=== PATIENT | female | born 1955 | race Caucasian/White ===

== ENCOUNTER 2024-11-05 14:35 | Outpatient (CLI) | payer OTHER, MEDICAID, SELFPAY ==
--- NOTE | ~2024-11-05 | XR_ITS ---
XR lumbar spine 2-3V 11/05/2024 15:11 Indication: Radiculopathy Procedure: 3 views lumbar spine Comparison: No prior studies for comparison. Findings: There is levoscoliosis centered at L3. There is disc narrowing at all lumbar levels. No acute fracture, subluxation or dislocation. There is advanced multilevel facet hypertrophy with grade 1 degenerative spondylolisthesis at L4- 5. There are cholecystectomy clips. Impression: 1: Severe lumbar spondylosis with levoscoliosis. Reviewed, dictated and finalized at location A. Impression: 1: Severe lumbar spondylosis with levoscoliosis.
--- NOTE | ~2024-11-05 | XR_ITS ---
XR thoracic spine 3V 11/05/2024 15:11 Indication: Radiculopathy. Procedure: 3 views thoracic spine Comparison: No prior studies for comparison. Findings: There is moderate multilevel thoracic spondylosis. There is dextroscoliosis. There are cholecystectomy clips. There are changes in the left upper abdomen suggesting gastric bypass surgery. No acute fracture, subluxation or dislocation. No paraspinal soft tissue abnormality. Impression: 1: Moderate thoracic spondylosis with dextrocurvature of the thoracic spine. Reviewed, dictated and finalized at location A. Impression: 1: Moderate thoracic spondylosis with dextrocurvature of the thoracic spine.
--- NOTE | ~2024-11-05 | XR_ITS ---
EXAM/ PROCEDURE: [id number] - 11/05/2024 15:00 CDT HISTORY: 69 years old Female with RADICULOPATHY-CER, LUMB, THOR REGION COMPARISON: None available TECHNIQUE: Three view(s) FINDINGS/ IMPRESSION: There are no fractures or dislocations.Multilevel degenerative changes are seen. Visualized portion of lungs are clear. Intact cervical fusion hardware. Reviewed, dictated and finalized at location A.
--- OUTSIDE RECORDS SUMMARY | 2024-11-05 15:02 | XMS_ITS | Clinical Summary ---
Author Organization [facility] Address [address] [place] [address] Care Team Providers Care Swatch Paster Name Role Phone Rob Chavez MD Primary Care Provider Allergies No known active allergies Medications acetaminophen (TYLENOL) 500 mg tabletIndicati ons:Pain Take 1-2 tablets (500-1,000 mg total) by mouth every 6 (six) hours as needed for pain (1 tablet for mild to moderate pain. 2 tablets for severe pain) 30 tablet 01/18/20 22 Active losartan (COZAAR) 100 mg tablet Take 1 tablet (100 mg total) by mouth daily Active FeroSuL 325 mg (65 mg iron) tablet Take 1 tablet (325 mg total) by mouth 2 (two) times a day Active simvastatin (ZOCOR) 40 mg tablet Take 1 tablet (40 mg total) by mouth nightly Active gabapentin (NEURONTIN) 300 mg capsule Take 2 capsules (600 mg total) by mouth 3 (three) times a day Active HYDROcodone-ac etaminophen (NORCO) 10-325 mg per tablet Take 1 tablet by mouth every 4 (four) hours as needed Active mirtazapine (REMERON) 7.5 mg tablet mirtazapine 7.5 mg tablet TAKE 1 TABLET BY MOUTH EVERY DAY AT BEDTIME Active cyanocobalamin (Vitamin B-12) 1,000 mcg tablet Take 1 tablet (1,000 mcg total) by mouth 2 (two) times a day Active ergocalciferol , vitamin D2, 50 mcg (2,000 unit) tablet Take 50,000 Units by mouth once a week 09/25/19 21 Active Coreg 6.25 mg tablet Take 1 tablet (6.25 mg total) by mouth 2 (two) times a day with meals 04/03/19 25 Active rOPINIRole (REQUIP) 0.25 mg tablet TAKE 2 TABLETS PO EVERY NIGHT AT BEDTIME IF PAIN NOT CONTROLLED 60 tablet 5 10/25/19 25 Active rOPINIRole (REQUIP) 0.25 mg tablet Take one tablet one hour before bedtime for one week, then 2 tablets before bedtime if pain is not controlled. 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 Gender Identity Not on file Sexual Orientation Not on file Obstetrics History Last Filed Vital Signs Vital Sign Reading Time Taken Comments Blood Pressure 151/74 06/13/2024 10:48 AM CDT Pulse 61 06/13/2024 10:48 AM CDT Temperature 36.4 C (97.5 F) 01/17/2022 10:18 AM CDT Respiratory Rate 18 01/17/2022 10:18 AM CDT Oxygen Saturation 99% 06/13/2024 10:48 AM CDT Inhaled Oxygen Concentration - - Weight 52.6 kg (116 lb) 06/13/2024 10:48 AM CDT Height 157.5 cm (5' 2) 06/13/2024 10:48 AM CDT Body Mass Index 21.22 06/13/2024 10:48 AM CDT Plan of Treatment Health Maintenance Due Date Last Done Comments Breast Cancer Screening-Mammogram 1955 Colon Cancer Screening-Colonoscopy 1955 Depression Screening 1953 Fall Risk Assessment 1953 Hepatitis C Screening 1953 Osteoporosis Screening-Bone Density Scan 1955 Hepatitis B Screening 07/12/1971 Zoster Vaccine (1 of 2) 07/12/2003 Well Visit 65+ 2018 Covid-19 Vaccine (5 - 2023-2 5 season) 2023 11/12/2021, 03/01/2021, 06/15/2020, Additional history exists Influenza Vaccine (#1) 2024 , 02/01/2021, 02/04/2020, Additional history exists DTaP/Tdap/Td Vaccine (2 - Td or Tdap) 06/09/2031 06/08/2021 Pneumococcal vaccine 65+ Completed 022, 02/04/2020, 01/02/2015 Insurance MEDICARE [facility] MEDICARE IDPA IDPA Care Teams Swatch Paster Relationship Specialty Start Date End Date Rob Chavez MD [address] [place] [id number] PCP - General Gastroenterology 03/08/24
--- OUTSIDE RECORDS SUMMARY | 2024-11-05 15:02 | XMS_ITS | Clinical Summary ---
Author Organization [facility] Address [address] [facility] [place] [address] Care Team Providers Care Green Marketing Analyst Name Role Phone Deep Morris MD Unavailable Rob Chavez MD Primary Care Provider [phone] Med Morel MD Unavailable [phone] Source Comments [facility],non-owned Affiliates and Associated Physician Practices is amultiple site organization consisting of ambulatory clinics and hospital sitesin [place], [place], [place] and [place]. This disclosure is being madepursuant to the Care Everywhere program and may not contain all information available regarding this patient. Last updated 17.[facility] Allergies No known active allergies Medications * Be aware that medications may not be up to date on this document. Alwaysverify current medications with the patient. simvastatin (ZOCOR) 40 MG tablet Take 1 (one) tablet by mouth at bedtime Active losartan (COZAAR) 100 MG tablet Take 1 (one) tablet by mouth once daily Active linaCLOtide (Linzess) 145 MCG capsule Take 2 (two) capsules by mouth daily before breakfast Take on an empty stomach at least 30 minutes prior to first meal of the day. Active gabapentin (NEURONTIN) 600 MG tablet Take 0.5 (one-half) tablet by mouth 3 times daily Active omeprazole (PRILOSEC) 20 MG capsule Take 1 (one) capsule by mouth daily before breakfast Active metoprolol succinate XL 24hr (TOPROL XL) 25 MG tablet TK 1 T PO QD 0 01/26/20 17 Active vitamin D, ergocalciferol, (DRISDOL) 60728 UNITS capsuleIndications: Cervicalgia,Neural foraminal stenosis of cervical spine,DDD (degenerative disc disease), cervical,S/P cervical spinal fusion,Aftercare following surgery of the musculoskeletal system every 7 days ON Fridays04/28/19 18 Active ferrous sulfate 325 (65 FE) MG tablet Take 1 (one) tablet by mouth daily with breakfast Active umeclidinium-vilant leanne (Anoro Ellipta) 62.5-25 MCG/ACT inhaler INHALE 1 PUFF BY MOUTH EVERY DAY DIRECTED Active cyanocobalamin (Vitamin B-12) 1000 MCG tablet Take 1 (one) tablet by mouth 2 times daily, before breakfast and supper 01/22/20 22 Active fluticasone propionate (Flonase Allergy Relief) 50 MCG/ACT nasal spray [place] 1 spray every day by intranasal route. 09/23/19 23 Active multivitamin daily tablet Take 1 (one) tablet by mouth daily with food Active mirtazapine (Remeron) 15 MG tablet Take 1 (one) tablet by mouth at bedtime Active HYDROcodone-acetami nophen ([place]) 10-325 MG tabletIndications:S /P lumbar laminectomy Take 2 (two) tablets by mouth every 4 hours as needed 12 tablet 11/23/19 23 Active dexAMETHasone (Decadron) 1 MG tablet Take 4 (four) tablets by mouth 3 times daily for 3 days, THEN 2 (two) tablets 3 times daily for 2 days, THEN 2 (two) tablets 2 times daily for 2 days, THEN 1 (one) tablet 2 times daily for 2 days, THEN 1 (one) tablet once daily for 2 days. 62 tablet 01/25/20 23 Active tiZANidine (Zanaflex) 4 MG tablet Take 1 (one) tablet by mouth every 8 hours as needed for Muscle Spasms (right foot stiffness) 30 tablet 1 01/25/20 23 Active Additional Information Patient not taking.Reported on 04/11/2023 Active Problems Problem Noted Date Diagnosed Date Chronic bilateral low back pain with bilateral s ciatica 11/17/2022 Cervicalgia 04/28/2022 S/P cervical spinal fusion 12/08/2016 Neural foraminal stenosis of cervical spine 11/19 Foraminal stenosis of lumbar region 11/04/2011 Family History Medical History Relation Name Comments Arthritis - Osteo Brother 1 COPD - Chronic Obstructive Pulmonary Disease Brother 1 Cancer Brother 1 Diabetes - Type 1 Brother 1 High Cholesterol Brother 1 Hypertension Brother 1 Other Brother 1 Heart Failure Alzheimer's Disease Father Arthritis - Osteo Father Hypertension Father Other Father Heart Failure,H ypercholesterolemia, Stroke Arthritis - Osteo Mother CAD (Coronary Artery Disease) Mother Diabetes - Type 2 Mother Hypertension Mother Migraine Mother Other Mother Heart Failure, Hypercholesterolemia Arthritis - Rheumatoid Sister High Cholesterol Sister Hypertension Sister Migraine Sister Relation Name Status Comments Brother 1 Brother 2 Alive Brother 3 Father Mother Sister Alive Social History Tobacco Use Types Packs/Day Years Used Date Smoking Tobacco: Former Cigarettes 0.5 58.6 1 965 - 11/06/2022 Smokeless Tobacco: Never Tobacco Cessation:Ready to Q uit: Not Asked; Counseling Given: Not Answered Alcohol Use Standard Drinks/Week Comments Not Currently 0 (1 standard drink = 0.6 oz pur e alcohol) AUDIT-C Answer Date Recorded Q1: How often do you have a drink containing alcohol? Never 11/17/2022 Q2: How many drinks containi ng alcohol do you have on a typical day when you are drinking? Patient does not drink Q3: How often do you have si x or more drinks on one occasion? Never 11/17/2022 Overall Financial Resource Strain (CARDIA) Answe r Date Recorded How hard is it for you to pa y for the very basics like food, housing, medical care, and heating? Not hard at all 11/20/2022 [facility] - Occupational Stress Questionnaire Answer Date Recorded Do you feel stress - tense, restless, nervous, or anxious, or unable to sleep at night because your mind is troubled all the time - these days? Not at all 11/20/2022 Hunger Vital Sign Answer Date Recorded Within the past 12 months, y ou worried that your food would run out before you got the money to buy more. Never true 11/21/19 23 Within the past 12 months, t he food you bought just didn't last and you didn't have money to get more. Never true 11/20/2022 PRAPARE - Transportation Answer Date Re corded In the past 12 months, has l ack of transportation kept you from medical appointments or from getting medications? No 05/2022 In the past 12 months, has l ack of transportation kept you from meetings, work, or from getting things needed for daily living? No 11/20/2022 Housing Stability Vital Sign Answer Elvis e Recorded In the last 12 months, was t here a time when you were not able to pay the mortgage or rent on time? No 11/20/2022 In the last 12 months, how many places have you lived? 1 11/20/2022 In the last 12 months, was t here a time when you did not have a steady place to sleep or slept in a skilled nursing (including now)? 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 Gender Identity Not on file Sexual Orientation Not on file Occupation Industry Job Start Date Job End Date Retired Not on file Not on file Not on file Last Filed Vital Signs Vital Sign Reading Time Taken Comments Blood Pressure 130/80 02/19/2023 9:04 PM RESOURCE CONSERVATIONIST Pulse 70 02/19/2023 9:04 PM RESOURCE CONSERVATIONIST Temperature 37 C (98.6 F) 02/19/2023 9:04 PM RESOURCE CONSERVATIONIST Respiratory Rate 16 02/19/2023 9:04 PM RESOURCE CONSERVATIONIST Oxygen Saturation 99% 02/19/2023 9:04 PM RESOURCE CONSERVATIONIST Inhaled Oxygen Concentration - - Weight 59.9 kg (132 lb) 04/11/2023 12:00 PM RESOURCE CONSERVATIONIST Height 154.9 cm (5' 1) 04/11/2023 12:00 PM RESOURCE CONSERVATIONIST Body Mass Index 24.94 04/11/2023 12:00 PM RESOURCE CONSERVATIONIST Plan of Treatment Health Maintenance Due Date Last Done Comments BONE DENSITY TESTING 1955 COLOGUARD (AGES 45-75) - COLON CA SCREENING 1953 COLON MONITORING 1953 COLONOSCOPY - COLON CA SCREENING 1953 CT COLONOGRAPHY - COLON CA SCREENING 1953 Colorectal Cancer Screening 1953 FIT - COLON CA SCREENING 1953 FLEX SIG - COLON CA SCREENING 1953 MAMMOGRAM 1955 MEDICARE AWV 12 MONTHS 1953 HEPATITIS C SCREENING 07/07/1971 DTAP/TDAP/TD VACCINES (1 - Tdap) 1972 LUNG CANCER SCREENING 07/12/2003 PNEUMOCOCCAL VACCINE 50+ (1 of 1 - PCV) 07/12/2003 ZOSTER VACCINE (1 of 2) 07/12/2003 COVID-19 VACCINE (3 - season) 2023 06/15/2020, 05/16/2020 DEPRESSION SCREENING 03/20/2024 INFLUENZA VACCINE (#1) 2024 , 12/11/2018, 12/01/2016, Additional history exists Respiratory Syncytial Virus (RSV) Vaccine Pt: or over 60 yrs (1 - 1-dose 75+ series) 2028 HEPATITIS B VACCINE Aged Out No longe r eligible based on patient's age to complete this topic HIB VACCINE Aged Out No longer eligi ble based on patient's age to complete this topic HPV VACCINE Aged Out No longer eligi ble based on patient's age to complete this topic MENINGOCOCCAL (Group B) VACCINE SHARED DECISION-MAKING Aged Out No longer eligible based on patient's age to complete this topic MENINGOCOCCAL GROUPS A/C/Y/W VACCINE Aged Out No longer eligible based on patient's age to complete this topic Medical Devices Implanted Type Area Iuss Analyst Device Identifier Shelf Expiration Date Model / Serial / Lot Spcr Spnl [id number] [facility] Crv Intbdy Implanted:Qty: 1 on 12/08/2016 by Moisés Londono MD at [facility] Spine Cervical [employer] 384.308 / / Screw 3.6mm 16mm Spne Slfdrl [place] Bone Implanted:Qty: 2 on 12/08/2016 by Moisés Londono MD at [facility] Spine Cervical [employer] 184.156 / / Sub Bngf Progenix Dbm Bvn Clgn Ptty 1ml Implanted:Qty: 1 on 12/08/2016 by Moisés Londono MD at [facility] Spine Cervical Spinal [employer] [id number] / / [id number] Sub Bngf Vitoss Btcp Clgn Void Rusty Fm Pk Implanted:Qty: 1 on 04/28/2022 by Moisés Londono MD at [facility] N/A: Spine Cervical [employer] 09/15/2023 [id number] / / [id number] Description:c4-5 Spcr Spnl 16x9mm Coalition 7d Lrdtc 14mm Implanted:Qty: 1 on 04/28/2022 by Moisés Londono MD at [facility] N/A: Spine Cervical [employer] 384.309 / / Screw 3.6mm 16mm Slfdrl [place] Spne Bone Implanted:Qty: 2 on 04/28/2022 by Moisés Londono MD at [facility] N/A: Spine Cervical [employer] 184.156 / / Insurance MEDICAID - [place] MEDICARE Advance Directives * Full Code (Latest Code Status on File) Date Activated Date Inactivated Comments 11/17/2022 11:44 AM 11/22/2022 8:12 PM * Full Code Date Activated Date Inactivated Comments 04/28/2022 4:26 PM 04/30/2022 3:51 PM * Full Code Date Activated Date Inactivated Comments 12/08/2016 6:02 PM 12/09/2016 2:44 PM Care Teams Green Marketing Analyst Relationship Specialty Start Date End Date Rob Chavez MD [address] [place], [place] [id number] PCP - General Gastroenterology 03/22/22 Deep Morris MD Neurological Surgery 11/02/11 Med Morel MD [address] [place] [address] Cardiology 04/08/22
--- OUTSIDE RECORDS SUMMARY | 2024-11-05 15:02 | XMS_ITS | Encounter Summary ---
Author Organization [facility] Address [address] [place] [address] Care Team Providers Care Rock Climbing Instructor Name Role Phone Deep Morris MD Unavailable [phone] Kip Camacho Primary Care Provider + Rob Chavez MD Primary Care Provider [phone] Med Morel MD Unavailable [phone] Encounter Details Date Type Department Care Team (Late st Contact Info) Description 05/23/2017 [facility]PT Unknown, Provider Social History Tobacco Use Types Packs/Day Years Used Date Smoking Tobacco: Former Cigarettes Q uit: 04/27/2016 Smokeless Tobacco: Never Alcohol Use Standard Drinks/Week Comments No 0 (1 standard drink = 0.6 oz pur e alcohol) Comments No Sex and Gender Information Value Date Recorded Sex Assigned at Not on file 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 Gender Identity Not on file Sexual Orientation Not on file Occupation Industry Job Start Date Job End Date Retired Not on file Not on file Not on file documented as of this encounter Plan of Treatment Not on file documented as of this encounter Visit Diagnoses Not on filedocumented in this encounter Care Teams Rock Climbing Instructor Relationship Specialty Start Date End Date Kip Camacho PA [facility] [place] [address] PCP - General Physician Promotions Assistant 11/17/16 03/21/22 Rob Chavez MD [address] [place], [place] [id number] PCP - General Gastroenterology 03/22/22 Deep Morris MD Neurological Surgery 11/02/11 Med Morel MD [address] [place] [address] Cardiology 04/08/22 documented as of this encounter
--- OUTSIDE RECORDS SUMMARY | 2024-11-05 15:02 | XMS_ITS | Encounter Summary ---
Author Organization [facility] Address [address] [place] [address] Care Team Providers Care Registered Nurse Obstetrics Name Role Phone Deep Morris MD Unavailable [phone] Kip Camacho Primary Care Provider + Rob Chavez MD Primary Care Provider [phone] Med Morel MD Unavailable [phone] Encounter Details Date Type Department Care Team (Late st Contact Info) Description 06/02/2017 [facility] Unknown, Provider Social History Tobacco Use Types Packs/Day Years Used Date Smoking Tobacco: Former Cigarettes Q uit: 04/27/2016 Smokeless Tobacco: Never Alcohol Use Standard Drinks/Week Comments No 0 (1 standard drink = 0.6 oz pur e alcohol) Comments No Sex and Gender Information Value Date Recorded Sex Assigned at Not on file 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 Gender Identity Not on file Sexual Orientation Not on file Occupation Industry Job Start Date Job End Date Retired Not on file Not on file Not on file documented as of this encounter Plan of Treatment Not on file documented as of this encounter Visit Diagnoses Not on filedocumented in this encounter Care Teams Registered Nurse Obstetrics Relationship Specialty Start Date End Date Kip Camacho PA [facility] [place] [address] PCP - General Physician Personal Caregiver 11/17/16 03/21/22 Rob Chavez MD [address] [place], [place] [id number] PCP - General Gastroenterology 03/22/22 Deep Morris MD Neurological Surgery 11/02/11 Med Morel MD [address] [place] [address] Cardiology 04/08/22 documented as of this encounter
--- OUTSIDE RECORDS SUMMARY | 2024-11-05 15:02 | XMS_ITS | Clinical Summary ---
Author Organization [facility] Address [address] [address] Phone Care Team Providers Care Assistant Press Operator Name Role Phone Unavailable Primary Care Provider Unavailabl e Social History Tobacco Use Types Packs/Day Years Used Date Smoking Tobacco: Never Assessed Comments Unknown Sex and Gender Information Value Date Recorded Sex Assigned at Not on file Legal Sex Female 5:29 AM INTENSIVE CARE ANAESTHETIST Gender Identity Not on file Sexual Orientation Not on file Plan of Treatment Health Maintenance Due Date Last Done Comments DTAP/TDAP/TD VACCINES (1 - Tdap) 1972 BREAST CANCER SCREENING 1993 COLORECTAL SCREENING 1998 Colorectal Cancer Screening 1998 FIT-DNA Q 3 years 1998 FIT/FOBT Q 1 year 1998 Flex Sig/CT Colonography Q 5 years 1998 PNEUMOCOCCAL VACCINE 50+ YEARS (1 of 1 - PCV) 07/12/19 04 ZOSTER VACCINE (1 of 2) 07/12/2003 OSTEOPOROSIS SCREENING 2018 INFLUENZA VACCINE (#1) 2024 RSV VACCINE (60+ or ) (1 - 1-dose 75+ series) 2028 Insurance MEDICARE PART A [place] B [place]ID [place]
--- OUTSIDE RECORDS SUMMARY | 2024-11-05 15:02 | XMS_ITS | Encounter Summary ---
Author Organization [employer] Address [address] [place] [address] Care Team Providers Care Nuclear Operations Specialist Name Role Phone Unavailable Primary Care Provider Unavailabl e Encounter Details Date Type Department Care Team (Late st Contact Info) Description 03/05/2007 Outpatient Historical HIS INPATIENT IN BED Rosas Koo MD [address] [place] [address] Hernia Social History Tobacco Use Types Packs/Day Years Used Date Smoking Tobacco: Never Assessed Comments Unknown Sex and Gender Information Value Date Recorded Sex Assigned at Not on file Legal Sex Female 5:29 AM ENVIRONMENTAL ATTORNEY Gender Identity Not on file Sexual Orientation Not on file documented as of this encounter Plan of Treatment Not on file documented as of this encounter Procedures Procedure Name Priority Date/Time Associated Diagnosis Comments CBC WITH DIFFERENTIAL Routine 03/11/2007 5:30 AM ENVIRONMENTAL ATTORNEY CBC WITH DIFFERENTIAL Routine 03/11/2007 5:30 AM ENVIRONMENTAL ATTORNEY CBC WITH DIFFERENTIAL Routine 03/11/2007 5:30 AM ENVIRONMENTAL ATTORNEY CBC WITH DIFFERENTIAL Routine 03/10/2007 7:40 AM ENVIRONMENTAL ATTORNEY CBC WITH DIFFERENTIAL Routine 03/10/2007 7:40 AM ENVIRONMENTAL ATTORNEY CBC WITH DIFFERENTIAL Routine 03/10/2007 5:15 AM ENVIRONMENTAL ATTORNEY CBC WITH DIFFERENTIAL Routine 03/10/2007 5:15 AM ENVIRONMENTAL ATTORNEY CBC WITH DIFFERENTIAL Routine 03/09/2007 6:30 AM ENVIRONMENTAL ATTORNEY CBC WITH DIFFERENTIAL Routine 03/09/2007 6:30 AM ENVIRONMENTAL ATTORNEY BASIC METABOLIC PANEL Routine 03/09/2007 6:30 AM ENVIRONMENTAL ATTORNEY CBC WITH DIFFERENTIAL Routine 03/05/2007 12:54 PM ENVIRONMENTAL ATTORNEY CBC WITH DIFFERENTIAL Routine 03/05/2007 12:54 PM ENVIRONMENTAL ATTORNEY BASIC METABOLIC PANEL Routine 03/05/2007 12:54 PM ENVIRONMENTAL ATTORNEY documented in this encounter Results * (ABNORMAL) CBC WITH DIFFERENTIAL (03/11/2007 5:30 AM ENVIRONMENTAL ATTORNEY) Pathologist [facility] NEUTROPHIL ABSOLUTE 3.62 1.90 - 7.00 K/uL INTERFACE SYSTEM LYMPHOCYTE ABSOLUTE 1.62 0.70 - 4.50 K/uL INTERFACE SYSTEM MONOCYTE ABSOLUTE 0.05(L) 0.10 - 1.30 K/uL INTERFACE SYSTEM EOSINOPHIL ABSOLUTE 0.11 0.00 - 0.70 K/uL INTERFACE SYSTEM BASOPHILS ABSOLUTE 0.00 0.00 - 0.20 K/uL INTERFACE SYSTEM NEUTROPHILS, SEG 66 45 - 70 % INT ERFACE SYSTEM BANDS 1 0 - 5 % INTERFACE SYSTEM LYMPHOCYTES 30 16 - 45 % INTERFAC E SYSTEM MONOCYTES 1(L) 3 - 13 % INTERFACE SYSTEM EOSINOPHILS 2 0 - 7 % INTERFAC E SYSTEM BASOPHILS 0 0 - 2 % INTERFACE SYSTEM PLATELET EST. Normal Normal INTERF SAVITA SYSTEM RBC MORPHOLOGY Normal Normal INTER FACE SYSTEM 03/11/2007 5:30 AM ENVIRONMENTAL ATTORNEY Jez Caballero MD HEMATOLOGY ORDERABLES Edit ed Performing Organization Address [facility] Phone Number INTERFACE SYSTEM Refer to clinic/hospital department * CBC WITH DIFFERENTIAL (03/11/2007 5:30 AM ENVIRONMENTAL ATTORNEY) Pathologist [facility] NRBC 0 <=0 /100 WBC INTERFACE SYSTEM 03/11/2007 5:30 AM ENVIRONMENTAL ATTORNEY Jez Caballero MD HEMATOLOGY ORDERABLES Edit ed Performing Organization Address [facility] de Phone Number INTERFACE SYSTEM Refer to clinic/hospital department * (ABNORMAL) CBC WITH DIFFERENTIAL (03/11/2007 5:30 AM ENVIRONMENTAL ATTORNEY) WBC 5.4 4.0 - 9.8 K/uL INTERFACE SYSTEM RBC 3.48(L) 3.90 - 4.90 M/uL INTERFACE SYSTEM HEMOGLOBIN 10.4(L) 11.8 - 14.8 g/dL INTERFACE SYSTEM HEMATOCRIT 31.8(L) 35.5 - 44.0 % INTERFACE SYSTEM MCV 91.4 82.0 - 99.0 fL INTERFACE SYSTEM MCH 29.9 27.2 - 32.6 pg INTERFACE SYSTEM MCHC 32.7 31.5 - 35.5 % INTERFACE SYSTEM RDW 13.5 11.5 - 14.5 % INTERFACE SYSTEM RDW-STDEV 44.5 37.1 - 48.7 fL INTERFACE SYSTEM PLATELETS 172 140 - 350 K/uL INTERFACE SYSTEM MPV 11.3 9.3 - 12.4 fL INTERFACE SYSTEM 03/11/2007 5:30 AM ENVIRONMENTAL ATTORNEY Jez Caballero MD HEMATOLOGY ORDERABLES Edit ed Performing Organization Address [facility] Phone Number INTERFACE SYSTEM Refer to clinic/hospital department * (ABNORMAL) CBC WITH DIFFERENTIAL (03/10/2007 7:40 AM ENVIRONMENTAL ATTORNEY) NEUTROPHILS 73(H) 45 - 70 % INTERFAC E SYSTEM LYMPHOCYTES 19 16 - 45 % INTERFAC E SYSTEM MONOCYTES 5 3 - 13 % INTERFACE SYSTEM EOSINOPHILS 3 0 - 7 % INTERFAC E SYSTEM BASOPHILS 0 0 - 2 % INTERFACE SYSTEM NEUTROPHIL ABSOLUTE 4.30 1.90 - 7.00 K/uL INTERFACE SYSTEM LYMPHOCYTE ABSOLUTE 1.11 0.70 - 4.50 K/uL INTERFACE SYSTEM MONOCYTE ABSOLUTE 0.32 0.10 - 1.30 K/uL INTERFACE SYSTEM EOSINOPHIL ABSOLUTE 0.16 0.00 - 0.70 K/uL INTERFACE SYSTEM BASOPHILS ABSOLUTE 0.00 0.00 - 0.20 K/uL INTERFACE SYSTEM 03/10/2007 7:40 AM ENVIRONMENTAL ATTORNEY Jez Caballero MD HEMATOLOGY ORDERABLES Edit ed Performing Organization Address [facility] Phone Number INTERFACE SYSTEM Refer to clinic/hospital department * (ABNORMAL) CBC WITH DIFFERENTIAL (03/10/2007 7:40 AM ENVIRONMENTAL ATTORNEY) WBC 5.9 4.0 - 9.8 K/uL INTERFACE SYSTEM RBC 2.65(L) 3.90 - 4.90 M/uL INTERFACE SYSTEM HEMOGLOBIN 8.1(L) 11.8 - 14.8 g/dL INTERFACE SYSTEM HEMATOCRIT 24.1(L) 35.5 - 44.0 % INTERFACE SYSTEM MCV 90.9 82.0 - 99.0 fL INTERFACE SYSTEM MCH 30.6 27.2 - 32.6 pg INTERFACE SYSTEM MCHC 33.6 31.5 - 35.5 % INTERFACE SYSTEM RDW 12.8 11.5 - 14.5 % INTERFACE SYSTEM RDW-STDEV 42.3 37.1 - 48.7 fL INTERFACE SYSTEM PLATELETS 171 140 - 350 K/uL INTERFACE SYSTEM MPV 10.7 9.3 - 12.4 fL INTERFACE SYSTEM 03/10/2007 7:40 AM ENVIRONMENTAL ATTORNEY Jez Caballero MD HEMATOLOGY ORDERABLES Edit ed Performing Organization Address [facility] Phone Number INTERFACE SYSTEM Refer to clinic/hospital department * (ABNORMAL) CBC WITH DIFFERENTIAL (03/10/2007 5:15 AM ENVIRONMENTAL ATTORNEY) NEUTROPHILS 74(H) 45 - 70 % INTERFAC E SYSTEM LYMPHOCYTES 16 16 - 45 % INTERFAC E SYSTEM MONOCYTES 7 3 - 13 % INTERFACE SYSTEM EOSINOPHILS 2 0 - 7 % INTERFAC E SYSTEM BASOPHILS 0 0 - 2 % INTERFACE SYSTEM NEUTROPHIL ABSOLUTE 4.06 1.90 - 7.00 K/uL INTERFACE SYSTEM LYMPHOCYTE ABSOLUTE 0.89 0.70 - 4.50 K/uL INTERFACE SYSTEM MONOCYTE ABSOLUTE 0.37 0.10 - 1.30 K/uL INTERFACE SYSTEM EOSINOPHIL ABSOLUTE 0.13 0.00 - 0.70 K/uL INTERFACE SYSTEM BASOPHILS ABSOLUTE 0.01 0.00 - 0.20 K/uL INTERFACE SYSTEM 03/10/2007 5:15 AM ENVIRONMENTAL ATTORNEY Rosas Koo MD HEMATOLOGY ORDERABLES Ed ited Performing Organization Address [facility] Phone Number INTERFACE SYSTEM Refer to clinic/hospital department * (ABNORMAL) CBC WITH DIFFERENTIAL (03/10/2007 5:15 AM ENVIRONMENTAL ATTORNEY) WBC 5.5 4.0 - 9.8 K/uL INTERFACE SYSTEM RBC 2.72(L) 3.90 - 4.90 M/uL INTERFACE SYSTEM HEMOGLOBIN 8.3(L) 11.8 - 14.8 g/dL INTERFACE SYSTEM HEMATOCRIT 24.8(L) 35.5 - 44.0 % INTERFACE SYSTEM MCV 91.2 82.0 - 99.0 fL INTERFACE SYSTEM MCH 30.5 27.2 - 32.6 pg INTERFACE SYSTEM MCHC 33.5 31.5 - 35.5 % INTERFACE SYSTEM RDW 12.7 11.5 - 14.5 % INTERFACE SYSTEM RDW-STDEV 42.0 37.1 - 48.7 fL INTERFACE SYSTEM PLATELETS 200 140 - 350 K/uL INTERFACE SYSTEM MPV 11.4 9.3 - 12.4 fL INTERFACE SYSTEM 03/10/2007 5:15 AM ENVIRONMENTAL ATTORNEY Rosas Koo MD HEMATOLOGY ORDERABLES Ed ited Performing Organization Address [facility] Phone Number INTERFACE SYSTEM Refer to clinic/hospital department * (ABNORMAL) CBC WITH DIFFERENTIAL (03/09/2007 6:30 AM ENVIRONMENTAL ATTORNEY) [facility] NEUTROPHILS 81(H) 45 - 70 % INTERFAC E SYSTEM LYMPHOCYTES 12(L) 16 - 45 % INTERFAC E SYSTEM MONOCYTES 6 3 - 13 % INTERFACE SYSTEM EOSINOPHILS 2 0 - 7 % INTERFAC E SYSTEM BASOPHILS 0 0 - 2 % INTERFACE SYSTEM NEUTROPHIL ABSOLUTE 5.49 1.90 - 7.00 K/uL INTERFACE SYSTEM LYMPHOCYTE ABSOLUTE 0.79 0.70 - 4.50 K/uL INTERFACE SYSTEM MONOCYTE ABSOLUTE 0.37 0.10 - 1.30 K/uL INTERFACE SYSTEM EOSINOPHIL ABSOLUTE 0.11 0.00 - 0.70 K/uL INTERFACE SYSTEM BASOPHILS ABSOLUTE 0.00 0.00 - 0.20 K/uL INTERFACE SYSTEM 03/09/2007 6:30 AM ENVIRONMENTAL ATTORNEY Rosas Koo MD HEMATOLOGY ORDERABLES Ed ited Performing Organization Address [facility] Phone Number INTERFACE SYSTEM Refer to clinic/hospital department * (ABNORMAL) CBC WITH DIFFERENTIAL (03/09/2007 6:30 AM ENVIRONMENTAL ATTORNEY) WBC 6.8 4.0 - 9.8 K/uL INTERFACE SYSTEM RBC 3.28(L) 3.90 - 4.90 M/uL INTERFACE SYSTEM HEMOGLOBIN 10.1(L) 11.8 - 14.8 g/dL INTERFACE SYSTEM HEMATOCRIT 30.6(L) 35.5 - 44.0 % INTERFACE SYSTEM MCV 93.3 82.0 - 99.0 fL INTERFACE SYSTEM MCH 30.8 27.2 - 32.6 pg INTERFACE SYSTEM MCHC 33.0 31.5 - 35.5 % INTERFACE SYSTEM RDW 12.6 11.5 - 14.5 % INTERFACE SYSTEM RDW-STDEV 42.9 37.1 - 48.7 fL INTERFACE SYSTEM PLATELETS 191 140 - 350 K/uL INTERFACE SYSTEM MPV 10.9 9.3 - 12.4 fL INTERFACE SYSTEM 03/09/2007 6:30 AM ENVIRONMENTAL ATTORNEY us Rosas Koo MD HEMATOLOGY ORDERABLES Ed ited INTERFACE SYSTEM Refer to clinic/hospital department * (ABNORMAL) BASIC METABOLIC PANEL (03/09/2007 6:30 AM ENVIRONMENTAL ATTORNEY) GLUCOSE 113(H) 65 - 99 mg/dL INTERFACE SYSTEM CREATININE 0.60 0.51 - 0.95 mg/dL INTERFACE SYSTEM CALCIUM 8.3(L) 8.6 - 10.2 mg/dL INTERFACE SYSTEM BUN 10 6 - 20 mg/dL INTERFACE SYSTEM SODIUM 136 135 - 145 mmol/L INTERFACE SYSTEM POTASSIUM 4.1 3.5 - 4.9 mmol/L INTERFACE SYSTEM CHLORIDE 102 96 - 108 mmol/L INTERFACE SYSTEM CO2 27 22 - 30 mmol/L INTERFACE SYSTEM GFR, >60 >=60 mL/min/1. 7 sq meter INTERFACE SYSTEM GFR >60 >=60 mL/min/1. 7 sq meter INTERFACE SYSTEM Comment: Estimated GFR rate interpretative information for both Americans and non- Americans is available on the [facility] Intr[facility] at: [email or web address] Select: Lab Policies and Procedures Select: Reference Ranges - GFR 03/09/2007 6:30 AM ENVIRONMENTAL ATTORNEY Rosas Koo MD CHEMISTRY ORDERABLES Marlon vijay Performing Organization Address City/[facility]/ZIP Co de Phone Number INTERFACE SYSTEM Refer to clinic/hospital department * CBC WITH DIFFERENTIAL (03/05/2007 12:54 PM ENVIRONMENTAL ATTORNEY) NEUTROPHIL ABSOLUTE 4.58 1.90 - 7.00 K/uL INTERFACE SYSTEM LYMPHOCYTE ABSOLUTE 3.87 0.70 - 4.50 K/uL INTERFACE SYSTEM MONOCYTE ABSOLUTE 0.26 0.10 - 1.30 K/uL INTERFACE SYSTEM EOSINOPHIL ABSOLUTE 0.09 0.00 - 0.70 K/uL INTERFACE SYSTEM BASOPHILS ABSOLUTE 0.00 0.00 - 0.20 K/uL INTERFACE SYSTEM NEUTROPHILS, SEG 52 45 - 70 % INT ERFACE SYSTEM LYMPHOCYTES 44 16 - 45 % INTERFAC E SYSTEM MONOCYTES 3 3 - 13 % INTERFACE SYSTEM EOSINOPHILS 1 0 - 7 % INTERFAC E SYSTEM BASOPHILS 0 0 - 2 % INTERFACE SYSTEM PLATELET EST. Normal Normal INTERF SAVITA SYSTEM POIKILOCYTES Slight INTERFA CE SYSTEM COMMENT, DIFFERENTIAL INTERFACE SYSTEM Comment: Large platelets seen REVIEWED ON SMEAR Plt OK by Smear Rev. INTERFACE SYSTEM 03/05/2007 12:5 4 PM ENVIRONMENTAL ATTORNEY Rosas Koo MD HEMATOLOGY ORDERABLES Ed ited Performing Organization Address [facility] de Phone Number INTERFACE SYSTEM Refer to clinic/hospital department * CBC WITH DIFFERENTIAL (03/05/2007 12:54 PM ENVIRONMENTAL ATTORNEY) WBC 8.8 4.0 - 9.8 K/uL INTERFACE SYSTEM RBC 3.95 3.90 - 4.90 M/uL INTERFACE SYSTEM HEMOGLOBIN 12.1 11.8 - 14.8 g/dL INTERFACE SYSTEM HEMATOCRIT 35.9 35.5 - 44.0 % INTERFACE SYSTEM MCV 90.9 82.0 - 99.0 fL INTERFACE SYSTEM MCH 30.6 27.2 - 32.6 pg INTERFACE SYSTEM MCHC 33.7 31.5 - 35.5 % INTERFACE SYSTEM RDW 12.6 11.5 - 14.5 % INTERFACE SYSTEM RDW-STDEV 41.5 37.1 - 48.7 fL INTERFACE SYSTEM MPV 11.7 9.3 - 12.4 fL INTERFACE SYSTEM PLATELETS 256 140 - 350 K/uL INTERFACE SYSTEM 03/05/2007 12:5 4 PM ENVIRONMENTAL ATTORNEY Rosas Koo MD HEMATOLOGY ORDERABLES Ed ited Performing Organization Address [facility] Phone Number INTERFACE SYSTEM Refer to clinic/hospital department * (ABNORMAL) BASIC METABOLIC PANEL (03/05/2007 12:54 PM ENVIRONMENTAL ATTORNEY) GLUCOSE 97 65 - 99 mg/dL INTERFACE SYSTEM CREATININE 0.48(L) 0.51 - 0.95 mg/dL INTERFACE SYSTEM CALCIUM 8.5(L) 8.6 - 10.2 mg/dL INTERFACE SYSTEM BUN 10 6 - 20 mg/dL INTERFACE SYSTEM SODIUM 138 135 - 145 mmol/L INTERFACE SYSTEM POTASSIUM 4.6 3.5 - 4.9 mmol/L INTERFACE SYSTEM CHLORIDE 104 96 - 108 mmol/L INTERFACE SYSTEM CO2 19(L) 22 - 30 mmol/L INTERFACE SYSTEM GFR, >60 >=60 mL/min/1. 7 sq meter INTERFACE SYSTEM GFR >60 >=60 mL/min/1. 7 sq meter INTERFACE SYSTEM Comment: Estimated GFR rate interpretative information for both Americans and non- Americans is available on the [facility] at: [email or web address] Select: Lab Policies and Procedures Select: Reference Ranges - GFR 03/05/2007 12:5 4 PM ENVIRONMENTAL ATTORNEY Rosas Koo MD CHEMISTRY ORDERABLES Marlon vijay Performing Organization Address [facility] de Phone Number INTERFACE SYSTEM Refer to clinic/hospital department documented in this encounter Visit Diagnoses Diagnosis Hernia of unspecified site of abdominal cavity without mention of obstruction or gangrene documented in this encounter
== END 2024-11-05 14:36 | disposition home or self-care (01) ==
PROVIDERS: PCP Emergency Medicine; Visit Provider Pain Medicine Interventional Pain Medicine
DX: F33.1 Major depressive disorder, recurrent, moderate (principal); M16.9 Osteoarthritis of hip, unspecified; F41.1 Generalized anxiety disorder; M17.9 Osteoarthritis of knee, unspecified; G89.4 Chronic pain syndrome; M25.519 Pain in unspecified shoulder; M47.24 Other spondylosis with radiculopathy, thoracic region; M47.26 Other spondylosis with radiculopathy, lumbar region
CPT/HCPCS: 72040; 72072; 72100

== ENCOUNTER 2025-01-30 12:46 | Outpatient (CLI) | payer MEDICARE, MEDICAID, SELFPAY ==
--- NOTE | ~2025-01-30 | DEXA_ITS ---
Bone Density Report Name: RYNE HOFFMAN Age: 69 Sex: Female Ethnicity: White Date of : 1955 Indication: postmenopausal; screening for osteoporosis; parental hip fracture; height loss; prior fracture; hysterectomy; Referring Provider: BAM FALK Study: Bone densitometry was performed. Exam Date: January 30, 2025 Accession number: [id number] Bone Density: Region BMD T-score Z-score Classification AP Spine(L1-L4) 0.923 -1.1 1.1 Osteopenia Femoral Neck (Left) 0.789 -0.5 1.3 Normal Total Hip (Left) 0.731 -1.7 -0.1 Osteopenia Femoral Neck (Right) 0.619 -2.1 -0.2 Osteopenia Total Hip (Right) 0.682 -2.1 -0.5 Osteopenia Total Hip Mean 0.707 -1.9 -0.3 Osteopenia World Health Organization criteria for BMD impression classify patients as: Normal (T-score at or above -1.0), Osteopenia (T-score between -1.0 and -2.5), or Osteoporosis (T-score at or below -2.5). 10-year Fracture Risk(1): Major Osteoporotic Fracture 30% Hip Fracture 16% Reported Risk Factors: [place] (), Neck BMD=0.619, BMI=20.9, previous fracture, parental fracture, smoking (1) FRAX(R) Version 3.08. Fracture probability calculated for an untreated patient. Fracture probability may be lower if the patient has received treatment. Clinical Information Provided by Patient: Has had a low trauma fracture Parent has had a hip fracture Smokes Has used the following medications: Vitamin D Has the following medical conditions: Hysterectomy Patient maximum height was 62 No regular weight bearing exercise Drinks caffeinated beverages Onset of menses at age 10 Number of children 6 Missed period for more than 6 months in a row Impression: The patient has low bone mass, based on the Right Total Hip T-score. The patient has an estimated ten-year risk of hip fracture of 16% and an estimated ten-year risk of major fracture of 30%, based on the WHO FRAX algorithm. The patient has risk factors, including: parental hip fracture, smoking, previous fracture. Discussion: BONE DENSITY IS LOW AT ONE OR MORE SKELETAL SITES. THE PATIENT'S BMD AND CLINICAL RISK FACTORS CONTRIBUTE TO THIS PATIENT'S HIGH RISK OF FRACTURE. This patient's lowest T-score is low at one or more skeletal sites. It meets the World Health Organization's (WHO) criteria for ?low bone mass? (T-score between -1.0 and -2.5). The patient's 10-year risk of hip fracture and 10 year risk of a major osteoporotic fracture as calculated by FRAX exceeds the threshold where pharmacological therapy is recommended by the National Osteoporosis Foundation (NOF). However, all treatment decisions require clinical judgment and consideration of individual patient factors, including patient preferences, comorbidities, previous drug use, risk factors not captured in the FRAX model (e.g., frailty, falls, vitamin D deficiency, increased bone turnover, interval significant decline in bone density) and possible under or overestimation of fracture risk by FRAX. The patient should follow a healthful lifestyle (good nutrition with adequate calcium and vitamin D, and appropriate weight-bearing exercise). Follow-Up: Consider a repeat BMD and Vertebral Fracture Assessment (VFA) exam in 2 years or sooner if medically necessary, to reassess this patient's status. Reported by: EVELYN on 01/30/2025 1:35:00 PM. Reviewed, dictated and finalized at location A.
--- OUTSIDE RECORDS SUMMARY | 2025-01-30 13:19 | XMS_ITS | Encounter Summary ---
Author Organization [employer] Address [address] [place] [address] Care Team Providers Care Teacher Citizenship Name Role Phone Unavailable Primary Care Provider Unavailabl e Encounter Details Date Type Department Care Team (Late st Contact Info) Description 03/05/2007 Outpatient Historical HIS INPATIENT IN BED Rosas Koo MD [address] [place] [address] Hernia Social History Tobacco Use Types Packs/Day Years Used Date Smoking Tobacco: Never Assessed Comments Unknown Sex and Gender Information Value Date Recorded Sex Assigned at Not on file Legal Sex Female 5:29 AM URBAN REDEVELOPMENT SPECIALIST Gender Identity Not on file Sexual Orientation Not on file documented as of this encounter Plan of Treatment Not on file documented as of this encounter Procedures Procedure Name Priority Date/Time Associated Diagnosis Comments CBC WITH DIFFERENTIAL Routine 03/11/2007 5:30 AM URBAN REDEVELOPMENT SPECIALIST CBC WITH DIFFERENTIAL Routine 03/11/2007 5:30 AM URBAN REDEVELOPMENT SPECIALIST CBC WITH DIFFERENTIAL Routine 03/11/2007 5:30 AM URBAN REDEVELOPMENT SPECIALIST CBC WITH DIFFERENTIAL Routine 03/10/2007 7:40 AM URBAN REDEVELOPMENT SPECIALIST CBC WITH DIFFERENTIAL Routine 03/10/2007 7:40 AM URBAN REDEVELOPMENT SPECIALIST CBC WITH DIFFERENTIAL Routine 03/10/2007 5:15 AM URBAN REDEVELOPMENT SPECIALIST CBC WITH DIFFERENTIAL Routine 03/10/2007 5:15 AM URBAN REDEVELOPMENT SPECIALIST CBC WITH DIFFERENTIAL Routine 03/09/2007 6:30 AM URBAN REDEVELOPMENT SPECIALIST CBC WITH DIFFERENTIAL Routine 03/09/2007 6:30 AM URBAN REDEVELOPMENT SPECIALIST BASIC METABOLIC PANEL Routine 03/09/2007 6:30 AM URBAN REDEVELOPMENT SPECIALIST CBC WITH DIFFERENTIAL Routine 03/05/2007 12:54 PM URBAN REDEVELOPMENT SPECIALIST CBC WITH DIFFERENTIAL Routine 03/05/2007 12:54 PM URBAN REDEVELOPMENT SPECIALIST BASIC METABOLIC PANEL Routine 03/05/2007 12:54 PM URBAN REDEVELOPMENT SPECIALIST documented in this encounter Results * (ABNORMAL) CBC WITH DIFFERENTIAL (03/11/2007 5:30 AM URBAN REDEVELOPMENT SPECIALIST) Pathologist [facility] NEUTROPHIL ABSOLUTE 3.62 1.90 - 7.00 K/uL [...] Normal INTER FACE SYSTEM 03/11/2007 5:30 AM URBAN REDEVELOPMENT SPECIALIST Jez Caballero MD HEMATOLOGY ORDERABLES Edit ed Performing Organization Address [facility] Phone Number INTERFACE SYSTEM Refer to clinic/hospital department * CBC WITH DIFFERENTIAL (03/11/2007 5:30 AM URBAN REDEVELOPMENT SPECIALIST) Pathologist [facility] NRBC 0 <=0 /100 WBC INTERFACE SYSTEM 03/11/2007 5:30 AM URBAN REDEVELOPMENT SPECIALIST Jez Caballero MD HEMATOLOGY ORDERABLES Edit ed Performing Organization Address [facility] de Phone Number INTERFACE SYSTEM Refer to clinic/hospital department * (ABNORMAL) CBC WITH DIFFERENTIAL (03/11/2007 5:30 AM URBAN REDEVELOPMENT SPECIALIST) WBC 5.4 4.0 - 9.8 K/uL INTERFACE [...] 12.4 fL INTERFACE SYSTEM 03/11/2007 5:30 AM URBAN REDEVELOPMENT SPECIALIST Jez Caballero MD HEMATOLOGY ORDERABLES Edit ed Performing Organization Address [facility] Phone Number INTERFACE SYSTEM Refer to clinic/hospital department * (ABNORMAL) CBC WITH DIFFERENTIAL (03/10/2007 7:40 AM URBAN REDEVELOPMENT SPECIALIST) NEUTROPHILS 73(H) 45 - 70 % INTERFAC [...] 0.20 K/uL INTERFACE SYSTEM 03/10/2007 7:40 AM URBAN REDEVELOPMENT SPECIALIST Jez Caballero MD HEMATOLOGY ORDERABLES Edit ed Performing Organization Address [facility] Phone Number INTERFACE SYSTEM Refer to clinic/hospital department * (ABNORMAL) CBC WITH DIFFERENTIAL (03/10/2007 7:40 AM URBAN REDEVELOPMENT SPECIALIST) WBC 5.9 4.0 - 9.8 K/uL INTERFACE [...] 12.4 fL INTERFACE SYSTEM 03/10/2007 7:40 AM URBAN REDEVELOPMENT SPECIALIST Jez Caballero MD HEMATOLOGY ORDERABLES Edit ed Performing Organization Address [facility] Phone Number INTERFACE SYSTEM Refer to clinic/hospital department * (ABNORMAL) CBC WITH DIFFERENTIAL (03/10/2007 5:15 AM URBAN REDEVELOPMENT SPECIALIST) NEUTROPHILS 74(H) 45 - 70 % INTERFAC [...] 0.20 K/uL INTERFACE SYSTEM 03/10/2007 5:15 AM URBAN REDEVELOPMENT SPECIALIST Rosas Koo MD HEMATOLOGY ORDERABLES Ed ited Performing Organization Address [facility] Phone Number INTERFACE SYSTEM Refer to clinic/hospital department * (ABNORMAL) CBC WITH DIFFERENTIAL (03/10/2007 5:15 AM URBAN REDEVELOPMENT SPECIALIST) WBC 5.5 4.0 - 9.8 K/uL INTERFACE [...] 12.4 fL INTERFACE SYSTEM 03/10/2007 5:15 AM URBAN REDEVELOPMENT SPECIALIST Rosas Koo MD HEMATOLOGY ORDERABLES Ed ited Performing Organization Address [facility] Phone Number INTERFACE SYSTEM Refer to clinic/hospital department * (ABNORMAL) CBC WITH DIFFERENTIAL (03/09/2007 6:30 AM URBAN REDEVELOPMENT SPECIALIST) [facility] NEUTROPHILS 81(H) 45 - 70 % INTERFAC [...] 0.20 K/uL INTERFACE SYSTEM 03/09/2007 6:30 AM URBAN REDEVELOPMENT SPECIALIST Rosas Koo MD HEMATOLOGY ORDERABLES Ed ited Performing Organization Address [facility] Phone Number INTERFACE SYSTEM Refer to clinic/hospital department * (ABNORMAL) CBC WITH DIFFERENTIAL (03/09/2007 6:30 AM URBAN REDEVELOPMENT SPECIALIST) WBC 6.8 4.0 - 9.8 K/uL INTERFACE [...] 12.4 fL INTERFACE SYSTEM 03/09/2007 6:30 AM URBAN REDEVELOPMENT SPECIALIST us Rosas Koo MD HEMATOLOGY ORDERABLES Ed ited INTERFACE SYSTEM Refer to clinic/hospital department * (ABNORMAL) BASIC METABOLIC PANEL (03/09/2007 6:30 AM URBAN REDEVELOPMENT SPECIALIST) GLUCOSE 113(H) 65 - 99 mg/dL INTERFACE [...] and non- Americans is available on the [facility] Intranet at: [email or web address] Select: Lab Policies and Procedures Select: Reference Ranges - GFR 03/09/2007 6:30 AM URBAN REDEVELOPMENT SPECIALIST Rosas Koo MD CHEMISTRY ORDERABLES Marlon vijay Performing Organization Address City/[facility]/ZIP Co de Phone Number INTERFACE SYSTEM Refer to clinic/hospital department * CBC WITH DIFFERENTIAL (03/05/2007 12:54 PM URBAN REDEVELOPMENT SPECIALIST) NEUTROPHIL ABSOLUTE 4.58 1.90 - 7.00 K/uL [...] Rev. INTERFACE SYSTEM 03/05/2007 12:5 4 PM URBAN REDEVELOPMENT SPECIALIST Rosas Koo MD HEMATOLOGY ORDERABLES Ed ited Performing Organization Address [facility] de Phone Number INTERFACE SYSTEM Refer to clinic/hospital department * CBC WITH DIFFERENTIAL (03/05/2007 12:54 PM URBAN REDEVELOPMENT SPECIALIST) WBC 8.8 4.0 - 9.8 K/uL INTERFACE [...] K/uL INTERFACE SYSTEM 03/05/2007 12:5 4 PM URBAN REDEVELOPMENT SPECIALIST Rosas Koo MD HEMATOLOGY ORDERABLES Ed ited Performing Organization Address [facility] Phone Number INTERFACE SYSTEM Refer to clinic/hospital department * (ABNORMAL) BASIC METABOLIC PANEL (03/05/2007 12:54 PM URBAN REDEVELOPMENT SPECIALIST) GLUCOSE 97 65 - 99 mg/dL INTERFACE [...] and non- Americans is available on the [facility] Intranet at: [email or web address] Select: Lab Policies and Procedures Select: Reference Ranges - GFR 03/05/2007 12:5 4 PM URBAN REDEVELOPMENT SPECIALIST Rosas Koo MD CHEMISTRY ORDERABLES Marlon vijay Performing Organization Address [facility] de Phone Number INTERFACE SYSTEM Refer to clinic/hospital department documented in this encounter Visit Diagnoses Diagnosis Hernia of unspecified site of abdominal cavity without mention of obstruction or gangrene documented in this encounter
--- OUTSIDE RECORDS SUMMARY | 2025-01-30 13:19 | XMS_ITS | Clinical Summary ---
Author Organization [facility] Address [address] [place] [address] Care Team Providers Care Synthetic Plasterer Name Role Phone Deep Morris MD Unavailable Rob Chavez MD Primary Care Provider [phone] Med Morel MD Unavailable Source Comments [facility],non-owned Affiliates and Associated Physician Practices is amultiple site organization consisting of ambulatory clinics and hospital sitesin [place], [place], [place] and [place]. This disclosure is being madepursuant to the Care Everywhere program and may not contain all information available regarding this patient. Last updated 17.[facility] Allergies No known active allergies Medications * [...] 01/26/20 17 Active vitamin D, ergocalciferol, (DRISDOL) 72556 UNITS capsuleIndications: Cervicalgia,Neural foraminal stenosis of cervical [...] (Flonase Allergy Relief) 50 MCG/ACT nasal spray [place] 1 spray every day by intranasal route. 09/23/19 23 Active multivitamin daily tablet Take 1 (one) tablet by mouth daily with food Active mirtazapine (Remeron) 15 MG tablet Take 1 (one) tablet by mouth at bedtime Active HYDROcodone-acetami nophen ([place]) 10-325 MG tabletIndications:S /P lumbar laminectomy Take [...] and heating? Not hard at all 11/20/2022 [facility] [place] [facility] - Occupational Stress [...] place to sleep or slept in a residential (including now)? No 11/20/2022 Comments No Sex and Gender Information Value Date Recorded Sex Assigned at Not on file Legal Sex Female 2:09 PM INDUSTRIAL TECH INSTRUCTOR Gender Identity Not on file Sexual Orientation Not on file Occupation Industry Job Start Date Job End Date Retired Not on file Not on file Not on file Last Filed Vital Signs Vital Sign Reading Time Taken Comments Blood Pressure 130/80 02/19/2023 9:04 PM INDUSTRIAL TECH INSTRUCTOR Pulse 70 02/19/2023 9:04 PM INDUSTRIAL TECH INSTRUCTOR Temperature 37 C (98.6 F) 02/19/2023 9:04 PM INDUSTRIAL TECH INSTRUCTOR Respiratory Rate 16 02/19/2023 9:04 PM INDUSTRIAL TECH INSTRUCTOR Oxygen Saturation 99% 02/19/2023 9:04 PM INDUSTRIAL TECH INSTRUCTOR Inhaled Oxygen Concentration - - Weight 59.9 kg (132 lb) 04/11/2023 12:00 PM INDUSTRIAL TECH INSTRUCTOR Height 154.9 cm (5' 1) 04/11/2023 12:00 PM INDUSTRIAL TECH INSTRUCTOR Body Mass Index 24.94 04/11/2023 12:00 PM INDUSTRIAL TECH INSTRUCTOR Plan of Treatment Health Maintenance Due Date [...] 07/12/2003 ZOSTER VACCINE (1 of 2) 07/12/2003 DEPRESSION SCREENING 03/20/2024 COVID-19 VACCINE (3 - 2024- season) 2024 06/15/2020, 05/16/2020 INFLUENZA VACCINE (#1) 2024 , 12/11/2018, 12/01/2016, [...] this topic Medical Devices Implanted Type Area Table Worker Packager Device Identifier Shelf Expiration Date Model / Serial / Lot Spcr Spnl [id number] [facility] Crv Intbdy Implanted:Qty: 1 on 12/08/2016 by Moisés Londono MD at [facility] Spine Cervical [employer] [id number] / / Screw 3.6mm 16mm Spne Slfdrl Va Bone Implanted:Qty: 2 on 12/08/2016 by Moisés Londono MD at [facility] Spine Cervical [employer] 184.156 / / Sub Bngf Pro[employer]ix Dbm Bvn Clgn Ptty 1ml Implanted:Qty: 1 on 12/08/2016 by Moisés Londono MD at [facility] Spine Cervical Spinal [employer] [id number] / / [id number] Sub Bngf Vitoss Btcp Clgn Void Rusty Fm Pk Implanted:Qty: 1 on 04/28/2022 by Moisés Londono MD at [facility] N/A: Spine Cervical [employer] 09/15/2023 [id number] / / [id number] Description:c4-5 Spcr Spnl 16x9mm Coalition 7d Lrdtc 14mm Implanted:Qty: 1 on 04/28/2022 by Moisés Londono MD at [facility] N/A: Spine Cervical [employer] 384.309 / / Screw 3.6mm 16mm Slfdrl Va Spne Bone Implanted:Qty: 2 on 04/28/2022 by Moisés Londono MD at [facility] N/A: Spine Cervical [employer] 184.156 / / [place] [address] MEDICARE Advance Directives * Full Code (Latest Code Status on File) Date Activated Date Inactivated Comments 11/17/2022 11:44 AM 11/22/2022 8:12 PM * Full Code Date Activated Date Inactivated Comments 04/28/2022 4:26 PM 04/30/2022 3:51 PM * Full Code Date Activated Date Inactivated Comments 12/08/2016 6:02 PM 12/09/2016 2:44 PM Care Teams Synthetic Plasterer Relationship Specialty Start Date End Date Rob Chavez MD [address] [place], [place] [id number] PCP - General Gastroenterology 03/22/22 Deep Morris MD Neurological Surgery 11/02/11 Med Morel MD [address] [place] [address] Cardiology 04/08/22
--- OUTSIDE RECORDS SUMMARY | 2025-01-30 13:19 | XMS_ITS | Encounter Summary ---
Author Organization [facility] Health Address [address] [place] [address] Care Team Providers Care Assistant Professor Of Art Name Role Phone Deep Morris MD Unavailable [phone] Kip Camacho Primary Care Provider + Rob Chavez MD Primary Care Provider [phone] Med Morel MD Unavailable [phone] Encounter Details Date Type Department Care Team (Late st Contact Info) Description 05/23/2017 [facility] Unknown, Provider Social History Tobacco Use Types Packs/Day Years Used Date Smoking Tobacco: Former Cigarettes 0 Q uit: 04/27/2016 Smokeless Tobacco: Never Alcohol Use Standard Drinks/Week Comments No 0 (1 standard drink = 0.6 oz pur e alcohol) Comments No Sex and Gender Information Value Date Recorded Sex Assigned at Not on file Legal Sex Female 2:09 PM HOSE FINISHER Gender Identity Not on file Sexual Orientation Not on file Occupation Industry Job Start Date Job End Date Retired Not on file Not on file Not on file documented as of this encounter Plan of Treatment Not on file documented as of this encounter Visit Diagnoses Not on filedocumented in this encounter Care Teams Assistant Professor Of Art Relationship Specialty Start Date End Date Kip Camacho [place] [address] PCP - General Physician Pipe Chipper 11/17/16 03/21/22 Rob Chavez MD [address] [place], [place] [id number] PCP - General Gastroenterology 03/22/22 Deep Morris MD Neurological Surgery 11/02/11 Med Morel MD [address] [place] [address] Cardiology 04/08/22 documented as of this encounter
--- OUTSIDE RECORDS SUMMARY | 2025-01-30 13:19 | XMS_ITS | Clinical Summary ---
Author Organization [facility] Address [address] [address] Phone Care Team Providers Care Roller Turner Name Role Phone Unavailable Primary Care Provider Unavailabl e Social History Tobacco Use Types Packs/Day Years Used Date Smoking Tobacco: Never Assessed Comments Unknown Sex and Gender Information Value Date Recorded Sex Assigned at Not on file Legal Sex Female 5:29 AM CATERING AND EVENTS MANAGER Gender Identity Not on file Sexual Orientation [...]
--- OUTSIDE RECORDS SUMMARY | 2025-01-30 13:19 | XMS_ITS | Clinical Summary ---
Author Organization [facility] Address [address] [place] [address] Care Team Providers Care Senior Java Ui Developer Name Role Phone Jamey Flower MD Primary Care Provider [phone] Allergies No known active allergies Medications acetaminophen (TYLENOL) 500 mg tabletIndicat ions:Pain Take 1-2 tablets (500-1,000 mg total) by [...] mouth 3 (three) times a day Active HYDROcodone-a cetaminophen (NORCO) 10-325 mg per tablet Take 1 tablet by mouth every 4 (four) hours as needed Active mirtazapine (REMERON) 7.5 mg tablet mirtazapine 7.5 mg tablet TAKE 1 TABLET BY MOUTH EVERY DAY AT BEDTIME Active ergocalcifero l, vitamin D2, 50 mcg (2,000 unit) tablet Take 50,000 Units by mouth once a week 09/25/19 21 Active metoprolol XL (TOPROL-XL) 50 mg extended release tablet Take 1 tablet (50 mg total) by mouth daily 01/03/20 25 Active rOPINIRole (REQUIP) 1 mg tabletIndicat ions:Restless leg syndrome Take one tablet (1 mg) at bedtime for one week, then 2 tablets at bedtime. 60 tablet 3 01/10/20 Active cyanocobalami n (Vitamin B-12) 1,000 mcg tablet Take 1 tablet (1,000 mcg total) by mouth 2 (two) times a day Discontinued(Jelani aponte Reported) Coreg 6.25 mg tablet Take 1 tablet (6.25 mg total) by mouth 2 (two) times a day with meals 04/03/19 025 Discontinued rOPINIRole (REQUIP) 0.25 mg tablet TAKE 2 TABLETS PO EVERY NIGHT AT BEDTIME IF PAIN NOT CONTROLLED 60 tablet 5 10/25/19 025 Discontinued(Re order) Active Problems Problem Noted Date Diagnosed Date Restless leg syndrome 06/13/2024 Numbness of lower extremity 03/08/2024 Abdominal pain 10/27/2009 Resolved Problems Problem Noted Date Diagnosed Date Resolved Date Polyneuropathy 03/08/2024 06/13/2024 Encounters Date Type Department Care Team Description 01/09/2025 11:15 AM CDT Office Visit [facility] [address] [place] [id number] Frankie Carey MD Restless leg syndrome (Primary Dx); Numbness of lower extremity from Last 3 Months Social History Tobacco Use Types Packs/Day Years Used Date Smoking Tobacco: Never Smokeless Tobacco: Never Tobacco Cessation:Counseling Given: Not Answered Comments Unknown Sex and Gender Information Value Date Recorded Sex Assigned at Not on file Legal Sex Female 7:39 PM SOCIAL MEDIA MANAGER Gender Identity Not on file Sexual Orientation Not on file Last Filed Vital Signs Vital Sign Reading Time Taken Comments Blood Pressure 115/57 01/09/2025 10:36 AM CDT Pulse 64 01/09/2025 10:36 AM CDT Temperature 36.4 C (97.5 F) 01/17/2022 10:18 AM CDT Respiratory Rate 18 01/17/2022 10:18 AM CDT Oxygen Saturation 100% 01/09/2025 10:36 AM CDT Inhaled Oxygen Concentration - - Weight 47.2 kg (104 lb) 01/09/2025 10:36 AM CDT Height 157.5 cm (5' 2) 01/09/2025 10:36 AM CDT Body Mass Index 19.02 01/09/2025 10:36 AM CDT Plan of Treatment Health Maintenance Due Date Last Done Comments Breast Cancer Screening-Mammogram 1955 Colon Cancer Screening-Colonoscopy 1955 Depression Screening 1955 Fall Risk Assessment 1955 Hepatitis C Screening 1955 Osteoporosis Screening-Bone Density Scan 1955 Hepatitis B Screening 07/12/1971 Zoster Vaccine (1 of 2) 07/12/2003 Well Visit 65+ 2018 Covid-19 Vaccine (2024- 6 season) 2024 11/12/2021, 03/01/2021, 06/15/2020, Additional history exists Influenza Vaccine (#1) 2024 , 02/01/2021, 02/04/2020, Additional history exists DTaP/Tdap/Td Vaccine (2 - Td or Tdap) 06/09/2031 06/08/2021 Pneumococcal vaccine 65+ Completed 022, 02/04/2020, 01/02/2015 Insurance MEDICARE IDPA [facility] MEDICARE ADVANTAGE MEDICARE IDPA IDPA Care Teams Senior Java Ui Developer Relationship Specialty Start Date End Date Jamey Flower MD [address] [place] [address] PCP - General Family Medicine 01/09/25
--- OUTSIDE RECORDS SUMMARY | 2025-01-30 13:19 | XMS_ITS | Encounter Summary ---
Author Organization [facility] Health Address [address] [place] [address] Care Team Providers Care Neon Technician Name Role Phone Deep Morris MD Unavailable [phone] Kip Camacho Primary Care Provider + Rob Chavez MD Primary Care Provider [phone] Med Morel MD Unavailable [phone] Encounter Details Date Type Department Care [...] on file Legal Sex Female 2:09 PM CEREAL MILLER Gender Identity Not on file Sexual Orientation Not on file Occupation Industry Job Start Date Job End Date Retired Not on file Not on file Not on file documented as of this encounter Plan of Treatment Not on file documented as of this encounter Visit Diagnoses Not on filedocumented in this encounter Care Teams Neon Technician Relationship Specialty Start Date End Date Kip Camacho PA [facility] [place] [address] PCP - General Physician Animal Assisted Therapist 11/17/16 03/21/22 Rob Chavez MD [address] [place], [place] [id number] PCP - General Gastroenterology 03/22/22 Deep Morris MD Neurological Surgery 11/02/11 Med Morel MD [address] [place] [address] Cardiology 04/08/22 documented as of this encounter
== END 2025-01-30 12:47 | disposition home or self-care (01) ==
LOC: ANHFOHIMG 12:48
PROVIDERS: PCP Emergency Medicine; Visit Provider Emergency Medicine
DX: Z78.0 Asymptomatic menopausal state (principal); M85.88 Other specified disorders of bone density and structure, other site; M85.852 Other specified disorders of bone density and structure, left thigh; M85.851 Other specified disorders of bone density and structure, right thigh
CPT/HCPCS: 77080

== ENCOUNTER 2025-02-03 20:22 | Inpatient (IN) | payer MEDICARE, MEDICAID, SELFPAY ==
--- OUTSIDE RECORDS SUMMARY | 2007-09-17 10:12 | XMS_ITS | Continuity of Care Document ---
Author Organization [facility] Address [address] [place] [address] [place] [address] Phone Care Team Providers Care Wellness Manager Name Role Phone Joshua Wood Unavailable Unavailable Procedures Procedure Date Visual Field Examination-Professional Ju Visual Field Examination-Technical Eye Exam, New Patient Optic Nerve Head Eval Advance Directives Directive Yes / No Effective Date File Name No Information Encounters Encounter Description Practice Location Reason(s) For Visit Diagnoses Date Provider Providers Copied on Encounter [facility], [address] [place] [address] [address], [place], [place], [id number], tel:[phone] [facility] No Information 0200 8 Ramonishnasbull Joshua. [address] [place] [address], [facility], [place]. tel:[phone] Referring Provider: Joshua mendenhall, [address] [place] [address], [place], [place], [facility]. tel:[phone] [facility], [address] [place] [address] [address], [place], [place], [id number], tel:[phone] [facility] No Information 3200 8 Krishnasamy Joshua. [address] [place] [address], [facility], [place]. tel:[phone] Referring Provider: Joshua mendenhall, [address] [place] [address], [place], [place], [facility]. tel:[phone] [facility], [address], [place], [place], [id number], [place] tel:[phone] [facility] [place] No Information 9200 8 Nina Lewis. [address] [facility] [place] [address], [place], [address], [place]. tel:[phone] Family History Family Member Type Diagnosis Age At Onset No Information Payers Payer name Insurance type Covered green party ID Authoriza tion(s) Medicare [facility] [id number] Medicaid [facility] [id number] Social History Type Description Quantity Date Captured Comments Sex Female Smoking Status No Information Chief Complaint And Reason For Visit No Information Reason For Referral Reason For Referral No Information History Of Present Illness Encounter Date Complaint History Of Prese nt Illness No Information Functional Status Date Functional Assessmen t No Information Instructions Date Instruction Additional Infor mation No Information Assessments Type Assessment Date No Information Patient Care Teams Name Effective Dates (start - stop) Status Members No Information
[2025-01-21 09:14] VITALS: BMI 19.3
--- NOTE | 2025-01-21 09:29 | PC.NURSE ---
[facility] has started construction of its new state of the art ER which will open Spring 2026. With this, we anticipate parking may be a challenge for some our surgical patients and families. Parking spaces are limited but are available for all Surgical, obstetrics, and ER patients sharing this lot. If you arrive and find you are having a hard time finding a parking space, please note that we understand the challenges, please drive around the hospital and park near Hospital Entrance 1. When you enter this entrance, you can ask a volunteer to direct or take you back to the surgical waiting area to check in. We appreciate everyone?s understanding of these expected challenges while we build for your future. Report to the Outpatient Waiting Room, entrance under the green pavilion located off [address], at time ___06:00am____ on date __02/03/25 . Planned Procedure Time: _07:30am .? Time changes happen often and if your time is changed the preop area will call you the afternoon before. - You and your visitor will be asked to self-screen and do not enter if you have any COVID symptoms. Please call surgeon if you need to reschedule. - A mask is optional within the hospital at this time. Patients may have clear liquids (water, carbonated beverages, clear teas, apple juice) until 3 hours prior to surgery with a maximum of 20 ounces. - No food from midnight until time of surgery and no smoking, or chewing tobacco (or any form of nicotine). No chewing gum, candy or mints. (0430am) Take only the following medications with a SIP of water on the morning of surgery: Metoprolol, Gabapentin, Ellipta- Hydrocodone if needed DO NOT STOP ANY OF YOUR OTHER PRESCRIPTION MEDICATIONS PRIOR TO SURGERY EXCEPT THE FOLLOWING Hold all vitamins and supplements for 3 days per anesthesiologist. Medications to discontinue per physician NONE Date to take last dose___NONE Please no make-up, nail [place], hairspray, perfume, deodorant, or body powder the day of surgery.? No jewelry (including any body piercings) or valuables the day of surgery, leave them at home.? Please take a shower or bath the night before, or the morning of, surgery with an antibacterial soap.?G[employer]IAL/Hib[place]anse pt has has it already Wear comfortable, loose fitting clothing.? Bring overnight bag - Jewelry must be removed prior to entering the operating room.? Rings and piercings that are not removed may be cut off. - The hospital will not accept responsibility for valuables.? - Please leave all valuables, including medications, at home the day of surgery. If you are going home after surgery, a licensed milk pickup truck driver must drive you home.? - NO public transportation without another adult if you receive anesthesia. - We recommend that an adult stay with you for 24 hours following discharge. - We also recommend that you do not drive, make important decision, drink alcoholic beverages, or take any drugs that were not prescribed by your health care provider for at least 24 hours after your discharge time. For Pediatric surgeries, we recommend two adults accompany the child home. Follow any additional instructions given to you from your surgeon. Bowel PREP per Dr Flores- pt to call today to verify. Telephone instructions given to ____Patient and asked if any additional questions and then verbalized understanding. Patient advised to call surgeon office or pre surgery nurse liaison [phone] if any additional questions.
[2025-02-03] VITALS (13 sets, daily range): BP systolic 118–152; BP diastolic 63–80; PULSE 58–85; RESP 12–19; TEMP 35.8–36.8; O2SAT 96–100
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
--- OUTSIDE RECORDS SUMMARY | 2025-02-03 02:24 | XMS_ITS | Clinical Summary ---
Author Organization [facility] Address [address] [place] [address] Care Team Providers Care Press Tender Name Role Phone Deep Morris MD Unavailable [phone] Rob Chavez MD Primary Care Provider [phone] Med Morel MD Unavailable [phone] Source Comments [facility],non-owned Affiliates and Associated Physician Practices is amultiple site organization consisting of ambulatory clinics and hospital sitesin [place], [place], [place] and [place]. This disclosure is being madepursuant to the Care Everywhere program and may not contain all information available regarding this patient. Last updated 17.[facility] Allergies No known active allergies Medications [...] 01/26/20 17 Active vitamin D, ergocalciferol, (DRISDOL) 81759 UNITS capsuleIndications: Cervicalgia,Neural foraminal stenosis of cervical [...] (Flonase Allergy Relief) 50 MCG/ACT nasal spray [place] 1 spray every day by intranasal route. 09/23/19 23 Active multivitamin daily tablet Take 1 (one) tablet by mouth daily with food Active mirtazapine (Remeron) 15 MG tablet Take 1 (one) tablet by mouth at bedtime Active HYDROcodone-acetami nophen ([place]) 10-325 MG tabletIndications:S /P lumbar laminectomy Take [...] and heating? Not hard at all 11/20/2022 [facility] Occup[facility] ional Health - Occupational Stress [...] place to sleep or slept in a prison (including now)? No 11/20/2022 Comments No Sex and Gender Information Value Date Recorded Sex Assigned at Not on file Legal Sex Female 2:09 PM DRUM DRIER Gender Identity Not on file Sexual Orientation Not on file Occupation Industry Job Start Date Job End Date Retired Not on file Not on file Not on file Last Filed Vital Signs Vital Sign Reading Time Taken Comments Blood Pressure 130/80 02/19/2023 9:04 PM DRUM DRIER Pulse 70 02/19/2023 9:04 PM DRUM DRIER Temperature 37 C (98.6 F) 02/19/2023 9:04 PM DRUM DRIER Respiratory Rate 16 02/19/2023 9:04 PM DRUM DRIER Oxygen Saturation 99% 02/19/2023 9:04 PM DRUM DRIER Inhaled Oxygen Concentration - - Weight 59.9 kg (132 lb) 04/11/2023 12:00 PM DRUM DRIER Height 154.9 cm (5' 1) 04/11/2023 12:00 PM DRUM DRIER Body Mass Index 24.94 04/11/2023 12:00 PM DRUM DRIER Plan of Treatment Health Maintenance Due Date [...] this topic Medical Devices Implanted Type Area Ship'S Engineer Device Identifier Shelf Expiration Date Model / Serial / Lot Spcr Spnl [id number] [id number] Crv Intbdy Implanted:Qty: 1 on 12/08/2016 by Moisés Londono MD at [facility] Spine Cervical [employer] [id number] / / Screw 3.6mm 16mm Spne Slfdrl Va Bone Implanted:Qty: 2 on 12/08/2016 by Moisés Londono MD at [facility] Spine Cervical [employer] 184.156 / / Sub Bngf Progenix Dbm Bvn Clgn Ptty 1ml Implanted:Qty: 1 on 12/08/2016 by Moisés Londono MD at [facility] Spine Cervical Spinal [employer] [id number] / / [id number] Sub Bngf Vitoss Btcp Clgn Void Rusty Fm Pk Implanted:Qty: 1 on 04/28/2022 by Moisés Londono MD at [facility] N/A: Spine Cervical [employer] 09/15/2023 [id number] / / [id number] Description:c4-5 Spcr Spnl 16x9mm Coalition 7d Lrdtc 14mm Implanted:Qty: 1 on 04/28/2022 by Moisés Londono MD at [facility] N/A: Spine Cervical [employer] 384.309 / / Screw 3.6mm 16mm Slfdrl Va Spne Bone Implanted:Qty: 2 on 04/28/2022 by Moisés Londono MD at [facility] N/A: Spine Cervical [employer] 184.156 [...] 6:02 PM 12/09/2016 2:44 PM Care Teams Press Tender Relationship Specialty Start Date End Date Rob Chavez MD [address] [place], [place] [id number] PCP - General Gastroenterology 03/22/22 Deep Morris MD Neurological Surgery 11/02/11 Med Morel MD [address] [place] [address] Cardiology 04/08/22
--- OUTSIDE RECORDS SUMMARY | 2025-02-03 02:25 | XMS_ITS | Clinical Summary ---
Author Organization [facility] Address [address] [place] [address] Care Team Providers Care Airline Transport Pilot Name Role Phone Jamey Flower MD Primary Care Provider [phone] Allergies No known active allergies Medications acetaminophen [...] Description 01/09/2025 11:15 AM CDT Office Visit [facility] [address] [place] [phone] Frankie Carey MD Restless leg syndrome (Primary Dx); Numbness of lower extremity from Last 3 Months Social History Tobacco Use Types Packs/Day Years Used Date Smoking Tobacco: Never Smokeless Tobacco: Never Tobacco Cessation:Counseling Given: Not Answered Comments Unknown Sex and Gender Information Value Date Recorded Sex Assigned at Not on file Legal Sex Female 7:39 PM SMALL OFFSET PRINTER Gender Identity Not on file Sexual Orientation [...] Completed 022, 02/04/2020, 01/02/2015 Insurance MEDICARE IDPA [facility] MEDICARE [facility] Address: [address] [address] [place] [address] MEDICARE [facility] Address: [address] [address] [place] [address] IDPA IDPA Care Teams Airline Transport Pilot Relationship Specialty Start Date End Date Jamey Flower MD [address] [place] [address] PCP - General Family Medicine 01/09/25
--- OUTSIDE RECORDS SUMMARY | 2025-02-03 02:25 | XMS_ITS | Encounter Summary ---
Author Organization [facility] Address [address] [place] [address] Care Team Providers Care Cans Vacuum Tester Name Role Phone Unavailable Primary Care Provider Unavailabl e Encounter Details Date Type Department Care Team (Late st Contact Info) Description 03/05/2007 Outpatient Historical [facility] INPATIENT IN BED Rosas Koo MD [address] [place] [address] Hernia Social History Tobacco Use Types Packs/Day Years Used Date Smoking Tobacco: Never Assessed Comments Unknown Sex and Gender Information Value Date Recorded Sex Assigned at Not on file Legal Sex Female 5:29 AM INTERNATIONAL SALES REPRESENTATIVE Gender Identity Not on file Sexual Orientation Not on file documented as of this encounter Plan of Treatment Not on file documented as of this encounter Procedures Procedure Name Priority Date/Time Associated Diagnosis Comments CBC WITH DIFFERENTIAL Routine 03/11/2007 5:30 AM INTERNATIONAL SALES REPRESENTATIVE CBC WITH DIFFERENTIAL Routine 03/11/2007 5:30 AM INTERNATIONAL SALES REPRESENTATIVE CBC WITH DIFFERENTIAL Routine 03/11/2007 5:30 AM INTERNATIONAL SALES REPRESENTATIVE CBC WITH DIFFERENTIAL Routine 03/10/2007 7:40 AM INTERNATIONAL SALES REPRESENTATIVE CBC WITH DIFFERENTIAL Routine 03/10/2007 7:40 AM INTERNATIONAL SALES REPRESENTATIVE CBC WITH DIFFERENTIAL Routine 03/10/2007 5:15 AM INTERNATIONAL SALES REPRESENTATIVE CBC WITH DIFFERENTIAL Routine 03/10/2007 5:15 AM INTERNATIONAL SALES REPRESENTATIVE CBC WITH DIFFERENTIAL Routine 03/09/2007 6:30 AM INTERNATIONAL SALES REPRESENTATIVE CBC WITH DIFFERENTIAL Routine 03/09/2007 6:30 AM INTERNATIONAL SALES REPRESENTATIVE BASIC METABOLIC PANEL Routine 03/09/2007 6:30 AM INTERNATIONAL SALES REPRESENTATIVE CBC WITH DIFFERENTIAL Routine 03/05/2007 12:54 PM INTERNATIONAL SALES REPRESENTATIVE CBC WITH DIFFERENTIAL Routine 03/05/2007 12:54 PM INTERNATIONAL SALES REPRESENTATIVE BASIC METABOLIC PANEL Routine 03/05/2007 12:54 PM INTERNATIONAL SALES REPRESENTATIVE documented in this encounter Results * (ABNORMAL) CBC WITH DIFFERENTIAL (03/11/2007 5:30 AM INTERNATIONAL SALES REPRESENTATIVE) Pathologist [facility] NEUTROPHIL ABSOLUTE 3.62 1.90 - 7.00 K/uL [...] Normal INTER FACE SYSTEM 03/11/2007 5:30 AM INTERNATIONAL SALES REPRESENTATIVE Jez Caballero MD HEMATOLOGY ORDERABLES Edit ed Performing Organization Address [facility] Phone Number INTERFACE SYSTEM Refer to clinic/hospital department * CBC WITH DIFFERENTIAL (03/11/2007 5:30 AM INTERNATIONAL SALES REPRESENTATIVE) Pathologist [facility] NRBC 0 <=0 /100 WBC INTERFACE SYSTEM 03/11/2007 5:30 AM INTERNATIONAL SALES REPRESENTATIVE Jez Caballero MD HEMATOLOGY ORDERABLES Edit ed Performing Organization Address [facility] de Phone Number INTERFACE SYSTEM Refer to clinic/hospital department * (ABNORMAL) CBC WITH DIFFERENTIAL (03/11/2007 5:30 AM INTERNATIONAL SALES REPRESENTATIVE) WBC 5.4 4.0 - 9.8 K/uL INTERFACE [...] 12.4 fL INTERFACE SYSTEM 03/11/2007 5:30 AM INTERNATIONAL SALES REPRESENTATIVE Jez Caballero MD HEMATOLOGY ORDERABLES Edit ed Performing Organization Address [facility] Phone Number INTERFACE SYSTEM Refer to clinic/hospital department * (ABNORMAL) CBC WITH DIFFERENTIAL (03/10/2007 7:40 AM INTERNATIONAL SALES REPRESENTATIVE) NEUTROPHILS 73(H) 45 - 70 % INTERFAC [...] 0.20 K/uL INTERFACE SYSTEM 03/10/2007 7:40 AM INTERNATIONAL SALES REPRESENTATIVE Jez Caballero MD HEMATOLOGY ORDERABLES Edit ed Performing Organization Address [facility] Phone Number INTERFACE SYSTEM Refer to clinic/hospital department * (ABNORMAL) CBC WITH DIFFERENTIAL (03/10/2007 7:40 AM INTERNATIONAL SALES REPRESENTATIVE) WBC 5.9 4.0 - 9.8 K/uL INTERFACE [...] 12.4 fL INTERFACE SYSTEM 03/10/2007 7:40 AM INTERNATIONAL SALES REPRESENTATIVE Jez Caballero MD HEMATOLOGY ORDERABLES Edit ed Performing Organization Address [facility] Phone Number INTERFACE SYSTEM Refer to clinic/hospital department * (ABNORMAL) CBC WITH DIFFERENTIAL (03/10/2007 5:15 AM INTERNATIONAL SALES REPRESENTATIVE) NEUTROPHILS 74(H) 45 - 70 % INTERFAC [...] 0.20 K/uL INTERFACE SYSTEM 03/10/2007 5:15 AM INTERNATIONAL SALES REPRESENTATIVE Rosas Koo MD HEMATOLOGY ORDERABLES Ed ited Performing Organization Address [facility] Phone Number INTERFACE SYSTEM Refer to clinic/hospital department * (ABNORMAL) CBC WITH DIFFERENTIAL (03/10/2007 5:15 AM INTERNATIONAL SALES REPRESENTATIVE) WBC 5.5 4.0 - 9.8 K/uL INTERFACE [...] 12.4 fL INTERFACE SYSTEM 03/10/2007 5:15 AM INTERNATIONAL SALES REPRESENTATIVE Rosas oKo MD HEMATOLOGY ORDERABLES Ed ited Performing Organization Address [facility] Phone Number INTERFACE SYSTEM Refer to clinic/hospital department * (ABNORMAL) CBC WITH DIFFERENTIAL (03/09/2007 6:30 AM INTERNATIONAL SALES REPRESENTATIVE) [facility] NEUTROPHILS 81(H) 45 - 70 % INTERFAC [...] 0.20 K/uL INTERFACE SYSTEM 03/09/2007 6:30 AM INTERNATIONAL SALES REPRESENTATIVE Rosas Koo MD HEMATOLOGY ORDERABLES Ed ited Performing Organization Address [facility] Phone Number INTERFACE SYSTEM Refer to clinic/hospital department * (ABNORMAL) CBC WITH DIFFERENTIAL (03/09/2007 6:30 AM INTERNATIONAL SALES REPRESENTATIVE) WBC 6.8 4.0 - 9.8 K/uL INTERFACE [...] 12.4 fL INTERFACE SYSTEM 03/09/2007 6:30 AM INTERNATIONAL SALES REPRESENTATIVE us Rosas Koo MD HEMATOLOGY ORDERABLES Ed ited INTERFACE SYSTEM Refer to clinic/hospital department * (ABNORMAL) BASIC METABOLIC PANEL (03/09/2007 6:30 AM INTERNATIONAL SALES REPRESENTATIVE) GLUCOSE 113(H) 65 - 99 mg/dL INTERFACE [...] and non- Americans is available on the [facility] Intranet at: [email or web address] Select: Lab Policies and Procedures Select: Reference Ranges - GFR 03/09/2007 6:30 AM INTERNATIONAL SALES REPRESENTATIVE Rosas Koo MD CHEMISTRY ORDERABLES Marlon vijay Performing Organization Address City/[facility]/ZIP Co de Phone Number INTERFACE SYSTEM Refer to clinic/hospital department * CBC WITH DIFFERENTIAL (03/05/2007 12:54 PM INTERNATIONAL SALES REPRESENTATIVE) NEUTROPHIL ABSOLUTE 4.58 1.90 - 7.00 K/uL [...] Rev. INTERFACE SYSTEM 03/05/2007 12:5 4 PM INTERNATIONAL SALES REPRESENTATIVE Rosas Koo MD HEMATOLOGY ORDERABLES Ed ited Performing Organization Address [facility] de Phone Number INTERFACE SYSTEM Refer to clinic/hospital department * CBC WITH DIFFERENTIAL (03/05/2007 12:54 PM INTERNATIONAL SALES REPRESENTATIVE) WBC 8.8 4.0 - 9.8 K/uL INTERFACE [...] K/uL INTERFACE SYSTEM 03/05/2007 12:5 4 PM INTERNATIONAL SALES REPRESENTATIVE Rosas Koo MD HEMATOLOGY ORDERABLES Ed ited Performing Organization Address [facility] Phone Number INTERFACE SYSTEM Refer to clinic/hospital department * (ABNORMAL) BASIC METABOLIC PANEL (03/05/2007 12:54 PM INTERNATIONAL SALES REPRESENTATIVE) GLUCOSE 97 65 - 99 mg/dL INTERFACE [...] and non- Americans is available on the [facility] Intranet at: [email or web address] Select: Lab Policies and Procedures Select: Reference Ranges - GFR 03/05/2007 12:5 4 PM INTERNATIONAL SALES REPRESENTATIVE Rosas Koo MD CHEMISTRY ORDERABLES Marlon vijay Performing Organization Address [facility] de Phone Number INTERFACE SYSTEM Refer to clinic/hospital department documented in this encounter Visit Diagnoses Diagnosis Hernia of unspecified site of abdominal cavity without mention of obstruction or gangrene documented in this encounter
--- OUTSIDE RECORDS SUMMARY | 2025-02-03 02:25 | XMS_ITS | Clinical Summary ---
Author Organization [facility] Address [address] [address] Phone Care Team Providers Care Livestock Farmer Name Role Phone Unavailable Primary Care Provider Unavailabl e Social History Tobacco Use Types Packs/Day Years Used Date Smoking Tobacco: Never Assessed Comments Unknown Sex and Gender Information Value Date Recorded Sex Assigned at Not on file Legal Sex Female 5:29 AM SUBSCRIPTION CREW LEADER Gender Identity Not on file Sexual Orientation [...] MEDICARE PART [place] [address]
--- OUTSIDE RECORDS SUMMARY | 2025-02-03 02:25 | XMS_ITS | Encounter Summary ---
Author Organization [facility] Address [address] [place] [address] Care Team Providers Care Dipper Machine Operator Name Role Phone Deep oMrris MD Unavailable [phone] Kip Camacho Primary Care Provider + Rob Chavez MD Primary Care Provider [phone] Med Morel MD Unavailable [phone] Encounter Details Date Type Department Care [...] on file Legal Sex Female 2:09 PM GARNETT ROOM WORKER Gender Identity Not on file Sexual Orientation Not on file Occupation Industry Job Start Date Job End Date Retired Not on file Not on file Not on file documented as of this encounter Plan of Treatment Not on file documented as of this encounter Visit Diagnoses Not on filedocumented in this encounter Care Teams Dipper Machine Operator Relationship Specialty Start Date End Date Kip Camacho PA [facility] [place] [address] PCP - General Physician Legal Compliance Officer 11/17/16 03/21/22 Rob Chavez MD [address] [place], [place] [phone] PCP - General Gastroenterology 03/22/22 Deep Morris MD Neurological Surgery 11/02/11 Med Morel MD [address] [place] [address] Cardiology 04/08/22 documented as of this encounter
--- OUTSIDE RECORDS SUMMARY | 2025-02-03 02:26 | XMS_ITS | Encounter Summary ---
Author Organization [facility] Address [address] [place] [address] Care Team Providers Care Licensed Psychologist Director Name Role Phone Deep Morris MD Unavailable [phone] Kip Camacho Primary Care Provider + Rob Chavez MD Primary Care Provider [phone] Med Morel MD Unavailable [phone] Encounter Details Date Type Department Care [...] on file Legal Sex Female 2:09 PM FLOOR MOLDER Gender Identity Not on file Sexual Orientation Not on file Occupation Industry Job Start Date Job End Date Retired Not on file Not on file Not on file documented as of this encounter Plan of Treatment Not on file documented as of this encounter Visit Diagnoses Not on filedocumented in this encounter Care Teams Licensed Psychologist Director Relationship Specialty Start Date End Date Kip Camacho PA [facility] [place] [address] PCP - General Physician Tool And Die Manager 11/17/16 03/21/22 Rob Chavez MD [address] [place], [place] [phone] PCP - General Gastroenterology 03/22/22 Deep Morris MD Neurological Surgery 11/02/11 Med Morel MD [address] [place] [address] Cardiology 04/08/22 documented as of this encounter
[2025-02-03] MEDS: ACETAMINOPHEN 500 MG TABLET 1000 MG PO (08:12)
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
[2025-02-03] MEDS: LACTATED RINGERS 1,000 ML 30 ML IV CONT ×2 (08:40→16:43)
[2025-02-03] MEDS: KETOROLAC 15 MG/ML VIAL (*BKC) IV PUSH (08:45)
--- NOTE | 2025-02-03 09:31 | SUR.PREOP ---
Vascular access nurse, Karen Lisa RN, notified of IV not flushing after patient went to bathroom. IV removed by Karen Lisa. Access nurse in room with patient at this time.
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
--- NOTE | 2025-02-03 10:05 | WPDHPUPDATE1 ---
History and Physical Update Update Date/Time: 02/03/25 10:05 History and Physical has been reviewed, including an updated exam of the patient. There are NO changes in the patient's condition. Risks, benefits, and alternatives have been discussed and questions answered. Patient agrees to proceed with procedure.
[2025-02-03] MEDS: ceFAZolin 2 GM in SODIUM CHLORIDE 0.9% IV 50 ML 100 ML IVPB (10:15)
[2025-02-03] MEDS: LIDO 1%/EPINEPHRINE 1:100,000 50 ML VIAL (10:53)
[2025-02-03] MEDS: BUPivacaine HCL 0.5% 10 ML AMP 30 ML INFILTRATE (10:54)
[2025-02-03] MEDS: fentaNYL CITRATE INJ (*CRX) 100 MCG/2 ML VIAL 25 MCG IV PUSH ×3 (16:49→17:44)
--- NOTE | 2025-02-03 18:15 | ADMGEN ---
This patient, Jill Gongora, was admitted to -. Patient/family oriented to hospital policies and general routines including ID bracelet, bed and alarms, visiting hours, pain management, procedures, bathroom and other care routines, personal items, smoking policy, room service/diet, and visiting hours. Information on how to activate the Rapid Response Team has been discussed. Patient/Family are encouraged to report perceived risks to care and to ask questions if they do not understand what they are told or what they should do. recieved report from Yessenia PUTNAM from PACU . Patient awake but drowsy and having some difficulty answering questions.
[2025-02-03] MEDS: METOPROLOL TARTRATE INJ 5 MG/5 ML VIAL IV PUSH (19:01)
[2025-02-03] MEDS: IBUPROFEN IV 800 MG/200 ML 800 MG/200 ML BAG 400 MG IVPB (19:04)
[2025-02-03] MEDS: DEXTROSE 5%/0.9% SOD CHL 1,000 ML 100 ML IV CONT (19:04)
[2025-02-03] MEDS: IPRATROPIUM 0.5 MG/ALBUTEROL SULFATE 2.5 MG (BASE) AMPUL.NEB 3 ML INHALATION (20:00)
[2025-02-03] MEDS: ceFAZolin 1 GM in SODIUM CHLORIDE 0.9% IV 50 ML 100 ML IVPB (20:24)
[2025-02-03] MEDS: MORPHINE SULFATE (*CRX) 4 MG/ML INJ IV PUSH (20:32)
--- NOTE | 2025-02-03 23:56 | W.PM.PROC2 ---
Procedure Note - Detailed Date of Procedure 02/03/25 Pre-op Diagnosis Incisional hernia x2 Post-op Diagnosis Other (Right lower quadrant reducible recurrent incisional hernia x 1, epigastric and right upper quadrant abdominal wall incarcerated port site incisional hernias x2.) Procedure Performed Robotic assisted laparoscopic recurrent incisional hernia repair with Bard Ventralight mesh (IPOM +) Repair of small bowel jejunal iatrogenic enterotomy Extensive robotic assisted laparoscopic adhesiolysis requiring 2.5hours of operating time Robotic assisted laparoscopic incarcerated incisional port site hernia repair x 2 without mesh. Surgeon Herbert Flores MD Knit Goods Mender Anthony Stone, [place], [place] MEAD Anesthesia General Indications The patient is a 69-year-old female who presented with complaints of an enlarging recurrent bulge in the right lower quadrant of her abdomen causing her to have pain. She had a prior laparoscopic incisional hernia repair with placement of intraperitoneal mesh. She also had a prior laparoscopic cholecystectomy and gastric bypass. CT scan preoperatively showed a recurrent incisional hernia in the right lower quadrant of the abdominal wall along with old prior mesh and multiple metal tacks. Also noted was a small right upper quadrant port site incisional hernia containing incarcerated fatty tissue. Patient presents today for a robotic assisted laparoscopic recurrent incisional hernia repair with mesh in the right lower quadrant as well as repair the port site incisional hernia in the right upper quadrant. Findings As expected the patient was found to have extensive small bowel adhesions to the old prosthetic mesh in the right lower quadrant of the abdomen. This recurrent incisional hernia measured approximately 8x6cm and it appeared that a recurrent hernia developed lateral to the edge of the old mesh. In the right upper quadrant of the abdomen there was an incarcerated port site incisional hernia containing omental which was viable and reduced. The defect measured approximately 2cm in diameter. The distance between the incarcerated port site incisional hernia in the right upper quadrant and the recurrent right lower quadrant incisional hernia was approximately 11cm. Also noted was a 2nd port site incarcerated incisional hernia located in the mid epigastric region of the abdomen containing omentum as well. It was located approximately 6cm medial to the other port site incisional hernia. This 2nd port site hernia measured approximately 2cm in diameter as well. There were multiple loops of small bowel very densely adherent to the old prosthetic mesh. Over the course of 2.5hours which was almost 1/2 of the total operative time I was successful in performing adhesiolysis of the small bowel off of the mesh however 1 small-bowel iatrogenic full-thickness enterotomy was made and it was repaired without any spillage of enteric contents. The larger right lower quadrant recurrent incisional hernia was repaired with placement of a [id number] piece of Bard Ventralight ST mesh and the 2 incarcerated port site incisional hernias were repaired primarily with permanent nonabsorbable suture without the use of any mesh due to their small size. Description of Procedure After informed consent was obtained patient was brought to the operating room where she was placed supine position and general endotracheal anesthesia was administered. A Rodriguez catheter was placed to decompress the bladder and a oral gastric tube was placed decompress the stomach. A time-out was then performed correctly identifying the patient as well as procedure to be performed. She was given 2g of Ancef for perioperative IV antibiotics. I then started by entering the abdomen in the left upper quadrant utilizing a 5mm Optiview port. Once inside the abdomen insufflated to adequate pneumoperitoneum of 15mmHg of mercury. I could then perform a survey of the abdomen and immediately saw copious adhesions of multiple loops of small bowel to the old prosthetic mesh in the right lower quadrant. Also noted was the port site incisional hernia in the right upper quadrant containing omentum and then a 2nd port site incisional hernia in the mid epigastric region also containing omentum. I then proceeded to place additional 8mm robotic trocar ports along the left side of the abdomen with there were no adhesions. The left upper quadrant 5mm trocar port was then switched out to an 8mm robotic trocar port. The Endoclear Gee robot was then docked to the right side of the operative field and the robotic arms were attached the robotic ports. Robotic instruments were then advanced into the abdomen under direct visualization and then I scrubbed out the procedure sent down at the robotic console to perform the dissection. Utilizing Cadier robotic graspers and sharp energized robotic kathy I proceeded to reduce the omentum out of the 2 separate incarcerated port site incisional hernias. Once this was done I could tell the both incisional hernia defects were approximately 2cm in diameter. I then proceeded to perform the adhesiolysis of the loops of small bowel off of the mesh in the right lower quadrant. The old mesh appeared to be old nylon Proceed mesh which was secured to the undersurface of the anterior abdominal wall utilizing Pro tacks. It appeared that the recurrent incisional hernia developed lateral to the edge of the mesh. the defect in the right lower quadrant abdominal wall measured approximately 8cm in length by 6cm width. The distance between the right lower quadrant hernia defect and the right upper quadrant port site defect was approximately 11cm and the distance between the 2 port site incisional hernias was approximately 6cm. Over the next 2.5hours I proceeded to very carefully perform an extensive and tedious adhesiolysis of the small bowel off of the old proceed mesh. At 1 point there was enterotomy full-thickness made and the small bowel which was quickly repaired with a running absorbable 3-0 V lock suture in 2 layers. There was no spillage of any enteric contents. At 1 point the small bowel was essentially grown into the old mesh and rather than create another iatrogenic enterotomy I elected to cut into the mesh and leave a small portion of mesh adherent to the small bowel to release it from the anterior abdominal wall. Once I had completed the adhesiolysis of all the small bowel off of the old mesh I then proceeded to close the defects before placement of a new onlay piece of mesh. 0 nonabsorbable V lock sutures were used to plicate the old mesh which had stretched out and parachuted into the diastatic muscle in the right lower quadrant. A 2nd 0 nonabsorbable V lock suture was then used to close the defect in the mesh that resulted from cutting with the mesh in leaving it attached to the small bowel during the adhesiolysis. I then proceeded to close the new defect lateral to the edge of the old mesh with a 3rd running 0 nonabsorbable V lock suture. The intra-abdominal pressure was decreased down [id number] to accomplish closure of all these defects. I then primarily closed both of the port site incisional hernia defects with 0 nonabsorbable V lock sutures. No mesh was used to reinforce these closures as the defects were only 2cm in diameter. I then proceeded to place a piece of [employer] Ventralight ST mesh with the positioning device over the closed defects in the right lower quadrant placing mesh in the intraperitoneal position with the barrier surface of the mesh facing the intra-abdominal viscera and the prosthetic surface of the mesh in contact with the undersurface of the anterior abdominal wall. The mesh was centered on the closed repairs and then the mesh was circumferentially secured in place by placement of a running absorbable 2-0 V lock suture. The positioning device was then removed from the mesh and removed from the abdomen and all parts of it were accounted for. Lastly a 3rd absorbable 2-0 V lock suture was placed longitudinally in the central portion of mesh to further secure the mesh to the undersurface of the abdominal wall. The mesh laid out very nicely with a small amount tension to accommodate the pneumoperitoneum. I then checked the loops of small bowel which had been released from the mesh during the adhesiolysis. The repair of the small bowel enterotomy was intact without leakage of any enteric contents. The remaining loops of small bowel did not appear to have any areas of injury. The robotic instruments were then removed from the abdomen and the robot was undocked from the patient's bedside. I then scrubbed back into the procedure and with the robotic laparoscopic and standard laparoscopic graspers I proceeded to place 0 Vicryl sutures transfascially at each of the port sites to close those port site incisions. The ports were then removed from the abdomen and the pneumoperitoneum was allowed to decompress. Transfascial sutures then tied down closing off all the port site defects. Incisions were then irrigated sterile saline solution hemostasis was good. The port site incisions were then closed utilizing a running subcuticular 4-0 Monocryl suture. Incisions were then cleaned and then 1% lidocaine mixed with 0.5% Marcaine with some epinephrine was injected around the port sites for postoperative pain relief. All the port sites were then dressed and skin level with skin glue. An abdominal binder was then placed and a Rodriguez catheter was left in place postoperatively to adequately measure her urine output on the floor. The patient tolerated the procedure well no complications. All sponges, needles, and instrument counts were correct at the end procedure. EBL was _50__cc. The patient was awakened and taken to recovery in stable and satisfactory condition. Implants Bard Ventralight ST mesh [id number] right lower quadrant abdominal wall. Estimated Blood Loss 50 Drains No Packing No Pathology None sent Complications Other complications ( Iatrogenic small bowel enterotomy full-thickness to loop of jejunum which was a known risk of the procedure due to the dense adhesions of the small bowel to the mesh and the absolute need to release the mesh from the anterior abdominal wall and mesh to perform the repair.) Condition Stable Disposition PACU [facility] Billing Surgery - Charge Forward: Surgery Billing
[2025-02-04] VITALS (11 sets, daily range): BP systolic 101–113; BP diastolic 43–49; PULSE 60–94; RESP 16–18; TEMP 36.7–37.5; O2SAT 92–98; BMI 19.5
[2025-02-04] MEDS: METOPROLOL TARTRATE INJ 5 MG/5 ML VIAL IV PUSH ×2 (00:49→06:31)
[2025-02-04] MEDS: MORPHINE SULFATE (*CRX) 4 MG/ML INJ IV PUSH (00:50)
[2025-02-04] MEDS: IBUPROFEN IV 800 MG/200 ML 800 MG/200 ML BAG 400 MG IVPB ×3 (02:13→17:35)
[2025-02-04] MEDS: IPRATROPIUM 0.5 MG/ALBUTEROL SULFATE 2.5 MG (BASE) AMPUL.NEB 3 ML INHALATION ×2 (02:58→07:23)
[2025-02-04] MEDS: ceFAZolin 1 GM in SODIUM CHLORIDE 0.9% IV 50 ML 100 ML IVPB ×2 (03:12→11:12)
--- NOTE | 2025-02-04 03:14 | PCRCNOTE ---
RCS 2000 tx omitted due to patient being transitioned from surgery to the general floor
[2025-02-04 06:23] LABS: Hematocrit 32.6 % (37.0-47.0); Hemoglobin 10.3 g/dL (12.0-15.0); Immature Granulocyte Percent A 0.3 % (0-0.5); Lymphocytes Absolute Auto 1.45 K/mm3 (0.9-3.2); Mean Corpuscular HGB Conc 31.6 g/dl (32-36); Mean Corpuscular Hemoglobin 31.9 pg (26-34); Mean Corpuscular Volume 100.9 fl (80-100); Nucleated Red Blood Cells Absolute Auto 0.000 K/mm3 (0.0-0.012); Nucleated Red Blood Cells Perc 0.0 % (0.0-0.2); Platelet Count Result 167 k/mm3 (150-375); Red Blood Count 3.23 M/mm3 (4.2-5.4); White Blood Count 9.9 K/mm3 (4.5-10.0)
[2025-02-04 06:45] LABS: Alanine Aminotransferase 33 U/L (6-35); Albumin Level 3.1 g/dL (3.5-5.1); Alkaline Phosphatase 60 U/L (38-126); Anion Gap 6 mmol/L (4-12); Aspartate Amino Transferase 47 U/L (14-36); Bilirubin,Total 0.4 mg/dL (0.2-1.3); Blood Urea Nitrogen 11 mg/dL (7-17); Calcium 8.4 mg/dL (8.4-10.2); Carbon Dioxide 26 mmol/L (22-30); Chloride 107 mmol/L (98-107); Estimated CRCL calculation 45 ml/min; Estimated Glomerular Filt Rate > 60; Glucose 129 mg/dL (65-110); Potassium 4.2 mmol/L (3.4-5.0); Sodium 139 mmol/L (137-145); Total Protein 5.3 g/dL (6.3-8.2)
[2025-02-04] MEDS: DEXTROSE 5%/0.9% SOD CHL 1,000 ML 100 ML IV CONT (08:52)
[2025-02-04] MEDS: LIDOCAINE 5% PATCH 1 PATCH TRANSDERM (08:54)
[2025-02-04] MEDS: PANTOPRAZOLE SODIUM IV 40 MG VIAL IV PUSH (08:55)
[2025-02-04] MEDS: ENOXAPARIN 40 MG/0.4 ML SYRINGE SUB-Q (11:13)
[2025-02-04] MEDS: GABAPENTIN 300 MG CAPSULE 600 MG PO ×2 (12:58→17:35)
--- NOTE | 2025-02-04 14:49 | PM.PNGS ---
Progress Note: A&P Assessment and Plan (1) Recurrent ventral hernia: Code(s): K43.2 - Incisional hernia without obstruction or gangrene Status: Acute Assessment and Plan: Pod 1 status post: Robotic assisted laparoscopic recurrent incisional hernia repair with mesh Repair of small bowel jejunal iatrogenic enterotomy Extensive robotic assisted laparoscopic adhesiolysis requiring 2.5 hours of operating time Robotic assisted laparoscopic incarcerated incisional port site hernia repair x2 without mesh Patient is doing well, but complaining of abdominal pain, exacerbated by movement. Continue pain control. Tolerating clear liquid diet without nausea or vomiting. Will plan to advance diet tomorrow. Resume all home medication. PT/OT ordered. Encouraged ambulation and OOB. Continue wearing abdominal binder. Plan Discussed patient's case and plan of care with Dr. Flores. Subjective Subjective Date/Time Seen: 02/04/25 14:49 Post Op day: 1 (Robotic assisted laparoscopic recurrent incisional hernia repair with mesh, repair of small bowel jejunal iatrogenic enterotomy, extensive robotic assisted laparoscopic adhesiolysis requiring 2.5 hours of operating time, robotic assisted laparoscopic incarcerated incisional port site hernia repair x) Patient reports: no new complaints, still having pain, no flatus and no bowel movement Interval history: Patient doing well today. She does state that she has some pain at rest and excruciating pain with movement. She was able to get up to the chair with nursing staff. Rodriguez removed. Has not voided independently yet. No BM or flatus. Labs stable today. Exam Const: General: comfortable and no acute distress Neck: Neck: supple and no JVD Cardio: Rate: regular rate GI: Inspection: non-distended GI Palp: Yes Soft to palpation, Yes Tenderness to palpation present (GI) (diffuse tenderness to palpation, rosario around incisions) and Yes Guarding due to palpation present (GI) Auscultation: normal bowel sounds Other: Abdominal binder in place. Incisions are clean and dry with no signs of infection or dehiscence. Yellow chlorhexidine paint still covering entire abdomen. Skin: General skin exam: normal color and no rashes or lesions noted Psych: Mental Status: mental status grossly normal Objective Data Vital Signs Vital Signs: Vital Signs - 24 hr 02/03/25 16:33 02/03/25 16:45 02/03/25 17:00 Temperature 97.1 F L Pulse Rate 85 80 76 Respiratory Rate 13 15 12 Blood Pressure 127/74 152/80 H 133/76 Pulse Oximetry 100 100 100 Oxygen Delivery Simple Face Mask Simple Face Mask Simple Face Mask Oxygen Flow Rate 8 8 8 Fraction of Inspired Oxygen 02/03/25 17:04 02/03/25 17:20 02/03/25 17:35 Temperature Pulse Rate 81 78 77 Respiratory Rate 19 16 12 Blood Pressure 136/66 118/77 150/71 H Pulse Oximetry 100 100 100 Oxygen Delivery Room Air Room Air Room Air Oxygen Flow Rate Fraction of Inspired Oxygen 02/03/25 17:43 02/03/25 18:30 02/03/25 18:45 Temperature 98.3 F 96.5 F L 96.4 F L Pulse Rate 78 78 74 Respiratory Rate 13 18 18 Blood Pressure 135/77 141/69 H 140/68 Pulse Oximetry 99 100 100 Oxygen Delivery Room Air Oxygen Flow Rate Fraction of Inspired Oxygen 02/03/25 19:01 02/03/25 22:16 02/04/25 00:49 Temperature 97.8 F Pulse Rate 72 62 60 Respiratory Rate 18 Blood Pressure 148/64 H Pulse Oximetry 99 Oxygen Delivery Oxygen Flow Rate Fraction of Inspired Oxygen 02/04/25 02:58 02/04/25 03:10 02/04/25 03:13 Temperature Pulse Rate 62 63 Respiratory Rate 16 16 Blood Pressure Pulse Oximetry 95 Oxygen Delivery Room Air Oxygen Flow Rate Fraction of Inspired Oxygen 02/04/25 06:00 02/04/25 06:31 02/04/25 07:24 Temperature Pulse Rate 73 66 60 Respiratory Rate 18 Blood Pressure 113/49 L Pulse Oximetry 98 92 Oxygen Delivery Room Air Oxygen Flow Rate Fraction of Inspired Oxygen 02/04/25 07:24 02/04/25 07:30 02/04/25 13:47 Temperature 99.5 F Pulse Rate 60 76 73 Respiratory Rate 17 17 18 Blood Pressure 110/43 L Pulse Oximetry 97 Oxygen Delivery Oxygen Flow Rate Fraction of Inspired Oxygen Intake/Output Intake/Output: Intake & Output 02/01/25 02/02/25 02/03/25 02/04/25 23:59 23:59 23:59 23:59 Intake Total 300 3045.3 Output Total 130 3250 Balance 170 -204.7 Meds/Results Medications: Active Medications Generic Name Dose Route Start Last Admin Trade Name Freq PRN Reason Stop Dose Admin Acetaminophen 1,000 mg 02/03/25 17:46 Acetaminophen 500 Mg Tablet PO Q6H PRN Mild Pain (1-3) or Fever Hydrocodone Bitart/Acetaminophen 1 tab 02/03/25 17:46 Hydrocodone/Acetaminophen (*Crx) 5-325 Mg Tablet PO Q4H PRN Pain Rated 4-6 Cyclobenzaprine HCl 10 mg 02/04/25 10:51 Cyclobenzaprine Hcl 10 Mg Tablet PO HS PRN Muscle Spasm Enalaprilat 1.25 mg 02/03/25 17:46 Enalaprilat 1.25 Mg/Ml Vial IV PUSH Q6HR PRN Hypertension Enoxaparin Sodium 40 mg 02/04/25 10:35 02/04/25 11:13 Enoxaparin 40 Mg/0.4 Ml Syringe SUB-Q 40 mg DAILY EMRE Administration Ergocalciferol 1,250 mcg 02/07/25 09:00 Ergocalciferol (Vitamin D2) 1,250 Mcg (50,000 Units) Capsule PO WEEKLY EMRE Gabapentin 600 mg 02/04/25 13:00 02/04/25 12:58 Gabapentin 300 Mg Capsule PO 600 mg TID EMRE Administration Ibuprofen 800 mg in 200 mls @ 400 mls/hr 02/03/25 18:00 02/04/25 09:25 Caldolor 800 Mg/200 Ml IVPB Infused Q8H EMRE Infusion Dextrose/Sodium Chloride 1,000 mls @ 75 mls/hr 02/03/25 17:46 02/04/25 11:09 Dextrose 5% Sodium Chloride 0.9% IV CONT 75 mls/hr .[id number] EMRE Infusion Lidocaine 1 patch 02/04/25 09:00 02/04/25 08:54 Lidocaine 5% Patch TRANSDERM 1 patch DAILY EMRE Administration Losartan Potassium 100 mg 02/05/25 09:00 Losartan Potassium 100 Mg Tablet PO DAILY [facility] Metoprolol Succinate 25 mg 02/05/25 09:00 Metoprolol Succinate Ext Rel 25 Mg Tabcr PO DAILY [facility] Mirtazapine 15 mg 02/04/25 21:00 Mirtazapine 15 Mg Tablet PO HS EMRE Morphine Sulfate 4 mg 02/03/25 17:46 02/04/25 00:50 Morphine Sulfate (*Crx) 4 Mg/Ml Inj IV PUSH 4 mg Q3H PRN Administration Pain Rated 7-10 IF NPO Ondansetron HCl 4 mg 02/03/25 17:46 Ondansetron Inj 4 Mg/2 Ml Vial IV PUSH Q6H PRN Nausea And Vomiting Oxycodone HCl 5 mg 02/03/25 17:46 Oxycodone Hcl (*Crx) 5 Mg Tab Ir PO Q6H PRN Pain Rated 7-10 Pantoprazole Sodium 40 mg 02/05/25 09:00 Pantoprazole 40 Mg Tablet PO DAILY [facility] Simvastatin 40 mg 02/04/25 21:00 Simvastatin 20 Mg Tablet PO HS [facility] Umeclidinium/Vilanterol 1 puff 02/05/25 09:00 Umeclidinium/Vilanterol 62.5-25 Mcg Ellipta INHALATION DAILY [facility] Labs Labs: Laboratory Results - last 24 hr 02/04/25 05:18 WBC 9.9 RBC 3.23 L Hgb 10.3 L Hct 32.6 L MCV 100.9 H MCH 31.9 MCHC 31.6 L RDW 13.0 Plt Count 167 MPV 10.9 H Immature Gran % (Auto) 0.3 Neut % (Auto) 80.5 H Lymph % (Auto) 14.6 L [place] % (Auto) 4.4 Eos % (Auto) 0.0 Baso % (Auto) 0.2 Lymph # (Auto) 1.45 [place] # (Auto) 0.4 Eos # (Auto) 0.0 Baso # (Auto) 0.0 Abs Immat Gran (auto) 0.03 Absolute Neuts (auto) 8.0 H Absolute Nucleated RBC 0.000 Nucleated RBC % 0.0 Sodium 139 Potassium 4.2 Chloride 107 Carbon Dioxide 26 Anion Gap 6 BUN 11 D Creatinine 0.77 Estim Creat Clear Calc 45 Estimated GFR > 60 Glucose 129 H Calcium 8.4 Total Bilirubin 0.4 AST 47 H ALT 33 Alkaline Phosphatase 60 Total Protein 5.3 L Albumin 3.1 L
[2025-02-04] MEDS: SIMVASTATIN 20 MG TABLET 40 MG PO (20:29)
[2025-02-04] MEDS: MIRTAZAPINE 15 MG TABLET PO (20:29)
[2025-02-04] MEDS: oxyCODONE HCL (*CRX) 5 MG TAB IR PO (20:29)
[2025-02-04] MEDS: HYDROmorphone HCL INJ (*CRX) 1 MG/ML SYR IV PUSH (22:48)
[2025-02-05] MEDS: DEXTROSE 5%/0.9% SOD CHL 1,000 ML 75 ML IV CONT ×2 (01:17→20:17)
[2025-02-05] MEDS: IBUPROFEN IV 800 MG/200 ML 800 MG/200 ML BAG 200 MG IVPB ×3 (01:21→17:40)
[2025-02-05] MEDS: oxyCODONE HCL (*CRX) 5 MG TAB IR PO ×3 (03:16→16:49)
[2025-02-05 05:24] VITALS: BP 117/45; PULSE 90; RESP 18; TEMP 36.6; O2SAT 93
[2025-02-05] MEDS: UMECLIDINIUM/VILANTEROL 62.5-25 MCG ELLIPTA 1 PUFF INHALATION (07:15)
[2025-02-05 08:39] VITALS: PULSE 93
[2025-02-05] MEDS: ENOXAPARIN 40 MG/0.4 ML SYRINGE SUB-Q (08:39)
[2025-02-05] MEDS: PANTOPRAZOLE 40 MG TABLET PO (08:39)
[2025-02-05] MEDS: METOPROLOL SUCCINATE EXT REL 25 MG TABCR PO (08:39)
[2025-02-05] MEDS: LOSARTAN POTASSIUM 100 MG TABLET PO (08:39)
[2025-02-05] MEDS: GABAPENTIN 300 MG CAPSULE 600 MG PO (08:39)
[2025-02-05] MEDS: LIDOCAINE 5% PATCH 1 PATCH TRANSDERM (08:42)
--- NOTE | 2025-02-05 09:21 | P.PN_ITS ---
Progress Note: A&P Assessment and Plan (1) Recurrent ventral hernia: Code(s): K43.2 - Incisional hernia without obstruction or gangrene Status: Acute Assessment and Plan: Patient remains hemodynamically stable. She has tolerated clear liquids and had a small liquid bowel movement today. Labs are pending. Abdomen is moderately distended today which may just represent postoperative ileus given the long pro cedure and extensive adhesiolysis. However she did have an enterotomy which was closed primarily and extensive small bowel adhesiolysis off of mesh. Will need to her closely any worsening abdominal exam. For now stay with clear liquids until I have reviewed obstructive series which has been ordered for this morning. Subjective Date/time seen: 02/05/25 09:21 Interval history: Patient is still complaining of significant right lower quadrant abdominal wall pain. No nausea or vomiting. She stated she had a small liquid bowel movement today which was nonbloody. Currently not on any supplemental oxygen. O2 saturations are above 92%. No significant tachycardia or hypotension. Labs this morning are pending. Urine output has been adequate. Exam GI: Other: The abdomen is moderately distended. As expected tenderness in the right lower quadrant and right side of the abdominal wall. Some guarding is noted. No generalized peritoneal signs. Port site incisions seem to be healing well without redness or drainage. Objective Data Vital Signs Vital Signs: Vital Signs - 24 hr 02/04/25 13:47 02/04/25 20:00 02/04/25 20:18 Temperature 37.5 C 36.7 C Pulse Rate 73 80 Respiratory Rate 18 16 Blood Pressure 110/43 L 108/47 L Pulse Oximetry 97 96 Oxygen Delivery Room Air 02/04/25 23:45 02/05/25 05:24 02/05/25 08:39 Temperature 36.7 C 36.6 C Pulse Rate 94 90 93 Respiratory Rate 16 18 Blood Pressure 101/44 L 117/45 L Pulse Oximetry 96 93 Oxygen Delivery Intake/Output Intake/Output: Intake & Output 02/02/25 02/03/25 02/04/25 02/05/25 23:59 23:59 23:59 23:59 Intake Total 300 4497.0 750 Output Total 130 3250 Balance 170 1247.0 750 Meds/Results Medications: Active Medications Generic Name Dose Route Start Last Admin Trade Name Freq PRN Reason Stop Dose Admin Acetaminophen 1,000 mg 02/03/25 17:46 Acetaminophen 500 Mg Tablet PO Q6H PRN Mild Pain (1-3) or Fever Hydrocodone Bitart/Acetaminophen 1 tab 02/03/25 17:46 Hydrocodone/Acetaminophen (*Crx) 5-325 Mg Tablet PO Q4H PRN Pain Rated 4-6 Cyclobenzaprine HCl 10 mg 02/04/25 10:51 Cyclobenzaprine Hcl 10 Mg Tablet PO HS PRN Muscle Spasm Enalaprilat 1.25 mg 02/03/25 17:46 Enalaprilat 1.25 Mg/Ml Vial IV PUSH Q6HR PRN Hypertension Enoxaparin Sodium 40 mg 02/04/25 10:35 02/05/25 08:39 Enoxaparin 40 Mg/0.4 Ml Syringe SUB-Q 40 mg DAILY EMRE Administration Ergocalciferol 1,250 mcg 02/07/25 09:00 Ergocalciferol (Vitamin D2) 1,250 Mcg (50,000 Units) Capsule PO WEEKLY EMRE Gabapentin 600 mg 02/04/25 13:00 02/05/25 08:39 Gabapentin 300 Mg Capsule PO 600 mg TID EMRE Administration Hydromorphone HCl 1 mg 02/04/25 19:41 02/04/25 22:48 Hydromorphone Hcl Inj (*Crx) 1 Mg/Ml Syr IV PUSH 1 mg Q4H PRN Administration Pain Rated 7-10 IF NPO Ibuprofen 800 mg in 200 mls @ 400 mls/hr 02/03/25 18:00 02/05/25 09:00 Caldolor 800 Mg/200 Ml IVPB 200 mls/hr Q8H EMRE Administration Dextrose/Sodium Chloride 1,000 mls @ 75 mls/hr 02/03/25 17:46 02/05/25 01:17 Dextrose 5% Sodium Chloride 0.9% IV CONT 75 mls/hr .[id number] EMRE Administration Lidocaine 1 patch 02/04/25 09:00 02/05/25 08:42 Lidocaine 5% Patch TRANSDERM 1 patch DAILY EMRE Administration Losartan Potassium 100 mg 02/05/25 09:00 02/05/25 08:39 Losartan Potassium 100 Mg Tablet PO 100 mg DAILY EMRE Administration Metoprolol Succinate 25 mg 02/05/25 09:00 02/05/25 08:39 Metoprolol Succinate Ext Rel 25 Mg Tabcr PO 25 mg DAILY EMRE Administration Mirtazapine 15 mg 02/04/25 21:00 02/04/25 20:29 Mirtazapine 15 Mg Tablet PO 15 mg HS EMRE Administration Ondansetron HCl 4 mg 02/03/25 17:46 Ondansetron Inj 4 Mg/2 Ml Vial IV PUSH Q6H PRN Nausea And Vomiting Oxycodone HCl 5 mg 02/03/25 17:46 02/05/25 03:16 Oxycodone Hcl (*Crx) 5 Mg Tab Ir PO 5 mg Q6H PRN Administration Pain Rated 7-10 Pantoprazole Sodium 40 mg 02/05/25 09:00 02/05/25 08:39 Pantoprazole 40 Mg Tablet PO 40 mg DAILY EMRE Administration Simvastatin 40 mg 02/04/25 21:00 02/04/25 20:29 Simvastatin 20 Mg Tablet PO 40 mg HS EMRE Administration Umeclidinium/Vilanterol 1 puff 02/05/25 09:00 02/05/25 07:15 Umeclidinium/Vilanterol 62.5-25 Mcg Ellipta INHALATION 1 puff DAILY EMRE Administration
[2025-02-05 10:09] LABS: Hematocrit 33.2 % (37.0-47.0); Hemoglobin 10.3 g/dL (12.0-15.0); Mean Corpuscular HGB Conc 31.0 g/dl (32-36); Mean Corpuscular Hemoglobin 31.9 pg (26-34); Mean Corpuscular Volume 102.8 fl (80-100); Platelet Count Result 161 k/mm3 (150-375); Red Blood Count 3.23 M/mm3 (4.2-5.4); White Blood Count 12.0 K/mm3 (4.5-10.0)
[2025-02-05 10:36] LABS: Band Neutrophils Percent 7 % (0-6); Lymphocytes Absolute Manual 0.48 K/mm3 (1.1-4.5); Lymphocytes Percent Manual 4 % (18-44); Monocytes Absolute Manual 0.12 K/mm3 (0.1-0.90); Monocytes Percent Manual 1 % (3-9); Neutrophils Absolute Manual 11.40 K/mm3 (1.3-6.7); Neutrophils Percent Manual 88 % (46-73); Total Cells Counted 100
[2025-02-05 10:38] LABS: Alanine Aminotransferase 29 U/L (6-35); Albumin Level 3.0 g/dL (3.5-5.1); Alkaline Phosphatase 74 U/L (38-126); Anion Gap 9 mmol/L (4-12); Aspartate Amino Transferase 41 U/L (14-36); Bilirubin,Total 0.7 mg/dL (0.2-1.3); Blood Urea Nitrogen 6 mg/dL (7-17); Burr Cells 1+; Calcium 8.3 mg/dL (8.4-10.2); Carbon Dioxide 19 mmol/L (22-30); Chloride 112 mmol/L (98-107); Estimated CRCL calculation 49 ml/min; Estimated Glomerular Filt Rate > 60; Glucose 161 mg/dL (65-110); Potassium 3.0 mmol/L (3.4-5.0); Schistocytes None Seen; Sodium 140 mmol/L (137-145); Total Protein 5.4 g/dL (6.3-8.2)
[2025-02-05] MEDS: BISACODYL 10 MG SUPPOSITORY RECTAL (14:17)
[2025-02-05] MEDS: PIPERACILLIN/TAZOBACTAM SOD 3.375 GM in SODIUM CHLORIDE 0.9% IV 50 ML 100 ML IVPB ×3 (14:17→20:30)
[2025-02-05 14:18] VITALS: BP 118/55; PULSE 84; RESP 17; TEMP 36.9; O2SAT 100
[2025-02-05] MEDS: HYDROcodone/acetaminophen (*CRX) 5-325 MG TABLET 1 TAB PO (20:17)
[2025-02-05] MEDS: MIRTAZAPINE 15 MG TABLET PO (20:19)
[2025-02-05] MEDS: SIMVASTATIN 20 MG TABLET 40 MG PO (20:19)
[2025-02-05 21:54] VITALS: BP 110/43; PULSE 80; RESP 16; TEMP 36.3; O2SAT 98
[2025-02-06] MEDS: PIPERACILLIN/TAZOBACTAM SOD 3.375 GM in SODIUM CHLORIDE 0.9% IV 50 ML 100 ML IVPB ×2 (01:12→08:10)
[2025-02-06] MEDS: IBUPROFEN IV 800 MG/200 ML 800 MG/200 ML BAG 200 MG IVPB ×2 (01:12→10:22)
[2025-02-06 05:54] LABS: Hematocrit 30.4 % (37.0-47.0); Hemoglobin 9.5 g/dL (12.0-15.0); Immature Granulocyte Percent A 0.6 % (0-0.5); Lymphocytes Absolute Auto 0.98 K/mm3 (0.9-3.2); Mean Corpuscular HGB Conc 31.3 g/dl (32-36); Mean Corpuscular Hemoglobin 32.0 pg (26-34); Mean Corpuscular Volume 102.4 fl (80-100); Nucleated Red Blood Cells Absolute Auto 0.000 K/mm3 (0.0-0.012); Nucleated Red Blood Cells Perc 0.0 % (0.0-0.2); Platelet Count Result 140 k/mm3 (150-375); Red Blood Count 2.97 M/mm3 (4.2-5.4); White Blood Count 8.1 K/mm3 (4.5-10.0)
[2025-02-06 06:04] LABS: Alanine Aminotransferase 26 U/L (6-35); Albumin Level 2.9 g/dL (3.5-5.1); Alkaline Phosphatase 77 U/L (38-126); Anion Gap 4 mmol/L (4-12); Aspartate Amino Transferase 36 U/L (14-36); Bilirubin,Total 0.8 mg/dL (0.2-1.3); Blood Urea Nitrogen 7 mg/dL (7-17); Calcium 8.4 mg/dL (8.4-10.2); Carbon Dioxide 24 mmol/L (22-30); Chloride 112 mmol/L (98-107); Estimated CRCL calculation 53 ml/min; Estimated Glomerular Filt Rate > 60; Glucose 94 mg/dL (65-110); Potassium 3.8 mmol/L (3.4-5.0); Sodium 140 mmol/L (137-145); Total Protein 5.2 g/dL (6.3-8.2)
[2025-02-06 06:09] VITALS: BP 128/50; PULSE 67; RESP 16; TEMP 36.4; O2SAT 100
[2025-02-06 07:45] VITALS: PULSE 69; RESP 17
[2025-02-06] MEDS: UMECLIDINIUM/VILANTEROL 62.5-25 MCG ELLIPTA 1 PUFF INHALATION (07:49)
[2025-02-06 08:02] VITALS: PULSE 69; O2SAT 91
[2025-02-06 08:11] VITALS: PULSE 73
[2025-02-06] MEDS: ENOXAPARIN 40 MG/0.4 ML SYRINGE SUB-Q (08:11)
[2025-02-06] MEDS: METOPROLOL SUCCINATE EXT REL 25 MG TABCR PO (08:11)
[2025-02-06] MEDS: PANTOPRAZOLE 40 MG TABLET PO (08:11)
[2025-02-06] MEDS: LOSARTAN POTASSIUM 100 MG TABLET PO (08:11)
[2025-02-06] MEDS: SACCHAROMYCES BOULARDII 250 MG CAPSULE PO ×2 (10:21→17:18)
--- NOTE | 2025-02-06 10:48 | P.PNGS_ITS ---
Progress Note: A&P Assessment and Plan (1) Recurrent ventral hernia: Code(s): K43.2 - Incisional hernia without obstruction or gangrene Status: Acute Assessment and Plan: * Patient continues to improve clinically. Tolerating full liquids without any nausea or vomiting. Ambulating around room without assistance. Labs stable. * Advanced diet to soft, low fiber. Added probiotic. * WBC normalized to 8.1. Will discontinue Zosyn. Plan Discussed patient's case and plan of care with Dr. Flores. Subjective Subjective Date/Time Seen: 02/06/25 10:48 Patient reports: no new complaints, feels better, tolerating liquids well (full liquids), bowel movement and afebrile Interval history: Patient doing well today. Sitting up in chair, but having some back pain so moved back to bed. Tolerating full liquid diet. Having BMs. Exam Const: General: comfortable and no acute distress GI: Inspection: non-distended GI Palp: Yes Soft to palpation Auscultation: normal bowel sounds Other: Patient has some tenderness to RLQ. Feels like there is some mild swelling to the area. No guarding or rigid abdomen. Incisions are clean and dry with no signs of infection or dehiscence. Psych: Mental Status: mental status grossly normal Objective Data Vital Signs Vital Signs: Vital Signs - 24 hr 02/05/25 13:41 02/05/25 14:18 02/05/25 14:55 Temperature 98.4 F Pulse Rate 84 Respiratory Rate 17 Blood Pressure 118/55 L Pulse Oximetry 100 Oxygen Delivery Room Air Room Air 02/05/25 21:54 02/06/25 06:09 02/06/25 07:45 Temperature 97.4 F L 97.5 F L Pulse Rate 80 67 69 Respiratory Rate 16 16 17 Blood Pressure 110/43 L 128/50 L Pulse Oximetry 98 100 Oxygen Delivery 02/06/25 08:00 02/06/25 08:02 02/06/25 08:11 Temperature Pulse Rate 69 73 Respiratory Rate Blood Pressure Pulse Oximetry 91 Oxygen Delivery Room Air Room Air Intake/Output Intake/Output: Intake & Output 02/03/25 02/04/25 02/05/25 02/06/25 23:59 23:59 23:59 23:59 Intake Total 300 4497.0 3807 690 Output Total 130 3250 Balance 170 1247.0 3807 690 Meds/Results Medications: Active Medications Generic Name Dose Route Start Last Admin Trade Name Freq PRN Reason Stop Dose Admin Acetaminophen 1,000 mg 02/03/25 17:46 Acetaminophen 500 Mg Tablet PO Q6H PRN Mild Pain (1-3) or Fever Hydrocodone Bitart/Acetaminophen 1 tab 02/03/25 17:46 02/05/25 20:17 Hydrocodone/Acetaminophen (*Crx) 5-325 Mg Tablet PO 1 tab Q4H PRN Administration Pain Rated 4-6 Cyclobenzaprine HCl 10 mg 02/04/25 10:51 Cyclobenzaprine Hcl 10 Mg Tablet PO HS PRN Muscle Spasm Enalaprilat 1.25 mg 02/03/25 17:46 Enalaprilat 1.25 Mg/Ml Vial IV PUSH Q6HR PRN Hypertension Enoxaparin Sodium 40 mg 02/04/25 10:35 02/06/25 08:11 Enoxaparin 40 Mg/0.4 Ml Syringe SUB-Q 40 mg DAILY EMRE Administration Ergocalciferol 1,250 mcg 02/07/25 09:00 Ergocalciferol (Vitamin D2) 1,250 Mcg (50,000 Units) Capsule PO WEEKLY EMRE Gabapentin 300 mg 02/06/25 21:00 Gabapentin 300 Mg Capsule PO QHS EMRE Hydromorphone HCl 1 mg 02/04/25 19:41 02/04/25 22:48 Hydromorphone Hcl Inj (*Crx) 1 Mg/Ml Syr IV PUSH 1 mg Q4H PRN Administration Pain Rated 7-10 IF NPO Ibuprofen 800 mg in 200 mls @ 400 mls/hr 02/03/25 18:00 02/06/25 10:22 Caldolor 800 Mg/200 Ml IVPB 200 mls/hr Q8H EMRE Administration Dextrose/Sodium Chloride 1,000 mls @ 75 mls/hr 02/03/25 17:46 02/05/25 20:17 Dextrose 5% Sodium Chloride 0.9% IV CONT 75 mls/hr .[id number] EMRE Administration Piperacillin Sod/Tazobactam 50 mls @ 100 mls/hr 02/05/25 20:00 02/06/25 08:40 Sod 3.375 gm/ Sodium Chloride IVPB Infused Q6H EMRE Infusion Lidocaine 1 patch 02/04/25 09:00 02/06/25 08:12 Lidocaine 5% Patch TRANSDERM Not Given DAILY EMRE Losartan Potassium 100 mg 02/05/25 09:00 02/06/25 08:11 Losartan Potassium 100 Mg Tablet PO 100 mg DAILY EMRE Administration Metoprolol Succinate 25 mg 02/05/25 09:00 02/06/25 08:11 Metoprolol Succinate Ext Rel 25 Mg Tabcr PO 25 mg DAILY EMRE Administration Mirtazapine 15 mg 02/04/25 21:00 02/05/25 20:19 Mirtazapine 15 Mg Tablet PO 15 mg HS EMRE Administration Ondansetron HCl 4 mg 02/03/25 17:46 Ondansetron Inj 4 Mg/2 Ml Vial IV PUSH Q6H PRN Nausea And Vomiting Oxycodone HCl 5 mg 02/03/25 17:46 02/05/25 16:49 Oxycodone Hcl (*Crx) 5 Mg Tab Ir PO 5 mg Q6H PRN Administration Pain Rated 7-10 Pantoprazole Sodium 40 mg 02/05/25 09:00 02/06/25 08:11 Pantoprazole 40 Mg Tablet PO 40 mg DAILY EMRE Administration Saccharomyces Boulardii 250 mg 02/06/25 09:55 02/06/25 10:21 Saccharomyces Boulardii 250 Mg Capsule PO 250 mg BID EMRE Administration Simvastatin 40 mg 02/04/25 21:00 02/05/25 20:19 Simvastatin 20 Mg Tablet PO 40 mg HS EMRE Administration Umeclidinium/Vilanterol 1 puff 02/05/25 09:00 02/06/25 07:49 Umeclidinium/Vilanterol 62.5-25 Mcg Ellipta INHALATION 1 puff DAILY EMRE Administration Radiology Results: ITS Impressions Abdomen X-Ray 02/05/25 12:27 IMPRESSION: 1. Small amount of free intraperitoneal gas as well as abdominal and chest wall gas likely related to recent surgery. 2. Large amount of gas scattered throughout the colon most likely related to post operative ileus with no dilated gas-filled loops of small bowel to suggest obstruction. Labs Labs: Laboratory Results - last 24 hr 02/06/25 05:08 WBC 8.1 RBC 2.97 L Hgb 9.5 L Hct 30.4 L MCV 102.4 H MCH 32.0 MCHC 31.3 L RDW 13.4 Plt Count 140 L MPV 11.3 H Immature Gran % (Auto) 0.6 H Neut % (Auto) 79.8 H Lymph % (Auto) 12.1 L [place] % (Auto) 5.0 Eos % (Auto) 2.4 Baso % (Auto) 0.1 L Lymph # (Auto) 0.98 [place] # (Auto) 0.4 Eos # (Auto) 0.2 Baso # (Auto) 0.0 Abs Immat Gran (auto) 0.05 H Absolute Neuts (auto) 6.4 Absolute Nucleated RBC 0.000 Nucleated RBC % 0.0 Sodium 140 Potassium 3.8 Chloride 112 H Carbon Dioxide 24 Anion Gap 4 BUN 7 Creatinine 0.64 L Estim Creat Clear Calc 53 Estimated GFR > 60 Glucose 94 Calcium 8.4 Total Bilirubin 0.8 AST 36 ALT 26 Alkaline Phosphatase 77 Total Protein 5.2 L Albumin 2.9 L
[2025-02-06] MEDS: oxyCODONE HCL (*CRX) 5 MG TAB IR PO ×2 (13:37→20:09)
[2025-02-06 16:00] VITALS: BP 117/53; PULSE 72; RESP 17; TEMP 36.8; O2SAT 100
[2025-02-06] MEDS: IBUPROFEN IV 800 MG/200 ML 800 MG/200 ML BAG 400 MG IVPB (17:18)
[2025-02-06] MEDS: SIMVASTATIN 20 MG TABLET 40 MG PO (20:09)
[2025-02-06] MEDS: GABAPENTIN 300 MG CAPSULE PO (20:09)
[2025-02-06] MEDS: MIRTAZAPINE 15 MG TABLET PO (20:09)
[2025-02-06 20:31] VITALS: BP 126/48; PULSE 71; RESP 18; TEMP 35.9; O2SAT 96
[2025-02-07] MEDS: HYDROcodone/acetaminophen (*CRX) 5-325 MG TABLET 1 TAB PO ×3 (01:01→13:39)
[2025-02-07] MEDS: IBUPROFEN IV 800 MG/200 ML 800 MG/200 ML BAG 400 MG IVPB (01:23)
[2025-02-07 03:22] VITALS: BP 116/49; PULSE 84; RESP 18; TEMP 36.1; O2SAT 100
[2025-02-07 06:43] LABS: Hematocrit 28.3 % (37.0-47.0); Hemoglobin 8.7 g/dL (12.0-15.0); Mean Corpuscular HGB Conc 30.7 g/dl (32-36); Mean Corpuscular Hemoglobin 31.1 pg (26-34); Mean Corpuscular Volume 101.1 fl (80-100); Platelet Count Result 153 k/mm3 (150-375); Red Blood Count 2.80 M/mm3 (4.2-5.4); White Blood Count 6.2 K/mm3 (4.5-10.0)
[2025-02-07 07:12] LABS: Anion Gap 6 mmol/L (4-12); Blood Urea Nitrogen 13 mg/dL (7-17); Calcium 8.3 mg/dL (8.4-10.2); Carbon Dioxide 24 mmol/L (22-30); Chloride 111 mmol/L (98-107); Estimated CRCL calculation 46 ml/min; Estimated Glomerular Filt Rate > 60; Glucose 62 mg/dL (65-110); Potassium 3.4 mmol/L (3.4-5.0); Sodium 141 mmol/L (137-145)
[2025-02-07 08:00] VITALS: BP 134/64; PULSE 65; RESP 18; TEMP 36.5; O2SAT 100
[2025-02-07] MEDS: UMECLIDINIUM/VILANTEROL 62.5-25 MCG ELLIPTA 1 PUFF INHALATION (09:26)
[2025-02-07] MEDS: ENOXAPARIN 40 MG/0.4 ML SYRINGE SUB-Q (09:32)
[2025-02-07] MEDS: ERGOCALCIFEROL (VITAMIN D2) 1,250 MCG (50,000 UNITS) CAPSULE 1250 MCG PO (09:32)
[2025-02-07] MEDS: PANTOPRAZOLE 40 MG TABLET PO (09:32)
[2025-02-07] MEDS: LIDOCAINE 5% PATCH 1 PATCH TRANSDERM (09:32)
[2025-02-07 09:33] VITALS: PULSE 79
[2025-02-07] MEDS: SACCHAROMYCES BOULARDII 250 MG CAPSULE PO (09:33)
[2025-02-07] MEDS: LOSARTAN POTASSIUM 100 MG TABLET PO (09:33)
[2025-02-07] MEDS: METOPROLOL SUCCINATE EXT REL 25 MG TABCR PO (09:33)
--- NOTE | 2025-02-07 12:16 | PCNFU ---
Nutrition Follow-Up Complete: Unintentional weight loss related to reduced appetite and intake as evidenced by pt report and noted weight loss in EMR Goal:diet order PO intake greater than 50% Pt meeting goal. Pt current nutrition is Low fiber. Nutrition recommendation: continue with current plan of care Last recorded weight is 48.6 kg. Bowel Motility: +BM 02/06 Labs Reviewed: Hgb:8.7, HCT:28.3 Meds Noted: lovenox, protonix Skin: WNL Additional Notes: Pt diet advanced to low fiber, tolerating well, intake 75-100% of meals. Pt to discharge today possibly Monitor for diet order, intake, wt, labs. Follow up in 7 days.
--- NOTE | 2025-02-07 14:53 | PM.DS ---
DS: Admitting Diagnosis Discharge Date 02/07/25 Admitting Diagnosis Incisional hernia DS: Discharge Diagnosis Discharge Diagnosis (1) Recurrent ventral hernia: Code(s): K43.2 - Incisional hernia without obstruction or gangrene Status: Acute DS: Summary Hospital Course Reason for hospitalization: Patient was seen in general surgery office for recheck of her recurrent ventral incisional hernia. She had a CT done which showed right-sided ventral hernia containing fat. Noted some tenderness, but hernia with still reducible. Patient has history of multiple hernia repairs with complications in 2002, gastric bypass and Plastic surgery in 2005 a bowel obstruction in 2012. Patient is followed by a analyst market intelligence with [facility] every 6 months and is to be seen again in February. She is seen at the hospital on 02/03/2025 for a planned robotic assisted laparoscopic recurrent incisional hernia repair with mesh. Hospital Course: Patient underwent robotic assisted laparoscopic recurrent incisional hernia repair with mesh on 02/03/2025. The patient was found have extensive small bowel adhesions to the old prosthetic mesh in the right lower quadrant of the abdomen. Also noted were 2 port site incisional hernias that were repaired without mesh. There were multiple loops of small bowel very densely adherent to the old prosthetic mesh over the course of 2-1/2 hours, adhesiolysis of the small bowel off of the mesh was performed. However once small-bowel iatrogenic full-thickness enterotomy was made and it was repaired without any spillage of enteric contents. The patient tolerated the procedure well with no complications. She was awakened and taken to recovery in stable and satisfactory condition. Patient remains stable overnight. The following morning she continued to do well, but complained of some abdominal pain that was exacerbated by movement. This was managed with IV and oral narcotics. She was tolerating a clear liquid diet without nausea or vomiting. PT/OT was ordered as patient is encouraged to ambulate and get out of bed. Continue abdominal binder. On 02/05, patient had a small liquid bowel movement, but was moderately distended in her abdomen. WBC 12.0. She was given Zosyn. An abdominal x-ray demonstrated a large amount of gas scattered throughout the colon most likely related to postoperative ileus. Patient given Dulcolax suppository. Continued to have bowel movements. The following day, patient's white blood cell count had normalized to 8.1. Zosyn was discontinued. Her diet was advanced. Abdomen less distended. Ambulating in the hallways with assistance. 02/07 patient feeling well. Labs stable. Tolerating diet and ambulating well. Pain manageable with oral medications. Surgically stable for discharge. Status at Discharge Functional status at discharge: independent ambulation Overall status at discharge: patient is back to baseline Time Spent with Patient Time attestation: Total time spent providing and/or coordinating discharge services: Exam Const: General: comfortable and no acute distress Eyes: General: appearance normal, both eyes and all related structures Neck: Neck: supple Resp: Effort & Inspection: normal respiratory effort Cardio: Rate: regular rate GI: Inspection: non-distended GI Palp: Yes Soft to palpation, Yes Tenderness to palpation present (GI) (Right lower quadrant) and No Guarding due to palpation present (GI) Auscultation: normal bowel sounds Other: Incisions are clean and dry with glue intact. Skin: General skin exam: normal color and no rashes or lesions noted Extrem: General: normal to inspection Psych: Mental Status: mental status grossly normal DS: Data Data Completed and Pending Labs on day of discharge: Labs from last 24 hours 02/07/25 05:22 WBC 6.2 RBC 2.80 L Hgb 8.7 L Hct 28.3 L MCV 101.1 H MCH 31.1 MCHC 30.7 L RDW 13.1 Plt Count 153 MPV 11.5 H Sodium 141 Potassium 3.4 Chloride 111 H Carbon Dioxide 24 Anion Gap 6 BUN 13 D Creatinine 0.75 Estim Creat Clear Calc 46 Estimated GFR > 60 Glucose 62 L Calcium 8.3 L Procedures/Treatments: Procedures Operation Date: 02/03/25 10:00 Actual Procedure Side Surgeon p Robotic Assisted Laparoscopic Incisional Hernia Repair with Mesh times one, Robotic Assisted Laparoscopic Incisional Hernia repair without mesh times two, extensive adhesiolysis, small bowel enterotomy Not Applicable Herbert Flores MD Imaging Radiologist's impression: ITS Impressions Abdomen X-Ray 02/05/25 12:27 IMPRESSION: 1. Small amount of free intraperitoneal gas as well as abdominal and chest wall gas likely related to recent surgery. 2. Large amount of gas scattered throughout the colon most likely related to post operative ileus with no dilated gas-filled loops of small bowel to suggest obstruction. Discharge Plan Discharge Attending physician on discharge: Herbert Flores Discharging Clinician: Maryjo Castaneda Discharge Date/Time: 02/07/25 13:16 Patient Disposition: Home Activity: may shower Diet: regular Wound Care Instructions: follow printed instructions Discharge Instructions: No soaking in a bath, pool, chery, or any other body of water for the next two weeks. Ok to shower. No lifting more than 15-20 pounds until otherwise instructed by your surgeon. Up and walking 10-30 minutes 3 times a day. Resume previous home medications. Take Tylenol 500mg every 6 hours as needed. You may apply ice to the surgical site as needed (30 min on, 30 min off). No driving for 3 days after surgery or while taking narcotic pain medication. Continue to wear abdominal binder throughout the day and while sleeping. You may resume your regular diet. If you experience nausea, try dry toast, crackers, and 7-UP.? If nausea or vomiting persists, contact your surgeon?s office. Call the office at to schedule a follow up appointment in 10-14 days for wound check. Call the office or go to the Emergency Department for: -Bleeding or increased drainage from wounds -Severe pain -Vomiting -Fever greater than 101 degrees Patient Instructions: Antibiotic Form Patient Language: Slovenian Stand Alone Forms: General Discharge Information Follow-up/Referrals: Herbert Flores MD [Physician, General Surgery] - Call for Appointment Referral Note: 2 weeks Discharge Medications: Continued pantoprazole [Protonix] 40 mg tablet,delayed release (DR/EC) 40 mg PO DAILY 30 Days Qty: 30 0RF ergocalciferol (vitamin D2) 1,250 mcg (50,000 unit) capsule 1,250 mcg PO WEEKLY Rx Instructions: weekly on Monday losartan 100 mg tablet 100 mg PO DAILY metoprolol succinate 25 mg tablet extended release 24 hr 25 mg PO DAILY simvastatin 40 mg tablet 40 mg PO DAILY mirtazapine 15 mg tablet 15 mg PO HS umeclidinium-vilanterol [Anoro Ellipta] 62.5-25 mcg/actuation blister with device 1 inh INHALATION DAILY gabapentin [Neurontin] 300 mg capsule 600 mg PO TID hydrocodone-acetaminophen 10-325 mg Tablet 1 tablet PO Q6H PRN (Reason: Pain) cyclobenzaprine 10 mg tablet 10 mg PO HS PRN (Reason: muscle spasm) Linzess 290 mcg capsule 290 mcg PO DAILY PRN (Reason: bowel ) Date of admission: 02/03/25 20:22 Primary Care Provider: Jamey Flower Admitting Provider: Herbert Flores Attending physician on admission: Herbert Flores Condition: Improved
== END 2025-02-07 14:08 | disposition home or self-care (01) | DRG 330 ==
LOC: ANHSURGERY 02-04 06:36 → ANH3MEDSUR 02-04 06:36
PROVIDERS: Admitting Provider Surgery; PCP Emergency Medicine
PROC: 0WUF4JZ Supplement Abdominal Wall with Synthetic Substitute, Percutaneous Endoscopic Approach (ICD-10-PCS; principal; 2025-02-03 10:00)
DX: K43.2 Incisional hernia without obstruction or gangrene (principal); K43.0 Incisional hernia with obstruction, without gangrene; K91.71 Accidental puncture and laceration of a digestive system organ or structure during a digestive system procedure; K66.0 Peritoneal adhesions (postprocedural) (postinfection); I10 Essential (primary) hypertension; J44.9 Chronic obstructive pulmonary disease, unspecified; D50.9 Iron deficiency anemia, unspecified; E78.5 Hyperlipidemia, unspecified; K57.30 Diverticulosis of large intestine without perforation or abscess without bleeding; K58.9 Irritable bowel syndrome, unspecified; K27.7 Chronic peptic ulcer, site unspecified, without hemorrhage or perforation; K21.9 Gastro-esophageal reflux disease without esophagitis; M81.0 Age-related osteoporosis without current pathological fracture; M19.90 Unspecified osteoarthritis, unspecified site; M48.061 Spinal stenosis, lumbar region without neurogenic claudication; G62.9 Polyneuropathy, unspecified; F17.210 Nicotine dependence, cigarettes, uncomplicated; Z98.84 Bariatric surgery status
CPT/HCPCS: 36415; 74019; 80048; 80053; 85025; 85027; 94640; 97161; 97166; 97530; 97535; J0690; A9270; C1781; J0616; J1100; J1171; J1596; J1650; J1741; J1885; J2003; J2004; J2250; J2270; J2405; J2470; J2543; J2704; J3010; J7042; J7120

== ENCOUNTER 2025-02-18 11:30 | Inpatient (IN) | payer MEDICARE, MEDICAID, SELFPAY ==
--- NOTE | ~2025-02-18 | CT_ITS ---
EXAMINATION: CT abdomen pelvis w con DATE: 02/26/2025 09:07 INDICATION: Follow-up anterior pelvic wall abscess TECHNIQUE: Computed tomography (CT) of the abdomen and pelvis was performed with 100 mL Omnipaque-350 intravenous contrast. Automated exposure control and iterative reconstruction technique were employed. The dose-length product was 172.98 mGy-cm. COMPARISON: CT dated 02/21/2025 FINDINGS: Lung bases are clear. Heart size is normal. There is suggestion of a 2-lead central venous catheter in the right atrium. No pericardial or pleural effusion. Postoperative change of prior gastric bypass procedure with jejunojejunal anastomosis in the left abdomen and cholecystectomy with surgical clips in the gallbladder fossa. Liver, pancreas, spleen, right kidney and bilateral adrenal glands are normal. Unchanged small to moderate left renal atrophy. There is fluid throughout the colon consistent with nonspecific diarrhea. No bowel obstruction. Normal short appendix. Bladder is normal. The uterus is not identified and has likely been surgically resected. Again seen are postoperative change of a recently revised hernia repair on the right lower quadrant and right pelvic anterior abdominal wall. Interval decrease in size of a likely rim- enhancing gas and fluid collection along the deep margin of the ventral hernia repair. See measuring 10.9 x 8.2 x 2.3 cm and currently measuring 9.6 x 7.9 x 2.0 cm. No change in position of the more superficial pigtail drainage catheter within a collapsed abscess cavity along the anterior margin of the mesh. There appears be an indication between the deeper and more superficial abscess cavities inferior to the level of the pigtail drain. No other abscesses or free intraperitoneal gas or fluid. No pathologically enlarged abdominal or pelvic lymphadenopathy. Lumbar levoscoliosis with severe spondylosis. Severe left and moderate right hip osteoarthritis. IMPRESSION: 1. Slight decrease in size of a now 9.6 x 7.9 x 2.0 cm abscess along the deep margin of a revised ventral hernia mesh repair on the right lower quadrant and pelvic anterior abdominal wall. Unchanged pigtail drainage catheter within a likely communicating and now collapsed abscess cavity along the superficial margin of the mesh repair. Reviewed, dictated and finalized at location A. CRITIC IMPRESSION: 1. Slight decrease in size of a now 9.6 x 7.9 x 2.0 cm abscess along the deep m argin of a revised ventral hernia mesh repair on the right lower quadrant and p elvic anterior abdominal wall. Unchanged pigtail drainage catheter within a lik mayte communicating and now collapsed abscess cavity along the superficial margin of the mesh repair.
--- NOTE | ~2025-02-18 | CT_ITS ---
CT abdomen pelvis w con Clinical History: postoperative infection . Comparison: CT abdomen and pelvis 12/17/2024 6 Technique: Axial images lung bases to symphysis pubis IV contrast information not listed in PACS Coronal, sagittal reformats CT images acquired with automatic exposure control for dose reduction DLP: 171 mGy-cm Findings: Lung bases: Clear. Visualized heart and pericardium: Unremarkable. Liver: Steatosis. Intrahepatic biliary ductal dilatation after cholecystectomy. Gallbladder: Removed. Spleen: Unremarkable. Pancreas: Unremarkable. Adrenal glands: Unremarkable. Kidneys: Right kidney- No hydronephrosis. No renal stones. Compensatory hypertrophy. Left kidney- No hydronephrosis. No renal stones. Atrophic. Distal esophagus/stomach: Gastric bypass. Small bowel loops: Normal caliber and wall thickness. Colon: Normal caliber and wall thickness. Normal RLQ appendix. Nodes: No enlarged nodes. Peritoneum: No ascites. No free air. Large ill-defined collection of gas and fluid along right anterior peritoneum extending into hernia. Urinary bladder: Unremarkable. Uterus: Unremarkable. Adnexa: No masses. Bones: No acute bony abnormality. Soft tissues: Unremarkable. Aorta: No aneurysm or dissection. Atherosclerotic disease. IVC: Unremarkable. Main portal vein/SMV/splenic vein: Patent. IMPRESSION: 1. Large abscess right abdominal wall extending into peritoneum. Roughly 10 cm transverse by 10 cm craniocaudad by 5 cm AP diameter. Reviewed, dictated and finalized at location R. ICATION LEAD
--- NOTE | ~2025-02-18 | CT_ITS ---
EXAMINATION: CT guide absc cath placement DATE: 02/19/2025 10:42 INDICATION: Peritoneal and abdominal wall abscess post revision of a ventral hernia mesh repair. TECHNIQUE: The procedure including the risks and benefits was discussed with the patient. Risks discussed included bleeding and infection. The patient understood the risks and benefits and agreed to proceed. The patient was confirmed to be receiving appropriate antibiotic coverage. The skin overlying the abdomen was prepped and draped in usual sterile fashion. Anesthetic was administered with 1% lidocaine subcutaneously. Utilizing CT guidance an 8.5 Fr pigtail catheter was then placed utilizing trocar technique with position confirmed by CT. The pigtail loop was formed and locked with position confirmed by CT. Gas and purulent appearing fluid was aspirated with the fluid sent to the lab for Gram stain and cultures. The catheter was stitched to the skin with suture. Antibiotic ointment and a sterile dressing were applied. An additional adhesive fixation device was applied. Catheter was then attached to suction drainage and was draining additional small amount of gas and purulent appearing fluid at the conclusion of the procedure. The dose-length product was 112.51 mGy-cm. FINDINGS: CT images demonstrate the catheter within the gas-filled subcutaneous abscess cavity. 30 mL of opaque [id number] fluid was sent to the lab for Gram stain and cultures. Both the subcutaneous gas collection as well as the intraperitoneal gas and fluid collection deep to the mesh used in size on the final imaging consistent with communication between the 2. IMPRESSION: 1. Successful CT-guided abscess drainage with placement of a percutaneous abscess drain in the more superficial subcutaneous component of the collection which appears to communicate with the collection deep to the ventral hernia mesh repair. 2. 30 mL fluid was sent for aerobic and anaerobic cultures. 3. The catheter will be managed by Dr. Flores. Reviewed, dictated and finalized at location A. ARCHITECT IMPRESSION: 1. Successful CT-guided abscess drainage with placement of a percutaneous absce ss drain in the more superficial subcutaneous component of the collection which appears to communicate with the collection deep to the ventral hernia mesh rep air. 2. 30 mL fluid was sent for aerobic and anaerobic cultures. 3. The catheter will be managed by Dr. Flores.
--- NOTE | ~2025-02-18 | CT_ITS ---
EXAMINATION: CT abdomen pelvis w con DATE: 02/21/2025 10:41 INDICATION: Peritoneal abscess TECHNIQUE: Computed tomography (CT) of the abdomen and pelvis was performed with 100 mL Omnipaque-350 intravenous contrast and with water-soluble oral contrast. Automated exposure control and iterative reconstruction technique were employed. The dose-length product was 173.13 mGy-cm. COMPARISON: CT dated 02/18/2025 FINDINGS: Lung bases are clear. Heart size is normal. No pericardial or pleural effusion. Postoperative change of prior gastric bypass procedure. Unchanged mild intra and extrahepatic biliary ductal dilation likely related to prior cholecystectomy with surgical clips the gallbladder fossa. Spleen, pancreas, bilateral adrenal glands and right kidney are normal. Unchanged mild to moderate left renal atrophy. No abnormal bowel wall thickening or obstruction. There is also contrast material extending through the small bowel and colon to the level of the rectum. Again seen are changes of recent revision of a ventral hernia mesh repair. 8.4 x 10.5 x 2.6 cm loculated peripherally enhancing abscess located deep to the mesh which has increased in size since the CT imaging obtained immediately following placement of an abscess drainage catheter within a more superficial communicating abscess cavity which measures approximately 4.6 x 3.1 x 1.3 cm. There is an complex fluid within a deeper abscess cavity along which includes a localized region of fluid with increased attenuation of 115 HU which suggests extravasation of oral contrast material from adjacent contrast filled bowel. Bladder is normal. The uterus is not identified and has likely been surgically resected. No free intraperitoneal gas or fluid. No pathologically enlarged abdominal or pelvic lymphadenopathy. 20 degrees lumbar levoscoliosis with moderate spondylosis. Severe left and moderate right hip osteoarthritis. IMPRESSION: 1. Increase in size of an intraperitoneal abscess along the right lower quadrant anterior abdominal wall deep to a revised ventral hernia mesh repair. Complex and in places high attenuation fluid within the abscess cavity consistent with persistent communication to the small bowel with extravasation of oral contrast material. There is communication of this abscess cavity through 4 along side the mesh to a smaller more superficial abscess cavity with pin which is the recently placed abscess drainage catheter. Reviewed, dictated and finalized at location A. MATOR BINDING IMPRESSION: 1. Increase in size of an intraperitoneal abscess along the right lower quadran t anterior abdominal wall deep to a revised ventral hernia mesh repair. Complex and in places high attenuation fluid within the abscess cavity consistent with persistent communication to the small bowel with extravasation of oral contras t material. There is communication of this abscess cavity through 4 along side the mesh to a smaller more superficial abscess cavity with pin which is the rec ently placed abscess drainage catheter.
--- NOTE | 2025-02-18 11:36 | ADMGEN ---
This patient, Jill Gongora, was admitted to [facility] Surg Room 307-01. Patient/family oriented to hospital policies and general routines including ID bracelet, bed and alarms, visiting hours, pain management, procedures, bathroom and other care routines, personal items, smoking policy, room service/diet, and visiting hours. Information on how to activate the Rapid Response Team has been discussed. Patient/Family are encouraged to report perceived risks to care and to ask questions if they do not understand what they are told or what they should do.
[2025-02-18 11:49] VITALS: BMI 19.7
[2025-02-18 12:00] VITALS: BP 115/3; PULSE 73; RESP 18; TEMP 36.6; O2SAT 100
--- OUTSIDE RECORDS SUMMARY | 2025-02-18 12:35 | XMS_ITS | Encounter Summary ---
Author Organization [facility] Health Address [address] [place] [address] Care Team Providers Care Swimming Pool Maintenance Name Role Phone Deep Morris MD Unavailable [phone] Kip Camacho Primary Care Provider + Rob Chavez MD Primary Care Provider [phone] Med Morel MD Unavailable [phone] Encounter Details Date Type Department Care [...] on file Legal Sex Female 2:09 PM CLIENT SERVICES ADMINISTRATOR Gender Identity Not on file Sexual Orientation Not on file Occupation Industry Job Start Date Job End Date Retired Not on file Not on file Not on file documented as of this encounter Plan of Treatment Not on file documented as of this encounter Visit Diagnoses Not on filedocumented in this encounter Care Teams Swimming Pool Maintenance Relationship Specialty Start Date End Date Kip Camacho PA [facility] [place] [address] PCP - General Physician Exhaust And Muffler Fitter 11/17/16 03/21/22 Rob Chavez MD [address] [place], [place] [id number] PCP - General Gastroenterology 03/22/22 Deep Morris MD Neurological Surgery 11/02/11 Med Morel MD [address] [place] [address] Cardiology 04/08/22 documented as of this encounter
--- OUTSIDE RECORDS SUMMARY | 2025-02-18 12:35 | XMS_ITS | Encounter Summary ---
Author Organization [employer] Address [address] [place] [address] Care Team Providers Care Vegetable Trimmer Name Role Phone Unavailable Primary Care Provider Unavailabl e Encounter Details Date Type Department Care Team (Late st Contact Info) Description 03/05/2007 Outpatient Historical HIS INPATIENT IN BED Rosas Koo MD [address] [place] [address] Hernia Social History Tobacco Use Types Packs/Day Years Used Date Smoking Tobacco: Never Assessed Comments Unknown Sex and Gender Information Value Date Recorded Sex Assigned at Not on file Legal Sex Female 5:29 AM MAGNETIC RESONANCE IMAGING COORDINATOR Gender Identity Not on file Sexual Orientation Not on file documented as of this encounter Plan of Treatment Not on file documented as of this encounter Procedures Procedure Name Priority Date/Time Associated Diagnosis Comments CBC WITH DIFFERENTIAL Routine 03/11/2007 5:30 AM MAGNETIC RESONANCE IMAGING COORDINATOR CBC WITH DIFFERENTIAL Routine 03/11/2007 5:30 AM MAGNETIC RESONANCE IMAGING COORDINATOR CBC WITH DIFFERENTIAL Routine 03/11/2007 5:30 AM MAGNETIC RESONANCE IMAGING COORDINATOR CBC WITH DIFFERENTIAL Routine 03/10/2007 7:40 AM MAGNETIC RESONANCE IMAGING COORDINATOR CBC WITH DIFFERENTIAL Routine 03/10/2007 7:40 AM MAGNETIC RESONANCE IMAGING COORDINATOR CBC WITH DIFFERENTIAL Routine 03/10/2007 5:15 AM MAGNETIC RESONANCE IMAGING COORDINATOR CBC WITH DIFFERENTIAL Routine 03/10/2007 5:15 AM MAGNETIC RESONANCE IMAGING COORDINATOR CBC WITH DIFFERENTIAL Routine 03/09/2007 6:30 AM MAGNETIC RESONANCE IMAGING COORDINATOR CBC WITH DIFFERENTIAL Routine 03/09/2007 6:30 AM MAGNETIC RESONANCE IMAGING COORDINATOR BASIC METABOLIC PANEL Routine 03/09/2007 6:30 AM MAGNETIC RESONANCE IMAGING COORDINATOR CBC WITH DIFFERENTIAL Routine 03/05/2007 12:54 PM MAGNETIC RESONANCE IMAGING COORDINATOR CBC WITH DIFFERENTIAL Routine 03/05/2007 12:54 PM MAGNETIC RESONANCE IMAGING COORDINATOR BASIC METABOLIC PANEL Routine 03/05/2007 12:54 PM MAGNETIC RESONANCE IMAGING COORDINATOR documented in this encounter Results * (ABNORMAL) CBC WITH DIFFERENTIAL (03/11/2007 5:30 AM MAGNETIC RESONANCE IMAGING COORDINATOR) Pathologist [facility] NEUTROPHIL ABSOLUTE 3.62 1.90 - 7.00 K/uL [...] Normal INTER FACE SYSTEM 03/11/2007 5:30 AM MAGNETIC RESONANCE IMAGING COORDINATOR Jez Caballero MD HEMATOLOGY ORDERABLES Edit ed Performing Organization Address [facility] Phone Number INTERFACE SYSTEM Refer to clinic/hospital department * CBC WITH DIFFERENTIAL (03/11/2007 5:30 AM MAGNETIC RESONANCE IMAGING COORDINATOR) Pathologist [facility] NRBC 0 <=0 /100 WBC INTERFACE SYSTEM 03/11/2007 5:30 AM MAGNETIC RESONANCE IMAGING COORDINATOR Jez Caballero MD HEMATOLOGY ORDERABLES Edit ed Performing Organization Address [facility] de Phone Number INTERFACE SYSTEM Refer to clinic/hospital department * (ABNORMAL) CBC WITH DIFFERENTIAL (03/11/2007 5:30 AM MAGNETIC RESONANCE IMAGING COORDINATOR) WBC 5.4 4.0 - 9.8 K/uL INTERFACE [...] 12.4 fL INTERFACE SYSTEM 03/11/2007 5:30 AM MAGNETIC RESONANCE IMAGING COORDINATOR Jez Caballero MD HEMATOLOGY ORDERABLES Edit ed Performing Organization Address [facility] Phone Number INTERFACE SYSTEM Refer to clinic/hospital department * (ABNORMAL) CBC WITH DIFFERENTIAL (03/10/2007 7:40 AM MAGNETIC RESONANCE IMAGING COORDINATOR) NEUTROPHILS 73(H) 45 - 70 % INTERFAC [...] 0.20 K/uL INTERFACE SYSTEM 03/10/2007 7:40 AM MAGNETIC RESONANCE IMAGING COORDINATOR Jez Caballero MD HEMATOLOGY ORDERABLES Edit ed Performing Organization Address [facility] Phone Number INTERFACE SYSTEM Refer to clinic/hospital department * (ABNORMAL) CBC WITH DIFFERENTIAL (03/10/2007 7:40 AM MAGNETIC RESONANCE IMAGING COORDINATOR) WBC 5.9 4.0 - 9.8 K/uL INTERFACE [...] 12.4 fL INTERFACE SYSTEM 03/10/2007 7:40 AM MAGNETIC RESONANCE IMAGING COORDINATOR Jez Caballero MD HEMATOLOGY ORDERABLES Edit ed Performing Organization Address [facility] Phone Number INTERFACE SYSTEM Refer to clinic/hospital department * (ABNORMAL) CBC WITH DIFFERENTIAL (03/10/2007 5:15 AM MAGNETIC RESONANCE IMAGING COORDINATOR) NEUTROPHILS 74(H) 45 - 70 % INTERFAC [...] 0.20 K/uL INTERFACE SYSTEM 03/10/2007 5:15 AM MAGNETIC RESONANCE IMAGING COORDINATOR Rosas Koo MD HEMATOLOGY ORDERABLES Ed ited Performing Organization Address [facility] Phone Number INTERFACE SYSTEM Refer to clinic/hospital department * (ABNORMAL) CBC WITH DIFFERENTIAL (03/10/2007 5:15 AM MAGNETIC RESONANCE IMAGING COORDINATOR) WBC 5.5 4.0 - 9.8 K/uL INTERFACE [...] 12.4 fL INTERFACE SYSTEM 03/10/2007 5:15 AM MAGNETIC RESONANCE IMAGING COORDINATOR Rosas Koo MD HEMATOLOGY ORDERABLES Ed ited Performing Organization Address [facility] Phone Number INTERFACE SYSTEM Refer to clinic/hospital department * (ABNORMAL) CBC WITH DIFFERENTIAL (03/09/2007 6:30 AM MAGNETIC RESONANCE IMAGING COORDINATOR) [facility] NEUTROPHILS 81(H) 45 - 70 % [...] 0.20 K/uL INTERFACE SYSTEM 03/09/2007 6:30 AM MAGNETIC RESONANCE IMAGING COORDINATOR Rosas Koo MD HEMATOLOGY ORDERABLES Ed ited Performing Organization Address [facility] Phone Number INTERFACE SYSTEM Refer to clinic/hospital department * (ABNORMAL) CBC WITH DIFFERENTIAL (03/09/2007 6:30 AM MAGNETIC RESONANCE IMAGING COORDINATOR) WBC 6.8 4.0 - 9.8 K/uL INTERFACE [...] 12.4 fL INTERFACE SYSTEM 03/09/2007 6:30 AM MAGNETIC RESONANCE IMAGING COORDINATOR us Rosas Koo MD HEMATOLOGY ORDERABLES Ed ited INTERFACE SYSTEM Refer to clinic/hospital department * (ABNORMAL) BASIC METABOLIC PANEL (03/09/2007 6:30 AM MAGNETIC RESONANCE IMAGING COORDINATOR) GLUCOSE 113(H) 65 - 99 mg/dL INTERFACE [...] and non- Americans is available on the [facility] Intranet at: [email or web address] Select: Lab Policies and Procedures Select: Reference Ranges - GFR 03/09/2007 6:30 AM MAGNETIC RESONANCE IMAGING COORDINATOR Rosas Koo MD CHEMISTRY ORDERABLES Marlon vijay Performing Organization Address City/[facility]/ZIP Co de Phone Number INTERFACE SYSTEM Refer to clinic/hospital department * CBC WITH DIFFERENTIAL (03/05/2007 12:54 PM MAGNETIC RESONANCE IMAGING COORDINATOR) NEUTROPHIL ABSOLUTE 4.58 1.90 - 7.00 K/uL [...] Rev. INTERFACE SYSTEM 03/05/2007 12:5 4 PM MAGNETIC RESONANCE IMAGING COORDINATOR Rosas Koo MD HEMATOLOGY ORDERABLES Ed ited Performing Organization Address [facility] de Phone Number INTERFACE SYSTEM Refer to clinic/hospital department * CBC WITH DIFFERENTIAL (03/05/2007 12:54 PM MAGNETIC RESONANCE IMAGING COORDINATOR) WBC 8.8 4.0 - 9.8 K/uL INTERFACE [...] K/uL INTERFACE SYSTEM 03/05/2007 12:5 4 PM MAGNETIC RESONANCE IMAGING COORDINATOR Rosas Koo MD HEMATOLOGY ORDERABLES Ed ited Performing Organization Address [facility] Phone Number INTERFACE SYSTEM Refer to clinic/hospital department * (ABNORMAL) BASIC METABOLIC PANEL (03/05/2007 12:54 PM MAGNETIC RESONANCE IMAGING COORDINATOR) GLUCOSE 97 65 - 99 mg/dL INTERFACE [...] and non- Americans is available on the [facility] Intranet at: [email or web address] Select: Lab Policies and Procedures Select: Reference Ranges - GFR 03/05/2007 12:5 4 PM MAGNETIC RESONANCE IMAGING COORDINATOR Rosas Koo MD CHEMISTRY ORDERABLES Marlon vijay Performing Organization Address [facility] de Phone Number INTERFACE SYSTEM Refer to clinic/hospital department documented in this encounter Visit Diagnoses Diagnosis Hernia of unspecified site of abdominal cavity without mention of obstruction or gangrene documented in this encounter
--- OUTSIDE RECORDS SUMMARY | 2025-02-18 12:35 | XMS_ITS | Encounter Summary ---
Author Organization [facility] Health Address [address] [place] [address] Care Team Providers Care Greeting Card Maker Name Role Phone Deep Morris MD Unavailable [phone] Kip Camacho Primary Care Provider + Rob Chavez MD Primary Care Provider [phone] Med Morel MD Unavailable [phone] Encounter Details Date Type Department Care [...] on file Legal Sex Female 2:09 PM REFINISH TECHNICIAN Gender Identity Not on file Sexual Orientation Not on file Occupation Industry Job Start Date Job End Date Retired Not on file Not on file Not on file documented as of this encounter Plan of Treatment Not on file documented as of this encounter Visit Diagnoses Not on filedocumented in this encounter Care Teams Greeting Card Maker Relationship Specialty Start Date End Date Kip Camacho PA [facility] [place] [address] PCP - General Physician Motion Designer 11/17/16 03/21/22 Rob Chavez MD [address] [place], [place] [id number] PCP - General Gastroenterology 03/22/22 Deep Morris MD Neurological Surgery 11/02/11 Med Morel MD [address] [place] [address] Cardiology 04/08/22 documented as of this encounter
--- OUTSIDE RECORDS SUMMARY | 2025-02-18 12:35 | XMS_ITS | Clinical Summary ---
Author Organization [facility] Address [address] [place] [address] Care Team Providers Care Hopper Filler Name Role Phone Deep Morris MD Unavailable Rob Chavez MD Primary Care Provider [phone] Med Morel MD Unavailable [phone] Source Comments [facility],non-owned Affiliates and Associated Physician Practices is amultiple site organization consisting of ambulatory clinics and hospital sitesin [place], [place], [place] and [place]. This disclosure is being madepursuant to the Care Everywhere program and may not contain all information available regarding this patient. Last updated 17.[facility] Allergies No known active allergies Medications * [...] 01/26/20 17 Active vitamin D, ergocalciferol, (DRISDOL) 01320 UNITS capsuleIndications: Cervicalgia,Neural foraminal stenosis of cervical [...] (Flonase Allergy Relief) 50 MCG/ACT nasal spray [place] 1 spray every day by intranasal route. 09/23/19 23 Active multivitamin daily tablet Take 1 (one) tablet by mouth daily with food Active mirtazapine (Remeron) 15 MG tablet Take 1 (one) tablet by mouth at bedtime Active HYDROcodone-acetami nophen ([place]) 10-325 MG tabletIndications:S /P lumbar laminectomy Take [...] and heating? Not hard at all 11/20/2022 [facility] of Occupat ional Health - Occupational Stress [...] place to sleep or slept in a [place] health care facility (including now)? No 11/20/2022 Comments No Sex and Gender Information Value Date Recorded Sex Assigned at Not on file Legal Sex Female 2:09 PM SKETCH LINER Gender Identity Not on file Sexual Orientation Not on file Occupation Industry Job Start Date Job End Date Retired Not on file Not on file Not on file Last Filed Vital Signs Vital Sign Reading Time Taken Comments Blood Pressure 130/80 02/19/2023 9:04 PM SKETCH LINER Pulse 70 02/19/2023 9:04 PM SKETCH LINER Temperature 37 C (98.6 F) 02/19/2023 9:04 PM SKETCH LINER Respiratory Rate 16 02/19/2023 9:04 PM SKETCH LINER Oxygen Saturation 99% 02/19/2023 9:04 PM SKETCH LINER Inhaled Oxygen Concentration - - Weight 59.9 kg (132 lb) 04/11/2023 12:00 PM SKETCH LINER Height 154.9 cm (5' 1) 04/11/2023 12:00 PM SKETCH LINER Body Mass Index 24.94 04/11/2023 12:00 PM SKETCH LINER Plan of Treatment Health Maintenance Due Date [...] this topic Medical Devices Implanted Type Area Medical Writer Device Identifier Shelf Expiration Date Model / Serial / Lot Spcr Spnl [id number] [facility] Crv Intbdy Implanted:Qty: 1 on 12/08/2016 by oMisés Londono MD at [facility] Spine Cervical [employer] 384.308 / / Screw 3.6mm 16mm Spne Slfdrl Va Bone Implanted:Qty: 2 on 12/08/2016 by Moisés Londono MD at [facility] Spine Cervical [employer] 184.156 / / Sub Bngf Pro[employer]ix Dbm Bvn Clgn Ptty 1ml Implanted:Qty: 1 on 12/08/2016 by Moisés Londono MD at [facility] Spine Cervical Spinal [employer] [id number] / / [id number] Sub Bngf [employer]oss Btcp Clgn Void Rusty Fm Pk Implanted:Qty: 1 on 04/28/2022 by Moisés Londono MD at [facility] N/A: Spine Cervical [employer] 09/15/2023 [id number] / / [id number] Description:c4-5 Spcr Spnl 16x9mm [employer] 7d Lrdtc 14mm Implanted:Qty: 1 on 04/28/2022 by Moisés Londono MD at [facility] N/A: Spine Cervical [employer] 384.309 / / Screw 3.6mm 16mm Slfdrl Va Spne Bone Implanted:Qty: 2 on 04/28/2022 by Moisés Londono MD at [facility] N/A: Spine Cervical [employer] 184.156 [...] 6:02 PM 12/09/2016 2:44 PM Care Teams Hopper Filler Relationship Specialty Start Date End Date Rob Chavez MD [address] [place], [place] [id number] PCP - General Gastroenterology 03/22/22 Deep Morris MD Neurological Surgery 11/02/11 Med Morel MD [address] [place] [address] Cardiology 04/08/22
--- OUTSIDE RECORDS SUMMARY | 2025-02-18 12:35 | XMS_ITS | Clinical Summary ---
Author Organization [facility] Address [address] [place] [address] Care Team Providers Care Biscuit Packer Name Role Phone Jamey Flower MD Primary Care Provider [phone] Allergies No known active allergies Medications acetaminophen (TYLENOL) 500 mg tabletIndicatio ns:Pain Take 1-2 tablets (500-1,000 mg total) by mouth every 6 (six) hours as needed for pain (1 tablet for mild to moderate pain. 2 tablets for severe pain) 30 tablet 2 Active losartan (COZAAR) 100 mg tablet Take [...] mouth 3 (three) times a day Active HYDROcodone-winston taminophen (NORCO) 10-325 mg per tablet Take 1 tablet by mouth every 4 (four) hours as needed Active mirtazapine (REMERON) 7.5 mg tablet mirtazapine 7.5 mg tablet TAKE 1 TABLET BY MOUTH EVERY DAY AT BEDTIME Active ergocalciferol, vitamin D2, 50 mcg (2,000 unit) tablet Take 50,000 Units by mouth once a week 1 Active metoprolol XL (TOPROL-XL) 50 mg extended release tablet Take 1 tablet (50 mg total) by mouth daily 5 Active rOPINIRole (REQUIP) 1 mg tabletIndicatio ns:Restless leg syndrome Take one tablet (1 mg) at bedtime for one week, then 2 tablets at bedtime. 60 tablet 3 Active Active Problems Problem Noted Date Diagnosed Date Restless leg syndrome 06/13/2024 Numbness of lower extremity 03/08/2024 Abdominal pain 10/27/2009 Resolved Problems Problem Noted Date Diagnosed Date Resolved Date Polyneuropathy 03/08/2024 06/13/2024 Encounters Date Type Department Care Team Description 01/09/2025 11:15 AM CDT Office Visit 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 Gender Identity Not on file Sexual Orientation [...] 07/12/2003 Well Visit 65+ 2018 Covid-19 Vaccine (2024-2 6 season) 2024 11/12/2021, 03/01/2021, 06/15/2020, Additional history exists Influenza Vaccine (#1) 2024 , 02/01/2021, 02/04/2020, Additional history exists DTaP/Tdap/Td Vaccine (2 - Td or Tdap) 06/09/2031 06/08/2021 Pneumococcal vaccine 65+ Completed 022, 02/04/2020, 01/02/2015 Insurance MEDICARE [facility] UHC MEDICARE ADVANTAGE MEDICARE IDPA IDPA Care Teams Biscuit Packer Relationship Specialty Start Date End Date Jamey Flower MD [address] [place] [address] PCP - General Family Medicine 01/09/25
--- OUTSIDE RECORDS SUMMARY | 2025-02-18 12:35 | XMS_ITS | Clinical Summary ---
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
[2025-02-18 12:37] LABS: Hematocrit 30.1 % (37.0-47.0); Hemoglobin 9.4 g/dL (12.0-15.0); Mean Corpuscular HGB Conc 31.2 g/dl (32-36); Mean Corpuscular Hemoglobin 31.2 pg (26-34); Mean Corpuscular Volume 100.0 fl (80-100); Platelet Count Result 481 k/mm3 (150-375); Red Blood Count 3.01 M/mm3 (4.2-5.4); White Blood Count 15.5 K/mm3 (4.5-10.0)
[2025-02-18 12:50] LABS: Alanine Aminotransferase 38 U/L (6-35); Albumin Level 3.5 g/dL (3.5-5.1); Alkaline Phosphatase 84 U/L (38-126); Anion Gap 10 mmol/L (4-12); Aspartate Amino Transferase 44 U/L (14-36); Bilirubin,Total 0.9 mg/dL (0.2-1.3); Blood Urea Nitrogen 19 mg/dL (7-17); Calcium 9.1 mg/dL (8.4-10.2); Carbon Dioxide 18 mmol/L (22-30); Chloride 105 mmol/L (98-107); Estimated CRCL calculation 43 ml/min; Estimated Glomerular Filt Rate > 60; Glucose 97 mg/dL (65-110); Potassium 3.6 mmol/L (3.4-5.0); Sodium 133 mmol/L (137-145); Total Protein 6.3 g/dL (6.3-8.2)
[2025-02-18 12:56] LABS: INR 1.2; Prothrombin Time 15.0 Seconds (11.1-14.7)
[2025-02-18 12:57] LABS: Partial Thromboplastin Time 31.2 Seconds (22.3-36.8)
[2025-02-18 13:28] VITALS: BMI 19.7
[2025-02-18] MEDS: metroNIDAZOLE 500 MG/ISO 100ML 500 MG/100 ML BAG 100 MG IVPB ×2 (13:53→20:48)
[2025-02-18 13:55] VITALS: BP 125/74; PULSE 98; RESP 18; TEMP 36.4; O2SAT 97
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
[2025-02-18] MEDS: GABAPENTIN 300 MG CAPSULE PO ×2 (14:37→18:26)
[2025-02-18] MEDS: CEFEPIME 2 GM in SODIUM CHLORIDE 0.9% IV 50 ML 100 ML IVPB (14:38)
[2025-02-18] MEDS: VANCOMYCIN 1,250 MG/NS 250 ML 1,250 MG/250 ML BAG 166.67 MG IVPB (15:20)
[2025-02-18] MEDS: SODIUM CHLORIDE 0.9% IV 1,000 ML 100 ML IV CONT (15:25)
[2025-02-18] MEDS: HYDROcodone/acetaminophen (*CRX) 5-325 MG TABLET 1 TAB PO ×2 (17:21→21:09)
[2025-02-18 20:16] VITALS: BP 105/51; PULSE 77; RESP 18; TEMP 37.7; O2SAT 98
[2025-02-18] MEDS: MIRTAZAPINE 15 MG TABLET PO (20:48)
[2025-02-19] MEDS: SODIUM CHLORIDE 0.9% IV 1,000 ML 100 ML IV CONT ×3 (03:16→20:18)
[2025-02-19] MEDS: HYDROcodone/acetaminophen (*CRX) 5-325 MG TABLET 1 TAB PO (03:16)
[2025-02-19] MEDS: CEFEPIME 2 GM in SODIUM CHLORIDE 0.9% IV 50 ML 100 ML IVPB ×3 (03:17→23:57)
[2025-02-19] MEDS: metroNIDAZOLE 500 MG/ISO 100ML 500 MG/100 ML BAG 100 MG IVPB ×3 (05:21→22:01)
[2025-02-19 05:26] VITALS: BP 107/46; PULSE 74; RESP 16; TEMP 37; O2SAT 96
[2025-02-19 06:20] LABS: Hematocrit 25.6 % (37.0-47.0); Hemoglobin 8.1 g/dL (12.0-15.0); Immature Granulocyte Percent A 0.7 % (0-0.5); Lymphocytes Absolute Auto 0.83 K/mm3 (0.9-3.2); Mean Corpuscular HGB Conc 31.6 g/dl (32-36); Mean Corpuscular Hemoglobin 30.6 pg (26-34); Mean Corpuscular Volume 96.6 fl (80-100); Nucleated Red Blood Cells Absolute Auto 0.000 K/mm3 (0.0-0.012); Nucleated Red Blood Cells Perc 0.0 % (0.0-0.2); Platelet Count Result 425 k/mm3 (150-375); Red Blood Count 2.65 M/mm3 (4.2-5.4); White Blood Count 8.4 K/mm3 (4.5-10.0)
[2025-02-19 06:54] LABS: Anion Gap 3 mmol/L (4-12); Blood Urea Nitrogen 12 mg/dL (7-17); Calcium 8.3 mg/dL (8.4-10.2); Carbon Dioxide 22 mmol/L (22-30); Chloride 108 mmol/L (98-107); Estimated CRCL calculation 46 ml/min; Estimated Glomerular Filt Rate > 60; Glucose 99 mg/dL (65-110); Potassium 2.9 mmol/L (3.4-5.0); Sodium 133 mmol/L (137-145)
[2025-02-19] MEDS: GABAPENTIN 300 MG CAPSULE PO ×3 (08:10→16:48)
[2025-02-19] MEDS: POTASSIUM CHLORIDE 20 MEQ ER TABLET 40 MEQ PO ×2 (08:10→16:48)
[2025-02-19] MEDS: PANTOPRAZOLE 40 MG TABLET PO (08:10)
--- NOTE | 2025-02-19 11:32 | P.PNGS_ITS ---
Progress Note: A&P Assessment and Plan (1) Hx of ventral hernia repair: Code(s): Z98.890 - Other specified postprocedural states; Z87.19 - Personal history of other diseases of the digestive system Status: Acute Assessment and Plan: * Patient is still having lower abdominal pain. No nausea, vomiting, or other symptoms at this time. WBC normalized. * CT guided abscess drainage today. * Abscess cultures to be sent. Infectious disease consulted. Appreciate their recommendations. Continue current IV antibiotic regimen for the time being. Plan Discussed patient's case and plan of care with Dr. Flores. Subjective Subjective Date/Time Seen: 02/19/25 11:32 Patient reports: no new complaints, still having pain and afebrile Interval history: Patient is still experiencing lower abdominal pain. Awaiting CT guided abscess drainage. Exam Const: General: comfortable GI: Inspection: non-distended Other: RLQ tenderness. Firm area inferior and to the right of the umbilicus with erythema and warmth, but this seems better than yesterday. Objective Data Vital Signs Vital Signs: Vital Signs - 24 hr 02/18/25 12:00 02/18/25 12:03 02/18/25 13:55 Temperature 97.9 F 97.6 F Pulse Rate 73 98 Respiratory Rate 18 18 Blood Pressure 115/3 L 125/74 Pulse Oximetry 100 97 Oxygen Delivery Room Air 02/18/25 20:00 02/18/25 20:16 02/19/25 05:26 Temperature 99.9 F H 98.6 F Pulse Rate 77 74 Respiratory Rate 18 16 Blood Pressure 105/51 L 107/46 L Pulse Oximetry 98 96 Oxygen Delivery Room Air Intake/Output Intake/Output: Intake & Output 02/16/25 02/17/25 02/18/25 02/19/25 23:59 23:59 23:59 23:59 Intake Total 440 1000 Balance 440 1000 Meds/Results Medications: Active Medications Generic Name Dose Route Start Last Admin Trade Name Freq PRN Reason Stop Dose Admin Acetaminophen 650 mg 02/18/25 13:04 Acetaminophen 325 Mg Tablet PO Q4H PRN Mild Pain (1-3) or Fever Hydrocodone Bitart/Acetaminophen 1 tab 02/18/25 13:04 02/19/25 03:16 Hydrocodone/Acetaminophen (*Crx) 5-325 Mg Tablet PO 1 tab Q4H PRN Administration Moderate Pain 4-10 Cyclobenzaprine HCl 10 mg 02/18/25 12:06 Cyclobenzaprine Hcl 10 Mg Tablet PO HS PRN Muscle Spasm Enoxaparin Sodium 40 mg 02/19/25 09:00 Enoxaparin 40 Mg/0.4 Ml Syringe SUB-Q DAILY EMRE Ergocalciferol 1,250 mcg 02/21/25 09:00 Ergocalciferol (Vitamin D2) 1,250 Mcg (50,000 Units) Capsule PO Fr@0900 EMRE Gabapentin 300 mg 02/18/25 13:00 02/19/25 08:10 Gabapentin 300 Mg Capsule PO 300 mg TID EMRE Administration Hydralazine HCl 10 mg 02/18/25 14:42 Hydralazine Hcl 20 Mg/Ml Vial IV PUSH Q8H PRN Blood Pressure - High Metronidazole 500 mg in 100 mls @ 100 mls/hr 02/18/25 12:15 02/19/25 05:21 Flagyl 500 Mg/Iso Soln 100 Ml IVPB 100 mls/hr Q8HR EMRE Administration Sodium Chloride 1,000 mls @ 100 mls/hr 02/18/25 13:05 02/19/25 03:16 Normal Saline Iv IV CONT 100 mls/hr .Q10H EMRE Administration Cefepime HCl 2 gm/ Sodium 50 mls @ 100 mls/hr 02/19/25 00:00 02/19/25 03:17 Chloride IVPB 100 mls/hr Q12H EMRE Administration Vancomycin HCl 750 mg in 250 mls @ 250 mls/hr 02/19/25 15:00 Vancomycin 750 Mg/Ns 250 Ml IVPB Q24H [facility] Linaclotide 290 mcg 02/19/25 06:30 02/19/25 05:22 Linaclotide 145 Mcg Capsule PO Not Given DAILY@0630 [facility] Metoprolol Succinate 25 mg 02/19/25 09:00 Metoprolol Succinate Ext Rel 25 Mg Tabcr PO DAILY [facility] Mirtazapine 15 mg 02/18/25 21:00 02/18/25 20:48 Mirtazapine 15 Mg Tablet PO 15 mg HS EMRE Administration Pantoprazole Sodium 40 mg 02/19/25 09:00 02/19/25 08:10 Pantoprazole 40 Mg Tablet PO 40 mg DAILY EMRE Administration Potassium Chloride 40 meq 02/19/25 09:00 02/19/25 08:10 Potassium Chloride 20 Meq Er Tablet PO 40 meq BID EMRE Administration Simvastatin 40 mg 02/19/25 09:00 Simvastatin 20 Mg Tablet PO DAILY [facility] Umeclidinium/Vilanterol 1 puff 02/18/25 12:20 02/19/25 03:06 Umeclidinium/Vilanterol 62.5-25 Mcg Ellipta INHALATION Not Given DAILYRT [facility] Radiology Results: ITS Impressions Abdomen/Pelvis CT 02/18/25 13:53 IMPRESSION: 1. Large abscess right abdominal wall extending into peritoneum. Roughly 10 cm transverse by 10 cm craniocaudad by 5 cm AP diameter. Labs Labs: Laboratory Results - last 24 hr 02/18/25 02/19/25 12:28 05:34 WBC 15.5 H 8.4 RBC 3.01 L 2.65 L Hgb 9.4 L 8.1 L Hct 30.1 L 25.6 L MCV 100.0 96.6 MCH 31.2 30.6 MCHC 31.2 L 31.6 L RDW 12.9 12.8 Plt Count 481 H D 425 H MPV 9.7 10.0 Immature Gran % (Auto) 0.7 H Neut % (Auto) 79.0 H Lymph % (Auto) 9.9 L Luce % (Auto) 8.0 Eos % (Auto) 1.6 Baso % (Auto) 0.8 Lymph # (Auto) 0.83 L Luce # (Auto) 0.7 H Eos # (Auto) 0.1 Baso # (Auto) 0.1 Abs Immat Gran (auto) 0.06 H Absolute Neuts (auto) 6.6 Absolute Nucleated RBC 0.000 Nucleated RBC % 0.0 PT 15.0 H INR 1.2 APTT 31.2 Sodium 133 L 133 L Potassium 3.6 2.9 L Chloride 105 108 H Carbon Dioxide 18 L 22 Anion Gap 10 3 L BUN 19 H 12 D Creatinine 0.78 0.72 Estim Creat Clear Calc 43 46 Estimated GFR > 60 > 60 Glucose 97 99 Lactic Acid 1.9 Calcium 9.1 8.3 L Total Bilirubin 0.9 AST 44 H ALT 38 H Alkaline Phosphatase 84 Total Protein 6.3 Albumin 3.5
[2025-02-19] MEDS: HYDROcodone/acetaminophen (*CRX) 10-325 MG TABLET 1 TAB PO ×3 (11:54→23:55)
[2025-02-19 11:59] VITALS: PULSE 74
[2025-02-19] MEDS: SIMVASTATIN 20 MG TABLET 40 MG PO (11:59)
[2025-02-19] MEDS: METOPROLOL SUCCINATE EXT REL 25 MG TABCR PO (11:59)
[2025-02-19 14:00] VITALS: BP 106/69; PULSE 77; RESP 19; TEMP 36.1; O2SAT 98
[2025-02-19] MEDS: UMECLIDINIUM/VILANTEROL 62.5-25 MCG ELLIPTA 1 PUFF INHALATION (14:06)
[2025-02-19 14:07] VITALS: PULSE 105; RESP 14
[2025-02-19] MEDS: VANCOMYCIN 750 MG/NS 250 ML 750 MG/250 ML BAG 250 MG IVPB (14:37)
--- NOTE | 2025-02-19 14:56 | P.PNIM_ITS ---
Assessment and Plan Assessment and Plan (1) Cellulitis of abdominal wall: Code(s): L03.311 - Cellulitis of abdominal wall Status: Acute Assessment and Plan: Recent hernia repair on 02-03-25 by surgery IV cefepime, Flagyl, vancomycin IR drain placement today completed (2) Hypertension: Code(s): I10 - Essential (primary) hypertension Status: Acute (3) Hyperlipidemia: Code(s): E78.5 - Hyperlipidemia, unspecified Status: Acute Assessment and Plan: Continue Zocor (4) COPD (chronic obstructive pulmonary disease): Code(s): J44.9 - Chronic obstructive pulmonary disease, unspecified Status: Acute Assessment and Plan: Continue inhaler (5) Hypokalemia: Code(s): E87.6 - Hypokalemia Status: Acute Assessment and Plan: Severe hypokalaemia order potassium supplements watch bmp encourage diet Subjective Date/time seen: 02/19/25 14:56 Interval history: 69 year old female who recently underwent a robotic recurrent incisional hernia repair, repair of small bowel jejunal iatrogenic enterotomy, extensive adhesiolysis of 2.5 hours, incarcerated incisional port site hernia repair x2 on 02/03/25 fausto Flores. She was seen in the office today for 2 week follow-up and was noted to have right lower quadrant tenderness with overlying redness and warmth. Pt returned from CT guided drain placement continue iv Abx ID tele conferencing Review of Systems Review of Systems: Pt feels better Exam Narrative: General: well appearing, appears stated age. HEENT: normocephalic, atraumatic. Mucous membranes moist. EOMI, PERRLA, bilateral sclera anicteric, no conjunctival injection. Neck supple without JVD, lymphadenopathy, or bruit. Respiratory: clear bilaterally. No rales/rhonic/wheezes. Cardiovascular: Regular rate and rhythm, normal S1-S2. No murmurs, rubs, or clicks. PMI is nondisplaced, capillary refill less than 3 second. Abdomen: Surgical site incision well healed, erythema of hernia, tenderness to palpation, pt with a drain Extremities: No cyanosis, clubbing, or edema present. Pulses are palpable 2/2. Active ROM to all four extremities. Neuro: Alert and orientated x 4. PERRLA. Cranial nerves 2-12 intact without focal deficit. Skin: Warm, dry, and intact, without rash, erythema, or lesion. Psych: pleasant, cooperative, normal speech, normal affect, no hallucinations, no dysarthia Objective Data Vital Signs Vital Signs: Vital Signs - 24 hr 02/18/25 20:00 02/18/25 20:16 02/19/25 05:26 Temperature 37.7 C H 37.0 C Pulse Rate 77 74 Respiratory Rate 18 16 Blood Pressure 105/51 L 107/46 L Pulse Oximetry 98 96 Oxygen Delivery Room Air 02/19/25 11:59 02/19/25 14:00 02/19/25 14:07 Temperature 36.1 C L Pulse Rate 74 77 105 H Respiratory Rate 19 14 Blood Pressure 106/69 Pulse Oximetry 98 Oxygen Delivery Intake/Output Intake/Output: Intake & Output 02/16/25 02/17/25 02/18/25 02/19/25 23:59 23:59 23:59 23:59 Intake Total 440 1295 Output Total 300 Balance 440 995 Meds/Results Medications: Active Medications Generic Name Dose Route Start Last Admin Trade Name Freq PRN Reason Stop Dose Admin Acetaminophen 650 mg 02/18/25 13:04 Acetaminophen 325 Mg Tablet PO Q4H PRN Mild Pain (1-3) or Fever Hydrocodone Bitart/Acetaminophen 1 tab 02/18/25 13:04 02/19/25 03:16 Hydrocodone/Acetaminophen (*Crx) 5-325 Mg Tablet PO 1 tab Q4H PRN Administration Moderate Pain 4-6 Hydrocodone Bitart/Acetaminophen 1 tab 02/19/25 11:33 02/19/25 11:54 Hydrocodone/Acetaminophen (*Crx) 10-325 Mg Tablet PO 1 tab Q6H PRN Administration Pain Rated 7-10 Cyclobenzaprine HCl 10 mg 02/18/25 12:06 Cyclobenzaprine Hcl 10 Mg Tablet PO HS PRN Muscle Spasm Enoxaparin Sodium 40 mg 02/19/25 09:00 02/19/25 09:00 Enoxaparin 40 Mg/0.4 Ml Syringe SUB-Q Not Given DAILY EMRE Ergocalciferol 1,250 mcg 02/21/25 09:00 Ergocalciferol (Vitamin D2) 1,250 Mcg (50,000 Units) Capsule PO Fr@0900 EMRE Gabapentin 300 mg 02/18/25 13:00 02/19/25 12:59 Gabapentin 300 Mg Capsule PO 300 mg TID EMRE Administration Hydralazine HCl 10 mg 02/18/25 14:42 Hydralazine Hcl 20 Mg/Ml Vial IV PUSH Q8H PRN Blood Pressure - High Metronidazole 500 mg in 100 mls @ 100 mls/hr 02/18/25 12:15 02/19/25 12:59 Flagyl 500 Mg/Iso Soln 100 Ml IVPB 100 mls/hr Q8HR EMRE Administration Sodium Chloride 1,000 mls @ 100 mls/hr 02/18/25 13:05 02/19/25 03:16 Normal Saline Iv IV CONT 100 mls/hr .Q10H EMRE Administration Cefepime HCl 2 gm/ Sodium 50 mls @ 100 mls/hr 02/19/25 00:00 02/19/25 11:55 Chloride IVPB 100 mls/hr Q12H EMRE Administration Vancomycin HCl 750 mg in 250 mls @ 250 mls/hr 02/19/25 15:00 02/19/25 14:37 Vancomycin 750 Mg/Ns 250 Ml IVPB 250 mls/hr Q24H EMRE Administration Linaclotide 290 mcg 02/19/25 06:30 02/19/25 05:22 Linaclotide 145 Mcg Capsule PO Not Given DAILY@0630 [facility] Metoprolol Succinate 25 mg 02/19/25 09:00 02/19/25 11:59 Metoprolol Succinate Ext Rel 25 Mg Tabcr PO 25 mg DAILY EMRE Administration Mirtazapine 15 mg 02/18/25 21:00 02/18/25 20:48 Mirtazapine 15 Mg Tablet PO 15 mg HS EMRE Administration Pantoprazole Sodium 40 mg 02/19/25 09:00 02/19/25 08:10 Pantoprazole 40 Mg Tablet PO 40 mg DAILY EMRE Administration Potassium Chloride 40 meq 02/19/25 09:00 02/19/25 08:10 Potassium Chloride 20 Meq Er Tablet PO 40 meq BID EMRE Administration Simvastatin 40 mg 02/19/25 09:00 02/19/25 11:59 Simvastatin 20 Mg Tablet PO 40 mg DAILY EMRE Administration Umeclidinium/Vilanterol 1 puff 02/18/25 12:20 02/19/25 14:06 Umeclidinium/Vilanterol 62.5-25 Mcg Ellipta INHALATION 1 puff DAILYRT EMRE Administration Radiology Results: ITS Impressions Abdomen/Pelvis CT 02/18/25 13:53 IMPRESSION: 1. Large abscess right abdominal wall extending into peritoneum. Roughly 10 cm transverse by 10 cm craniocaudad by 5 cm AP diameter. Catheter Placement CT 02/19/25 11:16 IMPRESSION: 1. Successful CT-guided abscess drainage with placement of a percutaneous abscess drain in the more superficial subcutaneous component of the collection which appears to communicate with the collection deep to the ventral hernia mesh repair. 2. 30 mL fluid was sent for aerobic and anaerobic cultures. 3. The catheter will be managed by Dr. Flores. Labs Labs: Laboratory Results - last 24 hr 02/19/25 05:34 WBC 8.4 RBC 2.65 L Hgb 8.1 L Hct 25.6 L MCV 96.6 MCH 30.6 MCHC 31.6 L RDW 12.8 Plt Count 425 H MPV 10.0 Immature Gran % (Auto) 0.7 H Neut % (Auto) 79.0 H Lymph % (Auto) 9.9 L Dawson % (Auto) 8.0 Eos % (Auto) 1.6 Baso % (Auto) 0.8 Lymph # (Auto) 0.83 L Dawson # (Auto) 0.7 H Eos # (Auto) 0.1 Baso # (Auto) 0.1 Abs Immat Gran (auto) 0.06 H Absolute Neuts (auto) 6.6 Absolute Nucleated RBC 0.000 Nucleated RBC % 0.0 Sodium 133 L Potassium 2.9 L Chloride 108 H Carbon Dioxide 22 Anion Gap 3 L BUN 12 D Creatinine 0.72 Estim Creat Clear Calc 46 Estimated GFR > 60 Glucose 99 Calcium 8.3 L
[2025-02-19 15:31] LABS: Potassium 3.6 mmol/L (3.4-5.0)
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
[2025-02-19] MEDS: MAGNESIUM OXIDE 200 MG TABLET PO (20:17)
[2025-02-19] MEDS: MIRTAZAPINE 15 MG TABLET PO (20:17)
[2025-02-19 20:52] LABS: Anion Gap 7 mmol/L (4-12); Blood Urea Nitrogen 12 mg/dL (7-17); Calcium 8.2 mg/dL (8.4-10.2); Carbon Dioxide 15 mmol/L (22-30); Chloride 112 mmol/L (98-107); Estimated CRCL calculation 50 ml/min; Estimated Glomerular Filt Rate > 60; Glucose 83 mg/dL (65-110); Magnesium 1.9 mg/dL (1.6-2.3); Sodium 134 mmol/L (137-145)
[2025-02-19 21:57] VITALS: BP 105/53; PULSE 69; RESP 18; TEMP 36.6; O2SAT 100
[2025-02-20] MEDS: HYDROcodone/acetaminophen (*CRX) 10-325 MG TABLET 1 TAB PO ×4 (05:39→23:32)
[2025-02-20] MEDS: LINACLOTIDE 145 MCG CAPSULE 290 MCG PO (05:39)
[2025-02-20] MEDS: metroNIDAZOLE 500 MG/ISO 100ML 500 MG/100 ML BAG 100 MG IVPB ×3 (05:40→21:58)
[2025-02-20 05:55] VITALS: BP 125/52; PULSE 68; RESP 16; TEMP 36.8; O2SAT 100
[2025-02-20 07:10] LABS: Hematocrit 25.7 % (37.0-47.0); Hemoglobin 8.0 g/dL (12.0-15.0); Mean Corpuscular HGB Conc 31.1 g/dl (32-36); Mean Corpuscular Hemoglobin 30.4 pg (26-34); Mean Corpuscular Volume 97.7 fl (80-100); Platelet Count Result 385 k/mm3 (150-375); Red Blood Count 2.63 M/mm3 (4.2-5.4); White Blood Count 7.9 K/mm3 (4.5-10.0)
[2025-02-20] MEDS: UMECLIDINIUM/VILANTEROL 62.5-25 MCG ELLIPTA 1 PUFF INHALATION (07:15)
[2025-02-20 07:16] VITALS: PULSE 83; RESP 16
[2025-02-20 07:30] LABS: Anion Gap 3 mmol/L (4-12); Blood Urea Nitrogen 8 mg/dL (7-17); Calcium 8.5 mg/dL (8.4-10.2); Carbon Dioxide 18 mmol/L (22-30); Chloride 113 mmol/L (98-107); Estimated CRCL calculation 52 ml/min; Estimated Glomerular Filt Rate > 60; Glucose 84 mg/dL (65-110); Magnesium 1.7 mg/dL (1.6-2.3); Potassium 4.1 mmol/L (3.4-5.0); Sodium 134 mmol/L (137-145)
--- NOTE | 2025-02-20 07:33 | P.PNIM_ITS ---
Assessment and Plan Assessment and Plan (1) Cellulitis of abdominal wall: Code(s): L03.311 - Cellulitis of abdominal wall Status: Acute Assessment and Plan: Recent hernia repair on 02-03-25 by surgery - ID consulted - currently on IV cefepime, Flagyl, vancomycin IR drain placement 02/19/25 completed - trend labs - pending cultures - monitor drain- currently draining thin gutierres colored fluid (2) Hypertension: Code(s): I10 - Essential (primary) hypertension Status: Acute Assessment and Plan: continue home medications. -losartan, metoprolol, (3) Hyperlipidemia: Code(s): E78.5 - Hyperlipidemia, unspecified Status: Acute Assessment and Plan: Continue Zocor (4) COPD (chronic obstructive pulmonary disease): Code(s): J44.9 - Chronic obstructive pulmonary disease, unspecified Status: Acute Assessment and Plan: Continue inhaler Anoro-Ellipta (5) Hypokalemia: Code(s): E87.6 - Hypokalemia Status: Acute Assessment and Plan: Severe hypokalemia - improved. order potassium supplements watch bmp encourage diet Medical Record Review I have reviewed the following patient records and this information was taken into consideration when formulating the assessment and plan.: previous labs Consultations Consultations: I have discussed the care of this pt with the consulting prov sera. Time Spent With Patient Time with patient: 25 - 35 minutes Subjective Date/time seen: 02/20/25 07:33 Interval history: 69 year old female who recently underwent a robotic recurrent incisional hernia repair, repair of small bowel jejunal iatrogenic enterotomy, extensive adhesiolysis of 2.5 hours, incarcerated incisional port site hernia repair x2 on 02/03/[address] Flores. She was seen in the office today for 2 week follow-up and was noted to have right lower quadrant tenderness with overlying redness and warmth. 02/19/25 - CT guided drain placement, abscess culture obtained, continue iv Abx ID MD tele conferencing 02/20 - today patient reports she still has pain in her right lower abdomen, she states it is sharp at times, but a dull ache now. redness has improved. Drain is noting thin gutierres colored drainage. patient denies fever, chills, N/V/D. her Bowels moved this am. Review of Systems Review of Systems: Pt feels better Exam Narrative: General: well appearing, appears stated age. HEENT: normocephalic, atraumatic. Mucous membranes moist. EOMI, PERRLA, bilateral sclera anicteric, no conjunctival injection. Neck supple without JVD, lymphadenopathy, or bruit. Respiratory: clear bilaterally. No rales/rhonic/wheezes. Cardiovascular: Regular rate and rhythm, normal S1-S2. No murmurs, rubs, or clicks. PMI is nondisplaced, capillary refill less than 3 second. Abdomen: Surgical site incision well healed, erythema of hernia, tenderness to palpation, lower abdominal drain-dressing c/d/i Extremities: No cyanosis, clubbing, or edema present. Pulses are palpable 2/2. Active ROM to all four extremities. Neuro: Alert and orientated x 4. PERRLA. Cranial nerves 2-12 intact without focal deficit. Skin: Warm, dry, and intact, without rash, erythema, or lesion. Psych: pleasant, cooperative, normal speech, normal affect, no hallucinations, no dysarthia Objective Data Vital Signs Vital Signs: Vital Signs - 24 hr 02/19/25 11:59 02/19/25 14:00 02/19/25 14:07 Temperature 96.9 F L Pulse Rate 74 77 105 H Respiratory Rate 19 14 Blood Pressure 106/69 Pulse Oximetry 98 02/19/25 21:57 02/20/25 05:55 02/20/25 07:16 Temperature 97.9 F 98.3 F Pulse Rate 69 68 83 Respiratory Rate 18 16 16 Blood Pressure 105/53 L 125/52 L Pulse Oximetry 100 100 Intake/Output Intake/Output: Intake & Output 02/17/25 02/18/25 02/19/25 02/20/25 23:59 23:59 23:59 23:59 Intake Total 440 2680 50 Output Total 550 50 Balance 440 2130 0 Meds/Results Medications: Active Medications Generic Name Dose Route Start Last Admin Trade Name Freq PRN Reason Stop Dose Admin Acetaminophen 650 mg 02/18/25 13:04 Acetaminophen 325 Mg Tablet PO Q4H PRN Mild Pain (1-3) or Fever Hydrocodone Bitart/Acetaminophen 1 tab 02/18/25 13:04 02/19/25 03:16 Hydrocodone/Acetaminophen (*Crx) 5-325 Mg Tablet PO 1 tab Q4H PRN Administration Moderate Pain 4-6 Hydrocodone Bitart/Acetaminophen 1 tab 02/19/25 11:33 02/20/25 05:39 Hydrocodone/Acetaminophen (*Crx) 10-325 Mg Tablet PO 1 tab Q6H PRN Administration Pain Rated 7-10 Cyclobenzaprine HCl 10 mg 02/18/25 12:06 Cyclobenzaprine Hcl 10 Mg Tablet PO HS PRN Muscle Spasm Enoxaparin Sodium 40 mg 02/19/25 09:00 02/19/25 09:00 Enoxaparin 40 Mg/0.4 Ml Syringe SUB-Q Not Given DAILY EMRE Ergocalciferol 1,250 mcg 02/21/25 09:00 Ergocalciferol (Vitamin D2) 1,250 Mcg (50,000 Units) Capsule PO Fr@0900 EMRE Gabapentin 300 mg 02/18/25 13:00 02/19/25 16:48 Gabapentin 300 Mg Capsule PO 300 mg TID EMRE Administration Hydralazine HCl 10 mg 02/18/25 14:42 Hydralazine Hcl 20 Mg/Ml Vial IV PUSH Q8H PRN Blood Pressure - High Metronidazole 500 mg in 100 mls @ 100 mls/hr 02/18/25 12:15 02/20/25 05:40 Flagyl 500 Mg/Iso Soln 100 Ml IVPB 100 mls/hr Q8HR EMRE Administration Sodium Chloride 1,000 mls @ 100 mls/hr 02/18/25 13:05 02/19/25 20:18 Normal Saline Iv IV CONT 100 mls/hr .Q10H EMRE Administration Cefepime HCl 2 gm/ Sodium 50 mls @ 100 mls/hr 02/19/25 00:00 02/20/25 00:27 Chloride IVPB Infused Q12H EMRE Infusion Vancomycin HCl 750 mg in 250 mls @ 250 mls/hr 02/19/25 15:00 02/19/25 14:37 Vancomycin 750 Mg/Ns 250 Ml IVPB 250 mls/hr Q24H EMRE Administration Linaclotide 290 mcg 02/19/25 06:30 02/20/25 05:39 Linaclotide 145 Mcg Capsule PO 290 mcg DAILY@0630 EMRE Administration Magnesium Oxide 200 mg 02/19/25 21:00 02/19/25 20:17 Magnesium Oxide 200 Mg Tablet PO 200 mg Q12HR EMRE Administration Metoprolol Succinate 25 mg 02/19/25 09:00 02/19/25 11:59 Metoprolol Succinate Ext Rel 25 Mg Tabcr PO 25 mg DAILY EMRE Administration Mirtazapine 15 mg 02/18/25 21:00 02/19/25 20:17 Mirtazapine 15 Mg Tablet PO 15 mg HS EMRE Administration Pantoprazole Sodium 40 mg 02/19/25 09:00 02/19/25 08:10 Pantoprazole 40 Mg Tablet PO 40 mg DAILY EMRE Administration Potassium Chloride 40 meq 02/19/25 09:00 02/19/25 16:48 Potassium Chloride 20 Meq Er Tablet PO 40 meq BID EMRE Administration Simvastatin 40 mg 02/19/25 09:00 02/19/25 11:59 Simvastatin 20 Mg Tablet PO 40 mg DAILY EMRE Administration Umeclidinium/Vilanterol 1 puff 02/18/25 12:20 02/20/25 07:15 Umeclidinium/Vilanterol 62.5-25 Mcg Ellipta INHALATION 1 puff DAILYRT EMRE Administration Radiology Results: ITS Impressions Abdomen/Pelvis CT 02/18/25 13:53 IMPRESSION: 1. Large abscess right abdominal wall extending into peritoneum. Roughly 10 cm transverse by 10 cm craniocaudad by 5 cm AP diameter. Catheter Placement CT 02/19/25 11:16 IMPRESSION: 1. Successful CT-guided abscess drainage with placement of a percutaneous abscess drain in the more superficial subcutaneous component of the collection which appears to communicate with the collection deep to the ventral hernia mesh repair. 2. 30 mL fluid was sent for aerobic and anaerobic cultures. 3. The catheter will be managed by Dr. Flores. Labs Labs: Laboratory Results - last 24 hr 02/19/25 02/20/25 15:14 06:47 WBC 7.9 RBC 2.63 L Hgb 8.0 L Hct 25.7 L MCV 97.7 MCH 30.4 MCHC 31.1 L RDW 13.0 Plt Count 385 H MPV 9.8 Sodium 134 L 134 L Potassium 3.6 4.1 Chloride 112 H 113 H Carbon Dioxide 15 L 18 L Anion Gap 7 3 L BUN 12 8 Creatinine 0.66 L 0.63 L Estim Creat Clear Calc 50 52 Estimated GFR > 60 > 60 Glucose 83 84 Calcium 8.2 L 8.5 Magnesium 1.9 1.7 Quality VTE Prophylaxis VTE prophylaxis: mechanical ordered Hospitalist [facility] Advance Care Plan I have confirmed that the patient's Advanced Care Plan is present, code status is documented, or surrogate decision maker is listed in patient medical record.: Yes Medication Reconciliation I have utilized all available resources to obtain, update and review the patients current medications (includes all prescriptions, OTC, herbals, cannabis, and nutritional supplements).: Yes
[2025-02-20] MEDS: SODIUM CHLORIDE 0.9% IV 1,000 ML 100 ML IV CONT (07:59)
[2025-02-20 08:02] VITALS: PULSE 76
[2025-02-20] MEDS: SIMVASTATIN 20 MG TABLET 40 MG PO (08:02)
[2025-02-20] MEDS: POTASSIUM CHLORIDE 20 MEQ ER TABLET 40 MEQ PO (08:02)
[2025-02-20] MEDS: METOPROLOL SUCCINATE EXT REL 25 MG TABCR PO (08:02)
[2025-02-20] MEDS: MAGNESIUM OXIDE 200 MG TABLET PO ×2 (08:02→21:57)
[2025-02-20] MEDS: PANTOPRAZOLE 40 MG TABLET PO (08:02)
[2025-02-20] MEDS: GABAPENTIN 300 MG CAPSULE PO ×2 (08:02→21:57)
[2025-02-20] MEDS: ENOXAPARIN 40 MG/0.4 ML SYRINGE SUB-Q (09:00)
--- NOTE | 2025-02-20 10:51 | ECG_ITS ---
Test Date: 2025-02-20 11:03:12 Measurements Intervals [place] Rate: 66 P: 41 [place]: 138 QRS: 52 QRSD: 82 T: 53 QT: 384 QTc: 402 Interpretive Statements SINUS RHYTHM BASELINE ARTIFACT- I, II, AVR, AVL, V1 NORMAL ECG No previous ECG available for comparison Electronically Signed On 02-20-2025 11:52:37 [employer] by Vikas Saucedo D.O.
--- NOTE | 2025-02-20 12:04 | P.PNGS_ITS ---
Progress Note: A&P Assessment and Plan (1) Hx of ventral hernia repair: Code(s): Z98.890 - Other specified postprocedural states; Z87.19 - Personal history of other diseases of the digestive system Status: Acute Assessment and Plan: * CT guided abscess drainage yesterday. Fluid in bag appears brownish yellow today. She did have a normal bowel movement this morning. WBC normal. ID consulted and recommending continuing vanco/cefepime/flagyl for the time being. They state that the best solution is removal of all mesh as it is likely seeded and will not be cured with abx alone. Another possibility is indefinite suppression with PO antibiotics. * Patient is still having lower abdominal pain today. States that it woke her up around midnight at felt very sharp. [place] nauseous and believed it to be due to the potassium she has been getting. Will discontinue this as her potassium has been within normal limits. WBC remains normal. Continue regular diet and add dietary supplements. * Will obtain repeat CT tomorrow to assess for any fistulization. Plan Discussed patient's case and plan of care with Dr. Flores. Subjective Subjective Date/Time Seen: 02/20/25 12:04 Patient reports: no new complaints, still having pain, bowel movement (this morning) and afebrile Interval history: Patient doing well. She does state that she woke up around midnight with sharp lower abdominal pain. Did not eat much of her breakfast. She feels the potassium makes her nauseous. Patient mentions that she felt like her heart skipped a beat since she has been getting 25 mg of metoprolol and she usually takes 50 at home. Exam Const: General: comfortable and no acute distress Neck: Neck: supple Resp: Effort & Inspection: normal respiratory effort Auscultation: clear to auscultation bilaterally Cardio: Rate: regular rate Rhythm: regular rhythm GI: Inspection: non-distended Auscultation: normal bowel sounds Other: percutaneous drain with roughly 30 mL of brownish yellow fluid in bag Skin: General skin exam: normal color and no rashes or lesions noted Psych: Mental Status: mental status grossly normal Objective Data Vital Signs Vital Signs: Vital Signs - 24 hr 02/19/25 14:00 02/19/25 14:07 02/19/25 21:57 Temperature 96.9 F L 97.9 F Pulse Rate 77 105 H 69 Respiratory Rate 19 14 18 Blood Pressure 106/69 105/53 L Pulse Oximetry 98 100 02/20/25 05:55 02/20/25 07:16 02/20/25 08:02 Temperature 98.3 F Pulse Rate 68 83 76 Respiratory Rate 16 16 Blood Pressure 125/52 L Pulse Oximetry 100 Intake/Output Intake/Output: Intake & Output 02/17/25 02/18/25 02/19/25 02/20/25 23:59 23:59 23:59 23:59 Intake Total 440 2680 1290 Output Total 475 50 Balance 440 2205 1240 Meds/Results Medications: Active Medications Generic Name Dose Route Start Last Admin Trade Name Freq PRN Reason Stop Dose Admin Acetaminophen 650 mg 02/18/25 13:04 Acetaminophen 325 Mg Tablet PO Q4H PRN Mild Pain (1-3) or Fever Hydrocodone Bitart/Acetaminophen 1 tab 02/18/25 13:04 02/19/25 03:16 Hydrocodone/Acetaminophen (*Crx) 5-325 Mg Tablet PO 1 tab Q4H PRN Administration Moderate Pain 4-6 Hydrocodone Bitart/Acetaminophen 1 tab 02/19/25 11:33 02/20/25 11:12 Hydrocodone/Acetaminophen (*Crx) 10-325 Mg Tablet PO 1 tab Q6H PRN Administration Pain Rated 7-10 Cyclobenzaprine HCl 10 mg 02/18/25 12:06 Cyclobenzaprine Hcl 10 Mg Tablet PO HS PRN Muscle Spasm Enoxaparin Sodium 40 mg 02/19/25 09:00 02/20/25 09:00 Enoxaparin 40 Mg/0.4 Ml Syringe SUB-Q 40 mg DAILY EMRE Administration Ergocalciferol 1,250 mcg 02/21/25 09:00 Ergocalciferol (Vitamin D2) 1,250 Mcg (50,000 Units) Capsule PO Fr@0900 EMRE Gabapentin 300 mg 02/18/25 13:00 02/20/25 08:02 Gabapentin 300 Mg Capsule PO 300 mg TID EMRE Administration Hydralazine HCl 10 mg 02/18/25 14:42 Hydralazine Hcl 20 Mg/Ml Vial IV PUSH Q8H PRN Blood Pressure - High Metronidazole 500 mg in 100 mls @ 100 mls/hr 02/18/25 12:15 02/20/25 05:40 Flagyl 500 Mg/Iso Soln 100 Ml IVPB 100 mls/hr Q8HR EMRE Administration Sodium Chloride 1,000 mls @ 100 mls/hr 02/18/25 13:05 02/20/25 07:59 Normal Saline Iv IV CONT 100 mls/hr .Q10H EMRE Administration Cefepime HCl 2 gm/ Sodium 50 mls @ 100 mls/hr 02/19/25 00:00 02/20/25 00:27 Chloride IVPB Infused Q12H EMRE Infusion Vancomycin HCl 750 mg in 250 mls @ 250 mls/hr 02/19/25 15:00 02/19/25 14:37 Vancomycin 750 Mg/Ns 250 Ml IVPB 250 mls/hr Q24H EMRE Administration Linaclotide 290 mcg 02/19/25 06:30 02/20/25 05:39 Linaclotide 145 Mcg Capsule PO 290 mcg DAILY@0630 EMRE Administration Magnesium Oxide 200 mg 02/19/25 21:00 02/20/25 08:02 Magnesium Oxide 200 Mg Tablet PO 200 mg Q12HR EMRE Administration Metoprolol Succinate 25 mg 02/19/25 09:00 02/20/25 08:02 Metoprolol Succinate Ext Rel 25 Mg Tabcr PO 25 mg DAILY EMRE Administration Mirtazapine 15 mg 02/18/25 21:00 02/19/25 20:17 Mirtazapine 15 Mg Tablet PO 15 mg HS EMRE Administration Pantoprazole Sodium 40 mg 02/19/25 09:00 02/20/25 08:02 Pantoprazole 40 Mg Tablet PO 40 mg DAILY EMRE Administration Potassium Chloride 40 meq 02/19/25 09:00 02/20/25 08:02 Potassium Chloride 20 Meq Er Tablet PO 40 meq BID EMRE Administration Simvastatin 40 mg 02/19/25 09:00 02/20/25 08:02 Simvastatin 20 Mg Tablet PO 40 mg DAILY EMRE Administration Umeclidinium/Vilanterol 1 puff 02/18/25 12:20 02/20/25 07:15 Umeclidinium/Vilanterol 62.5-25 Mcg Ellipta INHALATION 1 puff DAILYRT EMRE Administration Radiology Results: ITS Impressions Abdomen/Pelvis CT 02/18/25 13:53 IMPRESSION: 1. Large abscess right abdominal wall extending into peritoneum. Roughly 10 cm transverse by 10 cm craniocaudad by 5 cm AP diameter. Catheter Placement CT 02/19/25 11:16 IMPRESSION: 1. Successful CT-guided abscess drainage with placement of a percutaneous abscess drain in the more superficial subcutaneous component of the collection which appears to communicate with the collection deep to the ventral hernia mesh repair. 2. 30 mL fluid was sent for aerobic and anaerobic cultures. 3. The catheter will be managed by Dr. Flores. Labs Labs: Laboratory Results - last 24 hr 02/19/25 02/20/25 15:14 06:47 WBC 7.9 RBC 2.63 L Hgb 8.0 L Hct 25.7 L MCV 97.7 MCH 30.4 MCHC 31.1 L RDW 13.0 Plt Count 385 H MPV 9.8 Sodium 134 L 134 L Potassium 3.6 4.1 Chloride 112 H 113 H Carbon Dioxide 15 L 18 L Anion Gap 7 3 L BUN 12 8 Creatinine 0.66 L 0.63 L Estim Creat Clear Calc 50 52 Estimated GFR > 60 > 60 Glucose 83 84 Calcium 8.2 L 8.5 Magnesium 1.9 1.7
[2025-02-20] MEDS: CEFEPIME 2 GM in SODIUM CHLORIDE 0.9% IV 50 ML 100 ML IVPB ×2 (12:13→23:35)
[2025-02-20 14:00] VITALS: BP 122/50; PULSE 68; RESP 18; TEMP 36.6; O2SAT 100
[2025-02-20] MEDS: VANCOMYCIN 750 MG/NS 250 ML 750 MG/250 ML BAG 250 MG IVPB (16:20)
[2025-02-20 21:41] VITALS: BP 106/61; PULSE 69; RESP 18; TEMP 36.3; O2SAT 98
[2025-02-20] MEDS: MIRTAZAPINE 15 MG TABLET PO (21:57)
[2025-02-21] MEDS: SODIUM CHLORIDE 0.9% IV 1,000 ML 60 ML IV CONT ×2 (02:40→16:09)
[2025-02-21] MEDS: VANCOMYCIN 750 MG/NS 250 ML 750 MG/250 ML BAG 250 MG IVPB ×2 (04:43→16:15)
[2025-02-21] MEDS: LINACLOTIDE 145 MCG CAPSULE 290 MCG PO (05:53)
[2025-02-21] MEDS: metroNIDAZOLE 500 MG/ISO 100ML 500 MG/100 ML BAG 100 MG IVPB ×2 (05:54→13:10)
[2025-02-21 05:56] VITALS: BP 128/55; PULSE 71; RESP 18; TEMP 36.2; O2SAT 100
[2025-02-21] MEDS: HYDROcodone/acetaminophen (*CRX) 10-325 MG TABLET 1 TAB PO ×4 (05:59→23:33)
[2025-02-21 06:35] LABS: Hematocrit 27.1 % (37.0-47.0); Hemoglobin 8.6 g/dL (12.0-15.0); Mean Corpuscular HGB Conc 31.7 g/dl (32-36); Mean Corpuscular Hemoglobin 30.8 pg (26-34); Mean Corpuscular Volume 97.1 fl (80-100); Platelet Count Result 396 k/mm3 (150-375); Red Blood Count 2.79 M/mm3 (4.2-5.4); White Blood Count 8.0 K/mm3 (4.5-10.0)
[2025-02-21 07:00] LABS: Anion Gap 3 mmol/L (4-12); Blood Urea Nitrogen 6 mg/dL (7-17); Calcium 8.7 mg/dL (8.4-10.2); Carbon Dioxide 21 mmol/L (22-30); Chloride 111 mmol/L (98-107); Estimated CRCL calculation 52 ml/min; Estimated Glomerular Filt Rate > 60; Glucose 81 mg/dL (65-110); Potassium 4.2 mmol/L (3.4-5.0); Sodium 135 mmol/L (137-145)
[2025-02-21] MEDS: UMECLIDINIUM/VILANTEROL 62.5-25 MCG ELLIPTA 1 PUFF INHALATION (07:57)
--- NOTE | 2025-02-21 08:41 | P.PNIM_ITS ---
Assessment and Plan Assessment and Plan (1) Cellulitis of abdominal wall: Code(s): L03.311 - Cellulitis of abdominal wall Status: Acute Assessment and Plan: Recent hernia repair on 02-03-25 by surgery - ID consulted - currently on IV cefepime, Flagyl, vancomycin IR drain placement 02/19/25 completed - trend labs - pending cultures - monitor drain- currently draining thin gutierres colored fluid -AM labs (2) Hypertension: Code(s): I10 - Essential (primary) hypertension Status: Acute Assessment and Plan: continue home medications. -losartan, metoprolol, (3) Hyperlipidemia: Code(s): E78.5 - Hyperlipidemia, unspecified Status: Acute Assessment and Plan: Continue Zocor (4) COPD (chronic obstructive pulmonary disease): Code(s): J44.9 - Chronic obstructive pulmonary disease, unspecified Status: Acute Assessment and Plan: Continue inhaler Anoro-Ellipta (5) Hypokalemia: Code(s): E87.6 - Hypokalemia Status: Acute Assessment and Plan: Severe hypokalemia - improved. order potassium supplements watch bmp encourage diet AM labs Medical Record Review I have reviewed the following patient records and this information was taken into consideration when formulating the assessment and plan.: previous labs Consultations Consultations: I have discussed the care of this pt with the consulting providers. Subjective Date/time seen: 02/21/25 08:41 Interval history: 69 year old female who recently underwent a robotic recurrent incisional hernia repair, repair of small bowel jejunal iatrogenic enterotomy, extensive adhesiolysis of 2.5 hours, incarcerated incisional port site hernia repair x2 on 02/03/[address] Flores. She was seen in the office today for 2 week follow-up and was noted to have right lower quadrant tenderness with overlying redness and warmth. 02/19/25 - CT guided drain placement, abscess culture obtained, continue iv Abx ID tele conferencing 02/20 - today patient reports she still has pain in her right lower abdomen, she states it is sharp at times, but a dull ache now. redness has improved. Drain is noting thin gutierres colored drainage. patient denies fever, chills, N/V/D. her Bowels moved this am. 02/21 - Patient without acute complaints. CT abdomen and pelvis done, awaiting results. Patient continues on IV antibiotics. Cultures from drain pending. Review of Systems Review of Systems: All systems reviewed & are unremarkable except as noted in HPI and below Exam Narrative: General: well appearing, appears stated age. HEENT: normocephalic, atraumatic. Mucous membranes moist. EOMI, PERRLA, bilateral sclera anicteric, no conjunctival injection. Neck supple Respiratory: clear bilaterally. No rales/rhonic/wheezes. Cardiovascular: Regular rate and rhythm, normal S1-S2. No murmurs, rubs, or clicks. Abdomen: Surgical site incision well healed, erythema of hernia, tenderness to palpation, lower abdominal drain-dressing c/d/i Extremities: No cyanosis, clubbing, or edema present. Pulses are palpable 2/2. Active ROM to all four extremities. Neuro: Alert and orientated x 4. PERRLA. Cranial nerves 2-12 intact without focal deficit. Skin: Warm, dry, and intact, without rash, erythema, or lesion. Psych: pleasant, cooperative, normal speech, normal affect, no hallucinations, no dysarthia Objective Data Vital Signs Vital Signs: Vital Signs - 24 hr 02/20/25 14:00 02/20/25 21:41 02/21/25 05:56 Temperature 97.9 F 97.4 F L 97.1 F L Pulse Rate 68 69 71 Respiratory Rate 18 18 18 Blood Pressure 122/50 L 106/61 128/55 L Pulse Oximetry 100 98 100 Intake/Output Intake/Output: Intake & Output 02/18/25 02/19/25 02/20/25 02/21/25 23:59 23:59 23:59 23:59 Intake Total 440 2930 2120 1400 Output Total 475 200 50 Balance 440 2455 1920 1350 Meds/Results Medications: Active Medications Generic Name Dose Route Start Last Admin Trade Name Freq PRN Reason Stop Dose Admin Acetaminophen 650 mg 02/18/25 13:04 Acetaminophen 325 Mg Tablet PO Q4H PRN Mild Pain (1-3) or Fever Hydrocodone Bitart/Acetaminophen 1 tab 02/18/25 13:04 02/19/25 03:16 Hydrocodone/Acetaminophen (*Crx) 5-325 Mg Tablet PO 1 tab Q4H PRN Administration Moderate Pain 4-6 Hydrocodone Bitart/Acetaminophen 1 tab 02/19/25 11:33 02/21/25 05:59 Hydrocodone/Acetaminophen (*Crx) 10-325 Mg Tablet PO 1 tab Q6H PRN Administration Pain Rated 7-10 Cyclobenzaprine HCl 10 mg 02/18/25 12:06 Cyclobenzaprine Hcl 10 Mg Tablet PO HS PRN Muscle Spasm Enoxaparin Sodium 40 mg 02/19/25 09:00 02/20/25 09:00 Enoxaparin 40 Mg/0.4 Ml Syringe SUB-Q 40 mg DAILY EMRE Administration Ergocalciferol 1,250 mcg 02/21/25 09:00 Ergocalciferol (Vitamin D2) 1,250 Mcg (50,000 Units) Capsule PO Fr@0900 EMRE Gabapentin 300 mg 02/20/25 21:00 02/20/25 21:57 Gabapentin 300 Mg Capsule PO 300 mg QHS EMRE Administration Hydralazine HCl 10 mg 02/18/25 14:42 Hydralazine Hcl 20 Mg/Ml Vial IV PUSH Q8H PRN Blood Pressure - High Metronidazole 500 mg in 100 mls @ 100 mls/hr 02/18/25 12:15 02/21/25 05:54 Flagyl 500 Mg/Iso Soln 100 Ml IVPB 100 mls/hr Q8HR EMRE Administration Sodium Chloride 1,000 mls @ 60 mls/hr 02/18/25 13:05 02/21/25 02:40 Normal Saline Iv IV CONT 60 mls/hr .[id number] EMRE Administration Cefepime HCl 2 gm/ Sodium 50 mls @ 100 mls/hr 02/19/25 00:00 02/20/25 23:35 Chloride IVPB 100 mls/hr Q12H EMRE Administration Vancomycin HCl 750 mg in 250 mls @ 250 mls/hr 02/21/25 04:00 02/21/25 04:43 Vancomycin 750 Mg/Ns 250 Ml IVPB 250 mls/hr Q12H EMRE Administration Linaclotide 290 mcg 02/19/25 06:30 02/21/25 05:53 Linaclotide 145 Mcg Capsule PO 290 mcg DAILY@0630 EMRE Administration Magnesium Oxide 200 mg 02/19/25 21:00 02/20/25 21:57 Magnesium Oxide 200 Mg Tablet PO 200 mg Q12HR EMRE Administration Metoprolol Succinate 25 mg 02/19/25 09:00 02/20/25 08:02 Metoprolol Succinate Ext Rel 25 Mg Tabcr PO 25 mg DAILY EMRE Administration Mirtazapine 15 mg 02/18/25 21:00 02/20/25 21:57 Mirtazapine 15 Mg Tablet PO 15 mg HS EMRE Administration Pantoprazole Sodium 40 mg 02/19/25 09:00 02/20/25 08:02 Pantoprazole 40 Mg Tablet PO 40 mg DAILY EMRE Administration Simvastatin 40 mg 02/19/25 09:00 02/20/25 08:02 Simvastatin 20 Mg Tablet PO 40 mg DAILY EMRE Administration Umeclidinium/Vilanterol 1 puff 02/18/25 12:20 02/21/25 07:57 Umeclidinium/Vilanterol 62.5-25 Mcg Ellipta INHALATION 1 puff DAILYRT EMRE Administration Radiology Results: ITS Impressions Abdomen/Pelvis CT 02/18/25 13:53 IMPRESSION: 1. Large abscess right abdominal wall extending into peritoneum. Roughly 10 cm transverse by 10 cm craniocaudad by 5 cm AP diameter. Catheter Placement CT 02/19/25 11:16 IMPRESSION: 1. Successful CT-guided abscess drainage with placement of a percutaneous abscess drain in the more superficial subcutaneous component of the collection which appears to communicate with the collection deep to the ventral hernia mesh repair. 2. 30 mL fluid was sent for aerobic and anaerobic cultures. 3. The catheter will be managed by Dr. Flores. Labs Labs: Laboratory Results - last 24 hr 02/20/25 02/21/25 14:29 06:16 WBC 8.0 RBC 2.79 L Hgb 8.6 L Hct 27.1 L MCV 97.1 MCH 30.8 MCHC 31.7 L RDW 12.9 Plt Count 396 H MPV 9.8 Sodium 135 L Potassium 4.2 Chloride 111 H Carbon Dioxide 21 L Anion Gap 3 L BUN 6 L Creatinine 0.63 L Estim Creat Clear Calc 52 Estimated GFR > 60 Glucose 81 Calcium 8.7 Vancomycin Trough < 5.0 L Quality VTE Prophylaxis VTE prophylaxis: mechanical ordered
--- NOTE | 2025-02-21 09:58 | WPDINFPN2 ---
Progress Note: A&P Assessment and Plan (1) Abdominal wall abscess: Code(s): L02.211 - Cutaneous abscess of abdominal wall Status: Acute Plan ASSESSMENT 1. abdominal wall abscess iso ventral hernia repair with mesh on 02/03/25--also old mesh in place from prior abdominal hernia repair; s/p drain placement--infected mesh; risk of ECF 2. HTN, HL, COPD RECOMMENDATIONS: -for removal of mesh and likely bowel resection next week -change abx to vanco and zosyn -plan is for NPO/TPN/bowel rest -abscess cx in process d/w pharmacy staff Pt was seen via video telehealth consultation with the assistance of staff. Chart, data and patient info reviewed. Patient was located at [facility] while I was in my [place] office. Pt gave consent. Subjective Date/time seen: 02/21/25 09:58 Interval history: no fever no leukocytosis Exam Narrative: NAD, non-toxic abd soft tender, drain with purulence RUE PICC Objective Data Vital Signs Vital Signs: Vital Signs - 24 hr 02/20/25 14:00 02/20/25 21:41 02/21/25 05:56 Temperature 97.9 F 97.4 F L 97.1 F L Pulse Rate 68 69 71 Respiratory Rate 18 18 18 Blood Pressure 122/50 L 106/61 128/55 L Pulse Oximetry 100 98 100 Intake/Output Intake/Output: Intake & Output 02/18/25 02/19/25 02/20/25 02/21/25 23:59 23:59 23:59 23:59 Intake Total 440 2930 2120 1400 Output Total 475 200 50 Balance 440 2455 1920 1350 Meds/Results Medications: Active Medications Generic Name Dose Route Start Last Admin Trade Name Freq PRN Reason Stop Dose Admin Acetaminophen 650 mg 02/18/25 13:04 Acetaminophen 325 Mg Tablet PO Q4H PRN Mild Pain (1-3) or Fever Hydrocodone Bitart/Acetaminophen 1 tab 02/18/25 13:04 02/19/25 03:16 Hydrocodone/Acetaminophen (*Crx) 5-325 Mg Tablet PO 1 tab Q4H PRN Administration Moderate Pain 4-6 Hydrocodone Bitart/Acetaminophen 1 tab 02/19/25 11:33 02/21/25 05:59 Hydrocodone/Acetaminophen (*Crx) 10-325 Mg Tablet PO 1 tab Q6H PRN Administration Pain Rated 7-10 Cyclobenzaprine HCl 10 mg 02/18/25 12:06 Cyclobenzaprine Hcl 10 Mg Tablet PO HS PRN Muscle Spasm Enoxaparin Sodium 40 mg 02/19/25 09:00 02/20/25 09:00 Enoxaparin 40 Mg/0.4 Ml Syringe SUB-Q 40 mg DAILY EMRE Administration Ergocalciferol 1,250 mcg 02/21/25 09:00 Ergocalciferol (Vitamin D2) 1,250 Mcg (50,000 Units) Capsule PO Fr@0900 EMRE Gabapentin 300 mg 02/20/25 21:00 02/20/25 21:57 Gabapentin 300 Mg Capsule PO 300 mg QHS EMRE Administration Hydralazine HCl 10 mg 02/18/25 14:42 Hydralazine Hcl 20 Mg/Ml Vial IV PUSH Q8H PRN Blood Pressure - High Metronidazole 500 mg in 100 mls @ 100 mls/hr 02/18/25 12:15 02/21/25 05:54 Flagyl 500 Mg/Iso Soln 100 Ml IVPB 100 mls/hr Q8HR EMRE Administration Sodium Chloride 1,000 mls @ 60 mls/hr 02/18/25 13:05 02/21/25 02:40 Normal Saline Iv IV CONT 60 mls/hr .[id number] EMRE Administration Cefepime HCl 2 gm/ Sodium 50 mls @ 100 mls/hr 02/19/25 00:00 02/20/25 23:35 Chloride IVPB 100 mls/hr Q12H EMRE Administration Vancomycin HCl 750 mg in 250 mls @ 250 mls/hr 02/21/25 04:00 02/21/25 04:43 Vancomycin 750 Mg/Ns 250 Ml IVPB 250 mls/hr Q12H EMRE Administration Linaclotide 290 mcg 02/19/25 06:30 02/21/25 05:53 Linaclotide 145 Mcg Capsule PO 290 mcg DAILY@0630 EMRE Administration Magnesium Oxide 200 mg 02/19/25 21:00 02/20/25 21:57 Magnesium Oxide 200 Mg Tablet PO 200 mg Q12HR EMRE Administration Metoprolol Succinate 25 mg 02/19/25 09:00 02/20/25 08:02 Metoprolol Succinate Ext Rel 25 Mg Tabcr PO 25 mg DAILY EMRE Administration Mirtazapine 15 mg 02/18/25 21:00 02/20/25 21:57 Mirtazapine 15 Mg Tablet PO 15 mg HS EMRE Administration Pantoprazole Sodium 40 mg 02/19/25 09:00 02/20/25 08:02 Pantoprazole 40 Mg Tablet PO 40 mg DAILY EMRE Administration Simvastatin 40 mg 02/19/25 09:00 02/20/25 08:02 Simvastatin 20 Mg Tablet PO 40 mg DAILY EMRE Administration Umeclidinium/Vilanterol 1 puff 02/18/25 12:20 02/21/25 07:57 Umeclidinium/Vilanterol 62.5-25 Mcg Ellipta INHALATION 1 puff DAILYRT EMRE Administration Radiology Results: ITS Impressions Abdomen/Pelvis CT 02/18/25 13:53 IMPRESSION: 1. Large abscess right abdominal wall extending into peritoneum. Roughly 10 cm transverse by 10 cm craniocaudad by 5 cm AP diameter. Catheter Placement CT 02/19/25 11:16 IMPRESSION: 1. Successful CT-guided abscess drainage with placement of a percutaneous abscess drain in the more superficial subcutaneous component of the collection which appears to communicate with the collection deep to the ventral hernia mesh repair. 2. 30 mL fluid was sent for aerobic and anaerobic cultures. 3. The catheter will be managed by Dr. Flores. Labs Labs: Laboratory Results - last 24 hr 02/20/25 02/21/25 14:29 06:16 WBC 8.0 RBC 2.79 L Hgb 8.6 L Hct 27.1 L MCV 97.1 MCH 30.8 MCHC 31.7 L RDW 12.9 Plt Count 396 H MPV 9.8 Sodium 135 L Potassium 4.2 Chloride 111 H Carbon Dioxide 21 L Anion Gap 3 L BUN 6 L Creatinine 0.63 L Estim Creat Clear Calc 52 Estimated GFR > 60 Glucose 81 Calcium 8.7 Vancomycin Trough < 5.0 L
--- NOTE | 2025-02-21 10:34 | PCNFU ---
Nutrition Follow-Up Complete: Inadequate energy intake related to NPO status as evidenced by current diet order Unintentional weight loss related to reduced appetite and intake as evidenced by noted weight loss, pt report. Goal:Diet order PO intake adequate Pt meeting goals, new goal for continued good intake Pt current nutrition is Regular, Ensure BID. Nutrition recommendation: continue with current plan of care Last recorded weight is 47.3 kg. Bowel Motility:+BM 02/19 Labs Reviewed: Hgb:8.6, HCT:27.1, Na:135, BUN:6, Cr:0.6 Meds Noted: remeron, lovenox Skin: WNL Additional Notes: Pt on a regular diet, intake 50-75% most meals, Ensure BID in place. Agree with orders. Continue with current plan of care Monitor for diet order, intake, wt, labs. follow up in 7 days.
[2025-02-21] MEDS: ERGOCALCIFEROL (VITAMIN D2) 1,250 MCG (50,000 UNITS) CAPSULE 1250 MCG PO (13:09)
[2025-02-21] MEDS: METOPROLOL SUCCINATE EXT REL 25 MG TABCR PO (13:09)
[2025-02-21] MEDS: PANTOPRAZOLE 40 MG TABLET PO (13:10)
[2025-02-21] MEDS: SIMVASTATIN 20 MG TABLET 40 MG PO (13:10)
[2025-02-21] MEDS: CEFEPIME 2 GM in SODIUM CHLORIDE 0.9% IV 50 ML 100 ML IVPB (13:10)
[2025-02-21] MEDS: MAGNESIUM OXIDE 200 MG TABLET PO ×2 (13:11→20:45)
[2025-02-21] MEDS: LIDOCAINE 1% PF INJ 5 ML VIAL INFILTRATE (13:15)
[2025-02-21] MEDS: ENOXAPARIN 40 MG/0.4 ML SYRINGE SUB-Q (13:17)
[2025-02-21 14:00] VITALS: BP 117/57; PULSE 67; RESP 18; TEMP 36.4; O2SAT 100
--- NOTE | 2025-02-21 14:03 | P.PNGS_ITS ---
Progress Note: A&P Assessment and Plan (1) Hx of ventral hernia repair: Code(s): Z98.890 - Other specified postprocedural states; Z87.19 - Personal history of other diseases of the digestive system Status: Acute Assessment and Plan: * WBC normal, but patient still complaining of abdominal pain. Continue IV antibiotcs per ID recs. * CT this morning demonstrated increase in size of an intraperitoneal abscess al suha the right lower quadrant anterior abdominal wall deep to a revised ventral hernia mesh repair. Complex and in places high attenuation fluid within the abscess cavity consistent with persistent communication to the small bowel with extravasation of oral contrast material. There is communication of this abscess cavity through 4 along side the mesh to a smaller more superficial abscess cavity with pin which is the recently placed abscess drainage catheter. * Patient will need surgical intervention to remove infected mesh. Possible bowel resection. Likely surgery next week. Keep patient NPO over the weekend. PICC line orered for parenteral nutrition and IV antibiotics. Plan Discussed patient's case and plan of care with Dr. Flores. Subjective Subjective Date/Time Seen: 02/21/25 14:03 Patient reports: still having pain, bowel movement and afebrile Interval history: Patient still complaining of abdominal pain. WBC normal. CT this morning. Exam Const: General: comfortable GI: Inspection: non-distended GI Palp: Yes Soft to palpation and Yes Tenderness to palpation present (GI) (RLQ extending to ssuprapubic region) Auscultation: normal bowel sounds Other: Drain with light brownish yellow liquid in bag Skin: General skin exam: normal color and no rashes or lesions noted Objective Data Vital Signs Vital Signs: Vital Signs - 24 hr 02/20/25 21:41 02/21/25 05:56 Temperature 97.4 F L 97.1 F L Pulse Rate 69 71 Respiratory Rate 18 18 Blood Pressure 106/61 128/55 L Pulse Oximetry 98 100 Intake/Output Intake/Output: Intake & Output 02/18/25 02/19/25 02/20/25 02/21/25 23:59 23:59 23:59 23:59 Intake Total 440 2930 2120 1550 Output Total 475 200 50 Balance 440 2455 1920 1500 Meds/Results Medications: Active Medications Generic Name Dose Route Start Last Admin Trade Name Freq PRN Reason Stop Dose Admin Acetaminophen 650 mg 02/18/25 13:04 Acetaminophen 325 Mg Tablet PO Q4H PRN Mild Pain (1-3) or Fever Hydrocodone Bitart/Acetaminophen 1 tab 02/18/25 13:04 02/19/25 03:16 Hydrocodone/Acetaminophen (*Crx) 5-325 Mg Tablet PO 1 tab Q4H PRN Administration Moderate Pain 4-6 Hydrocodone Bitart/Acetaminophen 1 tab 02/19/25 11:33 02/21/25 13:09 Hydrocodone/Acetaminophen (*Crx) 10-325 Mg Tablet PO 1 tab Q6H PRN Administration Pain Rated 7-10 Cyclobenzaprine HCl 10 mg 02/18/25 12:06 Cyclobenzaprine Hcl 10 Mg Tablet PO HS PRN Muscle Spasm Enoxaparin Sodium 40 mg 02/19/25 09:00 02/21/25 13:17 Enoxaparin 40 Mg/0.4 Ml Syringe SUB-Q 40 mg DAILY EMRE Administration Ergocalciferol 1,250 mcg 02/21/25 09:00 02/21/25 13:09 Ergocalciferol (Vitamin D2) 1,250 Mcg (50,000 Units) Capsule PO 1,250 mcg Fr@0900 EMRE Administration Gabapentin 300 mg 02/20/25 21:00 02/20/25 21:57 Gabapentin 300 Mg Capsule PO 300 mg QHS EMRE Administration Hydralazine HCl 10 mg 02/18/25 14:42 Hydralazine Hcl 20 Mg/Ml Vial IV PUSH Q8H PRN Blood Pressure - High Metronidazole 500 mg in 100 mls @ 100 mls/hr 02/18/25 12:15 02/21/25 13:10 Flagyl 500 Mg/Iso Soln 100 Ml IVPB 100 mls/hr Q8HR EMRE Administration Sodium Chloride 1,000 mls @ 60 mls/hr 02/18/25 13:05 02/21/25 02:40 Normal Saline Iv IV CONT 60 mls/hr .[id number] EMRE Administration Cefepime HCl 2 gm/ Sodium 50 mls @ 100 mls/hr 02/19/25 00:00 02/21/25 13:10 Chloride IVPB 100 mls/hr Q12H EMRE Administration Vancomycin HCl 750 mg in 250 mls @ 250 mls/hr 02/21/25 04:00 02/21/25 04:43 Vancomycin 750 Mg/Ns 250 Ml IVPB 250 mls/hr Q12H EMRE Administration Linaclotide 290 mcg 02/19/25 06:30 02/21/25 05:53 Linaclotide 145 Mcg Capsule PO 290 mcg DAILY@0630 EMRE Administration Magnesium Oxide 200 mg 02/19/25 21:00 02/21/25 13:11 Magnesium Oxide 200 Mg Tablet PO 200 mg Q12HR EMRE Administration Metoprolol Succinate 25 mg 02/19/25 09:00 02/21/25 13:09 Metoprolol Succinate Ext Rel 25 Mg Tabcr PO 25 mg DAILY EMRE Administration Mirtazapine 15 mg 02/18/25 21:00 02/20/25 21:57 Mirtazapine 15 Mg Tablet PO 15 mg HS EMRE Administration Pantoprazole Sodium 40 mg 02/19/25 09:00 02/21/25 13:10 Pantoprazole 40 Mg Tablet PO 40 mg DAILY EMRE Administration Simvastatin 40 mg 02/19/25 09:00 02/21/25 13:10 Simvastatin 20 Mg Tablet PO 40 mg DAILY EMRE Administration Sodium Chloride 10 ml 02/21/25 14:00 Central Line Flush IV PUSH Q8HR EMRE Sodium Chloride 10 ml 02/21/25 13:49 Central Line Flush IV PUSH PRN PRN with TPN bag changes Sodium Chloride 20 ml 02/21/25 13:49 Central Line Flush IV PUSH PRN PRN after blood draws Umeclidinium/Vilanterol 1 puff 02/18/25 12:20 02/21/25 07:57 Umeclidinium/Vilanterol 62.5-25 Mcg Ellipta INHALATION 1 puff DAILYRT EMRE Administration Radiology Results: ITS Impressions Catheter Placement CT 02/19/25 11:16 IMPRESSION: 1. Successful CT-guided abscess drainage with placement of a percutaneous abscess drain in the more superficial subcutaneous component of the collection which appears to communicate with the collection deep to the ventral hernia mesh repair. 2. 30 mL fluid was sent for aerobic and anaerobic cultures. 3. The catheter will be managed by Dr. Flores. Abdomen/Pelvis CT 02/21/25 11:02 IMPRESSION: 1. Increase in size of an intraperitoneal abscess along the right lower quadrant anterior abdominal wall deep to a revised ventral hernia mesh repair. Complex a nd in places high attenuation fluid within the abscess cavity consistent with persistent communication to the small bowel with extravasation of oral contrast material. There is communication of this abscess cavity through 4 along side the mesh to a smaller more superficial abscess cavity with pin which is the recently placed abscess drainage catheter. Labs Labs: Laboratory Results - last 24 hr 02/20/25 02/21/25 14:29 06:16 WBC 8.0 RBC 2.79 L Hgb 8.6 L Hct 27.1 L MCV 97.1 MCH 30.8 MCHC 31.7 L RDW 12.9 Plt Count 396 H MPV 9.8 Sodium 135 L Potassium 4.2 Chloride 111 H Carbon Dioxide 21 L Anion Gap 3 L BUN 6 L Creatinine 0.63 L Estim Creat Clear Calc 52 Estimated GFR > 60 Glucose 81 Calcium 8.7 Vancomycin Trough < 5.0 L
--- NOTE | 2025-02-21 14:43 | PCDIET ---
Nutrition note: Consult for TPN monitoring. Per surgery, pr is to be NPO/ TPN until surgery completed to remove infected mesh. PICC line is ordered. TPN is Clinmix E 08/01 with lipids @ 40 ml/h to provide 1182 kcal, 48 g protein, 1210 ml total volume. Following every Monday/Monday.
[2025-02-21 15:47] LABS: Hematocrit 26.8 % (37.0-47.0); Hemoglobin 8.7 g/dL (12.0-15.0); Immature Granulocyte Percent A 0.8 % (0-0.5); Lymphocytes Absolute Auto 1.19 K/mm3 (0.9-3.2); Mean Corpuscular HGB Conc 32.5 g/dl (32-36); Mean Corpuscular Hemoglobin 30.9 pg (26-34); Mean Corpuscular Volume 95.0 fl (80-100); Nucleated Red Blood Cells Absolute Auto 0.000 K/mm3 (0.0-0.012); Nucleated Red Blood Cells Perc 0.0 % (0.0-0.2); Platelet Count Result 418 k/mm3 (150-375); Red Blood Count 2.82 M/mm3 (4.2-5.4); White Blood Count 8.0 K/mm3 (4.5-10.0)
[2025-02-21 15:59] LABS: Partial Thromboplastin Time 44.9 Seconds (22.3-36.8)
[2025-02-21 16:01] LABS: Hemoglobin A1C 4.6 % (<5.7)
[2025-02-21] MEDS: FAT EMULSIONS IV 20% 250 ML 20.83 ML IVPB (16:10)
[2025-02-21] MEDS: CENTRAL LINE FLUSH 10 ML IV PUSH ×2 (16:10→22:25)
[2025-02-21 16:15] LABS: Alanine Aminotransferase 34 U/L (6-35); Albumin Level 2.8 g/dL (3.5-5.1); Alkaline Phosphatase 73 U/L (38-126); Anion Gap 6 mmol/L (4-12); Aspartate Amino Transferase 58 U/L (14-36); Bilirubin,Total 0.5 mg/dL (0.2-1.3); Blood Urea Nitrogen 5 mg/dL (7-17); Calcium 8.5 mg/dL (8.4-10.2); Carbon Dioxide 19 mmol/L (22-30); Chloride 108 mmol/L (98-107); Estimated CRCL calculation 60 ml/min; Estimated Glomerular Filt Rate > 60; Glucose 80 mg/dL (65-110); Magnesium 1.6 mg/dL (1.6-2.3); Potassium 3.5 mmol/L (3.4-5.0); Sodium 133 mmol/L (137-145); Total Protein 5.4 g/dL (6.3-8.2)
[2025-02-21] MEDS: AMINO ACIDS 5%/D15W/E-LYTES/CA 1,000 ML with MULTIVITAMINS-12 INJ VIAL 1 1.25 ML, MULTI... 40 ML IV CONT (16:15)
[2025-02-21 16:37] LABS: Transferrin 106 mg/dL (206-381)
[2025-02-21] MEDS: PIPERACILLIN/TAZOBACTAM SOD 3.375 GM in SODIUM CHLORIDE 0.9% IV 50 ML 100 ML IVPB (18:23)
[2025-02-21] MEDS: GABAPENTIN 300 MG CAPSULE PO (20:45)
[2025-02-21] MEDS: MIRTAZAPINE 15 MG TABLET PO (20:45)
[2025-02-21] MEDS: INSULIN GLARGINE (*BKC) 100 UNITS/ML 7 UNITS SUB-Q (21:03)
[2025-02-21 22:00] VITALS: BP 126/47; PULSE 66; RESP 16; TEMP 37.1; O2SAT 98
[2025-02-22] VITALS (8 sets, daily range): BP systolic 117–129; BP diastolic 49–62; PULSE 57–76; RESP 16–17; TEMP 36.2–37; O2SAT 98–100
[2025-02-22] MEDS: PIPERACILLIN/TAZOBACTAM SOD 3.375 GM in SODIUM CHLORIDE 0.9% IV 50 ML 100 ML IVPB ×3 (01:35→17:36)
[2025-02-22 03:27] LABS: Anion Gap 4 mmol/L (4-12); Blood Urea Nitrogen 7 mg/dL (7-17); Calcium 8.4 mg/dL (8.4-10.2); Carbon Dioxide 21 mmol/L (22-30); Chloride 110 mmol/L (98-107); Estimated CRCL calculation 55 ml/min; Estimated Glomerular Filt Rate > 60; Glucose 100 mg/dL (65-110); Potassium 3.3 mmol/L (3.4-5.0); Sodium 135 mmol/L (137-145); Triglycerides 168 mg/dL (<150)
[2025-02-22] MEDS: VANCOMYCIN HCL 1,000 MG in SODIUM CHLORIDE 0.9% IV 250 ML 250 MG IVPB ×2 (04:06→15:28)
[2025-02-22] MEDS: HYDROcodone/acetaminophen (*CRX) 5-325 MG TABLET 1 TAB PO (04:11)
[2025-02-22] MEDS: CENTRAL LINE FLUSH 10 ML IV PUSH ×3 (06:25→21:26)
--- NOTE | 2025-02-22 07:56 | P.PNIM_ITS ---
Assessment and Plan Assessment and Plan (1) Cellulitis of abdominal wall: Code(s): L03.311 - Cellulitis of abdominal wall Status: Acute Assessment and Plan: Recent hernia repair on 02-03-25 by surgery - ID consulted - currently on IV cefepime, Flagyl, vancomycin IR drain placement 02/19/25 completed - trend labs - pending cultures - monitor drain- currently draining thin gutierres colored fluid - patient s/p CT abdomen and pelvis 02/21 which showed Increase in size of an intraperitoneal abscess along the right lower quadrant anterior abdominal wall deep to a revised ventral hernia mesh repair. Complex and in places high attenuation fluid within the abscess cavity consistent with persistent communication to the small bowel with extravasation of oral contrast material. There is communication of this abscess cavity through 4 along side the mesh to a smaller more superficial abscess cavity with pin which is the recently placed abscess drainage catheter - Patient will need surgical intervention for infected mesh and possible small bowel resection sometime next week - NPO and on TPN - AM labs (2) Hypertension: Code(s): I10 - Essential (primary) hypertension Status: Acute Assessment and Plan: continue home medications. -losartan, metoprolol, (3) Hyperlipidemia: Code(s): E78.5 - Hyperlipidemia, unspecified Status: Acute Assessment and Plan: Continue Zocor (4) COPD (chronic obstructive pulmonary disease): Code(s): J44.9 - Chronic obstructive pulmonary disease, unspecified Status: Acute Assessment and Plan: Continue inhaler Anoro-Ellipta (5) Hypokalemia: Code(s): E87.6 - Hypokalemia Status: Acute Assessment and Plan: Severe hypokalemia - improved. order potassium supplements watch bmp encourage diet AM labs Medical Record Review I have reviewed the following patient records and this information was taken into consideration when formulating the assessment and plan.: previous labs Consultations Consultations: I have discussed the care of this pt with the consulting providers. Subjective Date/time seen: 02/22/25 07:56 Interval history: Patient seen for a follow up visit. Patient sitting on side of bed, in no acute distress. Patient reports pain that starts in the abdomen and radiates to her back. Patient is being followed closely by general surgery. Continue pain control. Patient is now NPO and on TPN. Patient will need surgical intervention to remove infected mesh and possible bowel resection, likely surgery next week. Patient with complaints of painful urination and foul smelling urine. We will check a UA with reflex to culture. Patient continues on IV vancomycin and IV zosyn. Patient's wound cultures with gram negative bacilli isolated. Review of Systems Review of Systems: All systems reviewed & are unremarkable except as noted in HPI and below Exam Narrative: General: well appearing, appears stated age. HEENT: normocephalic, atraumatic. Mucous membranes moist. EOMI, PERRLA, bilateral sclera anicteric, no conjunctival injection. Neck supple Respiratory: clear bilaterally. No rales/rhonic/wheezes. Cardiovascular: Regular rate and rhythm, normal S1-S2. No murmurs, rubs, or clicks. Abdomen: Surgical site incision well healed, erythema of hernia, tenderness to palpation, lower abdominal drain-dressing c/d/i Extremities: No cyanosis, clubbing, or edema present. Pulses are palpable 2/2. Active ROM to all four extremities. Neuro: Alert and orientated x 4. PERRLA. Cranial nerves 2-12 intact without focal deficit. Skin: Warm, dry, and intact, without rash, erythema, or lesion. Psych: pleasant, cooperative, normal speech, normal affect, no hallucinations, no dysarthia Objective Data Vital Signs Vital Signs: Vital Signs - 24 hr 02/21/25 14:00 02/21/25 20:00 02/21/25 22:00 Temperature 97.6 F 98.7 F Pulse Rate 67 66 Respiratory Rate 18 16 Blood Pressure 117/57 L 126/47 L Pulse Oximetry 100 98 Oxygen Delivery Room Air 02/22/25 06:00 Temperature 98.6 F Pulse Rate 57 L Respiratory Rate 16 Blood Pressure 122/52 L Pulse Oximetry 98 Oxygen Delivery Intake/Output Intake/Output: Intake & Output 02/19/25 02/20/25 02/21/25 02/22/25 23:59 23:59 23:59 23:59 Intake Total 2930 2120 2659 550 Output Total 475 200 100 Balance 2455 1920 2559 550 Meds/Results Medications: Active Medications Generic Name Dose Route Start Last Admin Trade Name Freq PRN Reason Stop Dose Admin Acetaminophen 650 mg 02/18/25 13:04 Acetaminophen 325 Mg Tablet PO Q4H PRN Mild Pain (1-3) or Fever Hydrocodone Bitart/Acetaminophen 1 tab 02/18/25 13:04 02/22/25 04:11 Hydrocodone/Acetaminophen (*Crx) 5-325 Mg Tablet PO 1 tab Q4H PRN Administration Moderate Pain 4-6 Hydrocodone Bitart/Acetaminophen 1 tab 02/19/25 11:33 02/21/25 23:33 Hydrocodone/Acetaminophen (*Crx) 10-325 Mg Tablet PO 1 tab Q6H PRN Administration Pain Rated 7-10 Cyclobenzaprine HCl 10 mg 02/18/25 12:06 Cyclobenzaprine Hcl 10 Mg Tablet PO HS PRN Muscle Spasm Dextrose 12.5 gm 02/21/25 14:10 Dextrose 50% 25 Gm/50 Ml Syringe IV PUSH PRN PRN Hypoglycemia Protocol Enoxaparin Sodium 40 mg 02/19/25 09:00 02/21/25 13:17 Enoxaparin 40 Mg/0.4 Ml Syringe SUB-Q 40 mg DAILY EMRE Administration Ergocalciferol 1,250 mcg 02/21/25 09:00 02/21/25 13:09 Ergocalciferol (Vitamin D2) 1,250 Mcg (50,000 Units) Capsule PO 1,250 mcg Fr@0900 EMRE Administration Gabapentin 300 mg 02/20/25 21:00 02/21/25 20:45 Gabapentin 300 Mg Capsule PO 300 mg QHS EMRE Administration Glucagon 1 mg 02/21/25 14:10 Glucagon For Inj 1 Mg Vial IM PRN PRN Hypoglycemia Protocol Glucose 15 gm 02/21/25 14:10 Glucose Oral Gel 15 Gm Of Glucse In 37.5 Gm Tube PO PRN PRN Hypoglycemia Protocol Hydralazine HCl 10 mg 02/18/25 14:42 Hydralazine Hcl 20 Mg/Ml Vial IV PUSH Q8H PRN Blood Pressure - High Sodium Chloride 1,000 mls @ 60 mls/hr 02/18/25 13:05 02/21/25 16:09 Normal Saline Iv IV CONT 60 mls/hr .[id number] EMRE Administration Dextrose 1,000 mls @ 50 mls/hr 02/21/25 14:10 Dextrose 10% IV CONT .Q20H PRN if PN is interrupted Multivitamins 1.25 ml/ 1,002.5 mls @ 40 mls/hr 02/21/25 15:00 02/21/25 16:15 Multivitamins 1.25 ml/ Amino IV CONT 40 mls/hr Acids/Electrolytes/Dextrose .Q24H EMRE Administration Protocol Fat Emulsion Intravenous 250 mls @ 20.833 mls/hr 02/21/25 15:00 02/22/25 04:11 Lipids 20% IVPB Infused Q24H EMRE Infusion Dextrose 1,000 mls @ 100 mls/hr 02/21/25 14:10 Dextrose 5% 1,000 Ml IVPB PRN PRN Hypoglycemia Protocol Piperacillin Sod/Tazobactam 50 mls @ 100 mls/hr 02/21/25 17:00 02/22/25 02:05 Sod 3.375 gm/ Sodium Chloride IVPB Infused Q8H EMRE Infusion Vancomycin HCl 1,000 mg/ 250 mls @ 250 mls/hr 02/22/25 04:00 02/22/25 05:06 Sodium Chloride IVPB Infused Q12H EMRE Infusion Insulin Aspart 2 - 5 units 02/21/25 17:00 02/21/25 17:34 Insulin Aspart (*Bkc) 100 Units/Ml SUB-Q Not Given TIDWM [facility] Protocol Insulin Glargine 7 units 02/21/25 21:00 02/21/25 21:03 Insulin Glargine (*Bkc) 100 Units/Ml 0.15 units/kg (7 units) 7 units SUB-Q Administration HS EMRE Linaclotide 290 mcg 02/19/25 06:30 02/22/25 06:25 Linaclotide 145 Mcg Capsule PO Not Given DAILY@0630 EMRE Magnesium Oxide 200 mg 02/19/25 21:00 02/21/25 20:45 Magnesium Oxide 200 Mg Tablet PO 200 mg Q12HR EMRE Administration Metoprolol Succinate 25 mg 02/19/25 09:00 02/21/25 13:09 Metoprolol Succinate Ext Rel 25 Mg Tabcr PO 25 mg DAILY EMRE Administration Mirtazapine 15 mg 02/18/25 21:00 02/21/25 20:45 Mirtazapine 15 Mg Tablet PO 15 mg HS EMRE Administration Morphine Sulfate 2 mg 02/21/25 14:04 Morphine Sulfate (*Crx) 4 Mg/Ml Inj IV PUSH Q4H PRN Pain Rated 4-6 Morphine Sulfate 4 mg 02/21/25 14:04 Morphine Sulfate (*Crx) 4 Mg/Ml Inj IV PUSH Q4H PRN Pain Rated 7-10 Pantoprazole Sodium 40 mg 02/19/25 09:00 02/21/25 13:10 Pantoprazole 40 Mg Tablet PO 40 mg DAILY EMRE Administration Simvastatin 40 mg 02/19/25 09:00 02/21/25 13:10 Simvastatin 20 Mg Tablet PO 40 mg DAILY EMRE Administration Sodium Chloride 10 ml 02/21/25 14:00 02/22/25 06:25 Central Line Flush IV PUSH 10 ml Q8HR EMRE Administration Sodium Chloride 10 ml 02/21/25 13:49 Central Line Flush IV PUSH PRN PRN with TPN bag changes Sodium Chloride 20 ml 02/21/25 13:49 Central Line Flush IV PUSH PRN PRN after blood draws Umeclidinium/Vilanterol 1 puff 02/18/25 12:20 02/21/25 07:57 Umeclidinium/Vilanterol 62.5-25 Mcg Ellipta INHALATION 1 puff DAILYRT EMRE Administration Radiology Results: ITS Impressions Catheter Placement CT 02/19/25 11:16 IMPRESSION: 1[address] CT-guided abscess drainage with placement of a percutaneous abscess drain in the more superficial subcutaneous component of the collection which appears to communicate with the collection deep to the ventral hernia mesh repair. 2. 30 mL fluid was sent for aerobic and anaerobic cultures. 3. The catheter will be managed by Dr. Flores. Abdomen/Pelvis CT 02/21/25 11:02 IMPRESSION: 1. Increase in size of an intraperitoneal abscess along the right lower quadrant anterior abdominal wall deep to a revised ventral hernia mesh repair. Complex and in places high attenuation fluid within the abscess cavity consistent with persistent communication to the small bowel with extravasation of oral contrast material. There is communication of this abscess cavity through 4 along side the mesh to a smaller more superficial abscess cavity with pin which is the recently placed abscess drainage catheter. Labs Labs: Laboratory Results - last 24 hr 02/21/25 02/21/25 02/21/25 15:40 15:41 16:55 WBC 8.0 RBC 2.82 L Hgb 8.7 L Hct 26.8 L MCV 95.0 MCH 30.9 MCHC 32.5 RDW 12.9 Plt Count 418 H MPV 9.6 Immature Gran % (Auto) 0.8 H Neut % (Auto) 70.8 Lymph % (Auto) 14.9 L Porter % (Auto) 10.7 H Eos % (Auto) 2.0 Baso % (Auto) 0.8 Lymph # (Auto) 1.19 Porter # (Auto) 0.9 H Eos # (Auto) 0.2 Baso # (Auto) 0.1 Abs Immat Gran (auto) 0.06 H Absolute Neuts (auto) 5.7 Absolute Nucleated RBC 0.000 Nucleated RBC % 0.0 APTT 44.9 H Sodium 133 L Potassium 3.5 Chloride 108 H Carbon Dioxide 19 L Anion Gap 6 BUN 5 L Creatinine 0.54 L Estim Creat Clear Calc 60 Estimated GFR > 60 Glucose 80 POC Capillary Glucose 93 Hemoglobin A1c 4.6 Calcium 8.5 Phosphorus Magnesium 1.6 Transferrin 106 L Total Bilirubin 0.5 AST 58 H ALT 34 Alkaline Phosphatase 73 Total Protein 5.4 L Albumin 2.8 L Triglycerides Vancomycin Trough 02/21/25 02/22/25 02/22/25 20:54 00:47 02:42 WBC RBC Hgb Hct MCV MCH MCHC RDW Plt Count MPV Immature Gran % (Auto) Neut % (Auto) Lymph % (Auto) [place] % (Auto) Eos % (Auto) Baso % (Auto) Lymph # (Auto) Porter # (Auto) Eos # (Auto) Baso # (Auto) Abs Immat Gran (auto) Absolute Neuts (auto) Absolute Nucleated RBC Nucleated RBC % APTT Sodium 135 L Potassium 3.3 L Chloride 110 H Carbon Dioxide 21 L Anion Gap 4 BUN 7 Creatinine 0.60 L Estim Creat Clear Calc 55 Estimated GFR > 60 Glucose 100 POC Capillary Glucose 113 H 111 H Hemoglobin A1c Calcium 8.4 Phosphorus 3.9 Magnesium Transferrin Total Bilirubin AST ALT Alkaline Phosphatase Total Protein Albumin Triglycerides 168 H Vancomycin Trough 10.7 02/22/25 04:45 WBC RBC Hgb Hct MCV MCH MCHC RDW Plt Count MPV Immature Gran % (Auto) Neut % (Auto) Lymph % (Auto) Porter % (Auto) Eos % (Auto) Baso % (Auto) Lymph # (Auto) Porter # (Auto) Eos # (Auto) Baso # (Auto) Abs Immat Gran (auto) Absolute Neuts (auto) Absolute Nucleated RBC Nucleated RBC % APTT Sodium Potassium Chloride Carbon Dioxide Anion Gap BUN Creatinine Estim Creat Clear Calc Estimated GFR Glucose POC Capillary Glucose 117 H Hemoglobin A1c Calcium Phosphorus Magnesium Transferrin Total Bilirubin AST ALT Alkaline Phosphatase Total Protein Albumin Triglycerides Vancomycin Trough Quality VTE Prophylaxis VTE prophylaxis: mechanical ordered
[2025-02-22] MEDS: UMECLIDINIUM/VILANTEROL 62.5-25 MCG ELLIPTA 1 PUFF INHALATION (08:14)
[2025-02-22] MEDS: KCL 40 MEQ/WATER 100 ML 100 ML 25 ML IVPB (09:18)
[2025-02-22] MEDS: ENOXAPARIN 40 MG/0.4 ML SYRINGE SUB-Q (09:18)
[2025-02-22] MEDS: METOPROLOL SUCCINATE EXT REL 25 MG TABCR PO (09:19)
[2025-02-22] MEDS: PANTOPRAZOLE 40 MG TABLET PO (09:19)
[2025-02-22] MEDS: MAGNESIUM OXIDE 200 MG TABLET PO ×2 (09:19→21:26)
[2025-02-22] MEDS: SIMVASTATIN 20 MG TABLET 40 MG PO (09:19)
[2025-02-22] MEDS: HYDROcodone/acetaminophen (*CRX) 10-325 MG TABLET 1 TAB PO ×2 (12:23→18:45)
[2025-02-22 14:59] LABS: Add Urine Microscopic? YES; Appearance Urine Cloudy (Clear); Glucose Urine UA Negative (Negative); Leukocyte Esterase Ur Negative LEU/UL (Negative); Nitrate Urine Negative (Negative); Non Pathogenic Casts 0-2; Specific Grav Ur 1.011 (1.001-1.035)
[2025-02-22] MEDS: AMINO ACIDS 5%/D15W/E-LYTES/CA 1,000 ML with MULTIVITAMINS-12 INJ VIAL 1 1.25 ML, MULTI... 40 ML IV CONT (15:10)
[2025-02-22] MEDS: FAT EMULSIONS IV 20% 250 ML 20.83 ML IVPB (15:10)
[2025-02-22] MEDS: SODIUM CHLORIDE 0.9% IV 1,000 ML 60 ML IV CONT (17:12)
[2025-02-22 18:24] LABS: Triglycerides 1122 mg/dL (<150)
--- NOTE | 2025-02-22 20:29 | PM.PNGS ---
Progress Note: A&P Assessment and Plan (1) Abdominal wall abscess: Code(s): L02.211 - Cutaneous abscess of abdominal wall Status: Acute Assessment and Plan: Patient doing better after percutaneous drainage. White blood cell count is normal. Drainage tubing was twisted but has been position so the twist is gone. There is still some deformity so will need to watch how much comes out of the drain and probably some CT scans. Continue IV antibiotics. Cultures show multi drug-resistant E coli sensitive to Zosyn. (2) Protein-calorie malnutrition, severe: Code(s): E43 - Unspecified severe protein-calorie malnutrition Status: Acute Assessment and Plan: Continue TPN. Will increase rate of TPN tomorrow. (3) History of gastric bypass: Code(s): Z98.84 - Bariatric surgery status Status: Chronic Subjective Subjective Date/Time Seen: 02/22/25 20:29 Patient reports: no new complaints, still having pain (Right lateral abdomen and drain exit site mostly), voiding w/o difficulty and afebrile Exam Const: General: comfortable and no acute distress Nutritional Appearance: thin and underweight Orientation/consciousness: patient oriented x3 GI: Inspection: non-distended, scaphoid and other (Pigtail catheter tubing just beyond connector twisted 360?) GI Palp: Yes Soft to palpation, Yes Tenderness to palpation present (GI) (Left mid abdomen mostly), No Guarding due to palpation present (GI) and No Rebound tenderness present Auscultation: normal bowel sounds Other: I untwisted the tubing to the pigtail catheter and moved it from the patient's right side to the left side were at naturally is and to exit. There still is some deformity but it seems to be draining. I talked to the patient's nurse about this and she will watch the drain tubing more closely, possibly secure it so that no further twisting occurs. Neuro: General: patient oriented x3 and no focal motor deficits Extrem: General: no calf tenderness and no edema Psych: Affect: normal affect Insight: Good insight present (Psych) Judgement: Good judgement present (Psych) Objective Data Vital Signs Vital Signs: Vital Signs - 24 hr 02/21/25 22:00 02/22/25 06:00 02/22/25 08:17 Temperature 37.1 C 37.0 C Pulse Rate 66 57 L Respiratory Rate 16 16 Blood Pressure 126/47 L 122/52 L Pulse Oximetry 98 98 99 Oxygen Delivery Room Air 02/22/25 09:00 02/22/25 09:19 02/22/25 09:30 Temperature Pulse Rate 76 76 Respiratory Rate Blood Pressure 129/62 Pulse Oximetry 100 Oxygen Delivery Room Air 02/22/25 12:20 02/22/25 14:00 02/22/25 18:42 Temperature 36.4 C Pulse Rate 71 70 64 Respiratory Rate 17 Blood Pressure 121/62 117/49 L 125/53 L Pulse Oximetry 100 100 Oxygen Delivery Intake/Output Intake/Output: Intake & Output 02/19/25 02/20/25 02/21/25 02/22/25 23:59 23:59 23:59 23:59 Intake Total 2930 2120 2659 2516.7 Output Total 475 200 100 50 Balance 2455 1920 2559 2466.7 Meds/Results Medications: Active Medications Generic Name Dose Route Start Last Admin Trade Name Freq PRN Reason Stop Dose Admin Acetaminophen 650 mg 02/18/25 13:04 Acetaminophen 325 Mg Tablet PO Q4H PRN Mild Pain (1-3) or Fever Hydrocodone Bitart/Acetaminophen 1 tab 02/18/25 13:04 02/22/25 04:11 Hydrocodone/Acetaminophen (*Crx) 5-325 Mg Tablet PO 1 tab Q4H PRN Administration Moderate Pain 4-6 Hydrocodone Bitart/Acetaminophen 1 tab 02/19/25 11:33 02/22/25 18:45 Hydrocodone/Acetaminophen (*Crx) 10-325 Mg Tablet PO 1 tab Q6H PRN Administration Pain Rated 7-10 Cyclobenzaprine HCl 10 mg 02/18/25 12:06 Cyclobenzaprine Hcl 10 Mg Tablet PO HS PRN Muscle Spasm Dextrose 12.5 gm 02/21/25 14:10 Dextrose 50% 25 Gm/50 Ml Syringe IV PUSH PRN PRN Hypoglycemia Protocol Enoxaparin Sodium 40 mg 02/19/25 09:00 02/22/25 09:18 Enoxaparin 40 Mg/0.4 Ml Syringe SUB-Q 40 mg DAILY EMRE Administration Ergocalciferol 1,250 mcg 02/21/25 09:00 02/21/25 13:09 Ergocalciferol (Vitamin D2) 1,250 Mcg (50,000 Units) Capsule PO 1,250 mcg Fr@0900 EMRE Administration Gabapentin 300 mg 02/20/25 21:00 02/21/25 20:45 Gabapentin 300 Mg Capsule PO 300 mg QHS EMRE Administration Glucagon 1 mg 02/21/25 14:10 Glucagon For Inj 1 Mg Vial IM PRN PRN Hypoglycemia Protocol Glucose 15 gm 02/21/25 14:10 Glucose Oral Gel 15 Gm Of Glucse In 37.5 Gm Tube PO PRN PRN Hypoglycemia Protocol Hydralazine HCl 10 mg 02/18/25 14:42 Hydralazine Hcl 20 Mg/Ml Vial IV PUSH Q8H PRN Blood Pressure - High Sodium Chloride 1,000 mls @ 60 mls/hr 02/18/25 13:05 02/22/25 17:12 Normal Saline Iv IV CONT 60 mls/hr .[id number] EMRE Administration Dextrose 1,000 mls @ 50 mls/hr 02/21/25 14:10 Dextrose 10% IV CONT .Q20H PRN if PN is interrupted Multivitamins 1.25 ml/ 1,002.5 mls @ 40 mls/hr 02/21/25 15:00 02/22/25 15:10 Multivitamins 1.25 ml/ Amino IV CONT 40 mls/hr Acids/Electrolytes/Dextrose .Q24H EMRE Administration Protocol Fat Emulsion Intravenous 250 mls @ 20.833 mls/hr 02/21/25 15:00 02/22/25 15:10 Lipids 20% IVPB 20.83 mls/hr Q24H EMRE Administration Dextrose 1,000 mls @ 100 mls/hr 02/21/25 14:10 Dextrose 5% 1,000 Ml IVPB PRN PRN Hypoglycemia Protocol Piperacillin Sod/Tazobactam 50 mls @ 100 mls/hr 02/21/25 17:00 02/22/25 17:36 Sod 3.375 gm/ Sodium Chloride IVPB 100 mls/hr Q8H EMRE Administration Vancomycin HCl 1,000 mg/ 250 mls @ 250 mls/hr 02/22/25 04:00 02/22/25 15:28 Sodium Chloride IVPB 250 mls/hr Q12H EMRE Administration Insulin Aspart 2 - 5 units 02/21/25 17:00 02/22/25 16:55 Insulin Aspart (*Bkc) 100 Units/Ml SUB-Q Not Given TIDWM EMRE Protocol Insulin Glargine 7 units 02/21/25 21:00 02/21/25 21:03 Insulin Glargine (*Bkc) 100 Units/Ml 0.15 units/kg (7 units) 7 units SUB-Q Administration HS EMRE Linaclotide 290 mcg 02/19/25 06:30 02/22/25 06:25 Linaclotide 145 Mcg Capsule PO Not Given DAILY@0630 EMRE Magnesium Oxide 200 mg 02/19/25 21:00 02/22/25 09:19 Magnesium Oxide 200 Mg Tablet PO 200 mg Q12HR EMRE Administration Metoprolol Succinate 25 mg 02/19/25 09:00 02/22/25 09:19 Metoprolol Succinate Ext Rel 25 Mg Tabcr PO 25 mg DAILY EMRE Administration Mirtazapine 15 mg 02/18/25 21:00 02/21/25 20:45 Mirtazapine 15 Mg Tablet PO 15 mg HS EMRE Administration Miscellaneous Information 1 each 02/23/25 00:01 Tpn Needs To Be Renewed Or It Will Automatically Discontinue. XX 03/25/25 00:00 CLARIFY EMRE Morphine Sulfate 2 mg 02/21/25 14:04 Morphine Sulfate (*Crx) 4 Mg/Ml Inj IV PUSH Q4H PRN Pain Rated 4-6 Morphine Sulfate 4 mg 02/21/25 14:04 Morphine Sulfate (*Crx) 4 Mg/Ml Inj IV PUSH Q4H PRN Pain Rated 7-10 Pantoprazole Sodium 40 mg 02/19/25 09:00 02/22/25 09:19 Pantoprazole 40 Mg Tablet PO 40 mg DAILY EMRE Administration Simvastatin 40 mg 02/19/25 09:00 02/22/25 09:19 Simvastatin 20 Mg Tablet PO 40 mg DAILY EMRE Administration Sodium Chloride 10 ml 02/21/25 14:00 02/22/25 14:10 Central Line Flush IV PUSH 10 ml Q8HR EMRE Administration Sodium Chloride 10 ml 02/21/25 13:49 Central Line Flush IV PUSH PRN PRN with TPN bag changes Sodium Chloride 20 ml 02/21/25 13:49 Central Line Flush IV PUSH PRN PRN after blood draws Umeclidinium/Vilanterol 1 puff 02/18/25 12:20 02/22/25 08:14 Umeclidinium/Vilanterol 62.5-25 Mcg Ellipta INHALATION 1 puff DAILYRT EMRE Administration Radiology Results: ITS Impressions Catheter Placement CT 02/19/25 11:16 IMPRESSION: 1. Successful CT-guided abscess drainage with placement of a percutaneous abscess drain in the more superficial subcutaneous component of the collection which appears to communicate with the collection deep to the ventral hernia mesh repair. 2. 30 mL fluid was sent for aerobic and anaerobic cultures. 3. The catheter will be managed by Dr. Flores. Abdomen/Pelvis CT 02/21/25 11:02 IMPRESSION: 1. Increase in size of an intraperitoneal abscess along the right lower quadrant anterior abdominal wall deep to a revised ventral hernia mesh repair. Complex and in places high attenuation fluid within the abscess cavity consistent with persistent communication to the small bowel with extravasation of oral contrast material. There is communication of this abscess cavity through 4 along side the mesh to a smaller more superficial abscess cavity with pin which is the recently placed abscess drainage catheter. Labs Labs: Laboratory Results - last 24 hr 02/21/25 02/22/25 02/22/25 20:54 00:47 02:42 Sodium 135 L Potassium 3.3 L Chloride 110 H Carbon Dioxide 21 L Anion Gap 4 BUN 7 Creatinine 0.60 L Estim Creat Clear Calc 55 Estimated GFR > 60 Glucose 100 POC Capillary Glucose 113 H 111 H Calcium 8.4 Phosphorus 3.9 Triglycerides 168 H Urine Color Urine Appearance Urine pH Ur Specific [place] Urine Protein Urine Glucose (UA) Urine Ketones Ur Blood (Man) Urine Nitrate Urine Bilirubin Urine Urobilinogen Leukocyte Esterase Rfl Urine RBC Urine WBC Ur Squamous Epith Cells Urine Bacteria Urine Casts Vancomycin Trough 10.7 02/22/25 02/22/25 02/22/25 04:45 07:40 11:18 Sodium Potassium Chloride Carbon Dioxide Anion Gap BUN Creatinine Estim Creat Clear Calc Estimated GFR Glucose POC Capillary Glucose 117 H 121 H 102 Calcium Phosphorus Triglycerides Urine Color Urine Appearance Urine pH Ur Specific [place] Urine Protein Urine Glucose (UA) Urine Ketones Ur Blood (Man) Urine Nitrate Urine Bilirubin Urine Urobilinogen Leukocyte Esterase Rfl Urine RBC Urine WBC Ur Squamous Epith Cells Urine Bacteria Urine Casts Vancomycin Trough 02/22/25 02/22/25 02/22/25 14:48 16:11 17:10 Sodium Potassium Chloride Carbon Dioxide Anion Gap BUN Creatinine Estim Creat Clear Calc Estimated GFR Glucose POC Capillary Glucose 132 H Calcium Phosphorus Triglycerides 1122 H Urine Color Yellow Urine Appearance Cloudy H Urine pH 6.5 Ur Specific [place] 1.011 Urine Protein Negative Urine Glucose (UA) Negative Urine Ketones Negative Ur Blood (Man) Negative Urine Nitrate Negative Urine Bilirubin Negative Urine Urobilinogen 0.2 Leukocyte Esterase Rfl Negative Urine RBC 0-2 Urine WBC 0-5 Ur Squamous Epith Cells None seen Urine Bacteria None seen Urine Casts 0-2 Vancomycin Trough
[2025-02-22] MEDS: MIRTAZAPINE 15 MG TABLET PO (21:25)
[2025-02-22] MEDS: GABAPENTIN 300 MG CAPSULE PO (21:26)
[2025-02-22] MEDS: INSULIN GLARGINE (*BKC) 100 UNITS/ML 7 UNITS SUB-Q (21:27)
[2025-02-23] VITALS (7 sets, daily range): BP systolic 97–128; BP diastolic 43–71; PULSE 58–74; RESP 16–18; TEMP 36.1–36.3; O2SAT 99–100
[2025-02-23] MEDS: HYDROcodone/acetaminophen (*CRX) 10-325 MG TABLET 1 TAB PO ×3 (00:20→18:11)
[2025-02-23] MEDS: PIPERACILLIN/TAZOBACTAM SOD 3.375 GM in SODIUM CHLORIDE 0.9% IV 50 ML 100 ML IVPB ×3 (00:21→16:22)
[2025-02-23] MEDS: VANCOMYCIN HCL 1,000 MG in SODIUM CHLORIDE 0.9% IV 250 ML 250 MG IVPB (04:31)
[2025-02-23] MEDS: CENTRAL LINE FLUSH 10 ML IV PUSH ×3 (06:05→21:40)
[2025-02-23 06:12] LABS: Hematocrit 26.4 % (37.0-47.0); Hemoglobin 8.5 g/dL (12.0-15.0); Mean Corpuscular HGB Conc 32.2 g/dl (32-36); Mean Corpuscular Hemoglobin 31.3 pg (26-34); Mean Corpuscular Volume 97.1 fl (80-100); Platelet Count Result 373 k/mm3 (150-375); Red Blood Count 2.72 M/mm3 (4.2-5.4); White Blood Count 7.6 K/mm3 (4.5-10.0)
[2025-02-23 06:35] LABS: Anion Gap 2 mmol/L (4-12); Blood Urea Nitrogen 7 mg/dL (7-17); CRP 3.5 mg/dL (<1.0); Calcium 8.5 mg/dL (8.4-10.2); Carbon Dioxide 23 mmol/L (22-30); Chloride 112 mmol/L (98-107); Estimated CRCL calculation 62 ml/min; Estimated Glomerular Filt Rate > 60; Glucose 90 mg/dL (65-110); Potassium 3.8 mmol/L (3.4-5.0); Sodium 137 mmol/L (137-145)
[2025-02-23] MEDS: UMECLIDINIUM/VILANTEROL 62.5-25 MCG ELLIPTA 1 PUFF INHALATION (08:22)
[2025-02-23] MEDS: SIMVASTATIN 20 MG TABLET 40 MG PO (08:26)
[2025-02-23] MEDS: PANTOPRAZOLE 40 MG TABLET PO (08:26)
[2025-02-23] MEDS: MAGNESIUM OXIDE 200 MG TABLET PO ×2 (08:26→21:40)
[2025-02-23] MEDS: METOPROLOL SUCCINATE EXT REL 25 MG TABCR PO (08:26)
[2025-02-23] MEDS: HYDROcodone/acetaminophen (*CRX) 5-325 MG TABLET 1 TAB PO (11:31)
[2025-02-23] MEDS: ENOXAPARIN 40 MG/0.4 ML SYRINGE SUB-Q (11:32)
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
--- NOTE | 2025-02-23 11:51 | P.PN_ITS ---
Progress Note: A&P Assessment and Plan (1) Cellulitis of abdominal wall: Code(s): L03.311 - Cellulitis of abdominal wall Status: Acute Assessment and Plan: Found to have increasing size intraperitoneal abscess along the right lower quadrant * s/p percutaneous abscess drainage by IR on 02/19/2025 * Being managed by General surgery * Currently on micafungin and Zosyn * Remains NPO with TPN (2) Hypertension: Code(s): I10 - Essential (primary) hypertension Status: Acute Assessment and Plan: Blood pressures are stable * Continue home antihypertensives * Monitor BP trend (3) Hyperlipidemia: Code(s): E78.5 - Hyperlipidemia, unspecified Status: Acute Assessment and Plan: Continue home simvastatin (4) COPD (chronic obstructive pulmonary disease): Code(s): J44.9 - Chronic obstructive pulmonary disease, unspecified Status: Acute Assessment and Plan: Chronic and stable, not in acute exacerbation * Continue home Anoro Ellipta * Albuterol inhaler p.r.n. during admission (5) Hypokalemia: Code(s): E87.6 - Hypokalemia Status: Acute Assessment and Plan: Potassium 3.8 today * Monitor daily BMP and supplement potassium as needed Subjective Date/time seen: 02/23/25 11:51 Interval history: Gris is feeling well today. She endorses mild abdominal pain. Denies nausea, vomiting, fever, or chills. States that she had 2 soft bowel movements yesterday. No BMs today. She is urinating without difficulty. Denies shortness of breath, cough, chest pain. Denies dizziness, lightheadedness, weakness. States she is ambulating without difficulty. Review of Systems Review of Systems: All systems reviewed & are unremarkable except as noted in HPI and below Exam Narrative: General: well nourished, well developed, no acute distress Neuro: awake, alert and oriented x4 HEENT: normocephalic, atraumatic CV: regular rate, rhythm Respiratory: lungs clear to auscultation, normal respiratory effort Abd: Drain in place with output of serous fluid Extremities: no erythema or swelling Psych: appropriate mood and affect Objective Data Vital Signs Vital Signs: Vital Signs - 24 hr 02/22/25 12:20 02/22/25 14:00 02/22/25 18:42 Temperature 97.6 F Pulse Rate 71 70 64 Respiratory Rate 17 Blood Pressure 121/62 117/49 L 125/53 L Pulse Oximetry 100 100 Oxygen Delivery 02/22/25 21:28 02/22/25 22:00 02/23/25 06:00 Temperature 97.2 F L 97.2 F L Pulse Rate 63 58 L Respiratory Rate 16 16 Blood Pressure 117/54 L 117/57 L Pulse Oximetry 99 100 Oxygen Delivery Room Air 02/23/25 08:20 02/23/25 08:26 02/23/25 08:45 Temperature Pulse Rate 68 68 Respiratory Rate Blood Pressure 117/54 L Pulse Oximetry 99 Oxygen Delivery Room Air Intake/Output Intake/Output: Intake & Output 02/20/25 02/21/25 02/22/25 02/23/25 23:59 23:59 23:59 23:59 Intake Total 2120 2659 2816.7 550 Output Total 200 100 50 50 Balance 1920 2559 2766.7 500 Meds/Results Medications: Active Medications Generic Name Dose Route Start Last Admin Trade Name Freq PRN Reason Stop Dose Admin Acetaminophen 650 mg 02/18/25 13:04 Acetaminophen 325 Mg Tablet PO Q4H PRN Mild Pain (1-3) or Fever Hydrocodone Bitart/Acetaminophen 1 tab 02/18/25 13:04 02/23/25 11:31 Hydrocodone/Acetaminophen (*Crx) 5-325 Mg Tablet PO 1 tab Q4H PRN Administration Moderate Pain 4-6 Hydrocodone Bitart/Acetaminophen 1 tab 02/19/25 11:33 02/23/25 06:12 Hydrocodone/Acetaminophen (*Crx) 10-325 Mg Tablet PO 1 tab Q6H PRN Administration Pain Rated 7-10 Cyclobenzaprine HCl 10 mg 02/18/25 12:06 Cyclobenzaprine Hcl 10 Mg Tablet PO HS PRN Muscle Spasm Dextrose 12.5 gm 02/21/25 14:10 Dextrose 50% 25 Gm/50 Ml Syringe IV PUSH PRN PRN Hypoglycemia Protocol Enoxaparin Sodium 40 mg 02/19/25 09:00 02/23/25 11:32 Enoxaparin 40 Mg/0.4 Ml Syringe SUB-Q 40 mg DAILY EMRE Administration Ergocalciferol 1,250 mcg 02/21/25 09:00 02/21/25 13:09 Ergocalciferol (Vitamin D2) 1,250 Mcg (50,000 Units) Capsule PO 1,250 mcg Fr@0900 EMRE Administration Gabapentin 300 mg 02/20/25 21:00 02/22/25 21:26 Gabapentin 300 Mg Capsule PO 300 mg QHS EMRE Administration Glucagon 1 mg 02/21/25 14:10 Glucagon For Inj 1 Mg Vial IM PRN PRN Hypoglycemia Protocol Glucose 15 gm 02/21/25 14:10 Glucose Oral Gel 15 Gm Of Glucse In 37.5 Gm Tube PO PRN PRN Hypoglycemia Protocol Hydralazine HCl 10 mg 02/18/25 14:42 Hydralazine Hcl 20 Mg/Ml Vial IV PUSH Q8H PRN Blood Pressure - High Sodium Chloride 1,000 mls @ 60 mls/hr 02/18/25 13:05 02/22/25 17:12 Normal Saline Iv IV CONT 60 mls/hr .[id number] EMRE Administration Dextrose 1,000 mls @ 50 mls/hr 02/21/25 14:10 Dextrose 10% IV CONT .Q20H PRN if PN is interrupted Multivitamins 1.25 ml/ 1,002.5 mls @ 60 mls/hr 02/21/25 15:00 02/22/25 15:10 Multivitamins 1.25 ml/ Amino IV CONT 40 mls/hr Acids/Electrolytes/Dextrose .[id number] EMRE Administration Protocol Fat Emulsion Intravenous 250 mls @ 20.833 mls/hr 02/21/25 15:00 02/23/25 03:11 Lipids 20% IVPB Infused Q24H EMRE Infusion Dextrose 1,000 mls @ 100 mls/hr 02/21/25 14:10 Dextrose 5% 1,000 Ml IVPB PRN PRN Hypoglycemia Protocol Piperacillin Sod/Tazobactam 50 mls @ 100 mls/hr 02/21/25 17:00 02/23/25 08:26 Sod 3.375 gm/ Sodium Chloride IVPB 100 mls/hr Q8H EMRE Administration Micafungin Sodium 100 mg/ 100 mls @ 100 mls/hr 02/24/25 09:00 Sodium Chloride IVPB DAILY EMRE Micafungin Sodium 100 mg/ 100 mls @ 100 mls/hr 02/23/25 11:10 Sodium Chloride IVPB 02/23/25 12:09 ONCE ONE Insulin Aspart 2 - 5 units 02/21/25 17:00 02/23/25 08:17 Insulin Aspart (*Bkc) 100 Units/Ml SUB-Q Not Given TIDWM [facility] Protocol Insulin Glargine 7 units 02/21/25 21:00 02/22/25 21:27 Insulin Glargine (*Bkc) 100 Units/Ml 0.15 units/kg (7 units) 7 units SUB-Q Administration HS [facility] Linaclotide 290 mcg 02/19/25 06:30 02/23/25 06:05 Linaclotide 145 Mcg Capsule PO Not Given DAILY@0630 [facility] Magnesium Oxide 200 mg 02/19/25 21:00 02/23/25 08:26 Magnesium Oxide 200 Mg Tablet PO 200 mg Q12HR EMRE Administration Metoprolol Succinate 25 mg 02/19/25 09:00 02/23/25 08:26 Metoprolol Succinate Ext Rel 25 Mg Tabcr PO 25 mg DAILY EMRE Administration Mirtazapine 15 mg 02/18/25 21:00 02/22/25 21:25 Mirtazapine 15 Mg Tablet PO 15 mg HS [facility] Administration Morphine Sulfate 2 mg 02/21/25 14:04 Morphine Sulfate (*Crx) 4 Mg/Ml Inj IV PUSH Q4H PRN Pain Rated 4-6 Morphine Sulfate 4 mg 02/21/25 14:04 Morphine Sulfate (*Crx) 4 Mg/Ml Inj IV PUSH Q4H PRN Pain Rated 7-10 Pantoprazole Sodium 40 mg 02/19/25 09:00 02/23/25 08:26 Pantoprazole 40 Mg Tablet PO 40 mg DAILY EMRE Administration Simvastatin 40 mg 02/19/25 09:00 02/23/25 08:26 Simvastatin 20 Mg Tablet PO 40 mg DAILY [facility] Administration Sodium Chloride 10 ml 02/21/25 14:00 02/23/25 06:05 Central Line Flush IV PUSH 10 ml Q8HR EMRE Administration Sodium Chloride 10 ml 02/21/25 13:49 Central Line Flush IV PUSH PRN PRN with TPN bag changes Sodium Chloride 20 ml 02/21/25 13:49 Central Line Flush IV PUSH PRN PRN after blood draws Umeclidinium/Vilanterol 1 puff 02/18/25 12:20 02/23/25 08:22 Umeclidinium/Vilanterol 62.5-25 Mcg Ellipta INHALATION 1 puff DAILYRT EMRE Administration Radiology Results: ITS Impressions Catheter Placement CT 02/19/25 11:16 IMPRESSION: 1[address] Successful CT-guided abscess drainage with placement of a percutaneous abscess drain in the more superficial subcutaneous component of the collection which appears to communicate with the collection deep to the ventral hernia mesh repair. 2. 30 mL fluid was sent for aerobic and anaerobic cultures. 3. The catheter will be managed by Dr. Flores. Abdomen/Pelvis CT 02/21/25 11:02 IMPRESSION: 1. Increase in size of an intraperitoneal abscess along the right lower quadrant anterior abdominal wall deep to a revised ventral hernia mesh repair. Complex and in places high attenuation fluid within the abscess cavity consistent with persistent communication to the small bowel with extravasation of oral contrast material. There is communication of this abscess cavity through 4 along side the mesh to a smaller more superficial abscess cavity with pin which is the recently placed abscess drainage catheter. Labs Labs: Laboratory Results - last 24 hr 02/22/25 02/22/25 02/22/25 14:48 16:11 17:10 WBC RBC Hgb Hct MCV MCH MCHC RDW Plt Count MPV Sodium Potassium Chloride Carbon Dioxide Anion Gap BUN Creatinine Estim Creat Clear Calc Estimated GFR Glucose POC Capillary Glucose 132 H Calcium Phosphorus C-Reactive Protein Triglycerides 1122 H Urine Color Yellow Urine Appearance Cloudy H Urine pH 6.5 Ur Specific [place] 1.011 Urine Protein Negative Urine Glucose (UA) Negative Urine Ketones Negative Ur Blood (Man) Negative Urine Nitrate Negative Urine Bilirubin Negative Urine Urobilinogen 0.2 Leukocyte Esterase Rfl Negative Urine RBC 0-2 Urine WBC 0-5 Ur Squamous Epith Cells None seen Urine Bacteria None seen Urine Casts 0-2 02/22/25 02/23/25 02/23/25 21:26 00:07 04:29 WBC RBC Hgb Hct MCV MCH MCHC RDW Plt Count MPV Sodium Potassium Chloride Carbon Dioxide Anion Gap BUN Creatinine Estim Creat Clear Calc Estimated GFR Glucose POC Capillary Glucose 115 H 107 H 86 Calcium Phosphorus C-Reactive Protein Triglycerides Urine Color Urine Appearance Urine pH Ur Specific [place] Urine Protein Urine Glucose (UA) Urine Ketones Ur Blood (Man) Urine Nitrate Urine Bilirubin Urine Urobilinogen Leukocyte Esterase Rfl Urine RBC Urine WBC Ur Squamous Epith Cells Urine Bacteria Urine Casts 02/23/25 02/23/25 02/23/25 06:01 08:19 11:27 WBC 7.6 RBC 2.72 L Hgb 8.5 L Hct 26.4 L MCV 97.1 MCH 31.3 MCHC 32.2 RDW 13.1 Plt Count 373 MPV 9.7 Sodium 137 Potassium 3.8 Chloride 112 H Carbon Dioxide 23 Anion Gap 2 L BUN 7 Creatinine 0.52 L Estim Creat Clear Calc 62 Estimated GFR > 60 Glucose 90 POC Capillary Glucose 112 H 99 Calcium 8.5 Phosphorus 4.0 C-Reactive Protein 3.5 H Triglycerides Urine Color Urine Appearance Urine pH Ur Specific [place] Urine Protein Urine Glucose (UA) Urine Ketones Ur Blood (Man) Urine Nitrate Urine Bilirubin Urine Urobilinogen Leukocyte Esterase Rfl Urine RBC Urine WBC Ur Squamous Epith Cells Urine Bacteria Urine Casts Quality VTE Prophylaxis VTE prophylaxis: pharmacologic ordered
[2025-02-23] MEDS: MICAFUNGIN SODIUM 100 MG in SODIUM CHLORIDE 0.9% IV 100 ML IVPB (12:08)
[2025-02-23] MEDS: SODIUM CHLORIDE 0.9% IV 1,000 ML 60 ML IV CONT (12:08)
--- NOTE | 2025-02-23 14:42 | PM.PNGS ---
Progress Note: A&P Assessment and Plan (1) Abdominal wall abscess: Code(s): L02.211 - Cutaneous abscess of abdominal wall Status: Acute Assessment and Plan: Growing multiple drug-resistant E coli and also Michelle albicans. I added Micafungin IV antibiotics for the yeast. The E coli is sensitive to Zosyn. I will discontinue the vancomycin. Patient more comfortable today than yesterday. Pigtail catheter tubing no longer twisted and appears to be draining well. (2) Protein-calorie malnutrition, severe: Code(s): E43 - Unspecified severe protein-calorie malnutrition Status: Acute Assessment and Plan: Increased rate of TPN to 60 an hour. (3) History of gastric bypass: Code(s): Z98.84 - Bariatric surgery status Status: Chronic Subjective Subjective Date/Time Seen: 02/23/25 14:42 Patient reports: no new complaints, pain is less, voiding w/o difficulty, bowel movement ( Two bowel movements yesterday) and afebrile Review of Systems Review of Systems: All systems reviewed & are unremarkable except as noted in HPI and below ( HPI) Exam Const: General: healthy appearing, comfortable, alert and awake GI: Inspection: non-distended, incision ( clean and dry), scaphoid and other ( greenish fluid in pigtail catheter, tubing not kinked) GI Palp: Yes Soft to palpation and Yes Tenderness to palpation present (GI) Auscultation: normal bowel sounds Other: Pigtail catheter drained 50 cc yesterday and 50 cc since midnight so far today. Objective Data Vital Signs Vital Signs: Vital Signs - 24 hr 02/22/25 18:42 02/22/25 21:28 02/22/25 22:00 Temperature 36.2 C L Pulse Rate 64 63 Respiratory Rate 16 Blood Pressure 125/53 L 117/54 L Pulse Oximetry 100 99 Oxygen Delivery Room Air 02/23/25 06:00 02/23/25 08:20 02/23/25 08:26 Temperature 36.2 C L Pulse Rate 58 L 68 68 Respiratory Rate 16 Blood Pressure 117/57 L 117/54 L Pulse Oximetry 100 99 Oxygen Delivery 02/23/25 08:45 02/23/25 13:54 Temperature 36.3 C L Pulse Rate 61 Respiratory Rate 18 Blood Pressure 117/43 L Pulse Oximetry 100 Oxygen Delivery Room Air Intake/Output Intake/Output: Intake & Output 12/04/25 12/05/25 12/06/25 12/07/25 23:59 23:59 23:59 23:59 Intake Total 2120 2659 2816.7 1550 Output Total 200 100 50 50 Balance 1920 2559 2766.7 1500 Meds/Results Medications: Active Medications Generic Name Dose Route Start Last Admin Trade Name Freq PRN Reason Stop Dose Admin Acetaminophen 650 mg 02/18/25 13:04 Acetaminophen 325 Mg Tablet PO Q4H PRN Mild Pain (1-3) or Fever Hydrocodone Bitart/Acetaminophen 1 tab 02/18/25 13:04 02/23/25 11:31 Hydrocodone/Acetaminophen (*Crx) 5-325 Mg Tablet PO 1 tab Q4H PRN Administration Moderate Pain 4-6 Hydrocodone Bitart/Acetaminophen 1 tab 02/19/25 11:33 02/23/25 06:12 Hydrocodone/Acetaminophen (*Crx) 10-325 Mg Tablet PO 1 tab Q6H PRN Administration Pain Rated 7-10 Albuterol 2 puff 02/23/25 11:58 Albuterol Sulfate (*Sp) Aerosol 1 Puff INHALATION Q6HRT PRN Shortness Of Breath Cyclobenzaprine HCl 10 mg 02/18/25 12:06 Cyclobenzaprine Hcl 10 Mg Tablet PO HS PRN Muscle Spasm Dextrose 12.5 gm 02/21/25 14:10 Dextrose 50% 25 Gm/50 Ml Syringe IV PUSH PRN PRN Hypoglycemia Protocol Enoxaparin Sodium 40 mg 02/19/25 09:00 02/23/25 11:32 Enoxaparin 40 Mg/0.4 Ml Syringe SUB-Q 40 mg DAILY EMRE Administration Ergocalciferol 1,250 mcg 02/21/25 09:00 02/21/25 13:09 Ergocalciferol (Vitamin D2) 1,250 Mcg (50,000 Units) Capsule PO 1,250 mcg Fr@0900 EMRE Administration Gabapentin 300 mg 02/20/25 21:00 02/22/25 21:26 Gabapentin 300 Mg Capsule PO 300 mg QHS EMRE Administration Glucagon 1 mg 02/21/25 14:10 Glucagon For Inj 1 Mg Vial IM PRN PRN Hypoglycemia Protocol Glucose 15 gm 02/21/25 14:10 Glucose Oral Gel 15 Gm Of Glucse In 37.5 Gm Tube PO PRN PRN Hypoglycemia Protocol Hydralazine HCl 10 mg 02/18/25 14:42 Hydralazine Hcl 20 Mg/Ml Vial IV PUSH Q8H PRN Blood Pressure - High Sodium Chloride 1,000 mls @ 60 mls/hr 02/18/25 13:05 02/23/25 12:08 Normal Saline Iv IV CONT 60 mls/hr .[id number] EMRE Administration Dextrose 1,000 mls @ 50 mls/hr 02/21/25 14:10 Dextrose 10% IV CONT .Q20H PRN if PN is interrupted Multivitamins 1.25 ml/ 1,002.5 mls @ 60 mls/hr 02/21/25 15:00 02/22/25 15:10 Multivitamins 1.25 ml/ Amino IV CONT 40 mls/hr Acids/Electrolytes/Dextrose .[id number] EMRE Administration Protocol Fat Emulsion Intravenous 250 mls @ 20.833 mls/hr 02/21/25 15:00 02/23/25 03:11 Lipids 20% IVPB Infused Q24H EMRE Infusion Dextrose 1,000 mls @ 100 mls/hr 02/21/25 14:10 Dextrose 5% 1,000 Ml IVPB PRN PRN Hypoglycemia Protocol Piperacillin Sod/Tazobactam 50 mls @ 100 mls/hr 02/21/25 17:00 02/23/25 08:26 Sod 3.375 gm/ Sodium Chloride IVPB 100 mls/hr Q8H EMRE Administration Micafungin Sodium 100 mg/ 100 mls @ 100 mls/hr 02/24/25 09:00 Sodium Chloride IVPB DAILY [facility] Insulin Aspart 2 - 5 units 02/21/25 17:00 02/23/25 11:55 Insulin Aspart (*Bkc) 100 Units/Ml SUB-Q Not Given TIDWM [facility] Protocol Insulin Glargine 7 units 02/21/25 21:00 02/22/25 21:27 Insulin Glargine (*Bkc) 100 Units/Ml 0.15 units/kg (7 units) 7 units SUB-Q Administration [facility] Linaclotide 290 mcg 02/19/25 06:30 02/23/25 06:05 Linaclotide 145 Mcg Capsule PO Not Given DAILY@0630 [facility] Magnesium Oxide 200 mg 02/19/25 21:00 02/23/25 08:26 Magnesium Oxide 200 Mg Tablet PO 200 mg Q12HR EMRE Administration Metoprolol Succinate 25 mg 02/19/25 09:00 02/23/25 08:26 Metoprolol Succinate Ext Rel 25 Mg Tabcr PO 25 mg DAILY EMRE Administration Mirtazapine 15 mg 02/18/25 21:00 02/22/25 21:25 Mirtazapine 15 Mg Tablet PO 15 mg HS EMRE Administration Morphine Sulfate 2 mg 02/21/25 14:04 Morphine Sulfate (*Crx) 4 Mg/Ml Inj IV PUSH Q4H PRN Pain Rated 4-6 Morphine Sulfate 4 mg 02/21/25 14:04 Morphine Sulfate (*Crx) 4 Mg/Ml Inj IV PUSH Q4H PRN Pain Rated 7-10 Pantoprazole Sodium 40 mg 02/19/25 09:00 02/23/25 08:26 Pantoprazole 40 Mg Tablet PO 40 mg DAILY EMRE Administration Simvastatin 40 mg 02/19/25 09:00 02/23/25 08:26 Simvastatin 20 Mg Tablet PO 40 mg DAILY EMRE Administration Sodium Chloride 10 ml 02/21/25 14:00 02/23/25 06:05 Central Line Flush IV PUSH 10 ml Q8HR EMRE Administration Sodium Chloride 10 ml 02/21/25 13:49 Central Line Flush IV PUSH PRN PRN with TPN bag changes Sodium Chloride 20 ml 02/21/25 13:49 Central Line Flush IV PUSH PRN PRN after blood draws Umeclidinium/Vilanterol 1 puff 02/18/25 12:20 02/23/25 08:22 Umeclidinium/Vilanterol 62.5-25 Mcg Ellipta INHALATION 1 puff DAILYRT EMRE Administration Radiology Results: ITS Impressions Catheter Placement CT 02/19/25 11:16 IMPRESSION: 1[address] Successful CT-guided abscess drainage with placement of a percutaneous abscess drain in the more superficial subcutaneous component of the collection which appears to communicate with the collection deep to the ventral hernia mesh repair. 2. 30 mL fluid was sent for aerobic and anaerobic cultures. 3. The catheter will be managed by Dr. Flores. Abdomen/Pelvis CT 02/21/25 11:02 IMPRESSION: 1. Increase in size of an intraperitoneal abscess along the right lower quadrant anterior abdominal wall deep to a revised ventral hernia mesh repair. Complex and in places high attenuation fluid within the abscess cavity consistent with persistent communication to the small bowel with extravasation of oral contrast material. There is communication of this abscess cavity through 4 along side the mesh to a smaller more superficial abscess cavity with pin which is the recently placed abscess drainage catheter. Labs Labs: Laboratory Results - last 24 hr 02/22/25 02/22/25 02/22/25 14:48 16:11 17:10 WBC RBC Hgb Hct MCV MCH MCHC RDW Plt Count MPV Sodium Potassium Chloride Carbon Dioxide Anion Gap BUN Creatinine Estim Creat Clear Calc Estimated GFR Glucose POC Capillary Glucose 132 H Calcium Phosphorus C-Reactive Protein Triglycerides 1122 H Urine Color Yellow Urine Appearance Cloudy H Urine pH 6.5 Ur Specific [place] 1.011 Urine Protein Negative Urine Glucose (UA) Negative Urine Ketones Negative Ur Blood (Man) Negative Urine Nitrate Negative Urine Bilirubin Negative Urine Urobilinogen 0.2 Leukocyte Esterase Rfl Negative Urine RBC 0-2 Urine WBC 0-5 Ur Squamous Epith Cells None seen Urine Bacteria None seen Urine Casts 0-2 02/22/25 02/23/25 02/23/25 21:26 00:07 04:29 WBC RBC Hgb Hct MCV MCH MCHC RDW Plt Count MPV Sodium Potassium Chloride Carbon Dioxide Anion Gap BUN Creatinine Estim Creat Clear Calc Estimated GFR Glucose POC Capillary Glucose 115 H 107 H 86 Calcium Phosphorus C-Reactive Protein Triglycerides Urine Color Urine Appearance Urine pH Ur Specific [place] Urine Protein Urine Glucose (UA) Urine Ketones Ur Blood (Man) Urine Nitrate Urine Bilirubin Urine Urobilinogen Leukocyte Esterase Rfl Urine RBC Urine WBC Ur Squamous Epith Cells Urine Bacteria Urine Casts 02/23/25 02/23/25 02/23/25 06:01 08:19 11:27 WBC 7.6 RBC 2.72 L Hgb 8.5 L Hct 26.4 L MCV 97.1 MCH 31.3 MCHC 32.2 RDW 13.1 Plt Count 373 MPV 9.7 Sodium 137 Potassium 3.8 Chloride 112 H Carbon Dioxide 23 Anion Gap 2 L BUN 7 Creatinine 0.52 L Estim Creat Clear Calc 62 Estimated GFR > 60 Glucose 90 POC Capillary Glucose 112 H 99 Calcium 8.5 Phosphorus 4.0 C-Reactive Protein 3.5 H Triglycerides Urine Color Urine Appearance Urine pH Ur Specific [place] Urine Protein Urine Glucose (UA) Urine Ketones Ur Blood (Man) Urine Nitrate Urine Bilirubin Urine Urobilinogen Leukocyte Esterase Rfl Urine RBC Urine WBC Ur Squamous Epith Cells Urine Bacteria Urine Casts Micro Update- cultures now showing growth of Michelle albicans.
[2025-02-23] MEDS: FAT EMULSIONS IV 20% 250 ML 20.83 ML IVPB (15:02)
[2025-02-23] MEDS: AMINO ACIDS 5%/D15W/E-LYTES/CA 1,000 ML with MULTIVITAMINS-12 INJ VIAL 1 1.25 ML, MULTI... 40 ML IV CONT (15:02)
[2025-02-23] MEDS: MIRTAZAPINE 15 MG TABLET PO (21:40)
[2025-02-23] MEDS: GABAPENTIN 300 MG CAPSULE PO (21:40)
[2025-02-23] MEDS: INSULIN GLARGINE (*BKC) 100 UNITS/ML 7 UNITS SUB-Q (21:43)
[2025-02-23] MEDS: MORPHINE SULFATE (*CRX) 4 MG/ML INJ IV PUSH (22:16)
[2025-02-24] MEDS: PIPERACILLIN/TAZOBACTAM SOD 3.375 GM in SODIUM CHLORIDE 0.9% IV 50 ML 100 ML IVPB ×3 (00:08→18:18)
[2025-02-24] MEDS: HYDROcodone/acetaminophen (*CRX) 10-325 MG TABLET 1 TAB PO ×3 (04:43→19:44)
[2025-02-24 05:03] LABS: Hematocrit 28.3 % (37.0-47.0); Hemoglobin 8.8 g/dL (12.0-15.0); Immature Granulocyte Percent A 1.4 % (0-0.5); Lymphocytes Absolute Auto 1.91 K/mm3 (0.9-3.2); Mean Corpuscular HGB Conc 31.1 g/dl (32-36); Mean Corpuscular Hemoglobin 30.4 pg (26-34); Mean Corpuscular Volume 97.9 fl (80-100); Nucleated Red Blood Cells Absolute Auto 0.000 K/mm3 (0.0-0.012); Nucleated Red Blood Cells Perc 0.0 % (0.0-0.2); Platelet Count Result 403 k/mm3 (150-375); Red Blood Count 2.89 M/mm3 (4.2-5.4); White Blood Count 8.4 K/mm3 (4.5-10.0)
[2025-02-24 05:19] LABS: INR 1.1; Partial Thromboplastin Time 33.6 Seconds (22.3-36.8); Prothrombin Time 14.0 Seconds (11.1-14.7)
[2025-02-24 05:38] VITALS: BP 118/54; PULSE 64; RESP 16; TEMP 36.3; O2SAT 100
[2025-02-24] MEDS: LINACLOTIDE 145 MCG CAPSULE 290 MCG PO (05:43)
[2025-02-24] MEDS: SODIUM CHLORIDE 0.9% IV 1,000 ML 60 ML IV CONT (06:11)
[2025-02-24 06:13] LABS: Alanine Aminotransferase 35 U/L (6-35); Albumin Level 3.1 g/dL (3.5-5.1); Alkaline Phosphatase 69 U/L (38-126); Anion Gap 2 mmol/L (4-12); Aspartate Amino Transferase 56 U/L (14-36); Bilirubin,Total 0.3 mg/dL (0.2-1.3); Blood Urea Nitrogen 10 mg/dL (7-17); Calcium 8.9 mg/dL (8.4-10.2); Carbon Dioxide 27 mmol/L (22-30); Chloride 108 mmol/L (98-107); Estimated CRCL calculation 60 ml/min; Estimated Glomerular Filt Rate > 60; Glucose 88 mg/dL (65-110); Magnesium 2.0 mg/dL (1.6-2.3); Potassium 4.0 mmol/L (3.4-5.0); Sodium 137 mmol/L (137-145); Total Protein 5.8 g/dL (6.3-8.2)
[2025-02-24] MEDS: CENTRAL LINE FLUSH 10 ML IV PUSH ×3 (06:13→22:00)
[2025-02-24] MEDS: MORPHINE SULFATE (*CRX) 4 MG/ML INJ IV PUSH ×3 (06:33→23:56)
[2025-02-24] MEDS: UMECLIDINIUM/VILANTEROL 62.5-25 MCG ELLIPTA 1 PUFF INHALATION (07:12)
[2025-02-24] MEDS: AMINO ACIDS 5%/D15W/E-LYTES/CA 1,000 ML with MULTIVITAMINS-12 INJ VIAL 1 1.25 ML, MULTI... 60 ML IV CONT (07:40)
[2025-02-24 08:00] VITALS: O2SAT 100
[2025-02-24] MEDS: ENOXAPARIN 40 MG/0.4 ML SYRINGE SUB-Q (08:14)
[2025-02-24] MEDS: MAGNESIUM OXIDE 200 MG TABLET PO ×2 (08:14→20:38)
[2025-02-24 08:15] VITALS: PULSE 70
[2025-02-24] MEDS: METOPROLOL SUCCINATE EXT REL 25 MG TABCR PO (08:15)
[2025-02-24] MEDS: PANTOPRAZOLE 40 MG TABLET PO (08:15)
[2025-02-24] MEDS: SIMVASTATIN 20 MG TABLET 40 MG PO (08:15)
[2025-02-24 08:32] LABS: Transferrin 125 mg/dL (206-381)
[2025-02-24] MEDS: MICAFUNGIN SODIUM 100 MG in SODIUM CHLORIDE 0.9% IV 100 ML IVPB (09:35)
--- NOTE | 2025-02-24 12:11 | P.PNIM_ITS ---
Assessment and Plan Assessment and Plan (1) Cellulitis of abdominal wall: Code(s): L03.311 - Cellulitis of abdominal wall Status: Acute Assessment and Plan: Found to have increasing size intraperitoneal abscess along the right lower quadrant * s/p percutaneous abscess drainage by IR on 02/19/2025 * Being managed by General surgery * Currently on micafungin and Zosyn * Remains NPO with TPN * Plan for surgery later this week. (2) Hypertension: Code(s): I10 - Essential (primary) hypertension Status: Acute Assessment and Plan: Blood pressures are stable * Continue home antihypertensives * Monitor BP trend (3) Hyperlipidemia: Code(s): E78.5 - Hyperlipidemia, unspecified Status: Acute Assessment and Plan: Continue home simvastatin (4) COPD (chronic obstructive pulmonary disease): Code(s): J44.9 - Chronic obstructive pulmonary disease, unspecified Status: Acute Assessment and Plan: Chronic and stable, not in acute exacerbation * Continue home Anoro Ellipta * Albuterol inhaler p.r.n. during admission (5) Hypokalemia: Code(s): E87.6 - Hypokalemia Status: Acute Assessment and Plan: Potassium 3.8 today * Monitor daily BMP and supplement potassium as needed Subjective Date/time seen: 02/24/25 12:11 Interval history: Patient doing well today with no new complaints. She denies nausea, vomiting, diarrhea, chest pain, shortness a breath. She has had some abdominal pain. She has been draining yellow purulent drainage from a perc drain. Plans for surgery later this week. Exam Narrative: GENERAL: Comfortable, no acute distress HENMT: moist mucous membranes EYES: EOM intact b/l NECK: no lymphadenopathy RESPIRATORY: clear to auscultation, no increased respiratory effort CARDIO: Regular rate and rhythm GI: bowel sounds present, Perc drain in place draining purulent fluid. SKIN/EXTREMITIES: no rashes, no edema, no redness or tenderness Objective Data Vital Signs Vital Signs: Vital Signs - 24 hr 02/23/25 13:54 02/23/25 18:09 02/23/25 21:39 Temperature 97.4 F L 97.0 F L Pulse Rate 61 61 59 L Respiratory Rate 18 16 Blood Pressure 117/43 L 111/61 97/71 L Pulse Oximetry 100 100 99 Oxygen Delivery 02/23/25 21:58 02/24/25 05:38 02/24/25 08:00 Temperature 97.4 F L Pulse Rate 64 Respiratory Rate 16 Blood Pressure 118/54 L Pulse Oximetry 100 100 Oxygen Delivery Room Air Room Air 02/24/25 08:15 Temperature Pulse Rate 70 Respiratory Rate Blood Pressure Pulse Oximetry Oxygen Delivery Intake/Output Intake/Output: Intake & Output 02/21/25 02/22/25 02/23/25 02/24/25 23:59 23:59 23:59 23:59 Intake Total 2659 2816.7 2604.7 1965.3 Output Total 100 50 50 70 Balance 2559 2766.7 2554.7 1895.3 Meds/Results Medications: Active Medications Generic Name Dose Route Start Last Admin Trade Name Freq PRN Reason Stop Dose Admin Acetaminophen 650 mg 02/18/25 13:04 Acetaminophen 325 Mg Tablet PO Q4H PRN Mild Pain (1-3) or Fever Hydrocodone Bitart/Acetaminophen 1 tab 02/18/25 13:04 02/23/25 11:31 Hydrocodone/Acetaminophen (*Crx) 5-325 Mg Tablet PO 1 tab Q4H PRN Administration Moderate Pain 4-6 Hydrocodone Bitart/Acetaminophen 1 tab 02/19/25 11:33 02/24/25 11:54 Hydrocodone/Acetaminophen (*Crx) 10-325 Mg Tablet PO 1 tab Q6H PRN Administration Pain Rated 7-10 Albuterol 2 puff 02/23/25 11:58 Albuterol Sulfate (*Sp) Aerosol 1 Puff INHALATION Q6HRT PRN Shortness Of Breath Cyclobenzaprine HCl 10 mg 02/18/25 12:06 Cyclobenzaprine Hcl 10 Mg Tablet PO HS PRN Muscle Spasm Dextrose 12.5 gm 02/24/25 08:33 Dextrose 50% 25 Gm/50 Ml Syringe IV PUSH PRN PRN Hypoglycemia Protocol Enoxaparin Sodium 40 mg 02/19/25 09:00 02/24/25 08:14 Enoxaparin 40 Mg/0.4 Ml Syringe SUB-Q 40 mg DAILY EMRE Administration Ergocalciferol 1,250 mcg 02/21/25 09:00 02/21/25 13:09 Ergocalciferol (Vitamin D2) 1,250 Mcg (50,000 Units) Capsule PO 1,250 mcg Fr@0900 EMRE Administration Gabapentin 300 mg 02/20/25 21:00 02/23/25 21:40 Gabapentin 300 Mg Capsule PO 300 mg QHS EMRE Administration Glucagon 1 mg 02/24/25 08:33 Glucagon For Inj 1 Mg Vial IM PRN PRN Hypoglycemia Protocol Glucose 15 gm 02/24/25 08:33 Glucose Oral Gel 15 Gm Of Glucse In 37.5 Gm Tube PO PRN PRN Hypoglycemia Protocol Hydralazine HCl 10 mg 02/18/25 14:42 Hydralazine Hcl 20 Mg/Ml Vial IV PUSH Q8H PRN Blood Pressure - High Sodium Chloride 1,000 mls @ 60 mls/hr 02/18/25 13:05 02/24/25 06:11 Normal Saline Iv IV CONT 60 mls/hr .[id number] EMRE Administration Dextrose 1,000 mls @ 50 mls/hr 02/21/25 14:10 Dextrose 10% IV CONT .Q20H PRN if PN is interrupted Multivitamins 1.25 ml/ 1,002.5 mls @ 60 mls/hr 02/21/25 15:00 02/24/25 07:40 Multivitamins 1.25 ml/ Amino IV CONT 60 mls/hr Acids/Electrolytes/Dextrose .[id number] EMRE Administration Protocol Fat Emulsion Intravenous 250 mls @ 20.833 mls/hr 02/21/25 15:00 02/24/25 03:03 Lipids 20% IVPB Infused Q24H EMRE Infusion Piperacillin Sod/Tazobactam 50 mls @ 100 mls/hr 02/21/25 17:00 02/24/25 08:15 Sod 3.375 gm/ Sodium Chloride IVPB 100 mls/hr Q8H EMRE Administration Micafungin Sodium 100 mg/ 100 mls @ 100 mls/hr 02/24/25 09:00 02/24/25 09:35 Sodium Chloride IVPB 100 mls/hr DAILY EMRE Administration Dextrose 1,000 mls @ 100 mls/hr 02/24/25 08:33 Dextrose 5% 1,000 Ml IVPB PRN PRN Hypoglycemia Protocol Insulin Aspart 2 - 5 units 02/24/25 12:00 02/24/25 11:53 Insulin Aspart (*Bkc) 100 Units/Ml SUB-Q Not Given Q6HR EMRE Protocol Insulin Glargine 7 units 02/21/25 21:00 02/23/25 21:43 Insulin Glargine (*Bkc) 100 Units/Ml 0.15 units/kg (7 units) 7 units SUB-Q Administration HS EMRE Linaclotide 290 mcg 02/19/25 06:30 02/24/25 05:43 Linaclotide 145 Mcg Capsule PO 290 mcg DAILY@0630 EMRE Administration Magnesium Oxide 200 mg 02/19/25 21:00 02/24/25 08:14 Magnesium Oxide 200 Mg Tablet PO 200 mg Q12HR EMRE Administration Metoprolol Succinate 25 mg 02/19/25 09:00 02/24/25 08:15 Metoprolol Succinate Ext Rel 25 Mg Tabcr PO 25 mg DAILY EMRE Administration Mirtazapine 15 mg 02/18/25 21:00 02/23/25 21:40 Mirtazapine 15 Mg Tablet PO 15 mg HS EMRE Administration Miscellaneous Information 1 each 02/24/25 00:01 Tpn Needs To Be Renewed Or It Will Automatically Discontinue. XX 03/26/25 00:00 CLARIFY EMRE Morphine Sulfate 2 mg 02/21/25 14:04 Morphine Sulfate (*Crx) 4 Mg/Ml Inj IV PUSH Q4H PRN Pain Rated 4-6 Morphine Sulfate 4 mg 02/21/25 14:04 02/24/25 06:33 Morphine Sulfate (*Crx) 4 Mg/Ml Inj IV PUSH 4 mg Q4H PRN Administration Pain Rated 7-10 Pantoprazole Sodium 40 mg 02/19/25 09:00 02/24/25 08:15 Pantoprazole 40 Mg Tablet PO 40 mg DAILY EMRE Administration Simvastatin 40 mg 02/19/25 09:00 02/24/25 08:15 Simvastatin 20 Mg Tablet PO 40 mg DAILY EMRE Administration Sodium Chloride 10 ml 02/21/25 14:00 02/24/25 06:13 Central Line Flush IV PUSH 10 ml Q8HR EMRE Administration Sodium Chloride 10 ml 02/21/25 13:49 Central Line Flush IV PUSH PRN PRN with TPN bag changes Sodium Chloride 20 ml 02/21/25 13:49 Central Line Flush IV PUSH PRN PRN after blood draws Umeclidinium/Vilanterol 1 puff 02/18/25 12:20 02/24/25 07:12 Umeclidinium/Vilanterol 62.5-25 Mcg Ellipta INHALATION 1 puff DAILYRT EMRE Administration Radiology Results: ITS Impressions Catheter Placement CT 02/19/25 11:16 IMPRESSION: 1. Successful CT-guided abscess drainage with placement of a percutaneous abscess drain in the more superficial subcutaneous component of the collection which appears to communicate with the collection deep to the ventral hernia mesh repair. 2. 30 mL fluid was sent for aerobic and anaerobic cultures. 3. The catheter will be managed by Dr. Flores. Abdomen/Pelvis CT 02/21/25 11:02 IMPRESSION: 1. Increase in size of an intraperitoneal abscess along the right lower quadrant anterior abdominal wall deep to a revised ventral hernia mesh repair. Complex and in places high attenuation fluid within the abscess cavity consistent with persistent communication to the small bowel with extravasation of oral contrast material. There is communication of this abscess cavity through 4 along side the mesh to a smaller more superficial abscess cavity with pin which is the recently placed abscess drainage catheter. Labs Labs: Laboratory Results - last 24 hr 02/23/25 02/23/25 02/24/25 18:07 20:54 00:09 WBC RBC Hgb Hct MCV MCH MCHC RDW Plt Count MPV Immature Gran % (Auto) Neut % (Auto) Lymph % (Auto) Levy % (Auto) Eos % (Auto) Baso % (Auto) Lymph # (Auto) Levy # (Auto) Eos # (Auto) Baso # (Auto) Abs Immat Gran (auto) Absolute Neuts (auto) Absolute Nucleated RBC Nucleated RBC % PT INR APTT Sodium Potassium Chloride Carbon Dioxide Anion Gap BUN Creatinine Estim Creat Clear Calc Estimated GFR Glucose POC Capillary Glucose 104 126 H 112 H Calcium Phosphorus Magnesium Transferrin Total Bilirubin AST ALT Alkaline Phosphatase Total Protein Albumin 02/24/25 02/24/25 02/24/25 04:54 04:55 11:39 WBC 8.4 RBC 2.89 L Hgb 8.8 L Hct 28.3 L MCV 97.9 MCH 30.4 MCHC 31.1 L RDW 13.0 Plt Count 403 H MPV 9.7 Immature Gran % (Auto) 1.4 H Neut % (Auto) 52.3 Lymph % (Auto) 22.9 Levy % (Auto) 11.0 H Eos % (Auto) 11.6 H Baso % (Auto) 0.8 Lymph # (Auto) 1.91 Levy # (Auto) 0.9 H Eos # (Auto) 1.0 H Baso # (Auto) 0.1 Abs Immat Gran (auto) 0.12 H Absolute Neuts (auto) 4.4 Absolute Nucleated RBC 0.000 Nucleated RBC % 0.0 PT 14.0 INR 1.1 APTT 33.6 Sodium 137 Potassium 4.0 Chloride 108 H Carbon Dioxide 27 Anion Gap 2 L BUN 10 Creatinine 0.54 L Estim Creat Clear Calc 60 Estimated GFR > 60 Glucose 88 POC Capillary Glucose 90 110 H Calcium 8.9 Phosphorus 4.1 Magnesium 2.0 Transferrin 125 L Total Bilirubin 0.3 AST 56 H ALT 35 Alkaline Phosphatase 69 Total Protein 5.8 L Albumin 3.1 L
[2025-02-24 13:26] LABS: Triglycerides 170 mg/dL (<150)
[2025-02-24 14:02] VITALS: BP 112/59; PULSE 60; RESP 16; TEMP 36.8; O2SAT 98
[2025-02-24] MEDS: FAT EMULSIONS IV 20% 250 ML 20.83 ML IVPB (15:10)
--- NOTE | 2025-02-24 15:17 | P.PNGS_ITS ---
Progress Note: A&P Assessment and Plan (1) Abdominal wall abscess: Code(s): L02.211 - Cutaneous abscess of abdominal wall Status: Acute Assessment and Plan: * Patient doing well today. Continues to ambulate well. NPO with TPN. Currently on Micafungin and Zosyn as abscess cultures grew E coli and Michelle. WBC remains normal. * Dr. Flores to discuss patient's treatment options with her. Patient will likely need mesh removed from her abdomen. However, being that she is only 3 weeks out form initial surgery, it would be advised to continue antibiotics for the time being and schedule interval surgery to remove mesh. (2) Protein-calorie malnutrition, severe: Code(s): E43 - Unspecified severe protein-calorie malnutrition Status: Acute Assessment and Plan: Continue TPN. (3) History of gastric bypass: Code(s): Z98.84 - Bariatric surgery status Status: Chronic Plan Discussed patient's case and plan of care with Dr. Flores. Subjective Subjective Date/Time Seen: 02/24/25 15:17 Patient reports: no new complaints and bowel movement (two days ago) Interval history: Patient had increased pain overnight requiring morphine. Denies any other symptoms. WBC remains normal. RYLIE with 50 mL daily over the weekend. Exam GI: Inspection: non-distended GI Palp: Yes Soft to palpation, Yes Tenderness to palpation present (GI) (RLQ) and No Guarding due to palpation present (GI) Auscultation: normal bowel sounds Other: Area of induration in RLQ. RYLIE drain with small amount of yellowish green output. Skin: General skin exam: normal color and no rashes or lesions noted Objective Data Vital Signs Vital Signs: Vital Signs - 24 hr 02/23/25 18:09 02/23/25 21:39 02/23/25 21:58 Temperature 97.0 F L Pulse Rate 61 59 L Respiratory Rate 16 Blood Pressure 111/61 97/71 L Pulse Oximetry 100 99 Oxygen Delivery Room Air 02/24/25 05:38 02/24/25 08:00 02/24/25 08:15 Temperature 97.4 F L Pulse Rate 64 70 Respiratory Rate 16 Blood Pressure 118/54 L Pulse Oximetry 100 100 Oxygen Delivery Room Air 02/24/25 14:02 Temperature 98.2 F Pulse Rate 60 Respiratory Rate 16 Blood Pressure 112/59 L Pulse Oximetry 98 Oxygen Delivery Intake/Output Intake/Output: Intake & Output 02/21/25 02/22/25 02/23/25 02/24/25 23:59 23:59 23:59 23:59 Intake Total 2659 2816.7 2604.7 1965.3 Output Total 100 50 50 70 Balance 2559 2766.7 2554.7 1895.3 Meds/Results Medications: Active Medications Generic Name Dose Route Start Last Admin Trade Name Freq PRN Reason Stop Dose Admin Acetaminophen 650 mg 02/18/25 13:04 Acetaminophen 325 Mg Tablet PO Q4H PRN Mild Pain (1-3) or Fever Hydrocodone Bitart/Acetaminophen 1 tab 02/18/25 13:04 02/23/25 11:31 Hydrocodone/Acetaminophen (*Crx) 5-325 Mg Tablet PO 1 tab Q4H PRN Administration Moderate Pain 4-6 Hydrocodone Bitart/Acetaminophen 1 tab 02/19/25 11:33 02/24/25 11:54 Hydrocodone/Acetaminophen (*Crx) 10-325 Mg Tablet PO 1 tab Q6H PRN Administration Pain Rated 7-10 Albuterol 2 puff 02/23/25 11:58 Albuterol Sulfate (*Sp) Aerosol 1 Puff INHALATION Q6HRT PRN Shortness Of Breath Cyclobenzaprine HCl 10 mg 02/18/25 12:06 Cyclobenzaprine Hcl 10 Mg Tablet PO HS PRN Muscle Spasm Dextrose 12.5 gm 02/24/25 08:33 Dextrose 50% 25 Gm/50 Ml Syringe IV PUSH PRN PRN Hypoglycemia Protocol Enoxaparin Sodium 40 mg 02/19/25 09:00 02/24/25 08:14 Enoxaparin 40 Mg/0.4 Ml Syringe SUB-Q 40 mg DAILY EMRE Administration Ergocalciferol 1,250 mcg 02/21/25 09:00 02/21/25 13:09 Ergocalciferol (Vitamin D2) 1,250 Mcg (50,000 Units) Capsule PO 1,250 mcg Fr@0900 EMRE Administration Gabapentin 300 mg 02/20/25 21:00 02/23/25 21:40 Gabapentin 300 Mg Capsule PO 300 mg QHS EMRE Administration Glucagon 1 mg 02/24/25 08:33 Glucagon For Inj 1 Mg Vial IM PRN PRN Hypoglycemia Protocol Glucose 15 gm 02/24/25 08:33 Glucose Oral Gel 15 Gm Of Glucse In 37.5 Gm Tube PO PRN PRN Hypoglycemia Protocol Hydralazine HCl 10 mg 02/18/25 14:42 Hydralazine Hcl 20 Mg/Ml Vial IV PUSH Q8H PRN Blood Pressure - High Sodium Chloride 1,000 mls @ 60 mls/hr 02/18/25 13:05 02/24/25 06:11 Normal Saline Iv IV CONT 60 mls/hr .[id number] EMRE Administration Dextrose 1,000 mls @ 50 mls/hr 02/21/25 14:10 Dextrose 10% IV CONT .Q20H PRN if PN is interrupted Multivitamins 1.25 ml/ 1,002.5 mls @ 60 mls/hr 02/21/25 15:00 02/24/25 07:40 Multivitamins 1.25 ml/ Amino IV CONT 60 mls/hr Acids/Electrolytes/Dextrose .[id number] EMRE Administration Protocol Fat Emulsion Intravenous 250 mls @ 20.833 mls/hr 02/21/25 15:00 02/24/25 15:10 Lipids 20% IVPB 20.83 mls/hr Q24H EMRE Administration Piperacillin Sod/Tazobactam 50 mls @ 100 mls/hr 02/21/25 17:00 02/24/25 08:15 Sod 3.375 gm/ Sodium Chloride IVPB 100 mls/hr Q8H EMRE Administration Micafungin Sodium 100 mg/ 100 mls @ 100 mls/hr 02/24/25 09:00 02/24/25 09:35 Sodium Chloride IVPB 100 mls/hr DAILY EMRE Administration Dextrose 1,000 mls @ 100 mls/hr 02/24/25 08:33 Dextrose 5% 1,000 Ml IVPB PRN PRN Hypoglycemia Protocol Insulin Aspart 2 - 5 units 02/24/25 12:00 02/24/25 11:53 Insulin Aspart (*Bkc) 100 Units/Ml SUB-Q Not Given Q6HR [facility] Protocol Insulin Glargine 7 units 02/21/25 21:00 02/23/25 21:43 Insulin Glargine (*Bkc) 100 Units/Ml 0.15 units/kg (7 units) 7 units SUB-Q Administration HS EMRE Linaclotide 290 mcg 02/19/25 06:30 02/24/25 05:43 Linaclotide 145 Mcg Capsule PO 290 mcg DAILY@0630 EMRE Administration Magnesium Oxide 200 mg 02/19/25 21:00 02/24/25 08:14 Magnesium Oxide 200 Mg Tablet PO 200 mg Q12HR EMRE Administration Metoprolol Succinate 25 mg 02/19/25 09:00 02/24/25 08:15 Metoprolol Succinate Ext Rel 25 Mg Tabcr PO 25 mg DAILY EMRE Administration Mirtazapine 15 mg 02/18/25 21:00 02/23/25 21:40 Mirtazapine 15 Mg Tablet PO 15 mg HS EMRE Administration Miscellaneous Information 1 each 02/24/25 00:01 Tpn Needs To Be Renewed Or It Will Automatically Discontinue. XX 03/26/25 00:00 CLARIFY EMRE Morphine Sulfate 2 mg 02/21/25 14:04 Morphine Sulfate (*Crx) 4 Mg/Ml Inj IV PUSH Q4H PRN Pain Rated 4-6 Morphine Sulfate 4 mg 02/21/25 14:04 02/24/25 06:33 Morphine Sulfate (*Crx) 4 Mg/Ml Inj IV PUSH 4 mg Q4H PRN Administration Pain Rated 7-10 Pantoprazole Sodium 40 mg 02/19/25 09:00 02/24/25 08:15 Pantoprazole 40 Mg Tablet PO 40 mg DAILY EMRE Administration Simvastatin 40 mg 02/19/25 09:00 02/24/25 08:15 Simvastatin 20 Mg Tablet PO 40 mg DAILY EMRE Administration Sodium Chloride 10 ml 02/21/25 14:00 02/24/25 15:10 Central Line Flush IV PUSH 10 ml Q8HR EMRE Administration Sodium Chloride 10 ml 02/21/25 13:49 Central Line Flush IV PUSH PRN PRN with TPN bag changes Sodium Chloride 20 ml 02/21/25 13:49 Central Line Flush IV PUSH PRN PRN after blood draws Umeclidinium/Vilanterol 1 puff 02/18/25 12:20 02/24/25 07:12 Umeclidinium/Vilanterol 62.5-25 Mcg Ellipta INHALATION 1 puff DAILYRT EMRE Administration Radiology Results: ITS Impressions Catheter Placement CT 02/19/25 11:16 IMPRESSION: 1[address] CT-guided abscess drainage with placement of a percutaneous abscess drain in the more superficial subcutaneous component of the collection which appears to communicate with the collection deep to the ventral hernia mesh repair. 2. 30 mL fluid was sent for aerobic and anaerobic cultures. 3. The catheter will be managed by Dr. Flores. Abdomen/Pelvis CT 02/21/25 11:02 IMPRESSION: 1. Increase in size of an intraperitoneal abscess along the right lower quadrant anterior abdominal wall deep to a revised ventral hernia mesh repair. Complex and in places high attenuation fluid within the abscess cavity consistent with persistent communication to the small bowel with extravasation of oral contrast material. There is communication of this abscess cavity through 4 along side the mesh to a smaller more superficial abscess cavity with pin which is the recently placed abscess drainage catheter. Labs Labs: Laboratory Results - last 24 hr 02/23/25 02/23/25 02/24/25 18:07 20:54 00:09 WBC RBC Hgb Hct MCV MCH MCHC RDW Plt Count MPV Immature Gran % (Auto) Neut % (Auto) Lymph % (Auto) Lassen % (Auto) Eos % (Auto) Baso % (Auto) Lymph # (Auto) Lassen # (Auto) Eos # (Auto) Baso # (Auto) Abs Immat Gran (auto) Absolute Neuts (auto) Absolute Nucleated RBC Nucleated RBC % PT INR APTT Sodium Potassium Chloride Carbon Dioxide Anion Gap BUN Creatinine Estim Creat Clear Calc Estimated GFR Glucose POC Capillary Glucose 104 126 H 112 H Calcium Phosphorus Magnesium Transferrin Total Bilirubin AST ALT Alkaline Phosphatase Total Protein Albumin Triglycerides 02/24/25 02/24/25 02/24/25 04:54 04:55 11:39 WBC 8.4 RBC 2.89 L Hgb 8.8 L Hct 28.3 L MCV 97.9 MCH 30.4 MCHC 31.1 L RDW 13.0 Plt Count 403 H MPV 9.7 Immature Gran % (Auto) 1.4 H Neut % (Auto) 52.3 Lymph % (Auto) 22.9 Lassen % (Auto) 11.0 H Eos % (Auto) 11.6 H Baso % (Auto) 0.8 Lymph # (Auto) 1.91 Lassen # (Auto) 0.9 H Eos # (Auto) 1.0 H Baso # (Auto) 0.1 Abs Immat Gran (auto) 0.12 H Absolute Neuts (auto) 4.4 Absolute Nucleated RBC 0.000 Nucleated RBC % 0.0 PT 14.0 INR 1.1 APTT 33.6 Sodium 137 Potassium 4.0 Chloride 108 H Carbon Dioxide 27 Anion Gap 2 L BUN 10 Creatinine 0.54 L Estim Creat Clear Calc 60 Estimated GFR > 60 Glucose 88 POC Capillary Glucose 90 110 H Calcium 8.9 Phosphorus 4.1 Magnesium 2.0 Transferrin 125 L Total Bilirubin 0.3 AST 56 H ALT 35 Alkaline Phosphatase 69 Total Protein 5.8 L Albumin 3.1 L Triglycerides 170 H
[2025-02-24] MEDS: INSULIN GLARGINE (*BKC) 100 UNITS/ML 7 UNITS SUB-Q (20:38)
[2025-02-24] MEDS: GABAPENTIN 300 MG CAPSULE PO (20:38)
[2025-02-24] MEDS: MIRTAZAPINE 15 MG TABLET PO (20:38)
[2025-02-24 22:00] VITALS: BP 115/54; PULSE 63; RESP 16; TEMP 37.1; O2SAT 99
[2025-02-25] MEDS: SODIUM CHLORIDE 0.9% IV 1,000 ML 60 ML IV CONT
[2025-02-25] MEDS: PIPERACILLIN/TAZOBACTAM SOD 3.375 GM in SODIUM CHLORIDE 0.9% IV 50 ML 100 ML IVPB ×2 (00:01→10:39)
[2025-02-25] MEDS: AMINO ACIDS 5%/D15W/E-LYTES/CA 1,000 ML with MULTIVITAMINS-12 INJ VIAL 1 1.25 ML, MULTI... 60 ML IV CONT ×2 (00:45→18:25)
[2025-02-25 06:00] VITALS: BP 120/49; PULSE 67; RESP 18; TEMP 36.6; O2SAT 98
[2025-02-25] MEDS: HYDROcodone/acetaminophen (*CRX) 10-325 MG TABLET 1 TAB PO ×2 (06:20→21:16)
[2025-02-25] MEDS: CENTRAL LINE FLUSH 10 ML IV PUSH ×3 (06:21→21:22)
[2025-02-25 06:54] LABS: Anion Gap 3 mmol/L (4-12); Blood Urea Nitrogen 13 mg/dL (7-17); Calcium 8.8 mg/dL (8.4-10.2); Carbon Dioxide 26 mmol/L (22-30); Chloride 107 mmol/L (98-107); Estimated CRCL calculation 57 ml/min; Estimated Glomerular Filt Rate > 60; Glucose 91 mg/dL (65-110); Potassium 4.0 mmol/L (3.4-5.0); Sodium 136 mmol/L (137-145)
[2025-02-25] MEDS: UMECLIDINIUM/VILANTEROL 62.5-25 MCG ELLIPTA 1 PUFF INHALATION (08:11)
[2025-02-25] MEDS: SIMVASTATIN 20 MG TABLET 40 MG PO (08:48)
[2025-02-25] MEDS: ENOXAPARIN 40 MG/0.4 ML SYRINGE SUB-Q (08:48)
[2025-02-25] MEDS: METOPROLOL SUCCINATE EXT REL 25 MG TABCR PO (08:48)
[2025-02-25] MEDS: PANTOPRAZOLE 40 MG TABLET PO (08:49)
[2025-02-25 08:50] VITALS: PULSE 67; RESP 18; O2SAT 98
[2025-02-25] MEDS: MAGNESIUM OXIDE 200 MG TABLET PO ×2 (09:33→21:17)
[2025-02-25] MEDS: MICAFUNGIN SODIUM 100 MG in SODIUM CHLORIDE 0.9% IV 100 ML IVPB (09:34)
--- NOTE | 2025-02-25 10:21 | WPDINFPN2 ---
Progress Note: A&P Assessment and Plan (1) Abdominal wall abscess: Code(s): L02.211 - Cutaneous abscess of abdominal wall Status: Acute Plan ASSESSMENT 1. abdominal wall abscess iso ventral hernia repair with mesh on 02/03/25--also old mesh in place from prior abdominal hernia repair; s/p drain placement--infected mesh; risk of ECF 2. HTN, HL, COPD RECOMMENDATIONS: -for removal of mesh and likely bowel resection -on TPN -abscess cx with ESBL E. coli and jung albicans -change abx to meropenem and fluconazole d/w pharmacy staff Pt was seen via video telehealth consultation with the assistance of staff. Chart, data and patient info reviewed. Patient was located at [facility] while I was in my [place] office. Pt gave consent. Subjective Date/time seen: 02/25/25 10:21 Interval history: no fever no leukocytosis +abd pain Exam Narrative: NAD, on room air, non-toxic abd tender, +drain with yellow fluid RUE PICC Objective Data Vital Signs Vital Signs: Vital Signs - 24 hr 02/24/25 14:02 02/24/25 20:51 02/24/25 22:00 Temperature 98.2 F 98.8 F Pulse Rate 60 63 Respiratory Rate 16 16 Blood Pressure 112/59 L 115/54 L Pulse Oximetry 98 99 Oxygen Delivery Room Air 02/25/25 06:00 Temperature 97.8 F Pulse Rate 67 Respiratory Rate 18 Blood Pressure 120/49 L Pulse Oximetry 98 Oxygen Delivery Intake/Output Intake/Output: Intake & Output 02/22/25 02/23/25 02/24/25 02/25/25 23:59 23:59 23:59 23:59 Intake Total 2816.7 2604.7 3715.3 1542.5 Output Total 50 50 100 30 Balance 2766.7 2554.7 3615.3 1512.5 Meds/Results Medications: Active Medications Generic Name Dose Route Start Last Admin Trade Name Freq PRN Reason Stop Dose Admin Acetaminophen 650 mg 02/18/25 13:04 Acetaminophen 325 Mg Tablet PO Q4H PRN Mild Pain (1-3) or Fever Hydrocodone Bitart/Acetaminophen 1 tab 02/18/25 13:04 02/23/25 11:31 Hydrocodone/Acetaminophen (*Crx) 5-325 Mg Tablet PO 1 tab Q4H PRN Administration Moderate Pain 4-6 Hydrocodone Bitart/Acetaminophen 1 tab 02/19/25 11:33 02/25/25 06:20 Hydrocodone/Acetaminophen (*Crx) 10-325 Mg Tablet PO 1 tab Q6H PRN Administration Pain Rated 7-10 Albuterol 2 puff 02/23/25 11:58 Albuterol Sulfate (*Sp) Aerosol 1 Puff INHALATION Q6HRT PRN Shortness Of Breath Cyclobenzaprine HCl 10 mg 02/18/25 12:06 Cyclobenzaprine Hcl 10 Mg Tablet PO HS PRN Muscle Spasm Dextrose 12.5 gm 02/24/25 08:33 Dextrose 50% 25 Gm/50 Ml Syringe IV PUSH PRN PRN Hypoglycemia Protocol Enoxaparin Sodium 40 mg 02/19/25 09:00 02/25/25 08:48 Enoxaparin 40 Mg/0.4 Ml Syringe SUB-Q 40 mg DAILY EMRE Administration Ergocalciferol 1,250 mcg 02/21/25 09:00 02/21/25 13:09 Ergocalciferol (Vitamin D2) 1,250 Mcg (50,000 Units) Capsule PO 1,250 mcg Fr@0900 EMRE Administration Gabapentin 300 mg 02/20/25 21:00 02/24/25 20:38 Gabapentin 300 Mg Capsule PO 300 mg QHS EMRE Administration Glucagon 1 mg 02/24/25 08:33 Glucagon For Inj 1 Mg Vial IM PRN PRN Hypoglycemia Protocol Glucose 15 gm 02/24/25 08:33 Glucose Oral Gel 15 Gm Of Glucse In 37.5 Gm Tube PO PRN PRN Hypoglycemia Protocol Hydralazine HCl 10 mg 02/18/25 14:42 Hydralazine Hcl 20 Mg/Ml Vial IV PUSH Q8H PRN Blood Pressure - High Sodium Chloride 1,000 mls @ 60 mls/hr 02/18/25 13:05 02/25/25 00:00 Normal Saline Iv IV CONT 60 mls/hr .[id number] EMRE Administration Dextrose 1,000 mls @ 50 mls/hr 02/21/25 14:10 Dextrose 10% IV CONT .Q20H PRN if PN is interrupted Multivitamins 1.25 ml/ 1,002.5 mls @ 60 mls/hr 02/21/25 15:00 02/25/25 00:45 Multivitamins 1.25 ml/ Amino IV CONT 60 mls/hr Acids/Electrolytes/Dextrose .[id number] EMRE Administration Protocol Fat Emulsion Intravenous 250 mls @ 20.833 mls/hr 02/21/25 15:00 02/25/25 03:11 Lipids 20% IVPB Infused Q24H EMRE Infusion Piperacillin Sod/Tazobactam 50 mls @ 100 mls/hr 02/21/25 17:00 02/25/25 00:31 Sod 3.375 gm/ Sodium Chloride IVPB Infused Q8H EMRE Infusion Micafungin Sodium 100 mg/ 100 mls @ 100 mls/hr 02/24/25 09:00 02/25/25 09:34 Sodium Chloride IVPB 100 mls/hr DAILY EMRE Administration Dextrose 1,000 mls @ 100 mls/hr 02/24/25 08:33 Dextrose 5% 1,000 Ml IVPB PRN PRN Hypoglycemia Protocol Insulin Aspart 2 - 5 units 02/24/25 12:00 02/25/25 06:22 Insulin Aspart (*Bkc) 100 Units/Ml SUB-Q Not Given Q6HR [facility] Protocol Insulin Glargine 7 units 02/21/25 21:00 02/24/25 20:38 Insulin Glargine (*Bkc) 100 Units/Ml 0.15 units/kg (7 units) 7 units SUB-Q Administration HS [facility] Linaclotide 290 mcg 02/19/25 06:30 02/25/25 06:22 Linaclotide 145 Mcg Capsule PO Not Given DAILY@0630 [facility] Magnesium Oxide 200 mg 02/19/25 21:00 02/25/25 09:33 Magnesium Oxide 200 Mg Tablet PO 200 mg Q12HR EMRE Administration Metoprolol Succinate 25 mg 02/19/25 09:00 02/25/25 08:48 Metoprolol Succinate Ext Rel 25 Mg Tabcr PO 25 mg DAILY EMRE Administration Mirtazapine 15 mg 02/18/25 21:00 02/24/25 20:38 Mirtazapine 15 Mg Tablet PO 15 mg HS EMRE Administration Morphine Sulfate 2 mg 02/21/25 14:04 Morphine Sulfate (*Crx) 4 Mg/Ml Inj IV PUSH Q4H PRN Pain Rated 4-6 Morphine Sulfate 4 mg 02/21/25 14:04 02/24/25 23:56 Morphine Sulfate (*Crx) 4 Mg/Ml Inj IV PUSH 4 mg Q4H PRN Administration Pain Rated 7-10 Pantoprazole Sodium 40 mg 02/19/25 09:00 02/25/25 08:49 Pantoprazole 40 Mg Tablet PO 40 mg DAILY EMRE Administration Simvastatin 40 mg 02/19/25 09:00 02/25/25 08:48 Simvastatin 20 Mg Tablet PO 40 mg DAILY EMRE Administration Sodium Chloride 10 ml 02/21/25 14:00 02/25/25 06:21 Central Line Flush IV PUSH 10 ml Q8HR EMRE Administration Sodium Chloride 10 ml 02/21/25 13:49 Central Line Flush IV PUSH PRN PRN with TPN bag changes Sodium Chloride 20 ml 02/21/25 13:49 Central Line Flush IV PUSH PRN PRN after blood draws Umeclidinium/Vilanterol 1 puff 02/18/25 12:20 02/25/25 08:11 Umeclidinium/Vilanterol 62.5-25 Mcg Ellipta INHALATION 1 puff DAILYRT EMRE Administration Radiology Results: ITS Impressions Catheter Placement CT 02/19/25 11:16 IMPRESSION: 1. Successful CT-guided abscess drainage with placement of a percutaneous abscess drain in the more superficial subcutaneous component of the collection which appears to communicate with the collection deep to the ventral hernia mesh repair. 2. 30 mL fluid was sent for aerobic and anaerobic cultures. 3. The catheter will be managed by Dr. Flores. Abdomen/Pelvis CT 02/21/25 11:02 IMPRESSION: 1. Increase in size of an intraperitoneal abscess along the right lower quadrant anterior abdominal wall deep to a revised ventral hernia mesh repair. Complex and in places high attenuation fluid within the abscess cavity consistent with persistent communication to the small bowel with extravasation of oral contrast material. There is communication of this abscess cavity through 4 along side the mesh to a smaller more superficial abscess cavity with pin which is the recently placed abscess drainage catheter. Labs Labs: Laboratory Results - last 24 hr 02/24/25 02/24/25 02/24/25 04:55 11:39 18:30 Sodium Potassium Chloride Carbon Dioxide Anion Gap BUN Creatinine Estim Creat Clear Calc Estimated GFR Glucose POC Capillary Glucose 110 H 101 Calcium Phosphorus Triglycerides 170 H 02/24/25 02/25/25 02/25/25 20:36 00:11 05:44 Sodium Potassium Chloride Carbon Dioxide Anion Gap BUN Creatinine Estim Creat Clear Calc Estimated GFR Glucose POC Capillary Glucose 94 105 96 Calcium Phosphorus Triglycerides 02/25/25 02/25/25 06:11 07:49 Sodium 136 L Potassium 4.0 Chloride 107 Carbon Dioxide 26 Anion Gap 3 L BUN 13 Creatinine 0.57 L Estim Creat Clear Calc 57 Estimated GFR > 60 Glucose 91 POC Capillary Glucose 110 H Calcium 8.8 Phosphorus 4.3 Triglycerides
--- NOTE | 2025-02-25 11:03 | PCNFU ---
Nutrition Follow-Up Complete: Inadequate energy intake related to NPO status as evidenced by current diet order Unintentional weight loss related to reduced appetite and intake as evidenced by noted weight loss, pt report. Goal:Diet order PO intake adequate pt slowly progressing towards goal Pt current nutrition is TPN @ 60ml/hr providing 1522kcals, 72g protein, Clear liquids. Nutrition recommendation: Reduce TPN rate as diet is advanced Last recorded weight is 47.3 kg. Bowel Motility: +BM 02/24 Labs Reviewed: NA:136, Cr:0.57, Glu:110 Meds Noted: remeron, lovenox, protonix, lantus Skin: WNL Additional Notes: Pt continues on TPN, currently ordered at 60ml/hr. Noted this is exceeding pt's estimated needs. Also started on clear liquids last night and tolerating. Recommend to reduce TPN and increase PO intake Monitor for diet order, intake, wt, labs. follow up in 3 days.
--- NOTE | 2025-02-25 12:31 | PM.IMPN2 ---
Assessment and Plan Assessment and Plan (1) Cellulitis of abdominal wall: Code(s): L03.311 - Cellulitis of abdominal wall Status: Acute Assessment and Plan: Found to have increasing size intraperitoneal abscess along the right lower quadrant s/p percutaneous abscess drainage by IR on 02/19/2025 Being managed by General surgery Currently on micafungin and Zosyn Remains NPO with TPN Plan for surgery later this week. (2) Hypertension: Code(s): I10 - Essential (primary) hypertension Status: Acute Assessment and Plan: Blood pressures are stable Continue home antihypertensives Monitor BP trend (3) Hyperlipidemia: Code(s): E78.5 - Hyperlipidemia, unspecified Status: Acute Assessment and Plan: Continue home simvastatin (4) COPD (chronic obstructive pulmonary disease): Code(s): J44.9 - Chronic obstructive pulmonary disease, unspecified Status: Acute Assessment and Plan: Chronic and stable, not in acute exacerbation Continue home Anoro Ellipta Albuterol inhaler p.r.n. during admission (5) Hypokalemia: Code(s): E87.6 - Hypokalemia Status: Acute Assessment and Plan: Potassium 3.8 today Monitor daily BMP and supplement potassium as needed Plan DVT prophylaxis on Sq lovenox Subjective Date/time seen: 02/25/25 12:31 Interval history: Comfortable at bedside Review of Systems Review of Systems: Pt feels better All systems reviewed & are unremarkable except as noted in HPI and below Exam Narrative: GENERAL: Comfortable, no acute distress HENMT: moist mucous membranes EYES: EOM intact b/l NECK: no lymphadenopathy RESPIRATORY: clear to auscultation, no increased respiratory effort CARDIO: Regular rate and rhythm GI: bowel sounds present, Perc drain in place draining purulent fluid. SKIN/EXTREMITIES: no rashes, no edema, no redness or tenderness Objective Data Vital Signs Vital Signs: Vital Signs - 24 hr 02/24/25 14:02 02/24/25 20:51 02/24/25 22:00 Temperature 98.2 F 98.8 F Pulse Rate 60 63 Respiratory Rate 16 16 Blood Pressure 112/59 L 115/54 L Pulse Oximetry 98 99 Oxygen Delivery Room Air 02/25/25 06:00 02/25/25 08:50 Temperature 97.8 F Pulse Rate 67 67 Respiratory Rate 18 18 Blood Pressure 120/49 L Pulse Oximetry 98 98 Oxygen Delivery Room Air Intake/Output Intake/Output: Intake & Output 02/22/25 02/23/25 02/24/25 02/25/25 23:59 23:59 23:59 23:59 Intake Total 2816.7 2604.7 3715.3 1542.5 Output Total 50 50 100 30 Balance 2766.7 2554.7 3615.3 1512.5 Meds/Results Medications: Active Medications Generic Name Dose Route Start Last Admin Trade Name Freq PRN Reason Stop Dose Admin Acetaminophen 650 mg 02/18/25 13:04 Acetaminophen 325 Mg Tablet PO Q4H PRN Mild Pain (1-3) or Fever Hydrocodone Bitart/Acetaminophen 1 tab 02/18/25 13:04 02/23/25 11:31 Hydrocodone/Acetaminophen (*Crx) 5-325 Mg Tablet PO 1 tab Q4H PRN Administration Moderate Pain 4-6 Hydrocodone Bitart/Acetaminophen 1 tab 02/19/25 11:33 02/25/25 06:20 Hydrocodone/Acetaminophen (*Crx) 10-325 Mg Tablet PO 1 tab Q6H PRN Administration Pain Rated 7-10 Albuterol 2 puff 02/23/25 11:58 Albuterol Sulfate (*Sp) Aerosol 1 Puff INHALATION Q6HRT PRN Shortness Of Breath Cyclobenzaprine HCl 10 mg 02/18/25 12:06 Cyclobenzaprine Hcl 10 Mg Tablet PO HS PRN Muscle Spasm Dextrose 12.5 gm 02/24/25 08:33 Dextrose 50% 25 Gm/50 Ml Syringe IV PUSH PRN PRN Hypoglycemia Protocol Enoxaparin Sodium 40 mg 02/19/25 09:00 02/25/25 08:48 Enoxaparin 40 Mg/0.4 Ml Syringe SUB-Q 40 mg DAILY EMRE Administration Ergocalciferol 1,250 mcg 02/21/25 09:00 02/21/25 13:09 Ergocalciferol (Vitamin D2) 1,250 Mcg (50,000 Units) Capsule PO 1,250 mcg Fr@0900 EMRE Administration Gabapentin 300 mg 02/20/25 21:00 02/24/25 20:38 Gabapentin 300 Mg Capsule PO 300 mg QHS EMRE Administration Glucagon 1 mg 02/24/25 08:33 Glucagon For Inj 1 Mg Vial IM PRN PRN Hypoglycemia Protocol Glucose 15 gm 02/24/25 08:33 Glucose Oral Gel 15 Gm Of Glucse In 37.5 Gm Tube PO PRN PRN Hypoglycemia Protocol Hydralazine HCl 10 mg 02/18/25 14:42 Hydralazine Hcl 20 Mg/Ml Vial IV PUSH Q8H PRN Blood Pressure - High Sodium Chloride 1,000 mls @ 60 mls/hr 02/18/25 13:05 02/25/25 00:00 Normal Saline Iv IV CONT 60 mls/hr .[id number] EMRE Administration Dextrose 1,000 mls @ 50 mls/hr 02/21/25 14:10 Dextrose 10% IV CONT .Q20H PRN if PN is interrupted Multivitamins 1.25 ml/ 1,002.5 mls @ 60 mls/hr 02/21/25 15:00 02/25/25 00:45 Multivitamins 1.25 ml/ Amino IV CONT 60 mls/hr Acids/Electrolytes/Dextrose .[id number] EMRE Administration Protocol Fat Emulsion Intravenous 250 mls @ 20.833 mls/hr 02/21/25 15:00 02/25/25 03:11 Lipids 20% IVPB Infused Q24H EMRE Infusion Piperacillin Sod/Tazobactam 50 mls @ 100 mls/hr 02/21/25 17:00 02/25/25 10:39 Sod 3.375 gm/ Sodium Chloride IVPB 100 mls/hr Q8H EMRE Administration Micafungin Sodium 100 mg/ 100 mls @ 100 mls/hr 02/24/25 09:00 02/25/25 09:34 Sodium Chloride IVPB 100 mls/hr DAILY EMRE Administration Dextrose 1,000 mls @ 100 mls/hr 02/24/25 08:33 Dextrose 5% 1,000 Ml IVPB PRN PRN Hypoglycemia Protocol Insulin Aspart 2 - 5 units 02/24/25 12:00 02/25/25 12:21 Insulin Aspart (*Bkc) 100 Units/Ml SUB-Q Not Given Q6HR [facility] Protocol Insulin Glargine 7 units 02/21/25 21:00 02/24/25 20:38 Insulin Glargine (*Bkc) 100 Units/Ml 0.15 units/kg (7 units) 7 units SUB-Q Administration HS EMRE Linaclotide 290 mcg 02/19/25 06:30 02/25/25 06:22 Linaclotide 145 Mcg Capsule PO Not Given DAILY@0630 EMRE Magnesium Oxide 200 mg 02/19/25 21:00 02/25/25 09:33 Magnesium Oxide 200 Mg Tablet PO 200 mg Q12HR EMRE Administration Metoprolol Succinate 25 mg 02/19/25 09:00 02/25/25 08:48 Metoprolol Succinate Ext Rel 25 Mg Tabcr PO 25 mg DAILY EMRE Administration Mirtazapine 15 mg 02/18/25 21:00 02/24/25 20:38 Mirtazapine 15 Mg Tablet PO 15 mg HS EMRE Administration Morphine Sulfate 2 mg 02/21/25 14:04 Morphine Sulfate (*Crx) 4 Mg/Ml Inj IV PUSH Q4H PRN Pain Rated 4-6 Morphine Sulfate 4 mg 02/21/25 14:04 02/24/25 23:56 Morphine Sulfate (*Crx) 4 Mg/Ml Inj IV PUSH 4 mg Q4H PRN Administration Pain Rated 7-10 Pantoprazole Sodium 40 mg 02/19/25 09:00 02/25/25 08:49 Pantoprazole 40 Mg Tablet PO 40 mg DAILY EMRE Administration Simvastatin 40 mg 02/19/25 09:00 02/25/25 08:48 Simvastatin 20 Mg Tablet PO 40 mg DAILY EMRE Administration Sodium Chloride 10 ml 02/21/25 14:00 02/25/25 06:21 Central Line Flush IV PUSH 10 ml Q8HR EMRE Administration Sodium Chloride 10 ml 02/21/25 13:49 Central Line Flush IV PUSH PRN PRN with TPN bag changes Sodium Chloride 20 ml 02/21/25 13:49 Central Line Flush IV PUSH PRN PRN after blood draws Umeclidinium/Vilanterol 1 puff 02/18/25 12:20 02/25/25 08:11 Umeclidinium/Vilanterol 62.5-25 Mcg Ellipta INHALATION 1 puff DAILYRT EMRE Administration Radiology Results: ITS Impressions Catheter Placement CT 02/19/25 11:16 IMPRESSION: 1[address] Successful CT-guided abscess drainage with placement of a percutaneous abscess drain in the more superficial subcutaneous component of the collection which appears to communicate with the collection deep to the ventral hernia mesh repair. 2. 30 mL fluid was sent for aerobic and anaerobic cultures. 3. The catheter will be managed by Dr. Flores. Abdomen/Pelvis CT 02/21/25 11:02 IMPRESSION: 1. Increase in size of an intraperitoneal abscess along the right lower quadrant anterior abdominal wall deep to a revised ventral hernia mesh repair. Complex and in places high attenuation fluid within the abscess cavity consistent with persistent communication to the small bowel with extravasation of oral contrast material. There is communication of this abscess cavity through 4 along side the mesh to a smaller more superficial abscess cavity with pin which is the recently placed abscess drainage catheter. Labs Labs: Laboratory Results - last 24 hr 02/24/25 02/24/25 02/24/25 04:55 18:30 20:36 Sodium Potassium Chloride Carbon Dioxide Anion Gap BUN Creatinine Estim Creat Clear Calc Estimated GFR Glucose POC Capillary Glucose 101 94 Calcium Phosphorus Triglycerides 170 H 02/25/25 02/25/25 02/25/25 00:11 05:44 06:11 Sodium 136 L Potassium 4.0 Chloride 107 Carbon Dioxide 26 Anion Gap 3 L BUN 13 Creatinine 0.57 L Estim Creat Clear Calc 57 Estimated GFR > 60 Glucose 91 POC Capillary Glucose 105 96 Calcium 8.8 Phosphorus 4.3 Triglycerides 02/25/25 02/25/25 07:49 10:57 Sodium Potassium Chloride Carbon Dioxide Anion Gap BUN Creatinine Estim Creat Clear Calc Estimated GFR Glucose POC Capillary Glucose 110 H 112 H Calcium Phosphorus Triglycerides Quality VTE Prophylaxis VTE prophylaxis: pharmacologic ordered
[2025-02-25] MEDS: HYDROcodone/acetaminophen (*CRX) 5-325 MG TABLET 1 TAB PO ×2 (13:31→18:23)
--- NOTE | 2025-02-25 13:46 | P.PNGS_ITS ---
Progress Note: A&P Assessment and Plan (1) Abdominal wall abscess: Code(s): L02.211 - Cutaneous abscess of abdominal wall Status: Acute Assessment and Plan: * Patient tolerated clear liquids without a change in her drain output. The output from the drain today looks mostly purulent. Will keep her on clear liquids with Ensure clear supplements and TPN. She remains on Micafungin and Zosyn as abscess cultures grew E coli and Michelle albicans. WBC remains normal. * Patient will eventually need another surgery to have the infected mesh removed, but being 3 weeks out from her initial surgery, she would likely have numerous adhesions and would be at a higher risk for surgical complications. Whereas, it would be more ideal to temporize her on antibiotics and try to schedule her interval surgery in the next few weeks. May consider repeating imaging to reassess the abscess in the next few days. (2) Protein-calorie malnutrition, severe: Code(s): E43 - Unspecified severe protein-calorie malnutrition Status: Acute Assessment and Plan: * Continue TPN. (3) History of gastric bypass: Code(s): Z98.84 - Bariatric surgery status Status: Chronic Plan Discussed patient's case and plan of care with Dr. Flores. Subjective Subjective Date/Time Seen: 02/25/25 13:46 Patient reports: no new complaints and afebrile Interval history: Patient seen today without any changes overnight. No new complaints. She reports feeling bloated, which started two nights ago and has not gotten worse or better. She is having diarrhea today (2 liquid BMs). No nausea or vomiting. Her drain output has been less in the past 24 hours (total of 60 cc). She is still on TPN and tolerating clear liquids well. WBC count normal. Exam Const: General: comfortable and no acute distress Orientation/consciousness: patient oriented x3 GI: Inspection: non-distended and incision (port site incisions are well healed with no erythema or drainage) GI Palp: Yes Soft to palpation, Yes Tenderness to palpation present (GI) (across her upper abdomen and RLQ), No Guarding due to palpation present (GI), No Hernia present and No Rebound tenderness present Auscultation: normal bowel sounds Objective Data Vital Signs Vital Signs: Vital Signs - 24 hr 02/24/25 14:02 02/24/25 20:51 02/24/25 22:00 Temperature 98.2 F 98.8 F Pulse Rate 60 63 Respiratory Rate 16 16 Blood Pressure 112/59 L 115/54 L Pulse Oximetry 98 99 Oxygen Delivery Room Air 02/25/25 06:00 02/25/25 08:50 Temperature 97.8 F Pulse Rate 67 67 Respiratory Rate 18 18 Blood Pressure 120/49 L Pulse Oximetry 98 98 Oxygen Delivery Room Air Intake/Output Intake/Output: Intake & Output 02/22/25 02/23/25 02/24/25 02/25/25 23:59 23:59 23:59 23:59 Intake Total 2816.7 2604.7 3715.3 1782.5 Output Total 50 50 100 30 Balance 2766.7 2554.7 3615.3 1752.5 Meds/Results Medications: Active Medications Generic Name Dose Route Start Last Admin Trade Name Freq PRN Reason Stop Dose Admin Acetaminophen 650 mg 02/18/25 13:04 Acetaminophen 325 Mg Tablet PO Q4H PRN Mild Pain (1-3) or Fever Hydrocodone Bitart/Acetaminophen 1 tab 02/18/25 13:04 02/25/25 13:31 Hydrocodone/Acetaminophen (*Crx) 5-325 Mg Tablet PO 1 tab Q4H PRN Administration Moderate Pain 4-6 Hydrocodone Bitart/Acetaminophen 1 tab 02/19/25 11:33 02/25/25 06:20 Hydrocodone/Acetaminophen (*Crx) 10-325 Mg Tablet PO 1 tab Q6H PRN Administration Pain Rated 7-10 Albuterol 2 puff 02/23/25 11:58 Albuterol Sulfate (*Sp) Aerosol 1 Puff INHALATION Q6HRT PRN Shortness Of Breath Cyclobenzaprine HCl 10 mg 02/18/25 12:06 Cyclobenzaprine Hcl 10 Mg Tablet PO HS PRN Muscle Spasm Dextrose 12.5 gm 02/24/25 08:33 Dextrose 50% 25 Gm/50 Ml Syringe IV PUSH PRN PRN Hypoglycemia Protocol Enoxaparin Sodium 40 mg 02/19/25 09:00 02/25/25 08:48 Enoxaparin 40 Mg/0.4 Ml Syringe SUB-Q 40 mg DAILY EMRE Administration Ergocalciferol 1,250 mcg 02/21/25 09:00 02/21/25 13:09 Ergocalciferol (Vitamin D2) 1,250 Mcg (50,000 Units) Capsule PO 1,250 mcg Fr@0900 EMRE Administration Fluconazole 200 mg 02/26/25 09:00 Fluconazole 100 Mg Tablet PO QAM EMRE Gabapentin 300 mg 02/20/25 21:00 02/24/25 20:38 Gabapentin 300 Mg Capsule PO 300 mg QHS EMRE Administration Glucagon 1 mg 02/24/25 08:33 Glucagon For Inj 1 Mg Vial IM PRN PRN Hypoglycemia Protocol Glucose 15 gm 02/24/25 08:33 Glucose Oral Gel 15 Gm Of Glucse In 37.5 Gm Tube PO PRN PRN Hypoglycemia Protocol Hydralazine HCl 10 mg 02/18/25 14:42 Hydralazine Hcl 20 Mg/Ml Vial IV PUSH Q8H PRN Blood Pressure - High Sodium Chloride 1,000 mls @ 60 mls/hr 02/18/25 13:05 02/25/25 00:00 Normal Saline Iv IV CONT 60 mls/hr .[id number] EMRE Administration Dextrose 1,000 mls @ 50 mls/hr 02/21/25 14:10 Dextrose 10% IV CONT .Q20H PRN if PN is interrupted Multivitamins 1.25 ml/ 1,002.5 mls @ 60 mls/hr 02/21/25 15:00 02/25/25 00:45 Multivitamins 1.25 ml/ Amino IV CONT 60 mls/hr Acids/Electrolytes/Dextrose .[id number] EMRE Administration Protocol Fat Emulsion Intravenous 250 mls @ 20.833 mls/hr 02/21/25 15:00 02/25/25 03:11 Lipids 20% IVPB Infused Q24H EMRE Infusion Dextrose 1,000 mls @ 100 mls/hr 02/24/25 08:33 Dextrose 5% 1,000 Ml IVPB PRN PRN Hypoglycemia Protocol Meropenem 1 gm/ Sodium 100 mls @ 200 mls/hr 02/25/25 14:00 Chloride IVPB Q8H EMRE Insulin Aspart 2 - 5 units 02/24/25 12:00 02/25/25 12:21 Insulin Aspart (*Bkc) 100 Units/Ml SUB-Q Not Given Q6HR [facility] Protocol Insulin Glargine 7 units 02/21/25 21:00 02/24/25 20:38 Insulin Glargine (*Bkc) 100 Units/Ml 0.15 units/kg (7 units) 7 units SUB-Q Administration HS EMRE Linaclotide 290 mcg 02/19/25 06:30 02/25/25 06:22 Linaclotide 145 Mcg Capsule PO Not Given DAILY@0630 EMRE Magnesium Oxide 200 mg 02/19/25 21:00 02/25/25 09:33 Magnesium Oxide 200 Mg Tablet PO 200 mg Q12HR EMRE Administration Metoprolol Succinate 25 mg 02/19/25 09:00 02/25/25 08:48 Metoprolol Succinate Ext Rel 25 Mg Tabcr PO 25 mg DAILY EMRE Administration Mirtazapine 15 mg 02/18/25 21:00 02/24/25 20:38 Mirtazapine 15 Mg Tablet PO 15 mg HS EMRE Administration Morphine Sulfate 2 mg 02/21/25 14:04 Morphine Sulfate (*Crx) 4 Mg/Ml Inj IV PUSH Q4H PRN Pain Rated 4-6 Morphine Sulfate 4 mg 02/21/25 14:04 02/24/25 23:56 Morphine Sulfate (*Crx) 4 Mg/Ml Inj IV PUSH 4 mg Q4H PRN Administration Pain Rated 7-10 Pantoprazole Sodium 40 mg 02/19/25 09:00 02/25/25 08:49 Pantoprazole 40 Mg Tablet PO 40 mg DAILY EMRE Administration Simvastatin 40 mg 02/19/25 09:00 02/25/25 08:48 Simvastatin 20 Mg Tablet PO 40 mg DAILY EMRE Administration Sodium Chloride 10 ml 02/21/25 14:00 02/25/25 06:21 Central Line Flush IV PUSH 10 ml Q8HR EMRE Administration Sodium Chloride 10 ml 02/21/25 13:49 Central Line Flush IV PUSH PRN PRN with TPN bag changes Sodium Chloride 20 ml 02/21/25 13:49 Central Line Flush IV PUSH PRN PRN after blood draws Umeclidinium/Vilanterol 1 puff 02/18/25 12:20 02/25/25 08:11 Umeclidinium/Vilanterol 62.5-25 Mcg Ellipta INHALATION 1 puff DAILYRT EMRE Administration Radiology Results: ITS Impressions Catheter Placement CT 02/19/25 11:16 IMPRESSION: 1. Successful CT-guided abscess drainage with placement of a percutaneous abscess drain in the more superficial subcutaneous component of the collection which appears to communicate with the collection deep to the ventral hernia mesh repair. 2. 30 mL fluid was sent for aerobic and anaerobic cultures. 3. The catheter will be managed by Dr. Flores. Abdomen/Pelvis CT 02/21/25 11:02 IMPRESSION: 1. Increase in size of an intraperitoneal abscess along the right lower quadrant anterior abdominal wall deep to a revised ventral hernia mesh repair. Complex and in places high attenuation fluid within the abscess cavity consistent with persistent communication to the small bowel with extravasation of oral contrast material. There is communication of this abscess cavity through 4 along side the mesh to a smaller more superficial abscess cavity with pin which is the recently placed abscess drainage catheter. Labs Labs: Laboratory Results - last 24 hr 02/24/25 02/24/25 02/25/25 18:30 20:36 00:11 Sodium Potassium Chloride Carbon Dioxide Anion Gap BUN Creatinine Estim Creat Clear Calc Estimated GFR Glucose POC Capillary Glucose 101 94 105 Calcium Phosphorus 02/25/25 02/25/25 02/25/25 05:44 06:11 07:49 Sodium 136 L Potassium 4.0 Chloride 107 Carbon Dioxide 26 Anion Gap 3 L BUN 13 Creatinine 0.57 L Estim Creat Clear Calc 57 Estimated GFR > 60 Glucose 91 POC Capillary Glucose 96 110 H Calcium 8.8 Phosphorus 4.3 02/25/25 10:57 Sodium Potassium Chloride Carbon Dioxide Anion Gap BUN Creatinine Estim Creat Clear Calc Estimated GFR Glucose POC Capillary Glucose 112 H Calcium Phosphorus
[2025-02-25 14:00] VITALS: BP 98/44; PULSE 77; RESP 14; TEMP 36.5; O2SAT 100
[2025-02-25] MEDS: MEROPENEM 1 GM in SODIUM CHLORIDE 0.9% IV 100 ML 200 ML IVPB ×2 (14:22→21:22)
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
[2025-02-25] MEDS: FAT EMULSIONS IV 20% 250 ML 20.8 ML IVPB (15:07)
[2025-02-25 20:19] VITALS: BP 114/57; PULSE 70; RESP 16; TEMP 36.7; O2SAT 100
[2025-02-25] MEDS: MIRTAZAPINE 15 MG TABLET PO (21:17)
[2025-02-25] MEDS: GABAPENTIN 300 MG CAPSULE PO (21:17)
[2025-02-25] MEDS: INSULIN GLARGINE (*BKC) 100 UNITS/ML 7 UNITS SUB-Q (21:17)
[2025-02-26] MEDS: HYDROcodone/acetaminophen (*CRX) 10-325 MG TABLET 1 TAB PO ×4 (03:34→23:30)
[2025-02-26 05:29] VITALS: BP 115/52; PULSE 78; RESP 18; TEMP 36.4; O2SAT 100
[2025-02-26] MEDS: LINACLOTIDE 145 MCG CAPSULE 290 MCG PO (06:05)
[2025-02-26] MEDS: MEROPENEM 1 GM in SODIUM CHLORIDE 0.9% IV 100 ML 200 ML IVPB ×2 (06:06→18:22)
[2025-02-26] MEDS: CENTRAL LINE FLUSH 10 ML IV PUSH ×3 (06:11→21:11)
[2025-02-26 08:33] VITALS: PULSE 71; RESP 20; O2SAT 100
[2025-02-26] MEDS: UMECLIDINIUM/VILANTEROL 62.5-25 MCG ELLIPTA 1 PUFF INHALATION (08:33)
[2025-02-26] MEDS: MORPHINE SULFATE (*CRX) 4 MG/ML INJ 2 MG IV PUSH (08:54)
[2025-02-26] MEDS: AMINO ACIDS 5%/D15W/E-LYTES/CA 1,000 ML with MULTIVITAMINS-12 INJ VIAL 1 1.25 ML, MULTI... 60 ML IV CONT (09:21)
[2025-02-26] MEDS: ENOXAPARIN 40 MG/0.4 ML SYRINGE SUB-Q (09:21)
--- NOTE | 2025-02-26 11:02 | P.PNIM_ITS ---
Assessment and Plan Assessment and Plan (1) Cellulitis of abdominal wall: Code(s): L03.311 - Cellulitis of abdominal wall Status: Acute Assessment and Plan: CT AP showed slight decrease in size of a now 9.6 x 7.9 x 2.0 cm * s/p percutaneous abscess drainage by IR on 02/19/2025 * Being managed by General surgery * Currently on micafungin and Zosyn * Remains NPO with TPN * Plan for surgery later this week. (2) Hypertension: Code(s): I10 - Essential (primary) hypertension Status: Acute Assessment and Plan: Blood pressures are stable * Continue home antihypertensives * Monitor BP trend (3) Hyperlipidemia: Code(s): E78.5 - Hyperlipidemia, unspecified Status: Acute Assessment and Plan: Continue home simvastatin (4) COPD (chronic obstructive pulmonary disease): Code(s): J44.9 - Chronic obstructive pulmonary disease, unspecified Status: Acute Assessment and Plan: Chronic and stable, not in acute exacerbation * Continue home Anoro Ellipta * Albuterol inhaler p.r.n. during admission (5) Hypokalemia: Code(s): E87.6 - Hypokalemia Status: Acute Assessment and Plan: Potassium 3.8 today * Monitor daily BMP and supplement potassium as needed Plan DVT prophylaxis on Sq lovenox Subjective Date/time seen: 02/26/25 11:02 Interval history: Comfortable at bedside Continue TPN Review of Systems Review of Systems: Pt feels better All systems reviewed & are unremarkable except as noted in HPI and below Exam Narrative: GENERAL: Comfortable, no acute distress HENMT: moist mucous membranes EYES: EOM intact b/l NECK: no lymphadenopathy RESPIRATORY: clear to auscultation, no increased respiratory effort CARDIO: Regular rate and rhythm GI: bowel sounds present, Perc drain in place draining purulent fluid. SKIN/EXTREMITIES: no rashes, no edema, no redness or tenderness Objective Data Vital Signs Vital Signs: Vital Signs - 24 hr 02/25/25 14:00 02/25/25 20:00 02/25/25 20:19 Temperature 97.7 F 98.0 F Pulse Rate 77 70 Respiratory Rate 14 16 Blood Pressure 98/44 L 114/57 L Pulse Oximetry 100 100 Oxygen Delivery Room Air Fraction of Inspired Oxygen 02/26/25 05:29 02/26/25 08:33 02/26/25 08:33 Temperature 97.5 F L Pulse Rate 78 71 71 Respiratory Rate 18 20 20 Blood Pressure 115/52 L Pulse Oximetry 100 100 Oxygen Delivery Room Air Fraction of Inspired Oxygen 21 Intake/Output Intake/Output: Intake & Output 02/23/25 02/24/25 02/25/25 02/26/25 23:59 23:59 23:59 23:59 Intake Total 2604.7 3715.3 3105.0 1146 Output Total 50 100 60 Balance 2554.7 3615.3 3045.0 1146 Meds/Results Medications: Active Medications Generic Name Dose Route Start Last Admin Trade Name Freq PRN Reason Stop Dose Admin Acetaminophen 650 mg 02/18/25 13:04 Acetaminophen 325 Mg Tablet PO Q4H PRN Mild Pain (1-3) or Fever Hydrocodone Bitart/Acetaminophen 1 tab 02/18/25 13:04 02/25/25 18:23 Hydrocodone/Acetaminophen (*Crx) 5-325 Mg Tablet PO 1 tab Q4H PRN Administration Moderate Pain 4-6 Hydrocodone Bitart/Acetaminophen 1 tab 02/19/25 11:33 02/26/25 03:34 Hydrocodone/Acetaminophen (*Crx) 10-325 Mg Tablet PO 1 tab Q6H PRN Administration Pain Rated 7-10 Albuterol 2 puff 02/23/25 11:58 Albuterol Sulfate (*Sp) Aerosol 1 Puff INHALATION Q6HRT PRN Shortness Of Breath Cyclobenzaprine HCl 10 mg 02/18/25 12:06 Cyclobenzaprine Hcl 10 Mg Tablet PO HS PRN Muscle Spasm Dextrose 12.5 gm 02/24/25 08:33 Dextrose 50% 25 Gm/50 Ml Syringe IV PUSH PRN PRN Hypoglycemia Protocol Enoxaparin Sodium 40 mg 02/19/25 09:00 02/26/25 09:21 Enoxaparin 40 Mg/0.4 Ml Syringe SUB-Q 40 mg DAILY EMRE Administration Ergocalciferol 1,250 mcg 02/21/25 09:00 02/21/25 13:09 Ergocalciferol (Vitamin D2) 1,250 Mcg (50,000 Units) Capsule PO 1,250 mcg Fr@0900 EMRE Administration Fluconazole 200 mg 02/26/25 09:00 Fluconazole 100 Mg Tablet PO QAM EMRE Gabapentin 300 mg 02/20/25 21:00 02/25/25 21:17 Gabapentin 300 Mg Capsule PO 300 mg QHS EMRE Administration Glucagon 1 mg 02/24/25 08:33 Glucagon For Inj 1 Mg Vial IM PRN PRN Hypoglycemia Protocol Glucose 15 gm 02/24/25 08:33 Glucose Oral Gel 15 Gm Of Glucse In 37.5 Gm Tube PO PRN PRN Hypoglycemia Protocol Hydralazine HCl 10 mg 02/18/25 14:42 Hydralazine Hcl 20 Mg/Ml Vial IV PUSH Q8H PRN Blood Pressure - High Dextrose 1,000 mls @ 50 mls/hr 02/21/25 14:10 Dextrose 10% IV CONT .Q20H PRN if PN is interrupted Multivitamins 1.25 ml/ 1,002.5 mls @ 60 mls/hr 02/21/25 15:00 02/26/25 09:21 Multivitamins 1.25 ml/ Amino IV CONT 60 mls/hr Acids/Electrolytes/Dextrose .[id number] EMRE Administration Protocol Fat Emulsion Intravenous 250 mls @ 20.833 mls/hr 02/21/25 15:00 02/26/25 03:09 Lipids 20% IVPB Infused Q24H EMRE Infusion Dextrose 1,000 mls @ 100 mls/hr 02/24/25 08:33 Dextrose 5% 1,000 Ml IVPB PRN PRN Hypoglycemia Protocol Meropenem 1 gm/ Sodium 100 mls @ 200 mls/hr 02/25/25 14:00 02/26/25 06:06 Chloride IVPB 200 mls/hr Q8H [facility] Administration Insulin Aspart 2 - 5 units 02/24/25 12:00 02/26/25 05:33 Insulin Aspart (*Bkc) 100 Units/Ml SUB-Q Not Given Q6HR [facility] Protocol Insulin Glargine 7 units 02/21/25 21:00 02/25/25 21:17 Insulin Glargine (*Bkc) 100 Units/Ml 0.15 units/kg (7 units) 7 units SUB-Q Administration HS [facility] Linaclotide 290 mcg 02/19/25 06:30 02/26/25 06:05 Linaclotide 145 Mcg Capsule PO 290 mcg DAILY@0630 [facility] Administration Magnesium Oxide 200 mg 02/19/25 21:00 02/25/25 21:17 Magnesium Oxide 200 Mg Tablet PO 200 mg Q12HR EMRE Administration Metoprolol Succinate 25 mg 02/19/25 09:00 02/25/25 08:48 Metoprolol Succinate Ext Rel 25 Mg Tabcr PO 25 mg DAILY EMRE Administration Mirtazapine 15 mg 02/18/25 21:00 02/25/25 21:17 Mirtazapine 15 Mg Tablet PO 15 mg HS EMRE Administration Morphine Sulfate 2 mg 02/21/25 14:04 02/26/25 08:54 Morphine Sulfate (*Crx) 4 Mg/Ml Inj IV PUSH 2 mg Q4H PRN Administration Pain Rated 4-6 Morphine Sulfate 4 mg 02/21/25 14:04 02/24/25 23:56 Morphine Sulfate (*Crx) 4 Mg/Ml Inj IV PUSH 4 mg Q4H PRN Administration Pain Rated 7-10 Pantoprazole Sodium 40 mg 02/19/25 09:00 02/25/25 08:49 Pantoprazole 40 Mg Tablet PO 40 mg DAILY EMRE Administration Simvastatin 40 mg 02/19/25 09:00 02/25/25 08:48 Simvastatin 20 Mg Tablet PO 40 mg DAILY EMRE Administration Sodium Chloride 10 ml 02/21/25 14:00 02/26/25 06:11 Central Line Flush IV PUSH 10 ml Q8HR EMRE Administration Sodium Chloride 10 ml 02/21/25 13:49 Central Line Flush IV PUSH PRN PRN with TPN bag changes Sodium Chloride 20 ml 02/21/25 13:49 Central Line Flush IV PUSH PRN PRN after blood draws Umeclidinium/Vilanterol 1 puff 02/18/25 12:20 02/26/25 08:33 Umeclidinium/Vilanterol 62.5-25 Mcg Ellipta INHALATION 1 puff DAILYRT EMRE Administration Radiology Results: ITS Impressions Catheter Placement CT 02/19/25 11:[address] IM[address]ION: 1[address]-guided abscess drainage with placement of a percutaneous abscess drain in the more superficial subcutaneous component of the collection which appears to communicate with the collection deep to the ventral hernia mesh repair. 2. 30 mL fluid was sent for aerobic and anaerobic cultures. 3. The catheter will be managed by Dr. Flores. Abdomen/Pelvis CT 02/26/25 09:10 IMPRESSION: 1. Slight decrease in size of a now 9.6 x 7.9 x 2.0 cm abscess along the deep margin of a revised ventral hernia mesh repair on the right lower quadrant and pelvic anterior abdominal wall. Unchanged pigtail drainage catheter within a likely communicating and now collapsed abscess cavity along the superficial margin of the mesh repair. Labs Labs: Laboratory Results - last 24 hr 02/25/25 02/25/25 02/25/25 10:57 16:00 19:52 POC Capillary Glucose 112 H 99 94 02/25/25 02/26/25 23:18 04:54 POC Capillary Glucose 112 H 116 H Quality VTE Prophylaxis VTE prophylaxis: pharmacologic ordered
[2025-02-26 11:06] LABS: Hematocrit 29.8 % (37.0-47.0); Hemoglobin 9.2 g/dL (12.0-15.0); Immature Granulocyte Percent A 1.3 % (0-0.5); Lymphocytes Absolute Auto 1.73 K/mm3 (0.9-3.2); Mean Corpuscular HGB Conc 30.9 g/dl (32-36); Mean Corpuscular Hemoglobin 31.0 pg (26-34); Mean Corpuscular Volume 100.3 fl (80-100); Nucleated Red Blood Cells Absolute Auto 0.000 K/mm3 (0.0-0.012); Nucleated Red Blood Cells Perc 0.0 % (0.0-0.2); Platelet Count Result 417 k/mm3 (150-375); Red Blood Count 2.97 M/mm3 (4.2-5.4); White Blood Count 9.5 K/mm3 (4.5-10.0)
[2025-02-26 11:21] VITALS: PULSE 71
[2025-02-26] MEDS: SIMVASTATIN 20 MG TABLET 40 MG PO (11:21)
[2025-02-26] MEDS: METOPROLOL SUCCINATE EXT REL 25 MG TABCR PO (11:21)
[2025-02-26] MEDS: FLUCONAZOLE 100 MG TABLET 200 MG PO (11:21)
[2025-02-26] MEDS: PANTOPRAZOLE 40 MG TABLET PO (11:22)
[2025-02-26] MEDS: MAGNESIUM OXIDE 200 MG TABLET PO ×2 (11:22→20:50)
--- NOTE | 2025-02-26 11:41 | P.PNGS_ITS ---
Progress Note: A&P Assessment and Plan (1) Abdominal wall abscess: Code(s): L02.211 - Cutaneous abscess of abdominal wall Status: Acute Assessment and Plan: * CT this morning demonstrated slight decrease in size of abscess along the deep margin of revised ventral hernia mesh repair, now 9.6 x 7.9 x 2.0 cm. unchanged pigtail drainage catheter within the likely communicating and collapsed abscess cavity. * Okay for patient to have diet today. Will make her NPO at midnight for incision and drainage of abdominal wall abscess with possible wound VAC placement tomorrow afternoon. * Continue TPN. * WBC normal. Continue IV antibiotics. (2) Protein-calorie malnutrition, severe: Code(s): E43 - Unspecified severe protein-calorie malnutrition Status: Acute Assessment and Plan: * Continue TPN. (3) History of gastric bypass: Code(s): Z98.84 - Bariatric surgery status Status: Chronic Plan Discussed patient's case and plan of care with Dr. Flores. Subjective Subjective Date/Time Seen: 02/26/25 11:41 Patient reports: no new complaints, still having pain and afebrile Interval history: Patient doing well. She feels very hungry and wants to know when she can eat. CT this morning. Still having abdominal pain. Exam Const: General: comfortable and no acute distress GI: Inspection: non-distended and incision (port site incisions are well healed with no erythema or drainage) Auscultation: normal bowel sounds Other: Area of induration in RLQ. RYLIE drain with small amount of yellowish green output. Objective Data Vital Signs Vital Signs: Vital Signs - 24 hr 02/25/25 14:00 02/25/25 20:00 02/25/25 20:19 Temperature 97.7 F 98.0 F Pulse Rate 77 70 Respiratory Rate 14 16 Blood Pressure 98/44 L 114/57 L Pulse Oximetry 100 100 Oxygen Delivery Room Air Fraction of Inspired Oxygen 02/26/25 05:29 02/26/25 08:33 02/26/25 08:33 Temperature 97.5 F L Pulse Rate 78 71 71 Respiratory Rate 18 20 20 Blood Pressure 115/52 L Pulse Oximetry 100 100 Oxygen Delivery Room Air Fraction of Inspired Oxygen 21 02/26/25 11:21 Temperature Pulse Rate 71 Respiratory Rate Blood Pressure Pulse Oximetry Oxygen Delivery Fraction of Inspired Oxygen Intake/Output Intake/Output: Intake & Output 02/23/25 02/24/25 02/25/25 02/26/25 23:59 23:59 23:59 23:59 Intake Total 2604.7 3715.3 3105.0 1146 Output Total 50 100 60 Balance 2554.7 3615.3 3045.0 1146 Meds/Results Medications: Active Medications Generic Name Dose Route Start Last Admin Trade Name Freq PRN Reason Stop Dose Admin Acetaminophen 650 mg 02/18/25 13:04 Acetaminophen 325 Mg Tablet PO Q4H PRN Mild Pain (1-3) or Fever Hydrocodone Bitart/Acetaminophen 1 tab 02/18/25 13:04 02/25/25 18:23 Hydrocodone/Acetaminophen (*Crx) 5-325 Mg Tablet PO 1 tab Q4H PRN Administration Moderate Pain 4-6 Hydrocodone Bitart/Acetaminophen 1 tab 02/19/25 11:33 02/26/25 11:24 Hydrocodone/Acetaminophen (*Crx) 10-325 Mg Tablet PO 1 tab Q6H PRN Administration Pain Rated 7-10 Albuterol 2 puff 02/23/25 11:58 Albuterol Sulfate (*Sp) Aerosol 1 Puff INHALATION Q6HRT PRN Shortness Of Breath Cyclobenzaprine HCl 10 mg 02/18/25 12:06 Cyclobenzaprine Hcl 10 Mg Tablet PO HS PRN Muscle Spasm Dextrose 12.5 gm 02/24/25 08:33 Dextrose 50% 25 Gm/50 Ml Syringe IV PUSH PRN PRN Hypoglycemia Protocol Enoxaparin Sodium 40 mg 02/19/25 09:00 02/26/25 09:21 Enoxaparin 40 Mg/0.4 Ml Syringe SUB-Q 40 mg DAILY EMRE Administration Ergocalciferol 1,250 mcg 02/21/25 09:00 02/21/25 13:09 Ergocalciferol (Vitamin D2) 1,250 Mcg (50,000 Units) Capsule PO 1,250 mcg Fr@0900 EMRE Administration Fluconazole 200 mg 02/26/25 09:00 02/26/25 11:21 Fluconazole 100 Mg Tablet PO 200 mg QAM EMRE Administration Gabapentin 300 mg 02/20/25 21:00 02/25/25 21:17 Gabapentin 300 Mg Capsule PO 300 mg QHS EMRE Administration Glucagon 1 mg 02/24/25 08:33 Glucagon For Inj 1 Mg Vial IM PRN PRN Hypoglycemia Protocol Glucose 15 gm 02/24/25 08:33 Glucose Oral Gel 15 Gm Of Glucse In 37.5 Gm Tube PO PRN PRN Hypoglycemia Protocol Hydralazine HCl 10 mg 02/18/25 14:42 Hydralazine Hcl 20 Mg/Ml Vial IV PUSH Q8H PRN Blood Pressure - High Dextrose 1,000 mls @ 50 mls/hr 02/21/25 14:10 Dextrose 10% IV CONT .Q20H PRN if PN is interrupted Multivitamins 1.25 ml/ 1,002.5 mls @ 60 mls/hr 02/21/25 15:00 02/26/25 09:21 Multivitamins 1.25 ml/ Amino IV CONT 60 mls/hr Acids/Electrolytes/Dextrose .[id number] EMRE Administration Protocol Fat Emulsion Intravenous 250 mls @ 20.833 mls/hr 02/21/25 15:00 02/26/25 03:09 Lipids 20% IVPB Infused Q24H EMRE Infusion Dextrose 1,000 mls @ 100 mls/hr 02/24/25 08:33 Dextrose 5% 1,000 Ml IVPB PRN PRN Hypoglycemia Protocol Meropenem 1 gm/ Sodium 100 mls @ 200 mls/hr 02/25/25 14:00 02/26/25 06:06 Chloride IVPB 200 mls/hr Q8H EMRE Administration Insulin Aspart 2 - 5 units 02/24/25 12:00 02/26/25 05:33 Insulin Aspart (*Bkc) 100 Units/Ml SUB-Q Not Given Q6HR [facility] Protocol Insulin Glargine 7 units 02/21/25 21:00 02/25/25 21:17 Insulin Glargine (*Bkc) 100 Units/Ml 0.15 units/kg (7 units) 7 units SUB-Q Administration HS EMRE Linaclotide 290 mcg 02/19/25 06:30 02/26/25 06:05 Linaclotide 145 Mcg Capsule PO 290 mcg DAILY@0630 EMRE Administration Magnesium Oxide 200 mg 02/19/25 21:00 02/26/25 11:22 Magnesium Oxide 200 Mg Tablet PO 200 mg Q12HR EMRE Administration Metoprolol Succinate 25 mg 02/19/25 09:00 02/26/25 11:21 Metoprolol Succinate Ext Rel 25 Mg Tabcr PO 25 mg DAILY EMRE Administration Mirtazapine 15 mg 02/18/25 21:00 02/25/25 21:17 Mirtazapine 15 Mg Tablet PO 15 mg HS EMRE Administration Morphine Sulfate 2 mg 02/21/25 14:04 02/26/25 08:54 Morphine Sulfate (*Crx) 4 Mg/Ml Inj IV PUSH 2 mg Q4H PRN Administration Pain Rated 4-6 Morphine Sulfate 4 mg 02/21/25 14:04 02/24/25 23:56 Morphine Sulfate (*Crx) 4 Mg/Ml Inj IV PUSH 4 mg Q4H PRN Administration Pain Rated 7-10 Pantoprazole Sodium 40 mg 02/19/25 09:00 02/26/25 11:22 Pantoprazole 40 Mg Tablet PO 40 mg DAILY EMRE Administration Simvastatin 40 mg 02/19/25 09:00 02/26/25 11:21 Simvastatin 20 Mg Tablet PO 40 mg DAILY EMRE Administration Sodium Chloride 10 ml 02/21/25 14:00 02/26/25 06:11 Central Line Flush IV PUSH 10 ml Q8HR EMRE Administration Sodium Chloride 10 ml 02/21/25 13:49 Central Line Flush IV PUSH PRN PRN with TPN bag changes Sodium Chloride 20 ml 02/21/25 13:49 Central Line Flush IV PUSH PRN PRN after blood draws Umeclidinium/Vilanterol 1 puff 02/18/25 12:20 02/26/25 08:33 Umeclidinium/Vilanterol 62.5-25 Mcg Ellipta INHALATION 1 puff DAILYRT EMRE Administration Radiology Results: ITS Impressions Catheter Placement CT 02/19/25 11:16 IMPRESSION: 1. Successful CT-guided abscess drainage with placement of a percutaneous abscess drain in the more superficial subcutaneous component of the collection which appears to communicate with the collection deep to the ventral hernia mesh repair. 2. 30 mL fluid was sent for aerobic and anaerobic cultures. 3. The catheter will be managed by Dr. Flores. Abdomen/Pelvis CT 02/26/25 09:10 IMPRESSION: 1. Slight decrease in size of a now 9.6 x 7.9 x 2.0 cm abscess along the deep margin of a revised ventral hernia mesh repair on the right lower quadrant and pelvic anterior abdominal wall. Unchanged pigtail drainage catheter within a likely communicating and now collapsed abscess cavity along the superficial margin of the mesh repair. Labs Labs: Laboratory Results - last 24 hr 02/25/25 02/25/25 02/25/25 16:00 19:52 23:18 WBC RBC Hgb Hct MCV MCH MCHC RDW Plt Count MPV Immature Gran % (Auto) Neut % (Auto) Lymph % (Auto) [place] % (Auto) Eos % (Auto) Baso % (Auto) Lymph # (Auto) [place] # (Auto) Eos # (Auto) Baso # (Auto) Abs Immat Gran (auto) Absolute Neuts (auto) Absolute Nucleated RBC Nucleated RBC % POC Capillary Glucose 99 94 112 H Triglycerides 02/26/25 02/26/25 02/26/25 04:54 10:51 11:35 WBC 9.5 RBC 2.97 L Hgb 9.2 L Hct 29.8 L MCV 100.3 H MCH 31.0 MCHC 30.9 L RDW 13.7 Plt Count 417 H MPV 9.9 Immature Gran % (Auto) 1.3 H Neut % (Auto) 62.2 Lymph % (Auto) 18.2 L [place] % (Auto) 8.8 H Eos % (Auto) 8.6 H Baso % (Auto) 0.9 Lymph # (Auto) 1.73 [place] # (Auto) 0.8 H Eos # (Auto) 0.8 H Baso # (Auto) 0.1 Abs Immat Gran (auto) 0.12 H Absolute Neuts (auto) 5.9 Absolute Nucleated RBC 0.000 Nucleated RBC % 0.0 POC Capillary Glucose 116 H 106 H Triglycerides Cancelled
[2025-02-26 11:46] LABS: Alanine Aminotransferase 31 U/L (6-35); Albumin Level 3.3 g/dL (3.5-5.1); Alkaline Phosphatase 54 U/L (38-126); Anion Gap 6 mmol/L (4-12); Aspartate Amino Transferase 53 U/L (14-36); Bilirubin,Total 0.3 mg/dL (0.2-1.3); Blood Urea Nitrogen 13 mg/dL (7-17); Calcium 9.2 mg/dL (8.4-10.2); Carbon Dioxide 22 mmol/L (22-30); Chloride 99 mmol/L (98-107); Estimated CRCL calculation 50 ml/min; Estimated Glomerular Filt Rate > 60; Glucose 857 mg/dL (65-110); Magnesium 2.3 mg/dL (1.6-2.3); Potassium 6.1 mmol/L (3.4-5.0); Sodium 127 mmol/L (137-145); Total Protein 5.6 g/dL (6.3-8.2); Triglycerides 104 mg/dL (<150)
[2025-02-26 13:01] LABS: Alanine Aminotransferase 38 U/L (6-35); Albumin Level 3.5 g/dL (3.5-5.1); Alkaline Phosphatase 67 U/L (38-126); Anion Gap 3 mmol/L (4-12); Aspartate Amino Transferase 50 U/L (14-36); Bilirubin,Total 0.2 mg/dL (0.2-1.3); Blood Urea Nitrogen 15 mg/dL (7-17); Calcium 9.4 mg/dL (8.4-10.2); Carbon Dioxide 27 mmol/L (22-30); Chloride 105 mmol/L (98-107); Estimated CRCL calculation 61 ml/min; Estimated Glomerular Filt Rate > 60; Glucose 101 mg/dL (65-110); Potassium 4.3 mmol/L (3.4-5.0); Sodium 135 mmol/L (137-145); Total Protein 6.5 g/dL (6.3-8.2)
[2025-02-26 14:00] VITALS: BP 100/51; PULSE 70; RESP 18; TEMP 36.7; O2SAT 100
[2025-02-26] MEDS: FAT EMULSIONS IV 20% 250 ML 20.8 ML IVPB (18:21)
[2025-02-26] MEDS: INSULIN GLARGINE (*BKC) 100 UNITS/ML 7 UNITS SUB-Q (20:50)
[2025-02-26] MEDS: GABAPENTIN 300 MG CAPSULE PO (20:50)
[2025-02-26] MEDS: MIRTAZAPINE 15 MG TABLET PO (20:50)
[2025-02-26 21:30] VITALS: BP 127/53; PULSE 70; RESP 20; TEMP 36.4; O2SAT 100
[2025-02-27] VITALS (15 sets, daily range): BP systolic 90–140; BP diastolic 48–89; PULSE 68–98; RESP 16–20; TEMP 36.4–37.6; O2SAT 92–100
[2025-02-27] MEDS: MEROPENEM 1 GM in SODIUM CHLORIDE 0.9% IV 100 ML 200 ML IVPB ×3 (02:35→19:36)
[2025-02-27] MEDS: AMINO ACIDS 5%/D15W/E-LYTES/CA 1,000 ML with MULTIVITAMINS-12 INJ VIAL 1 1.25 ML, MULTI... 60 ML IV CONT ×2 (02:40→21:39)
[2025-02-27] MEDS: CENTRAL LINE FLUSH 10 ML IV PUSH ×2 (05:37→21:54)
[2025-02-27] MEDS: HYDROcodone/acetaminophen (*CRX) 10-325 MG TABLET 1 TAB PO ×2 (05:50→11:54)
[2025-02-27 05:54] LABS: Hematocrit 31.1 % (37.0-47.0); Hemoglobin 9.4 g/dL (12.0-15.0); Immature Granulocyte Percent A 1.2 % (0-0.5); Lymphocytes Absolute Auto 1.83 K/mm3 (0.9-3.2); Mean Corpuscular HGB Conc 30.2 g/dl (32-36); Mean Corpuscular Hemoglobin 30.0 pg (26-34); Mean Corpuscular Volume 99.4 fl (80-100); Nucleated Red Blood Cells Absolute Auto 0.000 K/mm3 (0.0-0.012); Nucleated Red Blood Cells Perc 0.0 % (0.0-0.2); Platelet Count Result 422 k/mm3 (150-375); Red Blood Count 3.13 M/mm3 (4.2-5.4); White Blood Count 9.8 K/mm3 (4.5-10.0)
[2025-02-27 06:15] LABS: Alanine Aminotransferase 42 U/L (6-35); Albumin Level 3.5 g/dL (3.5-5.1); Alkaline Phosphatase 73 U/L (38-126); Anion Gap 3 mmol/L (4-12); Aspartate Amino Transferase 56 U/L (14-36); Bilirubin,Total 0.3 mg/dL (0.2-1.3); Blood Urea Nitrogen 19 mg/dL (7-17); Calcium 9.3 mg/dL (8.4-10.2); Carbon Dioxide 27 mmol/L (22-30); Chloride 104 mmol/L (98-107); Estimated CRCL calculation 56 ml/min; Estimated Glomerular Filt Rate > 60; Glucose 89 mg/dL (65-110); Magnesium 2.3 mg/dL (1.6-2.3); Potassium 4.5 mmol/L (3.4-5.0); Sodium 134 mmol/L (137-145); Total Protein 6.4 g/dL (6.3-8.2)
[2025-02-27] MEDS: UMECLIDINIUM/VILANTEROL 62.5-25 MCG ELLIPTA 1 PUFF INHALATION (07:34)
[2025-02-27] MEDS: METOPROLOL SUCCINATE EXT REL 25 MG TABCR PO (09:20)
[2025-02-27] MEDS: MAGNESIUM OXIDE 200 MG TABLET PO ×2 (09:20→21:51)
[2025-02-27] MEDS: FLUCONAZOLE 100 MG TABLET 200 MG PO (09:20)
[2025-02-27] MEDS: SIMVASTATIN 20 MG TABLET 40 MG PO (09:20)
[2025-02-27] MEDS: PANTOPRAZOLE 40 MG TABLET PO (09:21)
--- NOTE | 2025-02-27 10:24 | WPDINFPN2 ---
Progress Note: A&P Assessment and Plan (1) Abdominal wall abscess: Code(s): L02.211 - Cutaneous abscess of abdominal wall Status: Acute Assessment and Plan: CT this morning demonstrated slight decrease in size of abscess along the deep margin of revised ventral hernia mesh repair, now 9.6 x 7.9 x 2.0 cm. unchanged pigtail drainage catheter within the likely communicating and collapsed abscess cavity. Okay for patient to have diet today. Will make her NPO at midnight for incision and drainage of abdominal wall abscess with possible wound VAC placement tomorrow afternoon. Continue TPN. WBC normal. Continue IV antibiotics. (2) Protein-calorie malnutrition, severe: Code(s): E43 - Unspecified severe protein-calorie malnutrition Status: Acute Assessment and Plan: Continue TPN. (3) History of gastric bypass: Code(s): Z98.84 - Bariatric surgery status Status: Chronic Plan ASSESSMENT 1. abdominal wall abscess iso ventral hernia repair with mesh on 02/03/25--also old mesh in place from prior abdominal hernia repair; s/p drain placement--infected mesh; risk of ECF 2. HTN, HL, COPD RECOMMENDATIONS: -for removal of mesh and likely bowel resection -on TPN -abscess cx with ESBL E. coli and jung albicans -change abx to meropenem and fluconazole d/w pharmacy staff Pt was seen via video telehealth consultation with the assistance of staff. Chart, data and patient info reviewed. Patient was located at [facility] while I was in my [place] office. Pt gave consent. Subjective Date/time seen: 02/27/25 10:24 Interval history: no fevers no leukocytosis Objective Data Vital Signs Vital Signs: Vital Signs - 24 hr 02/26/25 11:21 02/26/25 14:00 02/26/25 20:00 Temperature 98.1 F Pulse Rate 71 70 Respiratory Rate 18 Blood Pressure 100/51 L Pulse Oximetry 100 Oxygen Delivery Room Air 02/26/25 21:30 02/27/25 05:15 02/27/25 07:34 Temperature 97.6 F 98.7 F Pulse Rate 70 70 Respiratory Rate 20 16 Blood Pressure 127/53 L 114/51 L Pulse Oximetry 100 100 99 Oxygen Delivery Room Air 02/27/25 07:34 02/27/25 09:20 Temperature Pulse Rate 70 78 Respiratory Rate 18 Blood Pressure Pulse Oximetry Oxygen Delivery Intake/Output Intake/Output: Intake & Output 02/24/25 02/25/25 02/26/25 02/27/25 23:59 23:59 23:59 23:59 Intake Total 3715.3 3105.0 1826 1202.5 Output Total 100 60 75 20 Balance 3615.3 3045.0 1751 1182.5 Meds/Results Medications: Active Medications Generic Name Dose Route Start Last Admin Trade Name Freq PRN Reason Stop Dose Admin Acetaminophen 650 mg 02/18/25 13:04 Acetaminophen 325 Mg Tablet PO Q4H PRN Mild Pain (1-3) or Fever Hydrocodone Bitart/Acetaminophen 1 tab 02/18/25 13:04 02/25/25 18:23 Hydrocodone/Acetaminophen (*Crx) 5-325 Mg Tablet PO 1 tab Q4H PRN Administration Moderate Pain 4-6 Hydrocodone Bitart/Acetaminophen 1 tab 02/19/25 11:33 02/27/25 05:50 Hydrocodone/Acetaminophen (*Crx) 10-325 Mg Tablet PO 1 tab Q6H PRN Administration Pain Rated 7-10 Albuterol 2 puff 02/23/25 11:58 Albuterol Sulfate (*Sp) Aerosol 1 Puff INHALATION Q6HRT PRN Shortness Of Breath Cyclobenzaprine HCl 10 mg 02/18/25 12:06 Cyclobenzaprine Hcl 10 Mg Tablet PO HS PRN Muscle Spasm Dextrose 12.5 gm 02/24/25 08:33 Dextrose 50% 25 Gm/50 Ml Syringe IV PUSH PRN PRN Hypoglycemia Protocol Enoxaparin Sodium 40 mg 02/19/25 09:00 02/26/25 09:21 Enoxaparin 40 Mg/0.4 Ml Syringe SUB-Q 40 mg On Hold: 02/27/25 08:20 DAILY EMRE Administration Resume: 02/28/25 09:00 Ergocalciferol 1,250 mcg 02/21/25 09:00 02/21/25 13:09 Ergocalciferol (Vitamin D2) 1,250 Mcg (50,000 Units) Capsule PO 1,250 mcg Fr@0900 EMRE Administration Fluconazole 200 mg 02/26/25 09:00 02/27/25 09:20 Fluconazole 100 Mg Tablet PO 200 mg QAM EMRE Administration Gabapentin 300 mg 02/20/25 21:00 02/26/25 20:50 Gabapentin 300 Mg Capsule PO 300 mg QHS EMRE Administration Glucagon 1 mg 02/24/25 08:33 Glucagon For Inj 1 Mg Vial IM PRN PRN Hypoglycemia Protocol Glucose 15 gm 02/24/25 08:33 Glucose Oral Gel 15 Gm Of Glucse In 37.5 Gm Tube PO PRN PRN Hypoglycemia Protocol Hydralazine HCl 10 mg 02/18/25 14:42 Hydralazine Hcl 20 Mg/Ml Vial IV PUSH Q8H PRN Blood Pressure - High Dextrose 1,000 mls @ 50 mls/hr 02/21/25 14:10 Dextrose 10% IV CONT .Q20H PRN if PN is interrupted Multivitamins 1.25 ml/ 1,002.5 mls @ 60 mls/hr 02/21/25 15:00 02/27/25 02:40 Multivitamins 1.25 ml/ Amino IV CONT 60 mls/hr Acids/Electrolytes/Dextrose .[id number] EMRE Administration Protocol Fat Emulsion Intravenous 250 mls @ 20.833 mls/hr 02/21/25 15:00 02/26/25 18:21 Lipids 20% IVPB 20.8 mls/hr Q24H EMRE Administration Dextrose 1,000 mls @ 100 mls/hr 02/24/25 08:33 Dextrose 5% 1,000 Ml IVPB PRN PRN Hypoglycemia Protocol Meropenem 1 gm/ Sodium 100 mls @ 200 mls/hr 02/25/25 14:00 02/27/25 02:35 Chloride IVPB 200 mls/hr Q8H EMRE Administration Insulin Aspart 2 - 5 units 02/24/25 12:00 02/27/25 06:51 Insulin Aspart (*Bkc) 100 Units/Ml SUB-Q Not Given Q6HR [facility] Protocol Insulin Glargine 7 units 02/21/25 21:00 02/26/25 20:50 Insulin Glargine (*Bkc) 100 Units/Ml 0.15 units/kg (7 units) 7 units SUB-Q Administration [facility] Linaclotide 290 mcg 02/19/25 06:30 02/27/25 05:42 Linaclotide 145 Mcg Capsule PO Not Given DAILY@0630 [facility] Magnesium Oxide 200 mg 02/19/25 21:00 02/27/25 09:20 Magnesium Oxide 200 Mg Tablet PO 200 mg Q12HR EMRE Administration Metoprolol Succinate 25 mg 02/19/25 09:00 02/27/25 09:20 Metoprolol Succinate Ext Rel 25 Mg Tabcr PO 25 mg DAILY EMRE Administration Mirtazapine 15 mg 02/18/25 21:00 02/26/25 20:50 Mirtazapine 15 Mg Tablet PO 15 mg HS EMRE Administration Morphine Sulfate 2 mg 02/21/25 14:04 02/26/25 08:54 Morphine Sulfate (*Crx) 4 Mg/Ml Inj IV PUSH 2 mg Q4H PRN Administration Pain Rated 4-6 Morphine Sulfate 4 mg 02/21/25 14:04 02/24/25 23:56 Morphine Sulfate (*Crx) 4 Mg/Ml Inj IV PUSH 4 mg Q4H PRN Administration Pain Rated 7-10 Pantoprazole Sodium 40 mg 02/19/25 09:00 02/27/25 09:21 Pantoprazole 40 Mg Tablet PO 40 mg DAILY EMRE Administration Simvastatin 40 mg 02/19/25 09:00 02/27/25 09:20 Simvastatin 20 Mg Tablet PO 40 mg DAILY EMRE Administration Sodium Chloride 10 ml 02/21/25 14:00 02/27/25 05:37 Central Line Flush IV PUSH 10 ml Q8HR EMRE Administration Sodium Chloride 10 ml 02/21/25 13:49 Central Line Flush IV PUSH PRN PRN with TPN bag changes Sodium Chloride 20 ml 02/21/25 13:49 Central Line Flush IV PUSH PRN PRN after blood draws Umeclidinium/Vilanterol 1 puff 02/18/25 12:20 02/27/25 07:34 Umeclidinium/Vilanterol 62.5-25 Mcg Ellipta INHALATION 1 puff DAILYRT EMRE Administration Radiology Results: ITS Impressions Catheter Placement CT 02/19/25 11:16 IMPRESSION: 1[address] CT-guided abscess drainage with placement of a percutaneous abscess drain in the more superficial subcutaneous component of the collection which appears to communicate with the collection deep to the ventral hernia mesh repair. 2. 30 mL fluid was sent for aerobic and anaerobic cultures. 3. The catheter will be managed by Dr. Flores. Abdomen/Pelvis CT 02/26/25 09:10 IMPRESSION: 1. Slight decrease in size of a now 9.6 x 7.9 x 2.0 cm abscess along the deep margin of a revised ventral hernia mesh repair on the right lower quadrant and pelvic anterior abdominal wall. Unchanged pigtail drainage catheter within a likely communicating and now collapsed abscess cavity along the superficial margin of the mesh repair. Labs Labs: Laboratory Results - last 24 hr 02/26/25 02/26/25 02/26/25 10:50 10:51 11:35 WBC 9.5 RBC 2.97 L Hgb 9.2 L Hct 29.8 L MCV 100.3 H MCH 31.0 MCHC 30.9 L RDW 13.7 Plt Count 417 H MPV 9.9 Immature Gran % (Auto) 1.3 H Neut % (Auto) 62.2 Lymph % (Auto) 18.2 L [place] % (Auto) 8.8 H Eos % (Auto) 8.6 H Baso % (Auto) 0.9 Lymph # (Auto) 1.73 [place] # (Auto) 0.8 H Eos # (Auto) 0.8 H Baso # (Auto) 0.1 Abs Immat Gran (auto) 0.12 H Absolute Neuts (auto) 5.9 Absolute Nucleated RBC 0.000 Nucleated RBC % 0.0 Sodium 127 L Potassium 6.1 H* Chloride 99 Carbon Dioxide 22 Anion Gap 6 BUN 13 Creatinine 0.67 L Estim Creat Clear Calc 50 Estimated GFR > 60 Glucose 857 H* POC Capillary Glucose 106 H Calcium 9.2 Phosphorus 6.4 H Magnesium 2.3 Total Bilirubin 0.3 AST 53 H ALT 31 Alkaline Phosphatase 54 Total Protein 5.6 L Albumin 3.3 L Triglycerides 104 Cancelled 02/26/25 02/26/25 02/26/25 12:41 17:03 20:48 WBC RBC Hgb Hct MCV MCH MCHC RDW Plt Count MPV Immature Gran % (Auto) Neut % (Auto) Lymph % (Auto) [place] % (Auto) Eos % (Auto) Baso % (Auto) Lymph # (Auto) [place] # (Auto) Eos # (Auto) Baso # (Auto) Abs Immat Gran (auto) Absolute Neuts (auto) Absolute Nucleated RBC Nucleated RBC % Sodium 135 L Potassium 4.3 Chloride 105 Carbon Dioxide 27 Anion Gap 3 L BUN 15 Creatinine 0.54 L Estim Creat Clear Calc 61 Estimated GFR > 60 Glucose 101 POC Capillary Glucose 99 129 H Calcium 9.4 Phosphorus Magnesium Total Bilirubin 0.2 AST 50 H ALT 38 H Alkaline Phosphatase 67 Total Protein 6.5 Albumin 3.5 Triglycerides 12/10/25 12/11/25 23:29 05:33 WBC 9.8 RBC 3.13 L Hgb 9.4 L Hct 31.1 L MCV 99.4 MCH 30.0 MCHC 30.2 L RDW 13.4 Plt Count 422 H MPV 10.1 Immature Gran % (Auto) 1.2 H Neut % (Auto) 60.5 Lymph % (Auto) 18.8 [place] % (Auto) 10.7 H Eos % (Auto) 7.9 H Baso % (Auto) 0.9 Lymph # (Auto) 1.83 [place] # (Auto) 1.0 H Eos # (Auto) 0.8 H Baso # (Auto) 0.1 Abs Immat Gran (auto) 0.12 H Absolute Neuts (auto) 5.9 Absolute Nucleated RBC 0.000 Nucleated RBC % 0.0 Sodium 134 L Potassium 4.5 Chloride 104 Carbon Dioxide 27 Anion Gap 3 L BUN 19 H Creatinine 0.59 L Estim Creat Clear Calc 56 Estimated GFR > 60 Glucose 89 POC Capillary Glucose 130 H Calcium 9.3 Phosphorus 3.3 Magnesium 2.3 Total Bilirubin 0.3 AST 56 H ALT 42 H Alkaline Phosphatase 73 Total Protein 6.4 Albumin 3.5 Triglycerides
--- NOTE | 2025-02-27 10:27 | P.PNINF_ITS ---
Progress Note: A&P Assessment and Plan (1) Abdominal wall abscess: Code(s): L02.211 - Cutaneous abscess of abdominal wall Status: Acute Plan ASSESSMENT 1. abdominal wall abscess iso ventral hernia repair with mesh on 02/03/25--also old mesh in place from prior abdominal hernia repair; s/p drain placement--infected mesh; risk of ECF 2. HTN, HL, COPD RECOMMENDATIONS: -for surgery today -on TPN -abscess cx with ESBL E. coli and jung albicans -meropenem and fluconazole in OR at my visit will continue to follow Subjective Date/time seen: 02/27/25 10:27 Interval history: no fever no leukocytosis for surgery today Objective Data Vital Signs Vital Signs: Vital Signs - 24 hr 02/26/25 11:21 02/26/25 14:00 02/26/25 20:00 Temperature 98.1 F Pulse Rate 71 70 Respiratory Rate 18 Blood Pressure 100/51 L Pulse Oximetry 100 Oxygen Delivery Room Air 02/26/25 21:30 02/27/25 05:15 02/27/25 07:34 Temperature 97.6 F 98.7 F Pulse Rate 70 70 Respiratory Rate 20 16 Blood Pressure 127/53 L 114/51 L Pulse Oximetry 100 100 99 Oxygen Delivery Room Air 02/27/25 07:34 02/27/25 09:20 Temperature Pulse Rate 70 78 Respiratory Rate 18 Blood Pressure Pulse Oximetry Oxygen Delivery Intake/Output Intake/Output: Intake & Output 02/24/25 02/25/25 02/26/25 02/27/25 23:59 23:59 23:59 23:59 Intake Total 3715.3 3105.0 1826 1202.5 Output Total 100 60 75 20 Balance 3615.3 3045.0 1751 1182.5 Meds/Results Medications: Active Medications Generic Name Dose Route Start Last Admin Trade Name Freq PRN Reason Stop Dose Admin Acetaminophen 650 mg 02/18/25 13:04 Acetaminophen 325 Mg Tablet PO Q4H PRN Mild Pain (1-3) or Fever Hydrocodone Bitart/Acetaminophen 1 tab 02/18/25 13:04 02/25/25 18:23 Hydrocodone/Acetaminophen (*Crx) 5-325 Mg Tablet PO 1 tab Q4H PRN Administration Moderate Pain 4-6 Hydrocodone Bitart/Acetaminophen 1 tab 02/19/25 11:33 02/27/25 05:50 Hydrocodone/Acetaminophen (*Crx) 10-325 Mg Tablet PO 1 tab Q6H PRN Administration Pain Rated 7-10 Albuterol 2 puff 02/23/25 11:58 Albuterol Sulfate (*Sp) Aerosol 1 Puff INHALATION Q6HRT PRN Shortness Of Breath Cyclobenzaprine HCl 10 mg 02/18/25 12:06 Cyclobenzaprine Hcl 10 Mg Tablet PO HS PRN Muscle Spasm Dextrose 12.5 gm 02/24/25 08:33 Dextrose 50% 25 Gm/50 Ml Syringe IV PUSH PRN PRN Hypoglycemia Protocol Enoxaparin Sodium 40 mg 02/19/25 09:00 02/26/25 09:21 Enoxaparin 40 Mg/0.4 Ml Syringe SUB-Q 40 mg On Hold: 02/27/25 08:20 DAILY EMRE Administration Resume: 02/28/25 09:00 Ergocalciferol 1,250 mcg 02/21/25 09:00 02/21/25 13:09 Ergocalciferol (Vitamin D2) 1,250 Mcg (50,000 Units) Capsule PO 1,250 mcg Fr@0900 EMRE Administration Fluconazole 200 mg 02/26/25 09:00 02/27/25 09:20 Fluconazole 100 Mg Tablet PO 200 mg QAM EMRE Administration Gabapentin 300 mg 02/20/25 21:00 02/26/25 20:50 Gabapentin 300 Mg Capsule PO 300 mg QHS EMRE Administration Glucagon 1 mg 02/24/25 08:33 Glucagon For Inj 1 Mg Vial IM PRN PRN Hypoglycemia Protocol Glucose 15 gm 02/24/25 08:33 Glucose Oral Gel 15 Gm Of Glucse In 37.5 Gm Tube PO PRN PRN Hypoglycemia Protocol Hydralazine HCl 10 mg 02/18/25 14:42 Hydralazine Hcl 20 Mg/Ml Vial IV PUSH Q8H PRN Blood Pressure - High Dextrose 1,000 mls @ 50 mls/hr 02/21/25 14:10 Dextrose 10% IV CONT .Q20H PRN if PN is interrupted Multivitamins 1.25 ml/ 1,002.5 mls @ 60 mls/hr 02/21/25 15:00 02/27/25 02:40 Multivitamins 1.25 ml/ Amino IV CONT 60 mls/hr Acids/Electrolytes/Dextrose .[id number] EMRE Administration Protocol Fat Emulsion Intravenous 250 mls @ 20.833 mls/hr 02/21/25 15:00 02/26/25 18:21 Lipids 20% IVPB 20.8 mls/hr Q24H EMRE Administration Dextrose 1,000 mls @ 100 mls/hr 02/24/25 08:33 Dextrose 5% 1,000 Ml IVPB PRN PRN Hypoglycemia Protocol Meropenem 1 gm/ Sodium 100 mls @ 200 mls/hr 02/25/25 14:00 02/27/25 02:35 Chloride IVPB 200 mls/hr Q8H EMRE Administration Insulin Aspart 2 - 5 units 02/24/25 12:00 02/27/25 06:51 Insulin Aspart (*Bkc) 100 Units/Ml SUB-Q Not Given Q6HR [facility] Protocol Insulin Glargine 7 units 02/21/25 21:00 02/26/25 20:50 Insulin Glargine (*Bkc) 100 Units/Ml 0.15 units/kg (7 units) 7 units SUB-Q Administration HS [facility] Linaclotide 290 mcg 02/19/25 06:30 02/27/25 05:42 Linaclotide 145 Mcg Capsule PO Not Given DAILY@0630 [facility] Magnesium Oxide 200 mg 02/19/25 21:00 02/27/25 09:20 Magnesium Oxide 200 Mg Tablet PO 200 mg Q12HR EMRE Administration Metoprolol Succinate 25 mg 02/19/25 09:00 02/27/25 09:20 Metoprolol Succinate Ext Rel 25 Mg Tabcr PO 25 mg DAILY EMRE Administration Mirtazapine 15 mg 02/18/25 21:00 02/26/25 20:50 Mirtazapine 15 Mg Tablet PO 15 mg HS EMRE Administration Morphine Sulfate 2 mg 02/21/25 14:04 02/26/25 08:54 Morphine Sulfate (*Crx) 4 Mg/Ml Inj IV PUSH 2 mg Q4H PRN Administration Pain Rated 4-6 Morphine Sulfate 4 mg 02/21/25 14:04 02/24/25 23:56 Morphine Sulfate (*Crx) 4 Mg/Ml Inj IV PUSH 4 mg Q4H PRN Administration Pain Rated 7-10 Pantoprazole Sodium 40 mg 02/19/25 09:00 02/27/25 09:21 Pantoprazole 40 Mg Tablet PO 40 mg DAILY EMRE Administration Simvastatin 40 mg 12/03/25 09:00 02/27/25 09:20 Simvastatin 20 Mg Tablet PO 40 mg DAILY EMRE Administration Sodium Chloride 10 ml 02/21/25 14:00 02/27/25 05:37 Central Line Flush IV PUSH 10 ml Q8HR EMRE Administration Sodium Chloride 10 ml 02/21/25 13:49 Central Line Flush IV PUSH PRN PRN with TPN bag changes Sodium Chloride 20 ml 02/21/25 13:49 Central Line Flush IV PUSH PRN PRN after blood draws Umeclidinium/Vilanterol 1 puff 02/18/25 12:20 02/27/25 07:34 Umeclidinium/Vilanterol 62.5-25 Mcg Ellipta INHALATION 1 puff DAILYRT MERE Administration Radiology Results: ITS Impressions Catheter Placement CT 02/19/25 11:16 IMPRESSION: 1. Successful CT-guided abscess drainage with placement of a percutaneous abscess drain in the more superficial subcutaneous component of the collection which appears to communicate with the collection deep to the ventral hernia mesh repair. 2. 30 mL fluid was sent for aerobic and anaerobic cultures. 3. The catheter will be managed by Dr. Flores. Abdomen/Pelvis CT 02/26/25 09:10 IMPRESSION: 1. Slight decrease in size of a now 9.6 x 7.9 x 2.0 cm abscess along the deep margin of a revised ventral hernia mesh repair on the right lower quadrant and pelvic anterior abdominal wall. Unchanged pigtail drainage catheter within a likely communicating and now collapsed abscess cavity along the superficial margin of the mesh repair. Labs Labs: Laboratory Results - last 24 hr 02/26/25 02/26/25 02/26/25 10:50 10:51 11:35 WBC 9.5 RBC 2.97 L Hgb 9.2 L Hct 29.8 L MCV 100.3 H MCH 31.0 MCHC 30.9 L RDW 13.7 Plt Count 417 H MPV 9.9 Immature Gran % (Auto) 1.3 H Neut % (Auto) 62.2 Lymph % (Auto) 18.2 L [place] % (Auto) 8.8 H Eos % (Auto) 8.6 H Baso % (Auto) 0.9 Lymph # (Auto) 1.73 [place] # (Auto) 0.8 H Eos # (Auto) 0.8 H Baso # (Auto) 0.1 Abs Immat Gran (auto) 0.12 H Absolute Neuts (auto) 5.9 Absolute Nucleated RBC 0.000 Nucleated RBC % 0.0 Sodium 127 L Potassium 6.1 H* Chloride 99 Carbon Dioxide 22 Anion Gap 6 BUN 13 Creatinine 0.67 L Estim Creat Clear Calc 50 Estimated GFR > 60 Glucose 857 H* POC Capillary Glucose 106 H Calcium 9.2 Phosphorus 6.4 H Magnesium 2.3 Total Bilirubin 0.3 AST 53 H ALT 31 Alkaline Phosphatase 54 Total Protein 5.6 L Albumin 3.3 L Triglycerides 104 Cancelled 02/26/25 02/26/25 02/26/25 12:41 17:03 20:48 WBC RBC Hgb Hct MCV MCH MCHC RDW Plt Count MPV Immature Gran % (Auto) Neut % (Auto) Lymph % (Auto) [place] % (Auto) Eos % (Auto) Baso % (Auto) Lymph # (Auto) [place] # (Auto) Eos # (Auto) Baso # (Auto) Abs Immat Gran (auto) Absolute Neuts (auto) Absolute Nucleated RBC Nucleated RBC % Sodium 135 L Potassium 4.3 Chloride 105 Carbon Dioxide 27 Anion Gap 3 L BUN 15 Creatinine 0.54 L Estim Creat Clear Calc 61 Estimated GFR > 60 Glucose 101 POC Capillary Glucose 99 129 H Calcium 9.4 Phosphorus Magnesium Total Bilirubin 0.2 AST 50 H ALT 38 H Alkaline Phosphatase 67 Total Protein 6.5 Albumin 3.5 Triglycerides 02/26/25 02/27/25 23:29 05:33 WBC 9.8 RBC 3.13 L Hgb 9.4 L Hct 31.1 L MCV 99.4 MCH 30.0 MCHC 30.2 L RDW 13.4 Plt Count 422 H MPV 10.1 Immature Gran % (Auto) 1.2 H Neut % (Auto) 60.5 Lymph % (Auto) 18.8 [place] % (Auto) 10.7 H Eos % (Auto) 7.9 H Baso % (Auto) 0.9 Lymph # (Auto) 1.83 [place] # (Auto) 1.0 H Eos # (Auto) 0.8 H Baso # (Auto) 0.1 Abs Immat Gran (auto) 0.12 H Absolute Neuts (auto) 5.9 Absolute Nucleated RBC 0.000 Nucleated RBC % 0.0 Sodium 134 L Potassium 4.5 Chloride 104 Carbon Dioxide 27 Anion Gap 3 L BUN 19 H Creatinine 0.59 L Estim Creat Clear Calc 56 Estimated GFR > 60 Glucose 89 POC Capillary Glucose 130 H Calcium 9.3 Phosphorus 3.3 Magnesium 2.3 Total Bilirubin 0.3 AST 56 H ALT 42 H Alkaline Phosphatase 73 Total Protein 6.4 Albumin 3.5 Triglycerides
--- NOTE | 2025-02-27 11:27 | P.PNIM_ITS ---
Assessment and Plan Assessment and Plan (1) Cellulitis of abdominal wall: Code(s): L03.311 - Cellulitis of abdominal wall Status: Acute Assessment and Plan: CT AP showed slight decrease in size of a now 9.6 x 7.9 x 2.0 cm * s/p percutaneous abscess drainage by IR on 02/19/2025 * Being managed by General surgery * Currently on micafungin and Zosyn * Remains NPO with TPN * For I and D today (2) Hypertension: Code(s): I10 - Essential (primary) hypertension Status: Acute Assessment and Plan: Blood pressures are stable * Continue home antihypertensives * Monitor BP trend (3) Hyperlipidemia: Code(s): E78.5 - Hyperlipidemia, unspecified Status: Acute Assessment and Plan: Continue home simvastatin (4) COPD (chronic obstructive pulmonary disease): Code(s): J44.9 - Chronic obstructive pulmonary disease, unspecified Status: Acute Assessment and Plan: Chronic and stable, not in acute exacerbation * Continue home Anoro Ellipta * Albuterol inhaler p.r.n. during admission (5) Hypokalemia: Code(s): E87.6 - Hypokalemia Status: Acute Assessment and Plan: Potassium 3.8 today * Monitor daily BMP and supplement potassium as needed Plan DVT prophylaxis on Sq lovenox Subjective Date/time seen: 02/27/25 11:27 Interval history: Comfortable at bedside for OR today Review of Systems Review of Systems: Pt feels better All systems reviewed & are unremarkable except as noted in HPI and below Exam Narrative: GENERAL: Comfortable, no acute distress HENMT: moist mucous membranes EYES: EOM intact b/l NECK: no lymphadenopathy RESPIRATORY: clear to auscultation, no increased respiratory effort CARDIO: Regular rate and rhythm GI: bowel sounds present, Perc drain in place draining purulent fluid. SKIN/EXTREMITIES: no rashes, no edema, no redness or tenderness Objective Data Vital Signs Vital Signs: Vital Signs - 24 hr 02/26/25 14:00 02/26/25 20:00 02/26/25 21:30 Temperature 98.1 F 97.6 F Pulse Rate 70 70 Respiratory Rate 18 20 Blood Pressure 100/51 L 127/53 L Pulse Oximetry 100 100 Oxygen Delivery Room Air 02/27/25 05:15 02/27/25 07:34 02/27/25 07:34 Temperature 98.7 F Pulse Rate 70 70 Respiratory Rate 16 18 Blood Pressure 114/51 L Pulse Oximetry 100 99 Oxygen Delivery Room Air 02/27/25 09:20 Temperature Pulse Rate 78 Respiratory Rate Blood Pressure Pulse Oximetry Oxygen Delivery Intake/Output Intake/Output: Intake & Output 02/24/25 02/25/25 02/26/25 02/27/25 23:59 23:59 23:59 23:59 Intake Total 3715.3 3105.0 1826 1202.5 Output Total 100 60 75 20 Balance 3615.3 3045.0 1751 1182.5 Meds/Results Medications: Active Medications Generic Name Dose Route Start Last Admin Trade Name Freq PRN Reason Stop Dose Admin Acetaminophen 650 mg 02/18/25 13:04 Acetaminophen 325 Mg Tablet PO Q4H PRN Mild Pain (1-3) or Fever Hydrocodone Bitart/Acetaminophen 1 tab 02/18/25 13:04 02/25/25 18:23 Hydrocodone/Acetaminophen (*Crx) 5-325 Mg Tablet PO 1 tab Q4H PRN Administration Moderate Pain 4-6 Hydrocodone Bitart/Acetaminophen 1 tab 02/19/25 11:33 02/27/25 05:50 Hydrocodone/Acetaminophen (*Crx) 10-325 Mg Tablet PO 1 tab Q6H PRN Administration Pain Rated 7-10 Albuterol 2 puff 02/23/25 11:58 Albuterol Sulfate (*Sp) Aerosol 1 Puff INHALATION Q6HRT PRN Shortness Of Breath Cyclobenzaprine HCl 10 mg 02/18/25 12:06 Cyclobenzaprine Hcl 10 Mg Tablet PO HS PRN Muscle Spasm Dextrose 12.5 gm 02/24/25 08:33 Dextrose 50% 25 Gm/50 Ml Syringe IV PUSH PRN PRN Hypoglycemia Protocol Enoxaparin Sodium 40 mg 02/19/25 09:00 02/26/25 09:21 Enoxaparin 40 Mg/0.4 Ml Syringe SUB-Q 40 mg On Hold: 02/27/25 08:20 DAILY EMRE Administration Resume: 02/28/25 09:00 Ergocalciferol 1,250 mcg 02/21/25 09:00 02/21/25 13:09 Ergocalciferol (Vitamin D2) 1,250 Mcg (50,000 Units) Capsule PO 1,250 mcg Fr@0900 EMRE Administration Fluconazole 200 mg 02/26/25 09:00 02/27/25 09:20 Fluconazole 100 Mg Tablet PO 200 mg QAM EMRE Administration Gabapentin 300 mg 02/20/25 21:00 02/26/25 20:50 Gabapentin 300 Mg Capsule PO 300 mg QHS EMRE Administration Glucagon 1 mg 02/24/25 08:33 Glucagon For Inj 1 Mg Vial IM PRN PRN Hypoglycemia Protocol Glucose 15 gm 02/24/25 08:33 Glucose Oral Gel 15 Gm Of Glucse In 37.5 Gm Tube PO PRN PRN Hypoglycemia Protocol Hydralazine HCl 10 mg 02/18/25 14:42 Hydralazine Hcl 20 Mg/Ml Vial IV PUSH Q8H PRN Blood Pressure - High Dextrose 1,000 mls @ 50 mls/hr 02/21/25 14:10 Dextrose 10% IV CONT .Q20H PRN if PN is interrupted Multivitamins 1.25 ml/ 1,002.5 mls @ 60 mls/hr 02/21/25 15:00 02/27/25 02:40 Multivitamins 1.25 ml/ Amino IV CONT 60 mls/hr Acids/Electrolytes/Dextrose .[id number] EMRE Administration Protocol Fat Emulsion Intravenous 250 mls @ 20.833 mls/hr 02/21/25 15:00 02/26/25 18:21 Lipids 20% IVPB 20.8 mls/hr Q24H EMRE Administration Dextrose 1,000 mls @ 100 mls/hr 02/24/25 08:33 Dextrose 5% 1,000 Ml IVPB PRN PRN Hypoglycemia Protocol Meropenem 1 gm/ Sodium 100 mls @ 200 mls/hr 02/25/25 14:00 02/27/25 02:35 Chloride IVPB 200 mls/hr Q8H EMRE Administration Insulin Aspart 2 - 5 units 02/24/25 12:00 02/27/25 06:51 Insulin Aspart (*Bkc) 100 Units/Ml SUB-Q Not Given Q6HR [facility] Protocol Insulin Glargine 7 units 02/21/25 21:00 02/26/25 20:50 Insulin Glargine (*Bkc) 100 Units/Ml 0.15 units/kg (7 units) 7 units SUB-Q Administration HS [facility] Linaclotide 290 mcg 02/19/25 06:30 02/27/25 05:42 Linaclotide 145 Mcg Capsule PO Not Given DAILY@0630 EMRE Magnesium Oxide 200 mg 02/19/25 21:00 02/27/25 09:20 Magnesium Oxide 200 Mg Tablet PO 200 mg Q12HR EMRE Administration Metoprolol Succinate 25 mg 02/19/25 09:00 02/27/25 09:20 Metoprolol Succinate Ext Rel 25 Mg Tabcr PO 25 mg DAILY EMRE Administration Mirtazapine 15 mg 02/18/25 21:00 02/26/25 20:50 Mirtazapine 15 Mg Tablet PO 15 mg HS EMRE Administration Morphine Sulfate 2 mg 02/21/25 14:04 02/26/25 08:54 Morphine Sulfate (*Crx) 4 Mg/Ml Inj IV PUSH 2 mg Q4H PRN Administration Pain Rated 4-6 Morphine Sulfate 4 mg 02/21/25 14:04 02/24/25 23:56 Morphine Sulfate (*Crx) 4 Mg/Ml Inj IV PUSH 4 mg Q4H PRN Administration Pain Rated 7-10 Pantoprazole Sodium 40 mg 02/19/25 09:00 02/27/25 09:21 Pantoprazole 40 Mg Tablet PO 40 mg DAILY EMRE Administration Simvastatin 40 mg 02/19/25 09:00 02/27/25 09:20 Simvastatin 20 Mg Tablet PO 40 mg DAILY EMRE Administration Sodium Chloride 10 ml 02/21/25 14:00 02/27/25 05:37 Central Line Flush IV PUSH 10 ml Q8HR EMRE Administration Sodium Chloride 10 ml 02/21/25 13:49 Central Line Flush IV PUSH PRN PRN with TPN bag changes Sodium Chloride 20 ml 02/21/25 13:49 Central Line Flush IV PUSH PRN PRN after blood draws Umeclidinium/Vilanterol 1 puff 02/18/25 12:20 02/27/25 07:34 Umeclidinium/Vilanterol 62.5-25 Mcg Ellipta INHALATION 1 puff DAILYRT EMRE Administration Radiology Results: ITS Impressions Catheter Placement CT 02/19/25 11:16 IMPRESSION: 1[address] Successful CT-guided abscess drainage with placement of a percutaneous abscess drain in the more superficial subcutaneous component of the collection which appears to communicate with the collection deep to the ventral hernia mesh repair. 2. 30 mL fluid was sent for aerobic and anaerobic cultures. 3. The catheter will be managed by Dr. Flores. Abdomen/Pelvis CT 02/26/25 09:10 IMPRESSION: 1. Slight decrease in size of a now 9.6 x 7.9 x 2.0 cm abscess along the deep margin of a revised ventral hernia mesh repair on the right lower quadrant and pelvic anterior abdominal wall. Unchanged pigtail drainage catheter within a likely communicating and now collapsed abscess cavity along the superficial margin of the mesh repair. Labs Labs: Laboratory Results - last 24 hr 02/26/25 02/26/25 02/26/25 10:50 11:35 12:41 WBC RBC Hgb Hct MCV MCH MCHC RDW Plt Count MPV Immature Gran % (Auto) Neut % (Auto) Lymph % (Auto) [place] % (Auto) Eos % (Auto) Baso % (Auto) Lymph # (Auto) [place] # (Auto) Eos # (Auto) Baso # (Auto) Abs Immat Gran (auto) Absolute Neuts (auto) Absolute Nucleated RBC Nucleated RBC % Sodium 127 L 135 L Potassium 6.1 H* 4.3 Chloride 99 105 Carbon Dioxide 22 27 Anion Gap 6 3 L BUN 13 15 Creatinine 0.67 L 0.54 L Estim Creat Clear Calc 50 61 Estimated GFR > 60 > 60 Glucose 857 H* 101 POC Capillary Glucose 106 H Calcium 9.2 9.4 Phosphorus 6.4 H Magnesium 2.3 Total Bilirubin 0.3 0.2 AST 53 H 50 H ALT 31 38 H Alkaline Phosphatase 54 67 Total Protein 5.6 L 6.5 Albumin 3.3 L 3.5 Triglycerides 104 02/26/25 02/26/25 02/26/25 17:03 20:48 23:29 WBC RBC Hgb Hct MCV MCH MCHC RDW Plt Count MPV Immature Gran % (Auto) Neut % (Auto) Lymph % (Auto) [place] % (Auto) Eos % (Auto) Baso % (Auto) Lymph # (Auto) [place] # (Auto) Eos # (Auto) Baso # (Auto) Abs Immat Gran (auto) Absolute Neuts (auto) Absolute Nucleated RBC Nucleated RBC % Sodium Potassium Chloride Carbon Dioxide Anion Gap BUN Creatinine Estim Creat Clear Calc Estimated GFR Glucose POC Capillary Glucose 99 129 H 130 H Calcium Phosphorus Magnesium Total Bilirubin AST ALT Alkaline Phosphatase Total Protein Albumin Triglycerides 02/27/25 05:33 WBC 9.8 RBC 3.13 L Hgb 9.4 L Hct 31.1 L MCV 99.4 MCH 30.0 MCHC 30.2 L RDW 13.4 Plt Count 422 H MPV 10.1 Immature Gran % (Auto) 1.2 H Neut % (Auto) 60.5 Lymph % (Auto) 18.8 [place] % (Auto) 10.7 H Eos % (Auto) 7.9 H Baso % (Auto) 0.9 Lymph # (Auto) 1.83 [place] # (Auto) 1.0 H Eos # (Auto) 0.8 H Baso # (Auto) 0.1 Abs Immat Gran (auto) 0.12 H Absolute Neuts (auto) 5.9 Absolute Nucleated RBC 0.000 Nucleated RBC % 0.0 Sodium 134 L Potassium 4.5 Chloride 104 Carbon Dioxide 27 Anion Gap 3 L BUN 19 H Creatinine 0.59 L Estim Creat Clear Calc 56 Estimated GFR > 60 Glucose 89 POC Capillary Glucose Calcium 9.3 Phosphorus 3.3 Magnesium 2.3 Total Bilirubin 0.3 AST 56 H ALT 42 H Alkaline Phosphatase 73 Total Protein 6.4 Albumin 3.5 Triglycerides Quality VTE Prophylaxis VTE prophylaxis: pharmacologic ordered
--- NOTE | 2025-02-27 14:08 | PC.NURSE ---
To OR per [bed ], IV [ infusing ]. Report given to [RN ].
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
[2025-02-27] MEDS: LIDO 1%/EPINEPHRINE 1:100,000 50 ML VIAL 30 ML INFILTRATE (19:03)
[2025-02-27] MEDS: LACTATED RINGERS 1,000 ML 30 ML IV CONT (19:24)
--- NOTE | 2025-02-27 19:38 | W.PM.PROC2 ---
Procedure Note - Detailed Date of Procedure 02/27/25 Pre-op Diagnosis Right lower quadrant abdominal wall complex loculated abscess with defect and mesh Post-op Diagnosis Same Procedure Performed Complex incision and drainage right lower quadrant abdominal wall abscess and application of wound VAC Surgeon Herbert Flores MD [employer]ider[employer] [place] [facility] Anesthesia General Indications Patient is a 69-year-old female who is about months status post robotic assisted laparoscopic recurrent incisional hernia repair with mesh with extensive adhesiolysis of bowel off of old mesh. She unfortunately has developed a abscess of the right lower quadrant abdominal wall with infection of the mesh. She has an abscess between the old mesh and the new mesh in the abdominal wall. She presents now for incision and drainage of the abscess and placement of wound VAC. Findings The patient had a multi loculated abscess located underneath the anterior rectus fascia superficial to the old abdominal wall mesh. This was drained and copious amounts of pus was evacuated. A culture of the pus was taken and sent to microbiology. I then cut away the exposed portion of the old mesh and entered a cavity between the 2 pieces of mesh which was also filled with pus. This was superficial to the new mesh and I never entered into the abdomen. I broke down the loculations with my finger and then irrigated out the abscess cavity superficial to the new intraperitoneal mesh. I digitally explored the cavity and I could not place my finger into the abdomen below the intraperitoneal mesh. There was no feculent material noted in the abscess cavity or on the intraperitoneal mesh. There is no succus material noted either. A wound VAC was then placed after irrigation of the abscess cavity. The resulting wound measured approximately [id number]. It was packed with black foam wound VAC for a total area of 54 sq cm. Description of Procedure After informed consent was obtained patient brought to the operating room she was placed supine position and general endotracheal anesthesia was administered. The abdomen was then prepped and draped usual sterile fashion with the existing pigtail drain prepped into the field. Time-out was then performed correctly identifying the patient as well as procedure to be performed. She was already on scheduled IV antibiotics. I then made a transverse incision over the area of maximal fluctuance just lateral to the insertion site of the pigtail catheter. Dissection carried down through the subcu tissue electrocautery. The anterior rectus fascia was encountered I incised the anterior rectus fascia transversely and entered an abscess cavity superficial to the old abdominal wall mesh. Copious amount of pus was drained from this cavity and a swab was taken and sent to microbiology for Gram stain and aerobic and anaerobic cultures. The old pigtail drain was then cut and removed from the abscess cavity. I then irrigated out this abscess cavity and cut away non incorporated old mesh. This is done with heavy scissors. Portions of the old mesh was still incorporated into the fascia and so this was left in place for the time being. Once I cut it to the old mesh entered another cavity between the old mesh and the new intraperitoneal mesh. This abscess cavity was then drained and copious amounts of pus drained out of this as well. I then irrigated out the cavity of sterile saline solution and then digitally with my index finger palpated all around the surface of the mesh and I could not enter into the abdomen around the mesh. The mesh no evidence of any feculent material or succus material on on the mesh. The the Ventralight ST intraperitoneal mesh appeared to be intact. I measured the wound cavity was [id number]. I then proceeded to place black foam into the wound and then cover it with clear adhesive dressings. A hole was then cut into the dressing and the suction pad was then placed and additional pieces of adhesive gauze were placed to make sure there was no air leak. The wound VAC was placed to 125mm of mercury suction. A good seal was obtained without air leak. The patient tolerated the procedure well no complications. All sponges, needles, and instrument counts were correct at the end procedure. EBL was _5__cc. The patient was awakened and taken to recovery in stable and satisfactory condition. Implants None Estimated Blood Loss 5 Drains No Packing Yes (Black foam wound VAC placed right lower quadrant abdominal wall wound.) Pathology Other (Swab of abscess cavity sent to microbiology for Gram stain and aerobic and anaerobic coverage.) Complications No immediate complications Condition Stable Disposition PACU [facility] Billing Surgery - Charge Forward: Surgery Billing
[2025-02-27] MEDS: fentaNYL CITRATE INJ (*CRX) 100 MCG/2 ML VIAL 25 MCG IV PUSH ×4 (19:56→20:10)
[2025-02-27] MEDS: MORPHINE SULFATE (*CRX) 4 MG/ML INJ IV PUSH (21:34)
[2025-02-27] MEDS: FAT EMULSIONS IV 20% 250 ML 20.8 ML IVPB (21:38)
[2025-02-27] MEDS: GABAPENTIN 300 MG CAPSULE PO (21:51)
[2025-02-27] MEDS: MIRTAZAPINE 15 MG TABLET PO (21:51)
[2025-02-28] MEDS: MORPHINE SULFATE (*CRX) 4 MG/ML INJ IV PUSH (03:29)
[2025-02-28] MEDS: MEROPENEM 1 GM in SODIUM CHLORIDE 0.9% IV 100 ML 200 ML IVPB ×3 (03:32→18:05)
[2025-02-28 04:50] VITALS: BP 106/43; PULSE 70; RESP 18; TEMP 36.7; O2SAT 97
[2025-02-28] MEDS: LINACLOTIDE 145 MCG CAPSULE 290 MCG PO (06:21)
[2025-02-28] MEDS: HYDROcodone/acetaminophen (*CRX) 10-325 MG TABLET 1 TAB PO ×3 (06:22→18:04)
[2025-02-28] MEDS: CENTRAL LINE FLUSH 10 ML IV PUSH ×3 (06:22→21:23)
[2025-02-28 07:19] LABS: Anion Gap 4 mmol/L (4-12); Blood Urea Nitrogen 21 mg/dL (7-17); Calcium 9.2 mg/dL (8.4-10.2); Carbon Dioxide 29 mmol/L (22-30); Chloride 100 mmol/L (98-107); Estimated CRCL calculation 50 ml/min; Estimated Glomerular Filt Rate > 60; Glucose 88 mg/dL (65-110); Potassium 4.9 mmol/L (3.4-5.0); Sodium 133 mmol/L (137-145)
[2025-02-28] MEDS: UMECLIDINIUM/VILANTEROL 62.5-25 MCG ELLIPTA 1 PUFF INHALATION (08:07)
[2025-02-28 08:48] VITALS: PULSE 76
[2025-02-28] MEDS: MAGNESIUM OXIDE 200 MG TABLET PO ×2 (08:48→21:23)
[2025-02-28] MEDS: SIMVASTATIN 20 MG TABLET 40 MG PO (08:48)
[2025-02-28] MEDS: METOPROLOL SUCCINATE EXT REL 25 MG TABCR PO (08:48)
[2025-02-28] MEDS: PANTOPRAZOLE 40 MG TABLET PO (08:48)
[2025-02-28] MEDS: ENOXAPARIN 40 MG/0.4 ML SYRINGE SUB-Q (08:50)
[2025-02-28] MEDS: FLUCONAZOLE 100 MG TABLET 200 MG PO (08:50)
[2025-02-28] MEDS: ERGOCALCIFEROL (VITAMIN D2) 1,250 MCG (50,000 UNITS) CAPSULE 1250 MCG PO (08:54)
--- NOTE | 2025-02-28 09:41 | PM.PNGS ---
Subjective Subjective Date/Time Seen: 02/28/25 09:41 Patient reports: no new complaints Interval history: Patient underwent I&D of abdominal abscess yesterday with Dr. Flores. Wound vac placed in the OR. Wound measured 9 x 6 x 4 cm. Wound bed healthy and red with granulation tissue overlying old mesh from previous hernia repair. Objective Data Vital Signs Vital Signs: Vital Signs - 24 hr 02/27/25 14:00 02/27/25 14:58 02/27/25 19:24 Temperature 97.7 F 98.0 F 97.6 F Pulse Rate 69 68 84 Respiratory Rate 18 16 20 Blood Pressure 107/50 L 110/55 L 140/58 L Pulse Oximetry 99 99 96 Oxygen Delivery Room Air Simple Face Mask Oxygen Flow Rate 10 02/27/25 19:30 02/27/25 19:45 02/27/25 20:00 Temperature Pulse Rate 86 98 89 Respiratory Rate 20 20 20 Blood Pressure 117/63 120/89 90/50 L Pulse Oximetry 92 100 96 Oxygen Delivery Room Air Room Air Room Air Oxygen Flow Rate 02/27/25 20:15 02/27/25 20:23 02/27/25 20:37 Temperature 98.5 F Pulse Rate 89 93 91 Respiratory Rate 20 18 18 Blood Pressure 98/48 L 99/56 L 101/49 L Pulse Oximetry 97 99 97 Oxygen Delivery Room Air Room Air Oxygen Flow Rate 02/27/25 20:55 02/27/25 21:20 02/27/25 22:35 Temperature 99.7 F H 97.9 F 97.6 F Pulse Rate 88 85 88 Respiratory Rate 16 20 16 Blood Pressure 113/56 L 95/70 L 110/49 L Pulse Oximetry 97 97 97 Oxygen Delivery Oxygen Flow Rate 02/28/25 04:50 02/28/25 08:48 Temperature 98.1 F Pulse Rate 70 76 Respiratory Rate 18 Blood Pressure 106/43 L Pulse Oximetry 97 Oxygen Delivery Oxygen Flow Rate Intake/Output Intake/Output: Intake & Output 02/25/25 02/26/25 02/27/25 02/28/25 23:59 23:59 23:59 23:59 Intake Total 3105.0 1826 2755.0 440 Output Total 60 75 20 Balance 3045.0 1751 2735.0 440 Meds/Results Medications: Active Medications Generic Name Dose Route Start Last Admin Trade Name Freq PRN Reason Stop Dose Admin Acetaminophen 650 mg 02/18/25 13:04 Acetaminophen 325 Mg Tablet PO Q4H PRN Mild Pain (1-3) or Fever Hydrocodone Bitart/Acetaminophen 1 tab 02/18/25 13:04 02/25/25 18:23 Hydrocodone/Acetaminophen (*Crx) 5-325 Mg Tablet PO 1 tab Q4H PRN Administration Moderate Pain 4-6 Hydrocodone Bitart/Acetaminophen 1 tab 02/19/25 11:33 02/28/25 06:22 Hydrocodone/Acetaminophen (*Crx) 10-325 Mg Tablet PO 1 tab Q6H PRN Administration Pain Rated 7-10 Albuterol 2 puff 02/23/25 11:58 Albuterol Sulfate (*Sp) Aerosol 1 Puff INHALATION Q6HRT PRN Shortness Of Breath Cyclobenzaprine HCl 10 mg 02/18/25 12:06 Cyclobenzaprine Hcl 10 Mg Tablet PO HS PRN Muscle Spasm Dextrose 12.5 gm 02/24/25 08:33 Dextrose 50% 25 Gm/50 Ml Syringe IV PUSH PRN PRN Hypoglycemia Protocol Enoxaparin Sodium 40 mg 02/19/25 09:00 02/28/25 08:50 Enoxaparin 40 Mg/0.4 Ml Syringe SUB-Q 40 mg DAILY EMRE Administration Ergocalciferol 1,250 mcg 02/21/25 09:00 02/28/25 08:54 Ergocalciferol (Vitamin D2) 1,250 Mcg (50,000 Units) Capsule PO 1,250 mcg Fr@0900 EMRE Administration Fluconazole 200 mg 02/26/25 09:00 02/28/25 08:50 Fluconazole 100 Mg Tablet PO 200 mg QAM EMRE Administration Gabapentin 300 mg 02/20/25 21:00 02/27/25 21:51 Gabapentin 300 Mg Capsule PO 300 mg QHS EMRE Administration Glucagon 1 mg 02/24/25 08:33 Glucagon For Inj 1 Mg Vial IM PRN PRN Hypoglycemia Protocol Glucose 15 gm 02/24/25 08:33 Glucose Oral Gel 15 Gm Of Glucse In 37.5 Gm Tube PO PRN PRN Hypoglycemia Protocol Hydralazine HCl 10 mg 02/18/25 14:42 Hydralazine Hcl 20 Mg/Ml Vial IV PUSH Q8H PRN Blood Pressure - High Dextrose 1,000 mls @ 50 mls/hr 02/21/25 14:10 Dextrose 10% IV CONT .Q20H PRN if PN is interrupted Multivitamins 1.25 ml/ 1,002.5 mls @ 60 mls/hr 02/21/25 15:00 02/27/25 21:39 Multivitamins 1.25 ml/ Amino IV CONT 60 mls/hr Acids/Electrolytes/Dextrose .[id number] EMRE Administration Protocol Fat Emulsion Intravenous 250 mls @ 20.833 mls/hr 02/21/25 15:00 02/27/25 21:38 Lipids 20% IVPB 20.8 mls/hr Q24H EMRE Administration Dextrose 1,000 mls @ 100 mls/hr 02/24/25 08:33 Dextrose 5% 1,000 Ml IVPB PRN PRN Hypoglycemia Protocol Meropenem 1 gm/ Sodium 100 mls @ 200 mls/hr 02/25/25 14:00 02/28/25 09:11 Chloride IVPB 200 mls/hr Q8H EMRE Administration Insulin Aspart 2 - 5 units 02/24/25 12:00 02/28/25 07:28 Insulin Aspart (*Bkc) 100 Units/Ml SUB-Q Not Given Q6HR EMRE Protocol Insulin Glargine 7 units 02/21/25 21:00 02/27/25 21:54 Insulin Glargine (*Bkc) 100 Units/Ml 0.15 units/kg (7 units) Not Given SUB-Q HS EMRE Linaclotide 290 mcg 02/19/25 06:30 02/28/25 06:21 Linaclotide 145 Mcg Capsule PO 290 mcg DAILY@0630 EMRE Administration Magnesium Oxide 200 mg 02/19/25 21:00 02/28/25 08:48 Magnesium Oxide 200 Mg Tablet PO 200 mg Q12HR EMRE Administration Metoprolol Succinate 25 mg 02/19/25 09:00 02/28/25 08:48 Metoprolol Succinate Ext Rel 25 Mg Tabcr PO 25 mg DAILY EMRE Administration Mirtazapine 15 mg 02/18/25 21:00 02/27/25 21:51 Mirtazapine 15 Mg Tablet PO 15 mg HS EMRE Administration Miscellaneous Information 1 each 02/28/25 00:01 Please Renew Norco_. Per [employer] Procedure, It Will Discontinue If Not Renewed XX 02/28/25 23:59 CLARIFY EMRE Morphine Sulfate 2 mg 02/21/25 14:04 02/26/25 08:54 Morphine Sulfate (*Crx) 4 Mg/Ml Inj IV PUSH 2 mg Q4H PRN Administration Pain Rated 4-6 Morphine Sulfate 4 mg 02/21/25 14:04 02/28/25 03:29 Morphine Sulfate (*Crx) 4 Mg/Ml Inj IV PUSH 4 mg Q4H PRN Administration Pain Rated 7-10 Pantoprazole Sodium 40 mg 02/19/25 09:00 02/28/25 08:48 Pantoprazole 40 Mg Tablet PO 40 mg DAILY EMRE Administration Simvastatin 40 mg 02/19/25 09:00 02/28/25 08:48 Simvastatin 20 Mg Tablet PO 40 mg DAILY EMRE Administration Sodium Chloride 10 ml 02/21/25 14:00 02/28/25 06:22 Central Line Flush IV PUSH 10 ml Q8HR EMRE Administration Sodium Chloride 10 ml 02/21/25 13:49 Central Line Flush IV PUSH PRN PRN with TPN bag changes Sodium Chloride 20 ml 02/21/25 13:49 Central Line Flush IV PUSH PRN PRN after blood draws Umeclidinium/Vilanterol 1 puff 02/18/25 12:20 02/28/25 08:07 Umeclidinium/Vilanterol 62.5-25 Mcg Ellipta INHALATION 1 puff DAILYRT EMRE Administration Radiology Results: ITS Impressions Catheter Placement CT 02/19/25 11:16 IMPRESSION: 1[address] Successful CT-guided abscess drainage with placement of a percutaneous abscess drain in the more superficial subcutaneous component of the collection which appears to communicate with the collection deep to the ventral hernia mesh repair. 2. 30 mL fluid was sent for aerobic and anaerobic cultures. 3. The catheter will be managed by Dr. Flores. Abdomen/Pelvis CT 02/26/25 09:10 IMPRESSION: 1. Slight decrease in size of a now 9.6 x 7.9 x 2.0 cm abscess along the deep margin of a revised ventral hernia mesh repair on the right lower quadrant and pelvic anterior abdominal wall. Unchanged pigtail drainage catheter within a likely communicating and now collapsed abscess cavity along the superficial margin of the mesh repair. Labs Labs: Laboratory Results - last 24 hr 02/27/25 02/27/25 02/28/25 11:50 19:49 00:25 Sodium Potassium Chloride Carbon Dioxide Anion Gap BUN Creatinine Estim Creat Clear Calc Estimated GFR Glucose POC Capillary Glucose 110 H 85 102 Calcium Phosphorus 02/28/25 02/28/25 06:32 07:20 Sodium 133 L Potassium 4.9 Chloride 100 Carbon Dioxide 29 Anion Gap 4 BUN 21 H Creatinine 0.67 L Estim Creat Clear Calc 50 Estimated GFR > 60 Glucose 88 POC Capillary Glucose 109 H Calcium 9.2 Phosphorus 3.8
--- NOTE | 2025-02-28 10:22 | WPDINFPN2 ---
Progress Note: A&P Assessment and Plan (1) Abdominal wall abscess: Code(s): L02.211 - Cutaneous abscess of abdominal wall Status: Acute Plan ASSESSMENT 1. abdominal wall abscess iso ventral hernia repair with mesh on 02/03/25--also old mesh in place from prior abdominal hernia repair; s/p drain placement--now s/p I&D of abd wall abscess--old mesh still in place. Per Op note, not connecting with new mesh 2. HTN, HL, COPD RECOMMENDATIONS: -abscess cx with ESBL E. coli and jung albicans -meropenem and fluconazole while in hospital -f/u on OR cx from 02/27 -will need po abx on discharge until further surgery can be performed (ie ?4 weeks?) with all mesh removed d/w pharmacy staff Pt was seen via video telehealth consultation with the assistance of staff. Chart, data and patient info reviewed. Patient was located at [facility] while I was in my [place] office. Pt gave consent. Subjective Date/time seen: 02/28/25 10:22 Interval history: no high temps no leukocytosis Exam Narrative: abd tender and with wound vac pt non-toxic, o room air NAD Objective Data Vital Signs Vital Signs: Vital Signs - 24 hr 02/27/25 14:00 02/27/25 14:58 02/27/25 19:24 Temperature 97.7 F 98.0 F 97.6 F Pulse Rate 69 68 84 Respiratory Rate 18 16 20 Blood Pressure 107/50 L 110/55 L 140/58 L Pulse Oximetry 99 99 96 Oxygen Delivery Room Air Simple Face Mask Oxygen Flow Rate 10 02/27/25 19:30 02/27/25 19:45 02/27/25 20:00 Temperature Pulse Rate 86 98 89 Respiratory Rate 20 20 20 Blood Pressure 117/63 120/89 90/50 L Pulse Oximetry 92 100 96 Oxygen Delivery Room Air Room Air Room Air Oxygen Flow Rate 02/27/25 20:15 02/27/25 20:23 02/27/25 20:37 Temperature 98.5 F Pulse Rate 89 93 91 Respiratory Rate 20 18 18 Blood Pressure 98/48 L 99/56 L 101/49 L Pulse Oximetry 97 99 97 Oxygen Delivery Room Air Room Air Oxygen Flow Rate 02/27/25 20:55 02/27/25 21:20 02/27/25 22:35 Temperature 99.7 F H 97.9 F 97.6 F Pulse Rate 88 85 88 Respiratory Rate 16 20 16 Blood Pressure 113/56 L 95/70 L 110/49 L Pulse Oximetry 97 97 97 Oxygen Delivery Oxygen Flow Rate 02/28/25 04:50 02/28/25 08:48 Temperature 98.1 F Pulse Rate 70 76 Respiratory Rate 18 Blood Pressure 106/43 L Pulse Oximetry 97 Oxygen Delivery Oxygen Flow Rate Intake/Output Intake/Output: Intake & Output 02/25/25 02/26/25 02/27/25 02/28/25 23:59 23:59 23:59 23:59 Intake Total 3105.0 1826 2755.0 440 Output Total 60 75 20 Balance 3045.0 1751 2735.0 440 Meds/Results Medications: Active Medications Generic Name Dose Route Start Last Admin Trade Name Freq PRN Reason Stop Dose Admin Acetaminophen 650 mg 02/18/25 13:04 Acetaminophen 325 Mg Tablet PO Q4H PRN Mild Pain (1-3) or Fever Hydrocodone Bitart/Acetaminophen 1 tab 02/18/25 13:04 02/25/25 18:23 Hydrocodone/Acetaminophen (*Crx) 5-325 Mg Tablet PO 1 tab Q4H PRN Administration Moderate Pain 4-6 Hydrocodone Bitart/Acetaminophen 1 tab 02/19/25 11:33 02/28/25 06:22 Hydrocodone/Acetaminophen (*Crx) 10-325 Mg Tablet PO 1 tab Q6H PRN Administration Pain Rated 7-10 Albuterol 2 puff 02/23/25 11:58 Albuterol Sulfate (*Sp) Aerosol 1 Puff INHALATION Q6HRT PRN Shortness Of Breath Cyclobenzaprine HCl 10 mg 02/18/25 12:06 Cyclobenzaprine Hcl 10 Mg Tablet PO HS PRN Muscle Spasm Dextrose 12.5 gm 02/24/25 08:33 Dextrose 50% 25 Gm/50 Ml Syringe IV PUSH PRN PRN Hypoglycemia Protocol Enoxaparin Sodium 40 mg 02/19/25 09:00 02/28/25 08:50 Enoxaparin 40 Mg/0.4 Ml Syringe SUB-Q 40 mg DAILY EMRE Administration Ergocalciferol 1,250 mcg 02/21/25 09:00 02/28/25 08:54 Ergocalciferol (Vitamin D2) 1,250 Mcg (50,000 Units) Capsule PO 1,250 mcg Fr@0900 EMRE Administration Fluconazole 200 mg 02/26/25 09:00 02/28/25 08:50 Fluconazole 100 Mg Tablet PO 200 mg QAM EMRE Administration Gabapentin 300 mg 02/20/25 21:00 02/27/25 21:51 Gabapentin 300 Mg Capsule PO 300 mg QHS EMRE Administration Glucagon 1 mg 02/24/25 08:33 Glucagon For Inj 1 Mg Vial IM PRN PRN Hypoglycemia Protocol Glucose 15 gm 02/24/25 08:33 Glucose Oral Gel 15 Gm Of Glucse In 37.5 Gm Tube PO PRN PRN Hypoglycemia Protocol Hydralazine HCl 10 mg 02/18/25 14:42 Hydralazine Hcl 20 Mg/Ml Vial IV PUSH Q8H PRN Blood Pressure - High Dextrose 1,000 mls @ 50 mls/hr 02/21/25 14:10 Dextrose 10% IV CONT .Q20H PRN if PN is interrupted Multivitamins 1.25 ml/ 1,002.5 mls @ 60 mls/hr 02/21/25 15:00 02/27/25 21:39 Multivitamins 1.25 ml/ Amino IV CONT 60 mls/hr Acids/Electrolytes/Dextrose .[id number] EMRE Administration Protocol Fat Emulsion Intravenous 250 mls @ 20.833 mls/hr 02/21/25 15:00 02/27/25 21:38 Lipids 20% IVPB 20.8 mls/hr Q24H EMRE Administration Dextrose 1,000 mls @ 100 mls/hr 02/24/25 08:33 Dextrose 5% 1,000 Ml IVPB PRN PRN Hypoglycemia Protocol Meropenem 1 gm/ Sodium 100 mls @ 200 mls/hr 02/25/25 14:00 02/28/25 09:11 Chloride IVPB 200 mls/hr Q8H EMRE Administration Insulin Aspart 2 - 5 units 02/24/25 12:00 02/28/25 07:28 Insulin Aspart (*Bkc) 100 Units/Ml SUB-Q Not Given Q6HR [facility] Protocol Insulin Glargine 7 units 02/21/25 21:00 02/27/25 21:54 Insulin Glargine (*Bkc) 100 Units/Ml 0.15 units/kg (7 units) Not Given SUB-Q HS [facility] Linaclotide 290 mcg 02/19/25 06:30 12/12/25 06:21 Linaclotide 145 Mcg Capsule PO 290 mcg DAILY@0630 EMRE Administration Magnesium Oxide 200 mg 02/19/25 21:00 02/28/25 08:48 Magnesium Oxide 200 Mg Tablet PO 200 mg Q12HR EMRE Administration Metoprolol Succinate 25 mg 02/19/25 09:00 02/28/25 08:48 Metoprolol Succinate Ext Rel 25 Mg Tabcr PO 25 mg DAILY EMRE Administration Mirtazapine 15 mg 02/18/25 21:00 02/27/25 21:51 Mirtazapine 15 Mg Tablet PO 15 mg HS EMRE Administration Miscellaneous Information 1 each 02/28/25 00:01 Please Renew Norco_. Per [employer] Procedure, It Will Discontinue If Not Renewed XX 02/28/25 23:59 CLARIFY EMRE Morphine Sulfate 2 mg 02/21/25 14:04 02/26/25 08:54 Morphine Sulfate (*Crx) 4 Mg/Ml Inj IV PUSH 2 mg Q4H PRN Administration Pain Rated 4-6 Morphine Sulfate 4 mg 02/21/25 14:04 02/28/25 03:29 Morphine Sulfate (*Crx) 4 Mg/Ml Inj IV PUSH 4 mg Q4H PRN Administration Pain Rated 7-10 Pantoprazole Sodium 40 mg 02/19/25 09:00 02/28/25 08:48 Pantoprazole 40 Mg Tablet PO 40 mg DAILY EMRE Administration Simvastatin 40 mg 02/19/25 09:00 02/28/25 08:48 Simvastatin 20 Mg Tablet PO 40 mg DAILY EMRE Administration Sodium Chloride 10 ml 02/21/25 14:00 02/28/25 06:22 Central Line Flush IV PUSH 10 ml Q8HR EMRE Administration Sodium Chloride 10 ml 02/21/25 13:49 Central Line Flush IV PUSH PRN PRN with TPN bag changes Sodium Chloride 20 ml 02/21/25 13:49 Central Line Flush IV PUSH PRN PRN after blood draws Umeclidinium/Vilanterol 1 puff 02/18/25 12:20 02/28/25 08:07 Umeclidinium/Vilanterol 62.5-25 Mcg Ellipta INHALATION 1 puff DAILYRT EMRE Administration Radiology Results: ITS Impressions Catheter Placement CT 02/19/25 11:16 IMPRESSION: 1. Successful CT-guided abscess drainage with placement of a percutaneous abscess drain in the more superficial subcutaneous component of the collection which appears to communicate with the collection deep to the ventral hernia mesh repair. 2. 30 mL fluid was sent for aerobic and anaerobic cultures. 3. The catheter will be managed by Dr. Flores. Abdomen/Pelvis CT 02/26/25 09:10 IMPRESSION: 1. Slight decrease in size of a now 9.6 x 7.9 x 2.0 cm abscess along the deep margin of a revised ventral hernia mesh repair on the right lower quadrant and pelvic anterior abdominal wall. Unchanged pigtail drainage catheter within a likely communicating and now collapsed abscess cavity along the superficial margin of the mesh repair. Labs Labs: Laboratory Results - last 24 hr 02/27/25 02/27/25 02/28/25 11:50 19:49 00:25 Sodium Potassium Chloride Carbon Dioxide Anion Gap BUN Creatinine Estim Creat Clear Calc Estimated GFR Glucose POC Capillary Glucose 110 H 85 102 Calcium Phosphorus 02/28/25 02/28/25 06:32 07:20 Sodium 133 L Potassium 4.9 Chloride 100 Carbon Dioxide 29 Anion Gap 4 BUN 21 H Creatinine 0.67 L Estim Creat Clear Calc 50 Estimated GFR > 60 Glucose 88 POC Capillary Glucose 109 H Calcium 9.2 Phosphorus 3.8
--- NOTE | 2025-02-28 10:42 | WPDANESPN ---
Anes - Prog Note Post-Op Date/Time: 02/28/25 10:42 Cardiovascular status: normal Respiratory status: normal Airway patency: baseline Mental status: baseline Post-Op hydration status: normal Vital Signs: Last Vital Signs Temp 36.7 C 02/28/25 04:50 Pulse 76 02/28/25 08:48 Resp 18 02/28/25 04:50 BP 106/43 L 02/28/25 04:50 Pulse Ox 97 02/28/25 04:50 O2 Del Method Room Air 02/27/25 20:23 O2 Flow Rate 10 02/27/25 19:24 FiO2 21 02/26/25 08:33 Pain Score (VAS): 2 I/O: Intake & Output 02/27/25 02/28/25 02/28/25 23:59 07:59 15:59 Intake Total 1102.5 200 240 Balance 1102.5 200 240 Laboratory Tests 02/27/25 05:33 02/28/25 06:32 02/27/25 02/27/25 02/28/25 11:50 19:49 00:25 Sodium Potassium Chloride Carbon Dioxide Anion Gap BUN Creatinine Estim Creat Clear Calc Estimated GFR Glucose POC Capillary Glucose 110 H 85 102 Calcium Phosphorus 02/28/25 02/28/25 06:32 07:20 Sodium 133 L Potassium 4.9 Chloride 100 Carbon Dioxide 29 Anion Gap 4 BUN 21 H Creatinine 0.67 L Estim Creat Clear Calc 50 Estimated GFR > 60 Glucose 88 POC Capillary Glucose 109 H Calcium 9.2 Phosphorus 3.8 Patient Feedback: Patient satisfied with anesthetic care.
[2025-02-28] MEDS: AMINO ACIDS 5%/D15W/E-LYTES/CA 1,000 ML with MULTIVITAMINS-12 INJ VIAL 1 1.25 ML, MULTI... 60 ML IV CONT (11:50)
--- NOTE | 2025-02-28 12:00 | P.PNGS_ITS ---
Progress Note: A&P Assessment and Plan (1) Abdominal wall abscess: Code(s): L02.211 - Cutaneous abscess of abdominal wall Status: Acute Assessment and Plan: * Pod 1 status post complex incision drainage right lower quadrant abdominal wall abscess and application of wound VAC. wound VAC change today. Healing appropriately. 9 x 6 x 4 cm wound with old mesh from previous ventral hernia repair as the wound base. patient tolerated wound VAC change well. She did however require pain medication afterwards. She is tolerating a diet without nausea or vomiting. Bowel movements morning with no abnormalities. Ambulating appropriately. * Continue TPN today. Half rate tomorrow morning and discontinue tomorrow. * Spoke with wound care nurse and career resource technician. Unfortunately all home health services that were contacted do not go out as far as patient's address. Working on approval for [facility] after discharge. * WBC normal. Continue IV antibiotics. (2) Protein-calorie malnutrition, severe: Code(s): E43 - Unspecified severe protein-calorie malnutrition Status: Acute Assessment and Plan: * Continue TPN today. Half rate tomorrow and discontinue once the bag is empty. (3) History of gastric bypass: Code(s): Z98.84 - Bariatric surgery status Status: Chronic Plan Discussed patient's case and plan of care with Dr. Flores. Subjective Subjective Date/Time Seen: 02/28/25 12:00 Post Op day: 1 ( complex incision and drainage right lower quadrant abdominal wall abscess and application of wound VAC) Patient reports: no new complaints, feels better, still having pain, tolerating liquids well and afebrile Interval history: Patient doing well this morning. Still having pain, but improved from yesterday. Wound VAC in place and functioning well. Patient tolerating diet without any nausea or vomiting. Bowel movement this morning. Exam Const: General: comfortable and no acute distress Eyes: General: appearance normal, both eyes and all related structures GI: Inspection: non-distended GI Palp: Yes Soft to palpation and Yes Tenderness to palpation present (GI) ( Minimal right lower quadrant tenderness.) Other: Wound VAC to right lower quadrant changed with wound care nurseAnnmarie, at bedside today. Wound is approximately 9 x 6 x 4 cm. Wound bed is old mesh from previous ventral hernia repair. There was some greenish yellow 6 substance overlying the mesh that could possibly resemble enteric contents, but not likely. No visible bowel or perforation. Canister with bloody serosanguineous fluid. : General: Yes bladder normal to palpation Skin: General skin exam: normal color Extrem: General: normal to inspection Psych: Mental Status: mental status grossly normal Objective Data Vital Signs Vital Signs: Vital Signs - 24 hr 02/27/25 14:00 02/27/25 14:58 02/27/25 19:24 Temperature 97.7 F 98.0 F 97.6 F Pulse Rate 69 68 84 Respiratory Rate 18 16 20 Blood Pressure 107/50 L 110/55 L 140/58 L Pulse Oximetry 99 99 96 Oxygen Delivery Room Air Simple Face Mask Oxygen Flow Rate 10 02/27/25 19:30 02/27/25 19:45 02/27/25 20:00 Temperature Pulse Rate 86 98 89 Respiratory Rate 20 20 20 Blood Pressure 117/63 120/89 90/50 L Pulse Oximetry 92 100 96 Oxygen Delivery Room Air Room Air Room Air Oxygen Flow Rate 02/27/25 20:15 02/27/25 20:23 02/27/25 20:37 Temperature 98.5 F Pulse Rate 89 93 91 Respiratory Rate 20 18 18 Blood Pressure 98/48 L 99/56 L 101/49 L Pulse Oximetry 97 99 97 Oxygen Delivery Room Air Room Air Oxygen Flow Rate 02/27/25 20:55 02/27/25 21:20 02/27/25 22:35 Temperature 99.7 F H 97.9 F 97.6 F Pulse Rate 88 85 88 Respiratory Rate 16 20 16 Blood Pressure 113/56 L 95/70 L 110/49 L Pulse Oximetry 97 97 97 Oxygen Delivery Oxygen Flow Rate 02/28/25 04:50 02/28/25 08:48 Temperature 98.1 F Pulse Rate 70 76 Respiratory Rate 18 Blood Pressure 106/43 L Pulse Oximetry 97 Oxygen Delivery Oxygen Flow Rate Intake/Output Intake/Output: Intake & Output 02/25/25 02/26/25 02/27/25 02/28/25 23:59 23:59 23:59 23:59 Intake Total 3105.0 1826 2755.0 1291 Output Total 60 75 20 Balance 3045.0 1751 2735.0 1291 Meds/Results Medications: Active Medications Generic Name Dose Route Start Last Admin Trade Name Freq PRN Reason Stop Dose Admin Acetaminophen 650 mg 02/18/25 13:04 Acetaminophen 325 Mg Tablet PO Q4H PRN Mild Pain (1-3) or Fever Hydrocodone Bitart/Acetaminophen 1 tab 02/18/25 13:04 02/25/25 18:23 Hydrocodone/Acetaminophen (*Crx) 5-325 Mg Tablet PO 1 tab Q4H PRN Administration Moderate Pain 4-6 Hydrocodone Bitart/Acetaminophen 1 tab 02/19/25 11:33 02/28/25 11:49 Hydrocodone/Acetaminophen (*Crx) 10-325 Mg Tablet PO 1 tab Q6H PRN Administration Pain Rated 7-10 Albuterol 2 puff 02/23/25 11:58 Albuterol Sulfate (*Sp) Aerosol 1 Puff INHALATION Q6HRT PRN Shortness Of Breath Cyclobenzaprine HCl 10 mg 02/18/25 12:06 Cyclobenzaprine Hcl 10 Mg Tablet PO HS PRN Muscle Spasm Dextrose 12.5 gm 02/24/25 08:33 Dextrose 50% 25 Gm/50 Ml Syringe IV PUSH PRN PRN Hypoglycemia Protocol Enoxaparin Sodium 40 mg 02/19/25 09:00 02/28/25 08:50 Enoxaparin 40 Mg/0.4 Ml Syringe SUB-Q 40 mg DAILY EMRE Administration Ergocalciferol 1,250 mcg 02/21/25 09:00 02/28/25 08:54 Ergocalciferol (Vitamin D2) 1,250 Mcg (50,000 Units) Capsule PO 1,250 mcg Fr@0900 EMRE Administration Fluconazole 200 mg 02/26/25 09:00 02/28/25 08:50 Fluconazole 100 Mg Tablet PO 200 mg QAM EMRE Administration Gabapentin 300 mg 02/20/25 21:00 02/27/25 21:51 Gabapentin 300 Mg Capsule PO 300 mg QHS EMRE Administration Glucagon 1 mg 02/24/25 08:33 Glucagon For Inj 1 Mg Vial IM PRN PRN Hypoglycemia Protocol Glucose 15 gm 02/24/25 08:33 Glucose Oral Gel 15 Gm Of Glucse In 37.5 Gm Tube PO PRN PRN Hypoglycemia Protocol Hydralazine HCl 10 mg 02/18/25 14:42 Hydralazine Hcl 20 Mg/Ml Vial IV PUSH Q8H PRN Blood Pressure - High Dextrose 1,000 mls @ 50 mls/hr 02/21/25 14:10 Dextrose 10% IV CONT .Q20H PRN if PN is interrupted Multivitamins 1.25 ml/ 1,002.5 mls @ 60 mls/hr 02/21/25 15:00 02/28/25 11:50 Multivitamins 1.25 ml/ Amino IV CONT 60 mls/hr Acids/Electrolytes/Dextrose .[id number] EMRE Administration Protocol Fat Emulsion Intravenous 250 mls @ 20.833 mls/hr 02/21/25 15:00 02/27/25 21:38 Lipids 20% IVPB 20.8 mls/hr Q24H EMRE Administration Dextrose 1,000 mls @ 100 mls/hr 02/24/25 08:33 Dextrose 5% 1,000 Ml IVPB PRN PRN Hypoglycemia Protocol Meropenem 1 gm/ Sodium 100 mls @ 200 mls/hr 02/25/25 14:00 02/28/25 09:11 Chloride IVPB 200 mls/hr Q8H EMRE Administration Insulin Aspart 2 - 5 units 02/24/25 12:00 02/28/25 07:28 Insulin Aspart (*Bkc) 100 Units/Ml SUB-Q Not Given Q6HR [facility] Protocol Insulin Glargine 7 units 02/21/25 21:00 02/27/25 21:54 Insulin Glargine (*Bkc) 100 Units/Ml 0.15 units/kg (7 units) Not Given SUB-Q HS EMRE Linaclotide 290 mcg 02/19/25 06:30 02/28/25 06:21 Linaclotide 145 Mcg Capsule PO 290 mcg DAILY@0630 EMRE Administration Magnesium Oxide 200 mg 02/19/25 21:00 02/28/25 08:48 Magnesium Oxide 200 Mg Tablet PO 200 mg Q12HR EMRE Administration Metoprolol Succinate 25 mg 02/19/25 09:00 02/28/25 08:48 Metoprolol Succinate Ext Rel 25 Mg Tabcr PO 25 mg DAILY EMRE Administration Mirtazapine 15 mg 02/18/25 21:00 02/27/25 21:51 Mirtazapine 15 Mg Tablet PO 15 mg HS EMRE Administration Miscellaneous Information 1 each 02/28/25 00:01 Please Renew Norco_. Per [employer] Procedure, It Will Discontinue If Not Renewed XX 02/28/25 23:59 CLARIFY EMRE Morphine Sulfate 2 mg 02/21/25 14:04 02/26/25 08:54 Morphine Sulfate (*Crx) 4 Mg/Ml Inj IV PUSH 2 mg Q4H PRN Administration Pain Rated 4-6 Morphine Sulfate 4 mg 02/21/25 14:04 02/28/25 03:29 Morphine Sulfate (*Crx) 4 Mg/Ml Inj IV PUSH 4 mg Q4H PRN Administration Pain Rated 7-10 Pantoprazole Sodium 40 mg 02/19/25 09:00 02/28/25 08:48 Pantoprazole 40 Mg Tablet PO 40 mg DAILY EMRE Administration Simvastatin 40 mg 02/19/25 09:00 02/28/25 08:48 Simvastatin 20 Mg Tablet PO 40 mg DAILY EMRE Administration Sodium Chloride 10 ml 02/21/25 14:00 02/28/25 06:22 Central Line Flush IV PUSH 10 ml Q8HR EMRE Administration Sodium Chloride 10 ml 02/21/25 13:49 Central Line Flush IV PUSH PRN PRN with TPN bag changes Sodium Chloride 20 ml 02/21/25 13:49 Central Line Flush IV PUSH PRN PRN after blood draws Umeclidinium/Vilanterol 1 puff 02/18/25 12:20 02/28/25 08:07 Umeclidinium/Vilanterol 62.5-25 Mcg Ellipta INHALATION 1 puff DAILYRT EMRE Administration Radiology Results: ITS Impressions Catheter Placement CT 02/19/25 11:16 IMPRESSION: 1[address] Successful CT-guided abscess drainage with placement of a percutaneous abscess drain in the more superficial subcutaneous component of the collection which appears to communicate with the collection deep to the ventral hernia mesh repair. 2. 30 mL fluid was sent for aerobic and anaerobic cultures. 3. The catheter will be managed by Dr. Flores. Abdomen/Pelvis CT 02/26/25 09:10 IMPRESSION: 1. Slight decrease in size of a now 9.6 x 7.9 x 2.0 cm abscess along the deep margin of a revised ventral hernia mesh repair on the right lower quadrant and pelvic anterior abdominal wall. Unchanged pigtail drainage catheter within a likely communicating and now collapsed abscess cavity along the superficial margin of the mesh repair. Labs Labs: Laboratory Results - last 24 hr 02/27/25 02/27/25 02/28/25 11:50 19:49 00:25 Sodium Potassium Chloride Carbon Dioxide Anion Gap BUN Creatinine Estim Creat Clear Calc Estimated GFR Glucose POC Capillary Glucose 110 H 85 102 Calcium Phosphorus 12/12/25 12/12/25 12/12/25 06:32 07:20 11:31 Sodium 133 L Potassium 4.9 Chloride 100 Carbon Dioxide 29 Anion Gap 4 BUN 21 H Creatinine 0.67 L Estim Creat Clear Calc 50 Estimated GFR > 60 Glucose 88 POC Capillary Glucose 109 H 101 Calcium 9.2 Phosphorus 3.8
--- NOTE | 2025-02-28 12:23 | PCNFU ---
Nutrition Follow-Up Complete: Inadequate energy intake related to NPO status as evidenced by current diet order Unintentional weight loss related to reduced appetite and intake as evidenced by noted weight loss, pt report. Goal:Diet order PO intake adequate pt meeting goals. Pt current nutrition is Regular, TPN clinimix E /15 running at 60ml/hr providing 1522kcals, 72g protein. Nutrition recommendation: reduce TPN, discontinue if possible Last recorded weight is 48 kg. Bowel Motility: +Bm 02/28 - per pt Labs Reviewed:Hgb:9.4, HCt:31.1, NA:133, BUN:21, Cr:0.67 Meds Noted: remeron, lovenox, protonix, lantus Skin: WNL Additional Notes: Pt continues on TPN, exceeding estimated needs. Noted recommendation for TPN at 40ml/hr, running at 60ml/hr. Pt on a Regular diet, ate 100% and tolerated well. Agreeable to have Ensure shakes. Recommend to discontinue the TPN at this time. Monitor for diet order, intake, wt, labs. follow up in 5 days.
--- NOTE | 2025-02-28 12:37 | P.PNIM_ITS ---
Assessment and Plan Assessment and Plan (1) Cellulitis of abdominal wall: Code(s): L03.311 - Cellulitis of abdominal wall Status: Acute Assessment and Plan: CT AP showed slight decrease in size of a now 9.6 x 7.9 x 2.0 cm * s/p percutaneous abscess drainage by IR on 02/19/2025 and another one 02/27/2025 * Being managed by General surgery * Currently on micafungin and Zosyn * Remains NPO with TPN * Gen surgery following (2) Hypertension: Code(s): I10 - Essential (primary) hypertension Status: Acute Assessment and Plan: Blood pressures are stable * Continue home antihypertensives * Monitor BP trend (3) Hyperlipidemia: Code(s): E78.5 - Hyperlipidemia, unspecified Status: Acute Assessment and Plan: Continue home simvastatin (4) COPD (chronic obstructive pulmonary disease): Code(s): J44.9 - Chronic obstructive pulmonary disease, unspecified Status: Acute Assessment and Plan: Chronic and stable, not in acute exacerbation * Continue home Anoro Ellipta * Albuterol inhaler p.r.n. during admission (5) Hypokalemia: Code(s): E87.6 - Hypokalemia Status: Acute Assessment and Plan: Potassium 3.8 today * Monitor daily BMP and supplement potassium as needed Plan DVT prophylaxis on Sq lovenox Subjective Date/time seen: 02/28/25 12:37 Interval history: Comfortable at bedside Review of Systems Review of Systems: Pt feels better All systems reviewed & are unremarkable except as noted in HPI and below Exam Narrative: GENERAL: Comfortable, no acute distress HENMT: moist mucous membranes EYES: EOM intact b/l NECK: no lymphadenopathy RESPIRATORY: clear to auscultation, no increased respiratory effort CARDIO: Regular rate and rhythm GI: bowel sounds present, Perc drain in place draining purulent fluid. SKIN/EXTREMITIES: no rashes, no edema, no redness or tenderness Objective Data Vital Signs Vital Signs: Vital Signs - 24 hr 02/27/25 14:00 02/27/25 14:58 02/27/25 19:24 Temperature 97.7 F 98.0 F 97.6 F Pulse Rate 69 68 84 Respiratory Rate 18 16 20 Blood Pressure 107/50 L 110/55 L 140/58 L Pulse Oximetry 99 99 96 Oxygen Delivery Room Air Simple Face Mask Oxygen Flow Rate 10 02/27/25 19:30 02/27/25 19:45 02/27/25 20:00 Temperature Pulse Rate 86 98 89 Respiratory Rate 20 20 20 Blood Pressure 117/63 120/89 90/50 L Pulse Oximetry 92 100 96 Oxygen Delivery Room Air Room Air Room Air Oxygen Flow Rate 02/27/25 20:15 02/27/25 20:23 02/27/25 20:37 Temperature 98.5 F Pulse Rate 89 93 91 Respiratory Rate 20 18 18 Blood Pressure 98/48 L 99/56 L 101/49 L Pulse Oximetry 97 99 97 Oxygen Delivery Room Air Room Air Oxygen Flow Rate 02/27/25 20:55 02/27/25 21:20 02/27/25 22:35 Temperature 99.7 F H 97.9 F 97.6 F Pulse Rate 88 85 88 Respiratory Rate 16 20 16 Blood Pressure 113/56 L 95/70 L 110/49 L Pulse Oximetry 97 97 97 Oxygen Delivery Oxygen Flow Rate 02/28/25 04:50 02/28/25 08:48 Temperature 98.1 F Pulse Rate 70 76 Respiratory Rate 18 Blood Pressure 106/43 L Pulse Oximetry 97 Oxygen Delivery Oxygen Flow Rate Intake/Output Intake/Output: Intake & Output 02/25/25 02/26/25 02/27/25 02/28/25 23:59 23:59 23:59 23:59 Intake Total 3105.0 1826 2755.0 1291 Output Total 60 75 20 Balance 3045.0 1751 2735.0 1291 Meds/Results Medications: Active Medications Generic Name Dose Route Start Last Admin Trade Name Freq PRN Reason Stop Dose Admin Acetaminophen 650 mg 02/18/25 13:04 Acetaminophen 325 Mg Tablet PO Q4H PRN Mild Pain (1-3) or Fever Hydrocodone Bitart/Acetaminophen 1 tab 02/18/25 13:04 02/25/25 18:23 Hydrocodone/Acetaminophen (*Crx) 5-325 Mg Tablet PO 1 tab Q4H PRN Administration Moderate Pain 4-6 Hydrocodone Bitart/Acetaminophen 1 tab 02/19/25 11:33 02/28/25 11:49 Hydrocodone/Acetaminophen (*Crx) 10-325 Mg Tablet PO 1 tab Q6H PRN Administration Pain Rated 7-10 Albuterol 2 puff 02/23/25 11:58 Albuterol Sulfate (*Sp) Aerosol 1 Puff INHALATION Q6HRT PRN Shortness Of Breath Cyclobenzaprine HCl 10 mg 02/18/25 12:06 Cyclobenzaprine Hcl 10 Mg Tablet PO HS PRN Muscle Spasm Dextrose 12.5 gm 02/24/25 08:33 Dextrose 50% 25 Gm/50 Ml Syringe IV PUSH PRN PRN Hypoglycemia Protocol Enoxaparin Sodium 40 mg 02/19/25 09:00 02/28/25 08:50 Enoxaparin 40 Mg/0.4 Ml Syringe SUB-Q 40 mg DAILY EMRE Administration Ergocalciferol 1,250 mcg 02/21/25 09:00 02/28/25 08:54 Ergocalciferol (Vitamin D2) 1,250 Mcg (50,000 Units) Capsule PO 1,250 mcg Fr@0900 EMRE Administration Fluconazole 200 mg 02/26/25 09:00 02/28/25 08:50 Fluconazole 100 Mg Tablet PO 200 mg QAM EMRE Administration Gabapentin 300 mg 02/20/25 21:00 02/27/25 21:51 Gabapentin 300 Mg Capsule PO 300 mg QHS EMRE Administration Glucagon 1 mg 02/24/25 08:33 Glucagon For Inj 1 Mg Vial IM PRN PRN Hypoglycemia Protocol Glucose 15 gm 02/24/25 08:33 Glucose Oral Gel 15 Gm Of Glucse In 37.5 Gm Tube PO PRN PRN Hypoglycemia Protocol Hydralazine HCl 10 mg 02/18/25 14:42 Hydralazine Hcl 20 Mg/Ml Vial IV PUSH Q8H PRN Blood Pressure - High Dextrose 1,000 mls @ 50 mls/hr 02/21/25 14:10 Dextrose 10% IV CONT .Q20H PRN if PN is interrupted Multivitamins 1.25 ml/ 1,002.5 mls @ 60 mls/hr 02/21/25 15:00 02/28/25 11:50 Multivitamins 1.25 ml/ Amino IV CONT 60 mls/hr Acids/Electrolytes/Dextrose .[id number] EMRE Administration Protocol Fat Emulsion Intravenous 250 mls @ 20.833 mls/hr 02/21/25 15:00 02/27/25 21:38 Lipids 20% IVPB 20.8 mls/hr Q24H EMRE Administration Dextrose 1,000 mls @ 100 mls/hr 02/24/25 08:33 Dextrose 5% 1,000 Ml IVPB PRN PRN Hypoglycemia Protocol Meropenem 1 gm/ Sodium 100 mls @ 200 mls/hr 02/25/25 14:00 02/28/25 09:11 Chloride IVPB 200 mls/hr Q8H EMRE Administration Insulin Aspart 2 - 5 units 02/24/25 12:00 02/28/25 07:28 Insulin Aspart (*Bkc) 100 Units/Ml SUB-Q Not Given Q6HR EMRE Protocol Insulin Glargine 7 units 02/21/25 21:00 02/27/25 21:54 Insulin Glargine (*Bkc) 100 Units/Ml 0.15 units/kg (7 units) Not Given SUB-Q HS EMRE Linaclotide 290 mcg 02/19/25 06:30 02/28/25 06:21 Linaclotide 145 Mcg Capsule PO 290 mcg DAILY@0630 EMRE Administration Magnesium Oxide 200 mg 02/19/25 21:00 02/28/25 08:48 Magnesium Oxide 200 Mg Tablet PO 200 mg Q12HR EMRE Administration Metoprolol Succinate 25 mg 02/19/25 09:00 02/28/25 08:48 Metoprolol Succinate Ext Rel 25 Mg Tabcr PO 25 mg DAILY EMRE Administration Mirtazapine 15 mg 02/18/25 21:00 02/27/25 21:51 Mirtazapine 15 Mg Tablet PO 15 mg HS EMRE Administration Miscellaneous Information 1 each 02/28/25 00:01 Please Renew Norco_. Per [employer] Procedure, It Will Discontinue If Not Renewed XX 02/28/25 23:59 CLARIFY EMRE Morphine Sulfate 2 mg 02/21/25 14:04 02/26/25 08:54 Morphine Sulfate (*Crx) 4 Mg/Ml Inj IV PUSH 2 mg Q4H PRN Administration Pain Rated 4-6 Morphine Sulfate 4 mg 02/21/25 14:04 02/28/25 03:29 Morphine Sulfate (*Crx) 4 Mg/Ml Inj IV PUSH 4 mg Q4H PRN Administration Pain Rated 7-10 Pantoprazole Sodium 40 mg 02/19/25 09:00 02/28/25 08:48 Pantoprazole 40 Mg Tablet PO 40 mg DAILY EMRE Administration Simvastatin 40 mg 02/19/25 09:00 02/28/25 08:48 Simvastatin 20 Mg Tablet PO 40 mg DAILY EMRE Administration Sodium Chloride 10 ml 02/21/25 14:00 02/28/25 06:22 Central Line Flush IV PUSH 10 ml Q8HR EMRE Administration Sodium Chloride 10 ml 02/21/25 13:49 Central Line Flush IV PUSH PRN PRN with TPN bag changes Sodium Chloride 20 ml 02/21/25 13:49 Central Line Flush IV PUSH PRN PRN after blood draws Umeclidinium/Vilanterol 1 puff 02/18/25 12:20 02/28/25 08:07 Umeclidinium/Vilanterol 62.5-25 Mcg Ellipta INHALATION 1 puff DAILYRT EMRE Administration Radiology Results: ITS Impressions Catheter Placement CT 02/19/25 11:16 IMPRESSION: 1. Successful CT-guided abscess drainage with placement of a percutaneous abscess drain in the more superficial subcutaneous component of the collection which appears to communicate with the collection deep to the ventral hernia mesh repair. 2. 30 mL fluid was sent for aerobic and anaerobic cultures. 3. The catheter will be managed by Dr. Flores. Abdomen/Pelvis CT 02/26/25 09:10 IMPRESSION: 1. Slight decrease in size of a now 9.6 x 7.9 x 2.0 cm abscess along the deep margin of a revised ventral hernia mesh repair on the right lower quadrant and pelvic anterior abdominal wall. Unchanged pigtail drainage catheter within a likely communicating and now collapsed abscess cavity along the superficial margin of the mesh repair. Labs Labs: Laboratory Results - last 24 hr 02/27/25 02/28/25 02/28/25 19:49 00:25 06:32 Sodium 133 L Potassium 4.9 Chloride 100 Carbon Dioxide 29 Anion Gap 4 BUN 21 H Creatinine 0.67 L Estim Creat Clear Calc 50 Estimated GFR > 60 Glucose 88 POC Capillary Glucose 85 102 Calcium 9.2 Phosphorus 3.8 02/28/25 02/28/25 07:20 11:31 Sodium Potassium Chloride Carbon Dioxide Anion Gap BUN Creatinine Estim Creat Clear Calc Estimated GFR Glucose POC Capillary Glucose 109 H 101 Calcium Phosphorus Quality VTE Prophylaxis VTE prophylaxis: pharmacologic ordered
[2025-02-28] MEDS: GABAPENTIN 300 MG CAPSULE PO (21:23)
[2025-02-28] MEDS: MIRTAZAPINE 15 MG TABLET PO (21:23)
[2025-02-28] MEDS: CYCLOBENZAPRINE HCL 10 MG TABLET PO (21:23)
[2025-02-28] MEDS: INSULIN GLARGINE (*BKC) 100 UNITS/ML 7 UNITS SUB-Q (21:23)
[2025-02-28 22:19] VITALS: BP 119/46; PULSE 67; RESP 16; TEMP 36.4; O2SAT 99
[2025-03-01 00:36] VITALS: BP 138/63; PULSE 62; RESP 16; TEMP 36.3; O2SAT 100
[2025-03-01] MEDS: HYDROcodone/acetaminophen (*CRX) 10-325 MG TABLET 1 TAB PO ×3 (00:41→20:51)
[2025-03-01] MEDS: MEROPENEM 1 GM in SODIUM CHLORIDE 0.9% IV 100 ML 200 ML IVPB ×3 (01:36→20:52)
[2025-03-01 04:12] VITALS: BP 134/62; PULSE 62; RESP 16; TEMP 36.7; O2SAT 98
[2025-03-01] MEDS: LINACLOTIDE 145 MCG CAPSULE 290 MCG PO (06:10)
[2025-03-01] MEDS: CENTRAL LINE FLUSH 10 ML IV PUSH ×3 (06:15→21:01)
[2025-03-01 06:25] LABS: Hematocrit 30.6 % (37.0-47.0); Hemoglobin 9.4 g/dL (12.0-15.0); Immature Granulocyte Percent A 1.2 % (0-0.5); Lymphocytes Absolute Auto 2.34 K/mm3 (0.9-3.2); Mean Corpuscular HGB Conc 30.7 g/dl (32-36); Mean Corpuscular Hemoglobin 30.3 pg (26-34); Mean Corpuscular Volume 98.7 fl (80-100); Nucleated Red Blood Cells Absolute Auto 0.000 K/mm3 (0.0-0.012); Nucleated Red Blood Cells Perc 0.0 % (0.0-0.2); Platelet Count Result 379 k/mm3 (150-375); Red Blood Count 3.10 M/mm3 (4.2-5.4); White Blood Count 10.5 K/mm3 (4.5-10.0)
[2025-03-01 06:45] LABS: Alanine Aminotransferase 48 U/L (6-35); Albumin Level 3.7 g/dL (3.5-5.1); Alkaline Phosphatase 79 U/L (38-126); Anion Gap 3 mmol/L (4-12); Aspartate Amino Transferase 68 U/L (14-36); Bilirubin,Total 0.4 mg/dL (0.2-1.3); Blood Urea Nitrogen 29 mg/dL (7-17); Calcium 9.3 mg/dL (8.4-10.2); Carbon Dioxide 29 mmol/L (22-30); Chloride 103 mmol/L (98-107); Estimated CRCL calculation 50 ml/min; Estimated Glomerular Filt Rate > 60; Glucose 88 mg/dL (65-110); Magnesium 2.6 mg/dL (1.6-2.3); Potassium 5.1 mmol/L (3.4-5.0); Sodium 135 mmol/L (137-145); Total Protein 6.7 g/dL (6.3-8.2)
[2025-03-01] MEDS: FLUCONAZOLE 100 MG TABLET 200 MG PO (08:59)
[2025-03-01] MEDS: ENOXAPARIN 40 MG/0.4 ML SYRINGE SUB-Q (08:59)
[2025-03-01] MEDS: MAGNESIUM OXIDE 200 MG TABLET PO ×2 (08:59→20:52)
[2025-03-01] MEDS: SIMVASTATIN 20 MG TABLET 40 MG PO (08:59)
[2025-03-01 09:00] VITALS: PULSE 70
[2025-03-01] MEDS: METOPROLOL SUCCINATE EXT REL 25 MG TABCR PO (09:00)
[2025-03-01] MEDS: PANTOPRAZOLE 40 MG TABLET PO (09:00)
[2025-03-01] MEDS: UMECLIDINIUM/VILANTEROL 62.5-25 MCG ELLIPTA 1 PUFF INHALATION (09:25)
[2025-03-01 09:27] VITALS: PULSE 86; RESP 20; O2SAT 97
--- NOTE | 2025-03-01 11:47 | P.PNGS_ITS ---
Progress Note: A&P Assessment and Plan (1) Abdominal wall abscess: Code(s): L02.211 - Cutaneous abscess of abdominal wall Status: Acute Assessment and Plan: * Continue IV antibiotics * Wound VAC change on Monday (2) Protein-calorie malnutrition, severe: Code(s): E43 - Unspecified severe protein-calorie malnutrition Status: Acute Assessment and Plan: * Tolerating regular diet now (3) History of gastric bypass: Code(s): Z98.84 - Bariatric surgery status Status: Chronic Subjective Subjective Date/Time Seen: 03/01/25 11:47 Interval history: No fevers. Feeling some mild swelling around where the wound vac is today. Wound vac still functioning. Exam GI: Other: Wound VAC in place in right lower quadrant, mild erythema just inferior to wound VAC. serosanguineous drainage within canister Objective Data Vital Signs Vital Signs: Vital Signs - 24 hr 02/28/25 20:00 02/28/25 22:19 03/01/25 00:36 Temperature 97.6 F 97.3 F L Pulse Rate 67 62 Respiratory Rate 16 16 Blood Pressure 119/46 L 138/63 Pulse Oximetry 99 100 Oxygen Delivery Room Air 03/01/25 04:12 03/01/25 09:00 03/01/25 09:27 Temperature 98.1 F Pulse Rate 62 70 86 Respiratory Rate 16 20 Blood Pressure 134/62 Pulse Oximetry 98 97 Oxygen Delivery Room Air 03/01/25 09:27 Temperature Pulse Rate 86 Respiratory Rate 20 Blood Pressure Pulse Oximetry Oxygen Delivery Intake/Output Intake/Output: Intake & Output 02/26/25 02/27/25 02/28/25 03/01/25 23:59 23:59 23:59 23:59 Intake Total 1826 2755.0 1853 650 Output Total 75 20 Balance 1751 2735.0 1853 650 Meds/Results Medications: Active Medications Generic Name Dose Route Start Last Admin Trade Name Freq PRN Reason Stop Dose Admin Acetaminophen 650 mg 02/18/25 13:04 Acetaminophen 325 Mg Tablet PO Q4H PRN Mild Pain (1-3) or Fever Albuterol 2 puff 02/23/25 11:58 Albuterol Sulfate (*Sp) Aerosol 1 Puff INHALATION Q6HRT PRN Shortness Of Breath Dextrose 12.5 gm 02/24/25 08:33 Dextrose 50% 25 Gm/50 Ml Syringe IV PUSH PRN PRN Hypoglycemia Protocol Enoxaparin Sodium 40 mg 02/19/25 09:00 03/01/25 08:59 Enoxaparin 40 Mg/0.4 Ml Syringe SUB-Q 40 mg DAILY ERME Administration Ergocalciferol 1,250 mcg 02/21/25 09:00 02/28/25 08:54 Ergocalciferol (Vitamin D2) 1,250 Mcg (50,000 Units) Capsule PO 1,250 mcg Fr@0900 EMRE Administration Fluconazole 200 mg 02/26/25 09:00 03/01/25 08:59 Fluconazole 100 Mg Tablet PO 200 mg QAM EMRE Administration Gabapentin 300 mg 02/20/25 21:00 02/28/25 21:23 Gabapentin 300 Mg Capsule PO 300 mg QHS EMRE Administration Glucagon 1 mg 02/24/25 08:33 Glucagon For Inj 1 Mg Vial IM PRN PRN Hypoglycemia Protocol Glucose 15 gm 02/24/25 08:33 Glucose Oral Gel 15 Gm Of Glucse In 37.5 Gm Tube PO PRN PRN Hypoglycemia Protocol Hydralazine HCl 10 mg 02/18/25 14:42 Hydralazine Hcl 20 Mg/Ml Vial IV PUSH Q8H PRN Blood Pressure - High Dextrose 1,000 mls @ 50 mls/hr 02/21/25 14:10 Dextrose 10% IV CONT .Q20H PRN if PN is interrupted Dextrose 1,000 mls @ 100 mls/hr 02/24/25 08:33 Dextrose 5% 1,000 Ml IVPB PRN PRN Hypoglycemia Protocol Meropenem 1 gm/ Sodium 100 mls @ 200 mls/hr 03/01/25 02:00 03/01/25 08:59 Chloride IVPB 200 mls/hr Q8H EMRE Administration Insulin Aspart 2 - 5 units 02/24/25 12:00 03/01/25 07:04 Insulin Aspart (*Bkc) 100 Units/Ml SUB-Q Not Given Q6HR [facility] Protocol Insulin Glargine 7 units 02/21/25 21:00 02/28/25 21:23 Insulin Glargine (*Bkc) 100 Units/Ml 0.15 units/kg (7 units) 7 units SUB-Q Administration HS [facility] Linaclotide 290 mcg 02/19/25 06:30 03/01/25 06:10 Linaclotide 145 Mcg Capsule PO 290 mcg DAILY@0630 EMRE Administration Magnesium Oxide 200 mg 02/19/25 21:00 03/01/25 08:59 Magnesium Oxide 200 Mg Tablet PO 200 mg Q12HR EMRE Administration Metoprolol Succinate 25 mg 02/19/25 09:00 03/01/25 09:00 Metoprolol Succinate Ext Rel 25 Mg Tabcr PO 25 mg DAILY EMRE Administration Mirtazapine 15 mg 02/18/25 21:00 02/28/25 21:23 Mirtazapine 15 Mg Tablet PO 15 mg HS EMRE Administration Morphine Sulfate 2 mg 02/21/25 14:04 02/26/25 08:54 Morphine Sulfate (*Crx) 4 Mg/Ml Inj IV PUSH 2 mg Q4H PRN Administration Pain Rated 4-6 Morphine Sulfate 4 mg 02/21/25 14:04 02/28/25 03:29 Morphine Sulfate (*Crx) 4 Mg/Ml Inj IV PUSH 4 mg Q4H PRN Administration Pain Rated 7-10 Pantoprazole Sodium 40 mg 02/19/25 09:00 03/01/25 09:00 Pantoprazole 40 Mg Tablet PO 40 mg DAILY EMRE Administration Simvastatin 40 mg 02/19/25 09:00 03/01/25 08:59 Simvastatin 20 Mg Tablet PO 40 mg DAILY EMRE Administration Sodium Chloride 10 ml 02/21/25 14:00 03/01/25 06:15 Central Line Flush IV PUSH 10 ml Q8HR EMRE Administration Sodium Chloride 10 ml 02/21/25 13:49 Central Line Flush IV PUSH PRN PRN with TPN bag changes Sodium Chloride 20 ml 02/21/25 13:49 Central Line Flush IV PUSH PRN PRN after blood draws Umeclidinium/Vilanterol 1 puff 02/18/25 12:20 03/01/25 09:25 Umeclidinium/Vilanterol 62.5-25 Mcg Ellipta INHALATION 1 puff DAILYRT EMRE Administration Radiology Results: ITS Impressions Catheter Placement CT 02/19/25 11:16 IMPRESSION: 1[address] CT-guided abscess drainage with placement of a percutaneous abscess drain in the more superficial subcutaneous component of the collection which appears to communicate with the collection deep to the ventral hernia mesh repair. 2. 30 mL fluid was sent for aerobic and anaerobic cultures. 3. The catheter will be managed by Dr. Flores. Abdomen/Pelvis CT 02/26/25 09:10 IMPRESSION: 1. Slight decrease in size of a now 9.6 x 7.9 x 2.0 cm abscess along the deep margin of a revised ventral hernia mesh repair on the right lower quadrant and pelvic anterior abdominal wall. Unchanged pigtail drainage catheter within a likely communicating and now collapsed abscess cavity along the superficial margin of the mesh repair. Labs Labs: Laboratory Results - last 24 hr 02/28/25 02/28/25 03/01/25 18:37 21:21 00:42 WBC RBC Hgb Hct MCV MCH MCHC RDW Plt Count MPV Immature Gran % (Auto) Neut % (Auto) Lymph % (Auto) [place] % (Auto) Eos % (Auto) Baso % (Auto) Lymph # (Auto) [place] # (Auto) Eos # (Auto) Baso # (Auto) Abs Immat Gran (auto) Absolute Neuts (auto) Absolute Nucleated RBC Nucleated RBC % Sodium Potassium Chloride Carbon Dioxide Anion Gap BUN Creatinine Estim Creat Clear Calc Estimated GFR Glucose POC Capillary Glucose 153 H 167 H 117 H Calcium Magnesium Total Bilirubin AST ALT Alkaline Phosphatase Total Protein Albumin 03/01/25 06:17 WBC 10.5 H RBC 3.10 L Hgb 9.4 L Hct 30.6 L MCV 98.7 MCH 30.3 MCHC 30.7 L RDW 13.4 Plt Count 379 H MPV 10.4 Immature Gran % (Auto) 1.2 H Neut % (Auto) 58.8 Lymph % (Auto) 22.2 [place] % (Auto) 11.7 H Eos % (Auto) 5.1 H Baso % (Auto) 1.0 Lymph # (Auto) 2.34 [place] # (Auto) 1.2 H Eos # (Auto) 0.5 H Baso # (Auto) 0.1 Abs Immat Gran (auto) 0.13 H Absolute Neuts (auto) 6.2 Absolute Nucleated RBC 0.000 Nucleated RBC % 0.0 Sodium 135 L Potassium 5.1 H Chloride 103 Carbon Dioxide 29 Anion Gap 3 L BUN 29 H Creatinine 0.67 L Estim Creat Clear Calc 50 Estimated GFR > 60 Glucose 88 POC Capillary Glucose Calcium 9.3 Magnesium 2.6 H Total Bilirubin 0.4 AST 68 H ALT 48 H Alkaline Phosphatase 79 Total Protein 6.7 Albumin 3.7
[2025-03-01] MEDS: MORPHINE SULFATE (*CRX) 4 MG/ML INJ IV PUSH ×2 (12:24→16:21)
--- NOTE | 2025-03-01 13:22 | P.PNIM_ITS ---
Assessment and Plan Assessment and Plan (1) Cellulitis of abdominal wall: Code(s): L03.311 - Cellulitis of abdominal wall Status: Acute Assessment and Plan: CT AP showed slight decrease in size of a now 9.6 x 7.9 x 2.0 cm * s/p percutaneous abscess drainage by IR on 02/19/2025 and another one 02/27/2025 * Being managed by General surgery * Currently on micafungin and Meropenem, further adjustment per ID * s/p TPN, now on regular diet * Now on wound vac, for removal on Monday per Gen surgery * Gen surgery following (2) Hypertension: Code(s): I10 - Essential (primary) hypertension Status: Acute Assessment and Plan: Blood pressures are stable * Continue home antihypertensives * Monitor BP trend (3) Hyperlipidemia: Code(s): E78.5 - Hyperlipidemia, unspecified Status: Acute Assessment and Plan: Continue home simvastatin (4) COPD (chronic obstructive pulmonary disease): Code(s): J44.9 - Chronic obstructive pulmonary disease, unspecified Status: Acute Assessment and Plan: Chronic and stable, not in acute exacerbation * Continue home Anoro Ellipta * Albuterol inhaler p.r.n. during admission (5) Hypokalemia: Code(s): E87.6 - Hypokalemia Status: Acute Assessment and Plan: Potassium 3.8 today * Monitor daily BMP and supplement potassium as needed Plan DVT prophylaxis on Sq lovenox Subjective Date/time seen: 03/01/25 13:22 Interval history: Comfortable at bedside Review of Systems Review of Systems: Pt feels better All systems reviewed & are unremarkable except as noted in HPI and below Exam Narrative: GENERAL: Comfortable, no acute distress HENMT: moist mucous membranes EYES: EOM intact b/l NECK: no lymphadenopathy RESPIRATORY: clear to auscultation, no increased respiratory effort CARDIO: Regular rate and rhythm GI: bowel sounds present, Perc drain in place draining purulent fluid. SKIN/EXTREMITIES: no rashes, no edema, no redness or tenderness Objective Data Vital Signs Vital Signs: Vital Signs - 24 hr 02/28/25 20:00 02/28/25 22:19 03/01/25 00:36 Temperature 97.6 F 97.3 F L Pulse Rate 67 62 Respiratory Rate 16 16 Blood Pressure 119/46 L 138/63 Pulse Oximetry 99 100 Oxygen Delivery Room Air 03/01/25 04:12 03/01/25 09:00 03/01/25 09:27 Temperature 98.1 F Pulse Rate 62 70 86 Respiratory Rate 16 20 Blood Pressure 134/62 Pulse Oximetry 98 97 Oxygen Delivery Room Air 03/01/25 09:27 Temperature Pulse Rate 86 Respiratory Rate 20 Blood Pressure Pulse Oximetry Oxygen Delivery Intake/Output Intake/Output: Intake & Output 02/26/25 02/27/25 02/28/25 03/01/25 23:59 23:59 23:59 23:59 Intake Total 1826 2755.0 1853 650 Output Total 75 20 Balance 1751 2735.0 1853 650 Meds/Results Medications: Active Medications Generic Name Dose Route Start Last Admin Trade Name Freq PRN Reason Stop Dose Admin Acetaminophen 650 mg 02/18/25 13:04 Acetaminophen 325 Mg Tablet PO Q4H PRN Mild Pain (1-3) or Fever Albuterol 2 puff 02/23/25 11:58 Albuterol Sulfate (*Sp) Aerosol 1 Puff INHALATION Q6HRT PRN Shortness Of Breath Dextrose 12.5 gm 02/24/25 08:33 Dextrose 50% 25 Gm/50 Ml Syringe IV PUSH PRN PRN Hypoglycemia Protocol Enoxaparin Sodium 40 mg 02/19/25 09:00 03/01/25 08:59 Enoxaparin 40 Mg/0.4 Ml Syringe SUB-Q 40 mg DAILY EMRE Administration Ergocalciferol 1,250 mcg 02/21/25 09:00 02/28/25 08:54 Ergocalciferol (Vitamin D2) 1,250 Mcg (50,000 Units) Capsule PO 1,250 mcg Fr@0900 EMRE Administration Fluconazole 200 mg 02/26/25 09:00 03/01/25 08:59 Fluconazole 100 Mg Tablet PO 200 mg QAM EMRE Administration Gabapentin 300 mg 02/20/25 21:00 02/28/25 21:23 Gabapentin 300 Mg Capsule PO 300 mg QHS EMRE Administration Glucagon 1 mg 02/24/25 08:33 Glucagon For Inj 1 Mg Vial IM PRN PRN Hypoglycemia Protocol Glucose 15 gm 02/24/25 08:33 Glucose Oral Gel 15 Gm Of Glucse In 37.5 Gm Tube PO PRN PRN Hypoglycemia Protocol Hydralazine HCl 10 mg 02/18/25 14:42 Hydralazine Hcl 20 Mg/Ml Vial IV PUSH Q8H PRN Blood Pressure - High Dextrose 1,000 mls @ 50 mls/hr 02/21/25 14:10 Dextrose 10% IV CONT .Q20H PRN if PN is interrupted Dextrose 1,000 mls @ 100 mls/hr 02/24/25 08:33 Dextrose 5% 1,000 Ml IVPB PRN PRN Hypoglycemia Protocol Meropenem 1 gm/ Sodium 100 mls @ 200 mls/hr 03/01/25 02:00 03/01/25 08:59 Chloride IVPB 200 mls/hr Q8H EMRE Administration Insulin Aspart 2 - 5 units 02/24/25 12:00 03/01/25 12:23 Insulin Aspart (*Bkc) 100 Units/Ml SUB-Q Not Given Q6HR [facility] Protocol Insulin Glargine 7 units 02/21/25 21:00 02/28/25 21:23 Insulin Glargine (*Bkc) 100 Units/Ml 0.15 units/kg (7 units) 7 units SUB-Q Administration HS EMRE Linaclotide 290 mcg 02/19/25 06:30 03/01/25 06:10 Linaclotide 145 Mcg Capsule PO 290 mcg DAILY@0630 EMRE Administration Magnesium Oxide 200 mg 02/19/25 21:00 03/01/25 08:59 Magnesium Oxide 200 Mg Tablet PO 200 mg Q12HR EMRE Administration Metoprolol Succinate 25 mg 02/19/25 09:00 03/01/25 09:00 Metoprolol Succinate Ext Rel 25 Mg Tabcr PO 25 mg DAILY EMRE Administration Mirtazapine 15 mg 02/18/25 21:00 02/28/25 21:23 Mirtazapine 15 Mg Tablet PO 15 mg HS EMRE Administration Morphine Sulfate 2 mg 02/21/25 14:04 02/26/25 08:54 Morphine Sulfate (*Crx) 4 Mg/Ml Inj IV PUSH 2 mg Q4H PRN Administration Pain Rated 4-6 Morphine Sulfate 4 mg 02/21/25 14:04 03/01/25 12:24 Morphine Sulfate (*Crx) 4 Mg/Ml Inj IV PUSH 4 mg Q4H PRN Administration Pain Rated 7-10 Pantoprazole Sodium 40 mg 02/19/25 09:00 03/01/25 09:00 Pantoprazole 40 Mg Tablet PO 40 mg DAILY EMRE Administration Simvastatin 40 mg 02/19/25 09:00 03/01/25 08:59 Simvastatin 20 Mg Tablet PO 40 mg DAILY EMRE Administration Sodium Chloride 10 ml 02/21/25 14:00 03/01/25 12:24 Central Line Flush IV PUSH 10 ml Q8HR EMRE Administration Sodium Chloride 10 ml 02/21/25 13:49 Central Line Flush IV PUSH PRN PRN with TPN bag changes Sodium Chloride 20 ml 02/21/25 13:49 Central Line Flush IV PUSH PRN PRN after blood draws Umeclidinium/Vilanterol 1 puff 02/18/25 12:20 03/01/25 09:25 Umeclidinium/Vilanterol 62.5-25 Mcg Ellipta INHALATION 1 puff DAILYRT EMRE Administration Radiology Results: ITS Impressions Catheter Placement CT 02/19/25 11:16 IMPRESSION: 1. Successful CT-guided abscess drainage with placement of a percutaneous abscess drain in the more superficial subcutaneous component of the collection which appears to communicate with the collection deep to the ventral hernia mesh repair. 2. 30 mL fluid was sent for aerobic and anaerobic cultures. 3. The catheter will be managed by Dr. Flores. Abdomen/Pelvis CT 02/26/25 09:10 IMPRESSION: 1. Slight decrease in size of a now 9.6 x 7.9 x 2.0 cm abscess along the deep margin of a revised ventral hernia mesh repair on the right lower quadrant and pelvic anterior abdominal wall. Unchanged pigtail drainage catheter within a likely communicating and now collapsed abscess cavity along the superficial margin of the mesh repair. Labs Labs: Laboratory Results - last 24 hr 02/28/25 02/28/25 03/01/25 18:37 21:21 00:42 WBC RBC Hgb Hct MCV MCH MCHC RDW Plt Count MPV Immature Gran % (Auto) Neut % (Auto) Lymph % (Auto) [place] % (Auto) Eos % (Auto) Baso % (Auto) Lymph # (Auto) [place] # (Auto) Eos # (Auto) Baso # (Auto) Abs Immat Gran (auto) Absolute Neuts (auto) Absolute Nucleated RBC Nucleated RBC % Sodium Potassium Chloride Carbon Dioxide Anion Gap BUN Creatinine Estim Creat Clear Calc Estimated GFR Glucose POC Capillary Glucose 153 H 167 H 117 H Calcium Magnesium Total Bilirubin AST ALT Alkaline Phosphatase Total Protein Albumin 03/01/25 03/01/25 06:17 11:37 WBC 10.5 H RBC 3.10 L Hgb 9.4 L Hct 30.6 L MCV 98.7 MCH 30.3 MCHC 30.7 L RDW 13.4 Plt Count 379 H MPV 10.4 Immature Gran % (Auto) 1.2 H Neut % (Auto) 58.8 Lymph % (Auto) 22.2 [place] % (Auto) 11.7 H Eos % (Auto) 5.1 H Baso % (Auto) 1.0 Lymph # (Auto) 2.34 [place] # (Auto) 1.2 H Eos # (Auto) 0.5 H Baso # (Auto) 0.1 Abs Immat Gran (auto) 0.13 H Absolute Neuts (auto) 6.2 Absolute Nucleated RBC 0.000 Nucleated RBC % 0.0 Sodium 135 L Potassium 5.1 H Chloride 103 Carbon Dioxide 29 Anion Gap 3 L BUN 29 H Creatinine 0.67 L Estim Creat Clear Calc 50 Estimated GFR > 60 Glucose 88 POC Capillary Glucose 83 Calcium 9.3 Magnesium 2.6 H Total Bilirubin 0.4 AST 68 H ALT 48 H Alkaline Phosphatase 79 Total Protein 6.7 Albumin 3.7 Quality VTE Prophylaxis VTE prophylaxis: pharmacologic ordered
--- NOTE | 2025-03-01 14:11 | PC.NURSE ---
Okay to change sliding scale insulin to match [facility] accu check schedule. Per Dr. Campbell
[2025-03-01] MEDS: MICAFUNGIN SODIUM 100 MG in SODIUM CHLORIDE 0.9% IV 100 ML IVPB (14:17)
[2025-03-01 14:34] VITALS: BP 106/76; PULSE 68; RESP 20; TEMP 36.1; O2SAT 99
[2025-03-01 20:35] VITALS: BP 105/45; PULSE 71; RESP 18; TEMP 36.6; O2SAT 100
[2025-03-01] MEDS: GABAPENTIN 300 MG CAPSULE PO (20:52)
[2025-03-01] MEDS: MIRTAZAPINE 15 MG TABLET PO (20:52)
[2025-03-02] MEDS: HYDROcodone/acetaminophen (*CRX) 10-325 MG TABLET 1 TAB PO ×4 (03:56→23:46)
[2025-03-02 04:25] VITALS: BP 119/48; PULSE 64; RESP 20; TEMP 36.2; O2SAT 100
[2025-03-02] MEDS: LINACLOTIDE 145 MCG CAPSULE 290 MCG PO (05:48)
[2025-03-02] MEDS: CENTRAL LINE FLUSH 10 ML IV PUSH ×3 (05:49→21:07)
[2025-03-02 06:04] LABS: Hematocrit 29.2 % (37.0-47.0); Hemoglobin 9.3 g/dL (12.0-15.0); Immature Granulocyte Percent A 1.0 % (0-0.5); Lymphocytes Absolute Auto 2.12 K/mm3 (0.9-3.2); Mean Corpuscular HGB Conc 31.8 g/dl (32-36); Mean Corpuscular Hemoglobin 31.3 pg (26-34); Mean Corpuscular Volume 98.3 fl (80-100); Nucleated Red Blood Cells Absolute Auto 0.000 K/mm3 (0.0-0.012); Nucleated Red Blood Cells Perc 0.0 % (0.0-0.2); Platelet Count Result 346 k/mm3 (150-375); Red Blood Count 2.97 M/mm3 (4.2-5.4); White Blood Count 8.8 K/mm3 (4.5-10.0)
[2025-03-02 06:28] LABS: Alanine Aminotransferase 65 U/L (6-35); Albumin Level 3.6 g/dL (3.5-5.1); Alkaline Phosphatase 90 U/L (38-126); Anion Gap 2 mmol/L (4-12); Aspartate Amino Transferase 86 U/L (14-36); Bilirubin,Total 0.3 mg/dL (0.2-1.3); Blood Urea Nitrogen 29 mg/dL (7-17); Calcium 9.3 mg/dL (8.4-10.2); Carbon Dioxide 28 mmol/L (22-30); Chloride 101 mmol/L (98-107); Estimated CRCL calculation 40 ml/min; Estimated Glomerular Filt Rate > 60; Glucose 82 mg/dL (65-110); Magnesium 2.6 mg/dL (1.6-2.3); Potassium 5.0 mmol/L (3.4-5.0); Sodium 131 mmol/L (137-145); Total Protein 6.5 g/dL (6.3-8.2)
[2025-03-02] MEDS: ENOXAPARIN 40 MG/0.4 ML SYRINGE SUB-Q (08:00)
[2025-03-02] MEDS: MEROPENEM 1 GM in SODIUM CHLORIDE 0.9% IV 100 ML 200 ML IVPB ×2 (08:01→21:05)
[2025-03-02] MEDS: FLUCONAZOLE 100 MG TABLET 200 MG PO (08:12)
[2025-03-02] MEDS: SIMVASTATIN 20 MG TABLET 40 MG PO (08:12)
[2025-03-02] MEDS: PANTOPRAZOLE 40 MG TABLET PO (08:12)
[2025-03-02] MEDS: MAGNESIUM OXIDE 200 MG TABLET PO ×2 (08:12→21:05)
--- NOTE | 2025-03-02 09:13 | P.PNIM_ITS ---
Assessment and Plan Assessment and Plan (1) Cellulitis of abdominal wall: Code(s): L03.311 - Cellulitis of abdominal wall Status: Acute Assessment and Plan: CT AP showed slight decrease in size of a now 9.6 x 7.9 x 2.0 cm * s/p percutaneous abscess drainage by IR on 02/19/2025 and another one 02/27/2025 * Being managed by General surgery * Currently on micafungin and Meropenem, further adjustment per ID * s/p TPN, now on regular diet * Now on wound vac, for removal on Monday per Gen surgery * Gen surgery following (2) Hypertension: Code(s): I10 - Essential (primary) hypertension Status: Acute Assessment and Plan: Blood pressures are stable * Continue home antihypertensives * Monitor BP trend (3) Hyperlipidemia: Code(s): E78.5 - Hyperlipidemia, unspecified Status: Acute Assessment and Plan: Continue home simvastatin (4) COPD (chronic obstructive pulmonary disease): Code(s): J44.9 - Chronic obstructive pulmonary disease, unspecified Status: Acute Assessment and Plan: Chronic and stable, not in acute exacerbation * Continue home Anoro Ellipta * Albuterol inhaler p.r.n. during admission (5) Hypokalemia: Code(s): E87.6 - Hypokalemia Status: Acute Assessment and Plan: Potassium 3.8 today * Monitor daily BMP and supplement potassium as needed Plan DVT prophylaxis on Sq lovenox Subjective Date/time seen: 03/02/25 09:13 Interval history: Comfortable at bedside Awaiting wound vac removal tomorrow Review of Systems Review of Systems: Pt feels better All systems reviewed & are unremarkable except as noted in HPI and below Exam Narrative: GENERAL: Comfortable, no acute distress HENMT: moist mucous membranes EYES: EOM intact b/l NECK: no lymphadenopathy RESPIRATORY: clear to auscultation, no increased respiratory effort CARDIO: Regular rate and rhythm GI: bowel sounds present, Perc drain in place draining purulent fluid. SKIN/EXTREMITIES: no rashes, no edema, no redness or tenderness Objective Data Vital Signs Vital Signs: Vital Signs - 24 hr 03/01/25 09:27 03/01/25 09:27 03/01/25 14:34 Temperature 97 F L Pulse Rate 86 86 68 Respiratory Rate 20 20 20 Blood Pressure 106/76 Pulse Oximetry 97 99 Oxygen Delivery Room Air 03/01/25 20:00 03/01/25 20:35 03/02/25 04:25 Temperature 97.9 F 97.2 F L Pulse Rate 71 64 Respiratory Rate 18 20 Blood Pressure 105/45 L 119/48 L Pulse Oximetry 100 100 Oxygen Delivery Room Air Intake/Output Intake/Output: Intake & Output 02/27/25 02/28/25 03/01/25 03/02/25 23:59 23:59 23:59 23:59 Intake Total 2755.0 1853 1100 650 Output Total 20 350 100 Balance 2735.0 1853 750 550 Meds/Results Medications: Active Medications Generic Name Dose Route Start Last Admin Trade Name Freq PRN Reason Stop Dose Admin Acetaminophen 650 mg 02/18/25 13:04 Acetaminophen 325 Mg Tablet PO Q4H PRN Mild Pain (1-3) or Fever Hydrocodone Bitart/Acetaminophen 1 tab 03/01/25 20:15 03/02/25 03:56 Hydrocodone/Acetaminophen (*Crx) 10-325 Mg Tablet PO 1 tab Q6H PRN Administration Pain Rated 7-10 Albuterol 2 puff 02/23/25 11:58 Albuterol Sulfate (*Sp) Aerosol 1 Puff INHALATION Q6HRT PRN Shortness Of Breath Dextrose 12.5 gm 02/24/25 08:33 Dextrose 50% 25 Gm/50 Ml Syringe IV PUSH PRN PRN Hypoglycemia Protocol Enoxaparin Sodium 40 mg 02/19/25 09:00 03/02/25 08:00 Enoxaparin 40 Mg/0.4 Ml Syringe SUB-Q 40 mg DAILY EMRE Administration Ergocalciferol 1,250 mcg 02/21/25 09:00 02/28/25 08:54 Ergocalciferol (Vitamin D2) 1,250 Mcg (50,000 Units) Capsule PO 1,250 mcg Fr@0900 EMRE Administration Fluconazole 200 mg 02/26/25 09:00 03/02/25 08:12 Fluconazole 100 Mg Tablet PO 200 mg QAM EMRE Administration Gabapentin 300 mg 02/20/25 21:00 03/01/25 20:52 Gabapentin 300 Mg Capsule PO 300 mg QHS EMRE Administration Glucagon 1 mg 02/24/25 08:33 Glucagon For Inj 1 Mg Vial IM PRN PRN Hypoglycemia Protocol Glucose 15 gm 02/24/25 08:33 Glucose Oral Gel 15 Gm Of Glucse In 37.5 Gm Tube PO PRN PRN Hypoglycemia Protocol Hydralazine HCl 10 mg 02/18/25 14:42 Hydralazine Hcl 20 Mg/Ml Vial IV PUSH Q8H PRN Blood Pressure - High Dextrose 1,000 mls @ 50 mls/hr 02/21/25 14:10 Dextrose 10% IV CONT .Q20H PRN if PN is interrupted Dextrose 1,000 mls @ 100 mls/hr 02/24/25 08:33 Dextrose 5% 1,000 Ml IVPB PRN PRN Hypoglycemia Protocol Micafungin Sodium 100 mg/ 100 mls @ 100 mls/hr 03/01/25 14:00 03/01/25 14:17 Sodium Chloride IVPB 100 mls/hr Q24H EMRE Administration Meropenem 1 gm/ Sodium 100 mls @ 200 mls/hr 03/01/25 21:00 03/02/25 08:01 Chloride IVPB 200 mls/hr Q12H EMRE Administration Insulin Aspart 2 - 5 units 03/01/25 17:00 03/02/25 07:59 Insulin Aspart (*Bkc) 100 Units/Ml SUB-Q Not Given TIDWM EMRE Protocol Insulin Aspart 1 - 2 units 03/01/25 21:00 03/01/25 21:01 Insulin Aspart (*Bkc) 100 Units/Ml SUB-Q Not Given HS EMRE Protocol Linaclotide 290 mcg 02/19/25 06:30 03/02/25 05:48 Linaclotide 145 Mcg Capsule PO 290 mcg DAILY@0630 EMRE Administration Magnesium Oxide 200 mg 02/19/25 21:00 03/02/25 08:12 Magnesium Oxide 200 Mg Tablet PO 200 mg Q12HR EMRE Administration Metoprolol Succinate 25 mg 02/19/25 09:00 03/01/25 09:00 Metoprolol Succinate Ext Rel 25 Mg Tabcr PO 25 mg DAILY EMRE Administration Mirtazapine 15 mg 02/18/25 21:00 03/01/25 20:52 Mirtazapine 15 Mg Tablet PO 15 mg HS EMRE Administration Morphine Sulfate 2 mg 02/21/25 14:04 02/26/25 08:54 Morphine Sulfate (*Crx) 4 Mg/Ml Inj IV PUSH 2 mg Q4H PRN Administration Pain Rated 4-6 Morphine Sulfate 4 mg 02/21/25 14:04 03/01/25 16:21 Morphine Sulfate (*Crx) 4 Mg/Ml Inj IV PUSH 4 mg Q4H PRN Administration Pain Rated 7-10 Pantoprazole Sodium 40 mg 02/19/25 09:00 03/02/25 08:12 Pantoprazole 40 Mg Tablet PO 40 mg DAILY EMRE Administration Simvastatin 40 mg 02/19/25 09:00 03/02/25 08:12 Simvastatin 20 Mg Tablet PO 40 mg DAILY EMRE Administration Sodium Chloride 10 ml 02/21/25 14:00 03/02/25 05:49 Central Line Flush IV PUSH 10 ml Q8HR EMRE Administration Sodium Chloride 10 ml 02/21/25 13:49 Central Line Flush IV PUSH PRN PRN with TPN bag changes Sodium Chloride 20 ml 02/21/25 13:49 Central Line Flush IV PUSH PRN PRN after blood draws Umeclidinium/Vilanterol 1 puff 02/18/25 12:20 03/02/25 08:10 Umeclidinium/Vilanterol 62.5-25 Mcg Ellipta INHALATION Not Given DAILYRT [facility] Radiology Results: ITS Impressions Catheter Placement CT 02/19/25 11:16 IMPRESSION: 1. Successful CT-guided abscess drainage with placement of a percutaneous abscess drain in the more superficial subcutaneous component of the collection which appears to communicate with the collection deep to the ventral hernia mesh repair. 2. 30 mL fluid was sent for aerobic and anaerobic cultures. 3. The catheter will be managed by Dr. Flores. Abdomen/Pelvis CT 02/26/25 09:10 IMPRESSION: 1. Slight decrease in size of a now 9.6 x 7.9 x 2.0 cm abscess along the deep margin of a revised ventral hernia mesh repair on the right lower quadrant and pelvic anterior abdominal wall. Unchanged pigtail drainage catheter within a likely communicating and now collapsed abscess cavity along the superficial margin of the mesh repair. Labs Labs: Laboratory Results - last 24 hr 03/01/25 03/01/25 03/01/25 11:37 16:00 20:46 WBC RBC Hgb Hct MCV MCH MCHC RDW Plt Count MPV Immature Gran % (Auto) Neut % (Auto) Lymph % (Auto) [place] % (Auto) Eos % (Auto) Baso % (Auto) Lymph # (Auto) [place] # (Auto) Eos # (Auto) Baso # (Auto) Abs Immat Gran (auto) Absolute Neuts (auto) Absolute Nucleated RBC Nucleated RBC % Sodium Potassium Chloride Carbon Dioxide Anion Gap BUN Creatinine Estim Creat Clear Calc Estimated GFR Glucose POC Capillary Glucose 83 90 89 Calcium Magnesium Total Bilirubin AST ALT Alkaline Phosphatase Total Protein Albumin 03/02/25 03/02/25 05:55 07:23 WBC 8.8 RBC 2.97 L Hgb 9.3 L Hct 29.2 L MCV 98.3 MCH 31.3 MCHC 31.8 L RDW 13.8 Plt Count 346 MPV 10.5 H Immature Gran % (Auto) 1.0 H Neut % (Auto) 57.1 Lymph % (Auto) 24.1 [place] % (Auto) 11.7 H Eos % (Auto) 5.1 H Baso % (Auto) 1.0 Lymph # (Auto) 2.12 [place] # (Auto) 1.0 H Eos # (Auto) 0.5 H Baso # (Auto) 0.1 Abs Immat Gran (auto) 0.09 H Absolute Neuts (auto) 5.0 Absolute Nucleated RBC 0.000 Nucleated RBC % 0.0 Sodium 131 L Potassium 5.0 Chloride 101 Carbon Dioxide 28 Anion Gap 2 L BUN 29 H Creatinine 0.82 Estim Creat Clear Calc 40 Estimated GFR > 60 Glucose 82 POC Capillary Glucose 99 Calcium 9.3 Magnesium 2.6 H Total Bilirubin 0.3 AST 86 H ALT 65 H Alkaline Phosphatase 90 Total Protein 6.5 Albumin 3.6 Quality VTE Prophylaxis VTE prophylaxis: pharmacologic ordered
[2025-03-02] MEDS: MICAFUNGIN SODIUM 100 MG in SODIUM CHLORIDE 0.9% IV 100 ML IVPB (13:43)
[2025-03-02 14:00] VITALS: BP 102/52; PULSE 83; RESP 20; TEMP 35.7; O2SAT 100
--- NOTE | 2025-03-02 14:14 | P.PNGS_ITS ---
Progress Note: A&P Assessment and Plan (1) Abdominal wall abscess: Code(s): L02.211 - Cutaneous abscess of abdominal wall Status: Acute Assessment and Plan: * Continue IV antibiotics * Wound VAC change on Monday (2) Protein-calorie malnutrition, severe: Code(s): E43 - Unspecified severe protein-calorie malnutrition Status: Acute Assessment and Plan: * Tolerating regular diet now (3) History of gastric bypass: Code(s): Z98.84 - Bariatric surgery status Status: Chronic Subjective Subjective Date/Time Seen: 03/02/25 14:14 Interval history: No changes. Normal WBC and afebrile. Exam GI: Other: Wound VAC in place in right lower quadrant, mild erythema just inferior to wound VAC. serosanguineous drainage within canister Objective Data Vital Signs Vital Signs: Vital Signs - 24 hr 03/01/25 14:34 03/01/25 20:00 03/01/25 20:35 Temperature 97 F L 97.9 F Pulse Rate 68 71 Respiratory Rate 20 18 Blood Pressure 106/76 105/45 L Pulse Oximetry 99 100 Oxygen Delivery Room Air 03/02/25 04:25 03/02/25 08:00 03/02/25 14:00 Temperature 97.2 F L 96.2 F L Pulse Rate 64 83 Respiratory Rate 20 20 Blood Pressure 119/48 L 102/52 L Pulse Oximetry 100 100 Oxygen Delivery Room Air Intake/Output Intake/Output: Intake & Output 02/27/25 02/28/25 03/01/25 03/02/25 23:59 23:59 23:59 23:59 Intake Total 2755.0 1853 1200 1050 Output Total 20 350 100 Balance 2735.0 1853 850 950 Meds/Results Medications: Active Medications Generic Name Dose Route Start Last Admin Trade Name Freq PRN Reason Stop Dose Admin Acetaminophen 650 mg 02/18/25 13:04 Acetaminophen 325 Mg Tablet PO Q4H PRN Mild Pain (1-3) or Fever Hydrocodone Bitart/Acetaminophen 1 tab 03/01/25 20:15 03/02/25 11:43 Hydrocodone/Acetaminophen (*Crx) 10-325 Mg Tablet PO 1 tab Q6H PRN Administration Pain Rated 7-10 Albuterol 2 puff 02/23/25 11:58 Albuterol Sulfate (*Sp) Aerosol 1 Puff INHALATION Q6HRT PRN Shortness Of Breath Dextrose 12.5 gm 02/24/25 08:33 Dextrose 50% 25 Gm/50 Ml Syringe IV PUSH PRN PRN Hypoglycemia Protocol Enoxaparin Sodium 40 mg 02/19/25 09:00 03/02/25 08:00 Enoxaparin 40 Mg/0.4 Ml Syringe SUB-Q 40 mg DAILY EMRE Administration Ergocalciferol 1,250 mcg 02/21/25 09:00 02/28/25 08:54 Ergocalciferol (Vitamin D2) 1,250 Mcg (50,000 Units) Capsule PO 1,250 mcg Fr@0900 EMRE Administration Fluconazole 200 mg 02/26/25 09:00 03/02/25 08:12 Fluconazole 100 Mg Tablet PO 200 mg QAM EMRE Administration Gabapentin 300 mg 02/20/25 21:00 03/01/25 20:52 Gabapentin 300 Mg Capsule PO 300 mg QHS EMRE Administration Glucagon 1 mg 02/24/25 08:33 Glucagon For Inj 1 Mg Vial IM PRN PRN Hypoglycemia Protocol Glucose 15 gm 02/24/25 08:33 Glucose Oral Gel 15 Gm Of Glucse In 37.5 Gm Tube PO PRN PRN Hypoglycemia Protocol Hydralazine HCl 10 mg 02/18/25 14:42 Hydralazine Hcl 20 Mg/Ml Vial IV PUSH Q8H PRN Blood Pressure - High Dextrose 1,000 mls @ 50 mls/hr 02/21/25 14:10 Dextrose 10% IV CONT .Q20H PRN if PN is interrupted Dextrose 1,000 mls @ 100 mls/hr 02/24/25 08:33 Dextrose 5% 1,000 Ml IVPB PRN PRN Hypoglycemia Protocol Micafungin Sodium 100 mg/ 100 mls @ 100 mls/hr 03/01/25 14:00 03/02/25 13:43 Sodium Chloride IVPB 100 mls/hr Q24H EMRE Administration Meropenem 1 gm/ Sodium 100 mls @ 200 mls/hr 03/01/25 21:00 03/02/25 08:31 Chloride IVPB Infused Q12H EMRE Infusion Insulin Aspart 2 - 5 units 03/01/25 17:00 03/02/25 11:52 Insulin Aspart (*Bkc) 100 Units/Ml SUB-Q Not Given TIDWM COUNTS INCLUDE 234 BEDS AT [facility] Protocol Insulin Aspart 1 - 2 units 03/01/25 21:00 03/01/25 21:01 Insulin Aspart (*Bkc) 100 Units/Ml SUB-Q Not Given HS EMRE Protocol Linaclotide 290 mcg 02/19/25 06:30 03/02/25 05:48 Linaclotide 145 Mcg Capsule PO 290 mcg DAILY@0630 EMRE Administration Magnesium Oxide 200 mg 02/19/25 21:00 03/02/25 08:12 Magnesium Oxide 200 Mg Tablet PO 200 mg Q12HR EMRE Administration Metoprolol Succinate 25 mg 02/19/25 09:00 03/02/25 10:30 Metoprolol Succinate Ext Rel 25 Mg Tabcr PO Not Given DAILY EMRE Mirtazapine 15 mg 02/18/25 21:00 03/01/25 20:52 Mirtazapine 15 Mg Tablet PO 15 mg HS EMRE Administration Miscellaneous Information 1 each 03/02/25 00:01 Please Renew Morphine. Per [employer] Procedure, It Will Discontinue If Not Renewed. XX 04/01/25 00:00 CLARIFY EMRE Morphine Sulfate 2 mg 02/21/25 14:04 02/26/25 08:54 Morphine Sulfate (*Crx) 4 Mg/Ml Inj IV PUSH 2 mg Q4H PRN Administration Pain Rated 4-6 Morphine Sulfate 4 mg 02/21/25 14:04 03/01/25 16:21 Morphine Sulfate (*Crx) 4 Mg/Ml Inj IV PUSH 4 mg Q4H PRN Administration Pain Rated 7-10 Pantoprazole Sodium 40 mg 02/19/25 09:00 03/02/25 08:12 Pantoprazole 40 Mg Tablet PO 40 mg DAILY EMRE Administration Simvastatin 40 mg 02/19/25 09:00 03/02/25 08:12 Simvastatin 20 Mg Tablet PO 40 mg DAILY EMRE Administration Sodium Chloride 10 ml 02/21/25 14:00 03/02/25 13:44 Central Line Flush IV PUSH 10 ml Q8HR EMRE Administration Sodium Chloride 10 ml 02/21/25 13:49 Central Line Flush IV PUSH PRN PRN with TPN bag changes Sodium Chloride 20 ml 02/21/25 13:49 Central Line Flush IV PUSH PRN PRN after blood draws Umeclidinium/Vilanterol 1 puff 02/18/25 12:20 03/02/25 08:10 Umeclidinium/Vilanterol 62.5-25 Mcg Ellipta INHALATION Not Given DAILYRT COUNTS INCLUDE 234 BEDS AT THE [facility] Radiology Results: ITS Impressions Catheter Placement CT 02/19/25 11:16 IMPRESSION: 1[address] Successful CT-guided abscess drainage with placement of a percutaneous abscess drain in the more superficial subcutaneous component of the collection which appears to communicate with the collection deep to the ventral hernia mesh repair. 2. 30 mL fluid was sent for aerobic and anaerobic cultures. 3. The catheter will be managed by Dr. Flores. Abdomen/Pelvis CT 02/26/25 09:10 IMPRESSION: 1. Slight decrease in size of a now 9.6 x 7.9 x 2.0 cm abscess along the deep margin of a revised ventral hernia mesh repair on the right lower quadrant and pelvic anterior abdominal wall. Unchanged pigtail drainage catheter within a likely communicating and now collapsed abscess cavity along the superficial margin of the mesh repair. Labs Labs: Laboratory Results - last 24 hr 03/01/25 03/01/25 03/02/25 16:00 20:46 05:55 WBC 8.8 RBC 2.97 L Hgb 9.3 L Hct 29.2 L MCV 98.3 MCH 31.3 MCHC 31.8 L RDW 13.8 Plt Count 346 MPV 10.5 H Immature Gran % (Auto) 1.0 H Neut % (Auto) 57.1 Lymph % (Auto) 24.1 [place] % (Auto) 11.7 H Eos % (Auto) 5.1 H Baso % (Auto) 1.0 Lymph # (Auto) 2.12 [place] # (Auto) 1.0 H Eos # (Auto) 0.5 H Baso # (Auto) 0.1 Abs Immat Gran (auto) 0.09 H Absolute Neuts (auto) 5.0 Absolute Nucleated RBC 0.000 Nucleated RBC % 0.0 Sodium 131 L Potassium 5.0 Chloride 101 Carbon Dioxide 28 Anion Gap 2 L BUN 29 H Creatinine 0.82 Estim Creat Clear Calc 40 Estimated GFR > 60 Glucose 82 POC Capillary Glucose 90 89 Calcium 9.3 Magnesium 2.6 H Total Bilirubin 0.3 AST 86 H ALT 65 H Alkaline Phosphatase 90 Total Protein 6.5 Albumin 3.6 03/02/25 03/02/25 07:23 11:51 WBC RBC Hgb Hct MCV MCH MCHC RDW Plt Count MPV Immature Gran % (Auto) Neut % (Auto) Lymph % (Auto) [place] % (Auto) Eos % (Auto) Baso % (Auto) Lymph # (Auto) [place] # (Auto) Eos # (Auto) Baso # (Auto) Abs Immat Gran (auto) Absolute Neuts (auto) Absolute Nucleated RBC Nucleated RBC % Sodium Potassium Chloride Carbon Dioxide Anion Gap BUN Creatinine Estim Creat Clear Calc Estimated GFR Glucose POC Capillary Glucose 99 91 Calcium Magnesium Total Bilirubin AST ALT Alkaline Phosphatase Total Protein Albumin
[2025-03-02 16:01] LABS: Triglycerides 157 mg/dL (<150)
[2025-03-02 20:20] VITALS: BP 110/66; PULSE 73; RESP 18; TEMP 36.4; O2SAT 100
[2025-03-02] MEDS: MIRTAZAPINE 15 MG TABLET PO (21:05)
[2025-03-02] MEDS: GABAPENTIN 300 MG CAPSULE PO (21:05)
[2025-03-03 05:19] VITALS: BP 109/49; PULSE 98; RESP 18; TEMP 35.9; O2SAT 100
[2025-03-03] MEDS: HYDROcodone/acetaminophen (*CRX) 10-325 MG TABLET 1 TAB PO ×3 (06:01→18:05)
[2025-03-03] MEDS: LINACLOTIDE 145 MCG CAPSULE 290 MCG PO (06:02)
[2025-03-03] MEDS: CENTRAL LINE FLUSH 10 ML IV PUSH ×3 (06:16→20:50)
[2025-03-03 06:32] LABS: Hematocrit 30.3 % (37.0-47.0); Hemoglobin 9.4 g/dL (12.0-15.0); Immature Granulocyte Percent A 0.8 % (0-0.5); Lymphocytes Absolute Auto 2.05 K/mm3 (0.9-3.2); Mean Corpuscular HGB Conc 31.0 g/dl (32-36); Mean Corpuscular Hemoglobin 30.3 pg (26-34); Mean Corpuscular Volume 97.7 fl (80-100); Nucleated Red Blood Cells Absolute Auto 0.000 K/mm3 (0.0-0.012); Nucleated Red Blood Cells Perc 0.0 % (0.0-0.2); Platelet Count Result 332 k/mm3 (150-375); Red Blood Count 3.10 M/mm3 (4.2-5.4); White Blood Count 7.6 K/mm3 (4.5-10.0)
[2025-03-03 06:57] LABS: Alanine Aminotransferase 63 U/L (6-35); Albumin Level 3.7 g/dL (3.5-5.1); Alkaline Phosphatase 96 U/L (38-126); Anion Gap 3 mmol/L (4-12); Aspartate Amino Transferase 76 U/L (14-36); Bilirubin,Total 0.3 mg/dL (0.2-1.3); Blood Urea Nitrogen 22 mg/dL (7-17); Calcium 9.4 mg/dL (8.4-10.2); Carbon Dioxide 29 mmol/L (22-30); Chloride 100 mmol/L (98-107); Estimated CRCL calculation 48 ml/min; Estimated Glomerular Filt Rate > 60; Glucose 82 mg/dL (65-110); Magnesium 2.6 mg/dL (1.6-2.3); Potassium 4.6 mmol/L (3.4-5.0); Sodium 132 mmol/L (137-145); Total Protein 6.6 g/dL (6.3-8.2)
[2025-03-03 07:02] LABS: Transferrin 201 mg/dL (206-381)
[2025-03-03 07:03] LABS: INR 1.1; Partial Thromboplastin Time 32.8 Seconds (22.3-36.8); Prothrombin Time 13.8 Seconds (11.1-14.7)
[2025-03-03] MEDS: UMECLIDINIUM/VILANTEROL 62.5-25 MCG ELLIPTA 1 PUFF INHALATION (07:49)
[2025-03-03] MEDS: PANTOPRAZOLE 40 MG TABLET PO (08:44)
[2025-03-03] MEDS: ENOXAPARIN 40 MG/0.4 ML SYRINGE SUB-Q (08:44)
[2025-03-03 08:45] VITALS: PULSE 93
[2025-03-03] MEDS: MAGNESIUM OXIDE 200 MG TABLET PO ×2 (08:45→20:49)
[2025-03-03] MEDS: METOPROLOL SUCCINATE EXT REL 25 MG TABCR PO (08:45)
[2025-03-03] MEDS: SIMVASTATIN 20 MG TABLET 40 MG PO (08:45)
[2025-03-03] MEDS: FLUCONAZOLE 100 MG TABLET 200 MG PO (08:45)
[2025-03-03] MEDS: MEROPENEM 1 GM in SODIUM CHLORIDE 0.9% IV 100 ML 200 ML IVPB (08:46)
--- NOTE | 2025-03-03 11:41 | P.PNIM_ITS ---
Assessment and Plan Assessment and Plan (1) Cellulitis of abdominal wall: Code(s): L03.311 - Cellulitis of abdominal wall Status: Acute Assessment and Plan: CT AP showed slight decrease in size of a now 9.6 x 7.9 x 2.0 cm * s/p percutaneous abscess drainage by IR on 02/19/2025 and another one 02/27/2025 * culture positive ESBL E coli * Currently on micafungin and Meropenem, further adjustment per ID * s/p TPN, now on regular diet * Awaiting wound vac removal and clearance from surgery for discharge * Gen surgery following (2) Hypertension: Code(s): I10 - Essential (primary) hypertension Status: Acute Assessment and Plan: Blood pressures are stable * Continue home antihypertensives * Monitor BP trend (3) Hyperlipidemia: Code(s): E78.5 - Hyperlipidemia, unspecified Status: Acute Assessment and Plan: Continue home simvastatin (4) COPD (chronic obstructive pulmonary disease): Code(s): J44.9 - Chronic obstructive pulmonary disease, unspecified Status: Acute Assessment and Plan: Chronic and stable, not in acute exacerbation * Continue home Anoro Ellipta * Albuterol inhaler p.r.n. during admission (5) Hypokalemia: Code(s): E87.6 - Hypokalemia Status: Acute Assessment and Plan: Potassium 3.8 today * Monitor daily BMP and supplement potassium as needed Plan DVT prophylaxis on Sq lovenox Subjective Date/time seen: 03/03/25 11:41 Interval history: Comfortable at bedside Awaiting wound vac removal today and surgery clearance Review of Systems Review of Systems: Pt feels better All systems reviewed & are unremarkable except as noted in HPI and below Exam Narrative: GENERAL: Comfortable, no acute distress HENMT: moist mucous membranes EYES: EOM intact b/l NECK: no lymphadenopathy RESPIRATORY: clear to auscultation, no increased respiratory effort CARDIO: Regular rate and rhythm GI: bowel sounds present, Perc drain in place draining purulent fluid. SKIN/EXTREMITIES: no rashes, no edema, no redness or tenderness Objective Data Vital Signs Vital Signs: Vital Signs - 24 hr 03/02/25 14:00 03/02/25 20:00 03/02/25 20:20 Temperature 96.2 F L 97.5 F L Pulse Rate 83 73 Respiratory Rate 20 18 Blood Pressure 102/52 L 110/66 Pulse Oximetry 100 100 Oxygen Delivery Room Air 03/03/25 05:19 03/03/25 08:00 03/03/25 08:45 Temperature 96.7 F L Pulse Rate 98 93 Respiratory Rate 18 Blood Pressure 109/49 L Pulse Oximetry 100 Oxygen Delivery Room Air Intake/Output Intake/Output: Intake & Output 02/28/25 03/01/25 03/02/25 03/03/25 23:59 23:59 23:59 23:59 Intake Total 1853 1200 1400 500 Output Total 350 100 25 Balance 3683 310 7989 475 Meds/Results Medications: Active Medications Generic Name Dose Route Start Last Admin Trade Name Freq PRN Reason Stop Dose Admin Acetaminophen 650 mg 02/18/25 13:04 Acetaminophen 325 Mg Tablet PO Q4H PRN Mild Pain (1-3) or Fever Hydrocodone Bitart/Acetaminophen 1 tab 03/01/25 20:15 03/03/25 06:01 Hydrocodone/Acetaminophen (*Crx) 10-325 Mg Tablet PO 1 tab Q6H PRN Administration Pain Rated 7-10 Albuterol 2 puff 02/23/25 11:58 Albuterol Sulfate (*Sp) Aerosol 1 Puff INHALATION Q6HRT PRN Shortness Of Breath Dextrose 12.5 gm 02/24/25 08:33 Dextrose 50% 25 Gm/50 Ml Syringe IV PUSH PRN PRN Hypoglycemia Protocol Enoxaparin Sodium 40 mg 02/19/25 09:00 03/03/25 08:44 Enoxaparin 40 Mg/0.4 Ml Syringe SUB-Q 40 mg DAILY EMRE Administration Ergocalciferol 1,250 mcg 02/21/25 09:00 02/28/25 08:54 Ergocalciferol (Vitamin D2) 1,250 Mcg (50,000 Units) Capsule PO 1,250 mcg Fr@0900 EMRE Administration Fluconazole 200 mg 02/26/25 09:00 03/03/25 08:45 Fluconazole 100 Mg Tablet PO 200 mg QAM EMRE Administration Gabapentin 300 mg 02/20/25 21:00 03/02/25 21:05 Gabapentin 300 Mg Capsule PO 300 mg QHS EMRE Administration Glucagon 1 mg 02/24/25 08:33 Glucagon For Inj 1 Mg Vial IM PRN PRN Hypoglycemia Protocol Glucose 15 gm 02/24/25 08:33 Glucose Oral Gel 15 Gm Of Glucse In 37.5 Gm Tube PO PRN PRN Hypoglycemia Protocol Hydralazine HCl 10 mg 02/18/25 14:42 Hydralazine Hcl 20 Mg/Ml Vial IV PUSH Q8H PRN Blood Pressure - High Dextrose 1,000 mls @ 50 mls/hr 02/21/25 14:10 Dextrose 10% IV CONT .Q20H PRN if PN is interrupted Dextrose 1,000 mls @ 100 mls/hr 02/24/25 08:33 Dextrose 5% 1,000 Ml IVPB PRN PRN Hypoglycemia Protocol Micafungin Sodium 100 mg/ 100 mls @ 100 mls/hr 03/01/25 14:00 03/02/25 13:43 Sodium Chloride IVPB 100 mls/hr Q24H EMRE Administration Meropenem 1 gm/ Sodium 100 mls @ 200 mls/hr 03/01/25 21:00 03/03/25 09:16 Chloride IVPB Infused Q12H EMRE Infusion Insulin Aspart 2 - 5 units 03/01/25 17:00 03/03/25 08:46 Insulin Aspart (*Bkc) 100 Units/Ml SUB-Q Not Given TIDWM [facility] Protocol Insulin Aspart 1 - 2 units 03/01/25 21:00 03/02/25 21:07 Insulin Aspart (*Bkc) 100 Units/Ml SUB-Q Not Given HS EMRE Protocol Linaclotide 290 mcg 02/19/25 06:30 03/03/25 06:02 Linaclotide 145 Mcg Capsule PO 290 mcg DAILY@0630 EMRE Administration Magnesium Oxide 200 mg 02/19/25 21:00 03/03/25 08:45 Magnesium Oxide 200 Mg Tablet PO 200 mg Q12HR EMRE Administration Metoprolol Succinate 25 mg 02/19/25 09:00 03/03/25 08:45 Metoprolol Succinate Ext Rel 25 Mg Tabcr PO 25 mg DAILY EMRE Administration Mirtazapine 15 mg 02/18/25 21:00 03/02/25 21:05 Mirtazapine 15 Mg Tablet PO 15 mg HS EMRE Administration Miscellaneous Information 1 each 03/02/25 00:01 Please Renew Morphine. Per [employer] Procedure, It Will Discontinue If Not Renewed. XX 04/01/25 00:00 CLARIFY EMRE Morphine Sulfate 2 mg 02/21/25 14:04 02/26/25 08:54 Morphine Sulfate (*Crx) 4 Mg/Ml Inj IV PUSH 2 mg Q4H PRN Administration Pain Rated 4-6 Morphine Sulfate 4 mg 02/21/25 14:04 03/01/25 16:21 Morphine Sulfate (*Crx) 4 Mg/Ml Inj IV PUSH 4 mg Q4H PRN Administration Pain Rated 7-10 Pantoprazole Sodium 40 mg 02/19/25 09:00 03/03/25 08:44 Pantoprazole 40 Mg Tablet PO 40 mg DAILY EMRE Administration Simvastatin 40 mg 02/19/25 09:00 03/03/25 08:45 Simvastatin 20 Mg Tablet PO 40 mg DAILY EMRE Administration Sodium Chloride 10 ml 02/21/25 14:00 03/03/25 06:16 Central Line Flush IV PUSH 10 ml Q8HR EMRE Administration Sodium Chloride 10 ml 02/21/25 13:49 Central Line Flush IV PUSH PRN PRN with TPN bag changes Sodium Chloride 20 ml 02/21/25 13:49 Central Line Flush IV PUSH PRN PRN after blood draws Umeclidinium/Vilanterol 1 puff 02/18/25 12:20 03/03/25 07:49 Umeclidinium/Vilanterol 62.5-25 Mcg Ellipta INHALATION 1 puff DAILYRT EMRE Administration Radiology Results: ITS Impressions Catheter Placement CT 02/19/25 11:16 IMPRESSION: 1[address] Successful CT-guided abscess drainage with placement of a percutaneous abscess drain in the more superficial subcutaneous component of the collection which appears to communicate with the collection deep to the ventral hernia mesh repair. 2. 30 mL fluid was sent for aerobic and anaerobic cultures. 3. The catheter will be managed by Dr. Flores. Abdomen/Pelvis CT 02/26/25 09:10 IMPRESSION: 1. Slight decrease in size of a now 9.6 x 7.9 x 2.0 cm abscess along the deep margin of a revised ventral hernia mesh repair on the right lower quadrant and pelvic anterior abdominal wall. Unchanged pigtail drainage catheter within a likely communicating and now collapsed abscess cavity along the superficial margin of the mesh repair. Labs Labs: Laboratory Results - last 24 hr 03/02/25 03/02/25 03/02/25 05:55 11:51 16:02 WBC RBC Hgb Hct MCV MCH MCHC RDW Plt Count MPV Immature Gran % (Auto) Neut % (Auto) Lymph % (Auto) [place] % (Auto) Eos % (Auto) Baso % (Auto) Lymph # (Auto) [place] # (Auto) Eos # (Auto) Baso # (Auto) Abs Immat Gran (auto) Absolute Neuts (auto) Absolute Nucleated RBC Nucleated RBC % PT INR APTT Sodium Potassium Chloride Carbon Dioxide Anion Gap BUN Creatinine Estim Creat Clear Calc Estimated GFR Glucose POC Capillary Glucose 91 93 Calcium Magnesium Transferrin Total Bilirubin AST ALT Alkaline Phosphatase Total Protein Albumin Triglycerides 157 H 03/02/25 03/03/25 03/03/25 20:23 06:15 07:28 WBC 7.6 RBC 3.10 L Hgb 9.4 L Hct 30.3 L MCV 97.7 MCH 30.3 MCHC 31.0 L RDW 13.7 Plt Count 332 MPV 10.7 H Immature Gran % (Auto) 0.8 H Neut % (Auto) 55.4 Lymph % (Auto) 26.8 [place] % (Auto) 12.2 H Eos % (Auto) 3.9 Baso % (Auto) 0.9 Lymph # (Auto) 2.05 [place] # (Auto) 0.9 H Eos # (Auto) 0.3 Baso # (Auto) 0.1 Abs Immat Gran (auto) 0.06 H Absolute Neuts (auto) 4.2 Absolute Nucleated RBC 0.000 Nucleated RBC % 0.0 PT 13.8 INR 1.1 APTT 32.8 Sodium 132 L Potassium 4.6 Chloride 100 Carbon Dioxide 29 Anion Gap 3 L BUN 22 H Creatinine 0.70 Estim Creat Clear Calc 48 Estimated GFR > 60 Glucose 82 POC Capillary Glucose 90 94 Calcium 9.4 Magnesium 2.6 H Transferrin 201 L Total Bilirubin 0.3 AST 76 H ALT 63 H Alkaline Phosphatase 96 Total Protein 6.6 Albumin 3.7 Triglycerides Quality VTE Prophylaxis VTE prophylaxis: pharmacologic ordered
[2025-03-03] MEDS: MICAFUNGIN SODIUM 100 MG in SODIUM CHLORIDE 0.9% IV 100 ML IVPB (13:27)
[2025-03-03 14:00] VITALS: BP 96/33; PULSE 65; RESP 22; TEMP 36.1; O2SAT 97
--- NOTE | 2025-03-03 15:28 | PM.PNGS ---
Progress Note: A&P Assessment and Plan (1) Abdominal wall abscess: Code(s): L02.211 - Cutaneous abscess of abdominal wall Status: Acute Assessment and Plan: Wound VAC changed today. Will continue wound VAC changes. Awaiting for insurance approval for home wound VAC therapy and she will plan to have dressing changes in the wound clinic three days a week after discharge. She has been transitioned to Bactrim and is still on IV micafungin. Will confirm length of micafungin with Dr. Flores. Wound cultures with E.coli and jung. (2) Protein-calorie malnutrition, severe: Code(s): E43 - Unspecified severe protein-calorie malnutrition Status: Acute Assessment and Plan: Tolerating regular diet now (3) History of gastric bypass: Code(s): Z98.84 - Bariatric surgery status Status: Chronic Subjective Subjective Date/Time Seen: 03/03/25 15:28 Post Op day: 4 (Complex incision and drainage right lower quadrant abdominal wall abscess and application of wound VAC) Patient reports: no new complaints and tolerating a regular diet Interval history: No changes. Normal WBC count and afebrile. Patient seen today with the wound care nurses for wound vac change. Exam Narrative: Wound VAC in place in right lower quadrant, serosanguineous drainage within canister. Dressing and packing removed. Very mild erythema inferior to the wound, but very minimal. (wound measurements in wound care note) The more superifical aspect of the wound has healthy pink bleeding granulation tissue circumferentially, but the deeper aspect of the wound has a white film around the tissue and a cloudy white/gutierres drainage at the base of the wound over the mesh, which is visible at the base of the wound. There was some yellow-clear staining of the tegaderm dressing at the top of the dressing prior to pulling it off, but no obvious enteric content noted at the base of the wound. Const: General: comfortable and no acute distress Objective Data Vital Signs Vital Signs: Vital Signs - 24 hr 03/02/25 20:00 03/02/25 20:20 03/03/25 05:19 Temperature 97.5 F L 96.7 F L Pulse Rate 73 98 Respiratory Rate 18 18 Blood Pressure 110/66 109/49 L Pulse Oximetry 100 100 Oxygen Delivery Room Air 03/03/25 08:00 03/03/25 08:45 03/03/25 14:00 Temperature 97 F L Pulse Rate 93 65 Respiratory Rate 22 H Blood Pressure 96/33 L Pulse Oximetry 97 Oxygen Delivery Room Air Intake/Output Intake/Output: Intake & Output 02/28/25 03/01/25 03/02/25 03/03/25 23:59 23:59 23:59 23:59 Intake Total 1853 1200 1500 700 Output Total 350 100 25 Balance 1240 157 4005 675 Meds/Results Medications: Active Medications Generic Name Dose Route Start Last Admin Trade Name Freq PRN Reason Stop Dose Admin Acetaminophen 650 mg 02/18/25 13:04 Acetaminophen 325 Mg Tablet PO Q4H PRN Mild Pain (1-3) or Fever Hydrocodone Bitart/Acetaminophen 1 tab 03/01/25 20:15 03/03/25 11:55 Hydrocodone/Acetaminophen (*Crx) 10-325 Mg Tablet PO 1 tab Q6H PRN Administration Pain Rated 7-10 Albuterol 2 puff 02/23/25 11:58 Albuterol Sulfate (*Sp) Aerosol 1 Puff INHALATION Q6HRT PRN Shortness Of Breath Dextrose 12.5 gm 02/24/25 08:33 Dextrose 50% 25 Gm/50 Ml Syringe IV PUSH PRN PRN Hypoglycemia Protocol Enoxaparin Sodium 40 mg 02/19/25 09:00 03/03/25 08:44 Enoxaparin 40 Mg/0.4 Ml Syringe SUB-Q 40 mg DAILY EMRE Administration Ergocalciferol 1,250 mcg 02/21/25 09:00 02/28/25 08:54 Ergocalciferol (Vitamin D2) 1,250 Mcg (50,000 Units) Capsule PO 1,250 mcg Fr@0900 EMRE Administration Fluconazole 200 mg 02/26/25 09:00 03/03/25 08:45 Fluconazole 100 Mg Tablet PO 04/14/25 09:01 200 mg QAM EMRE Administration Gabapentin 300 mg 02/20/25 21:00 03/02/25 21:05 Gabapentin 300 Mg Capsule PO 300 mg QHS EMRE Administration Glucagon 1 mg 02/24/25 08:33 Glucagon For Inj 1 Mg Vial IM PRN PRN Hypoglycemia Protocol Glucose 15 gm 02/24/25 08:33 Glucose Oral Gel 15 Gm Of Glucse In 37.5 Gm Tube PO PRN PRN Hypoglycemia Protocol Hydralazine HCl 10 mg 02/18/25 14:42 Hydralazine Hcl 20 Mg/Ml Vial IV PUSH Q8H PRN Blood Pressure - High Dextrose 1,000 mls @ 50 mls/hr 02/21/25 14:10 Dextrose 10% IV CONT .Q20H PRN if PN is interrupted Dextrose 1,000 mls @ 100 mls/hr 02/24/25 08:33 Dextrose 5% 1,000 Ml IVPB PRN PRN Hypoglycemia Protocol Micafungin Sodium 100 mg/ 100 mls @ 100 mls/hr 03/01/25 14:00 03/03/25 13:27 Sodium Chloride IVPB 100 mls/hr Q24H EMRE Administration Insulin Aspart 2 - 5 units 03/01/25 17:00 03/03/25 12:32 Insulin Aspart (*Bkc) 100 Units/Ml SUB-Q Not Given TIDWM EMRE Protocol Insulin Aspart 1 - 2 units 03/01/25 21:00 03/02/25 21:07 Insulin Aspart (*Bkc) 100 Units/Ml SUB-Q Not Given HS EMRE Protocol Linaclotide 290 mcg 02/19/25 06:30 03/03/25 06:02 Linaclotide 145 Mcg Capsule PO 290 mcg DAILY@0630 EMRE Administration Magnesium Oxide 200 mg 02/19/25 21:00 03/03/25 08:45 Magnesium Oxide 200 Mg Tablet PO 200 mg Q12HR EMRE Administration Metoprolol Succinate 25 mg 02/19/25 09:00 03/03/25 08:45 Metoprolol Succinate Ext Rel 25 Mg Tabcr PO 25 mg DAILY EMRE Administration Mirtazapine 15 mg 02/18/25 21:00 03/02/25 21:05 Mirtazapine 15 Mg Tablet PO 15 mg HS EMRE Administration Miscellaneous Information 1 each 03/02/25 00:01 Please Renew Morphine. Per [employer] Procedure, It Will Discontinue If Not Renewed. XX 04/01/25 00:00 CLARIFY EMRE Pantoprazole Sodium 40 mg 02/19/25 09:00 03/03/25 08:44 Pantoprazole 40 Mg Tablet PO 40 mg DAILY EMRE Administration Simvastatin 40 mg 02/19/25 09:00 03/03/25 08:45 Simvastatin 20 Mg Tablet PO 40 mg DAILY EMRE Administration Sodium Chloride 10 ml 02/21/25 14:00 03/03/25 13:26 Central Line Flush IV PUSH 10 ml Q8HR EMRE Administration Sodium Chloride 10 ml 02/21/25 13:49 Central Line Flush IV PUSH PRN PRN with TPN bag changes Sodium Chloride 20 ml 02/21/25 13:49 Central Line Flush IV PUSH PRN PRN after blood draws Trimethoprim/Sulfamethoxazole 1 tab 03/03/25 21:00 Sulfamethoxazole/Trimethoprim 800/160 Mg Ds Tablet PO 04/14/25 21:01 Q12HR EMRE Umeclidinium/Vilanterol 1 puff 02/18/25 12:20 03/03/25 07:49 Umeclidinium/Vilanterol 62.5-25 Mcg Ellipta INHALATION 1 puff DAILYRT EMRE Administration Radiology Results: ITS Impressions Catheter Placement CT 02/19/25 11:16 IMPRESSION: 1[address] CT-guided abscess drainage with placement of a percutaneous abscess drain in the more superficial subcutaneous component of the collection which appears to communicate with the collection deep to the ventral hernia mesh repair. 2. 30 mL fluid was sent for aerobic and anaerobic cultures. 3. The catheter will be managed by Dr. Flores. Abdomen/Pelvis CT 02/26/25 09:10 IMPRESSION: 1. Slight decrease in size of a now 9.6 x 7.9 x 2.0 cm abscess along the deep margin of a revised ventral hernia mesh repair on the right lower quadrant and pelvic anterior abdominal wall. Unchanged pigtail drainage catheter within a likely communicating and now collapsed abscess cavity along the superficial margin of the mesh repair. Labs Labs: Laboratory Results - last 24 hr 03/02/25 03/02/25 03/02/25 05:55 16:02 20:23 WBC RBC Hgb Hct MCV MCH MCHC RDW Plt Count MPV Immature Gran % (Auto) Neut % (Auto) Lymph % (Auto) [place] % (Auto) Eos % (Auto) Baso % (Auto) Lymph # (Auto) [place] # (Auto) Eos # (Auto) Baso # (Auto) Abs Immat Gran (auto) Absolute Neuts (auto) Absolute Nucleated RBC Nucleated RBC % PT INR APTT Sodium Potassium Chloride Carbon Dioxide Anion Gap BUN Creatinine Estim Creat Clear Calc Estimated GFR Glucose POC Capillary Glucose 93 90 Calcium Magnesium Transferrin Total Bilirubin AST ALT Alkaline Phosphatase Total Protein Albumin Triglycerides 157 H 03/03/25 03/03/25 03/03/25 06:15 07:28 11:30 WBC 7.6 RBC 3.10 L Hgb 9.4 L Hct 30.3 L MCV 97.7 MCH 30.3 MCHC 31.0 L RDW 13.7 Plt Count 332 MPV 10.7 H Immature Gran % (Auto) 0.8 H Neut % (Auto) 55.4 Lymph % (Auto) 26.8 [place] % (Auto) 12.2 H Eos % (Auto) 3.9 Baso % (Auto) 0.9 Lymph # (Auto) 2.05 [place] # (Auto) 0.9 H Eos # (Auto) 0.3 Baso # (Auto) 0.1 Abs Immat Gran (auto) 0.06 H Absolute Neuts (auto) 4.2 Absolute Nucleated RBC 0.000 Nucleated RBC % 0.0 PT 13.8 INR 1.1 APTT 32.8 Sodium 132 L Potassium 4.6 Chloride 100 Carbon Dioxide 29 Anion Gap 3 L BUN 22 H Creatinine 0.70 Estim Creat Clear Calc 48 Estimated GFR > 60 Glucose 82 POC Capillary Glucose 94 95 Calcium 9.4 Magnesium 2.6 H Transferrin 201 L Total Bilirubin 0.3 AST 76 H ALT 63 H Alkaline Phosphatase 96 Total Protein 6.6 Albumin 3.7 Triglycerides
--- NOTE | 2025-03-03 19:10 | WPDINFPN2 ---
Progress Note: A&P Assessment and Plan (1) Abdominal wall abscess: Code(s): L02.211 - Cutaneous abscess of abdominal wall Status: Acute Plan ASSESSMENT 1. abdominal wall abscess iso ventral hernia repair with mesh on 02/03/25--also old mesh in place from prior abdominal hernia repair; s/p drain placement--now s/p I&D of abd wall abscess--old mesh still in place. 2. HTN, HL, COPD RECOMMENDATIONS: -abscess cx with ESBL E. coli and jung albicans -meropenem and fluconazole-->change to po fluconazole 200 mg daily and bactrim DS 1 tab po bid, both x 6 weeks. Will need until upcoming surgery in a few weeks and likely a short course after -f/u on OR cx from 02/27-->E. coli so far d/w pharmacy staff Pt was seen via video telehealth consultation with the assistance of staff. Chart, data and patient info reviewed. Patient was located at [facility] while I was in my [place] office. Pt gave consent. Subjective Date/time seen: 03/03/25 19:10 Interval history: no fever no leukocytosis Exam Narrative: on room air, NAD, non-toxic abd less distended, wound vac in place, soft, tender RUE PICC Objective Data Vital Signs Vital Signs: Vital Signs - 24 hr 03/02/25 20:00 03/02/25 20:20 03/03/25 05:19 Temperature 97.5 F L 96.7 F L Pulse Rate 73 98 Respiratory Rate 18 18 Blood Pressure 110/66 109/49 L Pulse Oximetry 100 100 Oxygen Delivery Room Air 03/03/25 08:00 03/03/25 08:45 03/03/25 14:00 Temperature 97 F L Pulse Rate 93 65 Respiratory Rate 22 H Blood Pressure 96/33 L Pulse Oximetry 97 Oxygen Delivery Room Air Intake/Output Intake/Output: Intake & Output 02/28/25 03/01/25 03/02/25 03/03/25 23:59 23:59 23:59 23:59 Intake Total 1853 1200 1500 1000 Output Total 350 100 25 Balance 3861 028 2316 975 Meds/Results Medications: Active Medications Generic Name Dose Route Start Last Admin Trade Name Freq PRN Reason Stop Dose Admin Acetaminophen 650 mg 02/18/25 13:04 Acetaminophen 325 Mg Tablet PO Q4H PRN Mild Pain (1-3) or Fever Hydrocodone Bitart/Acetaminophen 1 tab 03/01/25 20:15 03/03/25 18:05 Hydrocodone/Acetaminophen (*Crx) 10-325 Mg Tablet PO 1 tab Q6H PRN Administration Pain Rated 7-10 Albuterol 2 puff 02/23/25 11:58 Albuterol Sulfate (*Sp) Aerosol 1 Puff INHALATION Q6HRT PRN Shortness Of Breath Alteplase, Recombinant 2 mg 03/03/25 16:36 Alteplase 2 Mg Vial (Cathflo) IV PUSH ONCE PRN Line Occlusion Dextrose 12.5 gm 02/24/25 08:33 Dextrose 50% 25 Gm/50 Ml Syringe IV PUSH PRN PRN Hypoglycemia Protocol Enoxaparin Sodium 40 mg 02/19/25 09:00 03/03/25 08:44 Enoxaparin 40 Mg/0.4 Ml Syringe SUB-Q 40 mg DAILY EMRE Administration Ergocalciferol 1,250 mcg 02/21/25 09:00 02/28/25 08:54 Ergocalciferol (Vitamin D2) 1,250 Mcg (50,000 Units) Capsule PO 1,250 mcg Fr@0900 EMRE Administration Fluconazole 200 mg 02/26/25 09:00 03/03/25 08:45 Fluconazole 100 Mg Tablet PO 04/14/25 09:01 200 mg QAM EMRE Administration Gabapentin 300 mg 02/20/25 21:00 03/02/25 21:05 Gabapentin 300 Mg Capsule PO 300 mg QHS EMRE Administration Glucagon 1 mg 02/24/25 08:33 Glucagon For Inj 1 Mg Vial IM PRN PRN Hypoglycemia Protocol Glucose 15 gm 02/24/25 08:33 Glucose Oral Gel 15 Gm Of Glucse In 37.5 Gm Tube PO PRN PRN Hypoglycemia Protocol Hydralazine HCl 10 mg 02/18/25 14:42 Hydralazine Hcl 20 Mg/Ml Vial IV PUSH Q8H PRN Blood Pressure - High Dextrose 1,000 mls @ 50 mls/hr 02/21/25 14:10 Dextrose 10% IV CONT .Q20H PRN if PN is interrupted Dextrose 1,000 mls @ 100 mls/hr 02/24/25 08:33 Dextrose 5% 1,000 Ml IVPB PRN PRN Hypoglycemia Protocol Micafungin Sodium 100 mg/ 100 mls @ 100 mls/hr 03/01/25 14:00 03/03/25 14:27 Sodium Chloride IVPB Infused Q24H EMRE Infusion Insulin Aspart 2 - 5 units 03/01/25 17:00 03/03/25 16:47 Insulin Aspart (*Bkc) 100 Units/Ml SUB-Q Not Given TIDWM [facility] Protocol Insulin Aspart 1 - 2 units 03/01/25 21:00 03/02/25 21:07 Insulin Aspart (*Bkc) 100 Units/Ml SUB-Q Not Given HS [facility] Protocol Linaclotide 290 mcg 02/19/25 06:30 03/03/25 06:02 Linaclotide 145 Mcg Capsule PO 290 mcg DAILY@0630 EMRE Administration Magnesium Oxide 200 mg 02/19/25 21:00 03/03/25 08:45 Magnesium Oxide 200 Mg Tablet PO 200 mg Q12HR EMRE Administration Metoprolol Succinate 25 mg 02/19/25 09:00 03/03/25 08:45 Metoprolol Succinate Ext Rel 25 Mg Tabcr PO 25 mg DAILY EMRE Administration Mirtazapine 15 mg 02/18/25 21:00 03/02/25 21:05 Mirtazapine 15 Mg Tablet PO 15 mg HS EMRE Administration Miscellaneous Information 1 each 03/02/25 00:01 Please Renew Morphine. Per [employer] Procedure, It Will Discontinue If Not Renewed. XX 04/01/25 00:00 CLARIFY EMRE Pantoprazole Sodium 40 mg 02/19/25 09:00 03/03/25 08:44 Pantoprazole 40 Mg Tablet PO 40 mg DAILY EMRE Administration Simvastatin 40 mg 02/19/25 09:00 03/03/25 08:45 Simvastatin 20 Mg Tablet PO 40 mg DAILY EMRE Administration Sodium Chloride 10 ml 02/21/25 14:00 03/03/25 13:26 Central Line Flush IV PUSH 10 ml Q8HR ERME Administration Sodium Chloride 10 ml 02/21/25 13:49 Central Line Flush IV PUSH PRN PRN with TPN bag changes Sodium Chloride 20 ml 02/21/25 13:49 Central Line Flush IV PUSH PRN PRN after blood draws Trimethoprim/Sulfamethoxazole 1 tab 03/03/25 21:00 Sulfamethoxazole/Trimethoprim 800/160 Mg Ds Tablet PO 04/14/25 21:01 Q12HR EMRE Umeclidinium/Vilanterol 1 puff 02/18/25 12:20 03/03/25 07:49 Umeclidinium/Vilanterol 62.5-25 Mcg Ellipta INHALATION 1 puff DAILYRT EMRE Administration Radiology Results: ITS Impressions Catheter Placement CT 02/19/25 11:16 IMPRESSION: 1. Successful CT-guided abscess drainage with placement of a percutaneous abscess drain in the more superficial subcutaneous component of the collection which appears to communicate with the collection deep to the ventral hernia mesh repair. 2. 30 mL fluid was sent for aerobic and anaerobic cultures. 3. The catheter will be managed by Dr. Flores. Abdomen/Pelvis CT 02/26/25 09:10 IMPRESSION: 1. Slight decrease in size of a now 9.6 x 7.9 x 2.0 cm abscess along the deep margin of a revised ventral hernia mesh repair on the right lower quadrant and pelvic anterior abdominal wall. Unchanged pigtail drainage catheter within a likely communicating and now collapsed abscess cavity along the superficial margin of the mesh repair. Labs Labs: Laboratory Results - last 24 hr 03/02/25 03/03/25 03/03/25 20:23 06:15 07:28 WBC 7.6 RBC 3.10 L Hgb 9.4 L Hct 30.3 L MCV 97.7 MCH 30.3 MCHC 31.0 L RDW 13.7 Plt Count 332 MPV 10.7 H Immature Gran % (Auto) 0.8 H Neut % (Auto) 55.4 Lymph % (Auto) 26.8 [place] % (Auto) 12.2 H Eos % (Auto) 3.9 Baso % (Auto) 0.9 Lymph # (Auto) 2.05 [place] # (Auto) 0.9 H Eos # (Auto) 0.3 Baso # (Auto) 0.1 Abs Immat Gran (auto) 0.06 H Absolute Neuts (auto) 4.2 Absolute Nucleated RBC 0.000 Nucleated RBC % 0.0 PT 13.8 INR 1.1 APTT 32.8 Sodium 132 L Potassium 4.6 Chloride 100 Carbon Dioxide 29 Anion Gap 3 L BUN 22 H Creatinine 0.70 Estim Creat Clear Calc 48 Estimated GFR > 60 Glucose 82 POC Capillary Glucose 90 94 Calcium 9.4 Magnesium 2.6 H Transferrin 201 L Total Bilirubin 0.3 AST 76 H ALT 63 H Alkaline Phosphatase 96 Total Protein 6.6 Albumin 3.7 03/03/25 03/03/25 11:30 16:14 WBC RBC Hgb Hct MCV MCH MCHC RDW Plt Count MPV Immature Gran % (Auto) Neut % (Auto) Lymph % (Auto) [place] % (Auto) Eos % (Auto) Baso % (Auto) Lymph # (Auto) [place] # (Auto) Eos # (Auto) Baso # (Auto) Abs Immat Gran (auto) Absolute Neuts (auto) Absolute Nucleated RBC Nucleated RBC % PT INR APTT Sodium Potassium Chloride Carbon Dioxide Anion Gap BUN Creatinine Estim Creat Clear Calc Estimated GFR Glucose POC Capillary Glucose 95 99 Calcium Magnesium Transferrin Total Bilirubin AST ALT Alkaline Phosphatase Total Protein Albumin
[2025-03-03 20:00] VITALS: PULSE 66; RESP 18; O2SAT 100
[2025-03-03] MEDS: MIRTAZAPINE 15 MG TABLET PO (20:49)
[2025-03-03] MEDS: SULFAMETHOXAZOLE/TRIMETHOPRIM 800/160 MG DS TABLET 1 TAB PO (20:49)
[2025-03-03] MEDS: GABAPENTIN 300 MG CAPSULE PO (20:49)
[2025-03-03 21:48] VITALS: BP 103/54; PULSE 66; RESP 18; TEMP 36.6; O2SAT 100
[2025-03-04] MEDS: HYDROcodone/acetaminophen (*CRX) 10-325 MG TABLET 1 TAB PO ×3 (01:58→14:58)
[2025-03-04 06:00] VITALS: BP 119/54; PULSE 57; RESP 14; TEMP 36.4; O2SAT 100
[2025-03-04] MEDS: CENTRAL LINE FLUSH 10 ML IV PUSH (06:11)
[2025-03-04] MEDS: LINACLOTIDE 145 MCG CAPSULE 290 MCG PO (06:11)
[2025-03-04] MEDS: UMECLIDINIUM/VILANTEROL 62.5-25 MCG ELLIPTA 1 PUFF INHALATION (07:50)
[2025-03-04 07:51] VITALS: PULSE 75; RESP 20; O2SAT 98
[2025-03-04 08:00] VITALS: O2SAT 98
[2025-03-04 08:27] VITALS: PULSE 70
[2025-03-04] MEDS: SIMVASTATIN 20 MG TABLET 40 MG PO (08:27)
[2025-03-04] MEDS: PANTOPRAZOLE 40 MG TABLET PO (08:27)
[2025-03-04] MEDS: SULFAMETHOXAZOLE/TRIMETHOPRIM 800/160 MG DS TABLET 1 TAB PO (08:27)
[2025-03-04] MEDS: FLUCONAZOLE 100 MG TABLET 200 MG PO (08:27)
[2025-03-04] MEDS: METOPROLOL SUCCINATE EXT REL 25 MG TABCR PO (08:27)
[2025-03-04] MEDS: ENOXAPARIN 40 MG/0.4 ML SYRINGE SUB-Q (08:27)
--- NOTE | 2025-03-04 13:59 | PM.DS ---
DS: Admitting Diagnosis Discharge Date 03/04/2025 <Maryjo Castaneda PA-C - Last Filed: 03/04/25 15:32> Admitting Diagnosis abdominal wall abscess <Maryjo Castaneda PA-C - Last Filed: 03/04/25 15:32> DS: Discharge Diagnosis Discharge Diagnosis (1) Abdominal wall abscess: Code(s): L02.211 - Cutaneous abscess of abdominal wall <Maryjo Castaneda PA-C - Last Filed: 03/04/25 15:32> Status: Acute <PriyankaYarely Castaneda PA-C - Last Filed: 03/04/25 15:32> (2) Protein-calorie malnutrition, severe: Code(s): E43 - Unspecified severe protein-calorie malnutrition <Maryjo Castaneda PA-C - Last Filed: 03/04/25 15:32> Status: Acute <Maryjo Castaneda PA-C - Last Filed: 03/04/25 15:32> (3) History of gastric bypass: Code(s): Z98.84 - Bariatric surgery status <Maryjo Castaneda PA-C - Last Filed: 03/04/25 15:32> Status: Chronic <Maryjo Castaneda PA-C - Last Filed: 03/04/25 15:32> (4) Hx of ventral hernia repair: Code(s): Z98.890 - Other specified postprocedural states; Z87.19 - Personal history of other diseases of the digestive system <Maryjo Castaneda PA-C - Last Filed: 03/04/25 15:32> Status: Acute <Maryjo Castaneda PA-C - Last Filed: 03/04/25 15:32> DS: Summary Hospital Course Reason for hospitalization: Patient was seen in the general surgery office on 02/18/2025, 2 weeks status post robotic recurrent incisional hernia repair, repair of small bowel jejunal iatrogenic enterotomy, extensive adhesiolysis of 2.5 hours, incarcerated incisional port site hernia repair x2 on 02/03/[address] Flores. patient complained of pain at the hernia repair site, and upon examination she had an area redness about 2-3 cm to anterior abdominal wall in the right lower quadrant over the area of the repair. It felt like either seroma versus abscess in the subcutaneous tissues. She was admitted directly from the office to the hospital for IV antibiotic treatment and CT scan of the abdomen and pelvis. <Maryjo Castaneda PA-C - Last Filed: 03/04/25 15:32> Hospital Course: After admission to the hospital on 02/18/2025, a CT was obtained and demonstrated a large abscess to the right abdominal wall extending into the peritoneum. Roughly 10 cm transverse by 10 cm craniocaudad by 5 cm AP diameter. Discussions were made with the on-call interventional radiologist in the following day a 8.5 [place] pigtail catheter was placed into the abscess using CT guidance. The superficial subcutaneous component of the fluid collection appeared to communicate with deep collection underneath the ventral hernia mesh repair. Patient did initially have an elevated white blood cell count of 15.5 upon arrival. She was started on IV cefepime, flagyl and vancomycin per infectious disease recommendations. Potassium did drop a little low on 02/19 and 02/22. This was repleted with KCL. After CT-guided abscess drainage, the fluid in the bag began to look slightly CQ Lint in brown tinged. Repeat CT on 02/21/2025 demonstrated increase in size of intraperitoneal abscess along right lower quadrant anterior abdominal wall deep to a revised ventral hernia mesh repair. Complex fluid within the at with extravasation of oral contrast material. Communication of this abscess cavity to smaller more superficial abscess cavity with recently placed abscess drainage catheter. Patient was started on TPN IV nutrition on 02/21/2025. This was completed on 03/01/2025. there was a small twist to the drainage tubing that was untwisted on on 02/22/2025. On 02/23, abscess culture began growing multiple drug resistant E coli and also Michelle. Micafungin IV was added. Vancomycin discontinued. Id then consulted and changed antibiotics to meropenem and fluconazole. Output from the drain began to look more gutierres yellow. Another CT scan was obtained on 02/26/2025 and demonstrated stable right lower quadrant abdominal abscess which appeared to be mostly contained between more superficial old mesh and deeper new mesh. Output from the drain continue to look purulence, not feculent. patient was taken back to OR on 02/27/2025 for complex incision and drainage right lower quadrant abdominal wall abscess and application of wound VAC. the following day, wound VAC dressing was changed and appeared stable. Weaned off TPN. patient was switched to oral antibiotics and antifungals. She was set up for home VAC with plans to follow up in wound care clinic for VAC dressing changes. Surgically stable for discharge on 03/04/2025. Patient will likely need to eventually return for interval surgery to remove old mesh from her abdomen. Patient will follow in wound care clinic with Dr. Flores. <Maryjo Castaneda PA-C - Last Filed: 03/04/25 15:32> Status at Discharge Functional status at discharge: independent ambulation <Maryjo Castaneda PA-C - Last Filed: 03/04/25 15:32> Overall status at discharge: patient is progressing back to baseline <Maryjo Castaneda PA-C - Last Filed: 03/04/25 15:32> Time Spent with Patient Time attestation: Total time spent providing and/or coordinating discharge services: <Maryjo Castaneda PA-C - Last Filed: 03/04/25 15:32> Time spent: Greater than 30 minutes <Maryjo Castaneda PA-C - Last Filed: 03/04/25 15:32> Exam Const: General: comfortable and no acute distress <ISABELLA Dick Last Filed: 03/04/25 15:32> Eyes: General: appearance normal, both eyes and all related structures <ISABELLA Dick Last Filed: 03/04/25 15:32> Neck: Neck: supple <ISABELLA Dick Last Filed: 03/04/25 15:32> Resp: Effort & Inspection: normal respiratory effort <ISABELLA Dick Last Filed: 03/04/25 15:32> Cardio: Rate: regular rate <ISABELLA Dick Last Filed: 03/04/25 15:32> GI: Inspection: non-distended <Maryjo Castaneda PA-C - Last Filed: 03/04/25 15:32> GI Palp: Yes Soft to palpation, Yes Tenderness to palpation present (GI) (RLQ) and No Guarding due to palpation present (GI) <ISABELLA Dick Last Filed: 03/04/25 15:32> Auscultation: normal bowel sounds <Maryjo Castaneda PA-C - Last Filed: 03/04/25 15:32> Other: Wound vac in place and functioning properly. Yellow/green and serosanguineous fluid in canister. No surrounding skin irritation. <Maryjo Castaneda PA-C - Last Filed: 03/04/25 15:32> Skin: General skin exam: normal color and no rashes or lesions noted <ISABELLA Dick Last Filed: 03/04/25 15:32> Neuro: Sensory Exam: normal sensation <Maryjo Castaneda PA-C - Last Filed: 03/04/25 15:32> Extrem: General: normal to inspection <Maryjo Castaneda PA-C - Last Filed: 03/04/25 15:32> Psych: Mental Status: mental status grossly normal <ISABELLA Dick Last Filed: 03/04/25 15:32> DS: Data Data Completed and Pending Labs on day of discharge: Labs from last 24 hours 03/04/25 03/04/25 03/03/25 11:34 07:26 20:13 POC Capillary Glucose 82 86 93 03/03/25 16:14 POC Capillary Glucose 99 <ISABELLA Dick Last Filed: 03/04/25 15:32> Procedures/Treatments: Procedures Operation Date: 02/27/25 15:00 Actual Procedure Side Surgeon p Incision and Drainage Abdominal Wall Abscess, Wound Vac Placement Not Applicable Herbert Flores MD <Maryjo Castaneda PA-C - Last Filed: 03/04/25 15:32> Imaging Radiologist's impression: ITS Impressions Abdomen/Pelvis CT 02/18/25 13:53 IMPRESSION: 1. Large abscess right abdominal wall extending into peritoneum. Roughly 10 cm transverse by 10 cm craniocaudad by 5 cm AP diameter. Catheter Placement CT 02/19/25 11:16 IMPRESSION: 1. Successful CT-guided abscess drainage with placement of a percutaneous abscess drain in the more superficial subcutaneous component of the collection which appears to communicate with the collection deep to the ventral hernia mesh repair. 2. 30 mL fluid was sent for aerobic and anaerobic cultures. 3. The catheter will be managed by Dr. Flores. Abdomen/Pelvis CT 02/21/25 11:02 IMPRESSION: 1. Increase in size of an intraperitoneal abscess along the right lower quadrant anterior abdominal wall deep to a revised ventral hernia mesh repair. Complex and in places high attenuation fluid within the abscess cavity consistent with persistent communication to the small bowel with extravasation of oral contrast material. There is communication of this abscess cavity through 4 along side the mesh to a smaller more superficial abscess cavity with pin which is the recently placed abscess drainage catheter. Abdomen/Pelvis CT 02/26/25 09:10 IMPRESSION: 1. Slight decrease in size of a now 9.6 x 7.9 x 2.0 cm abscess along the deep margin of a revised ventral hernia mesh repair on the right lower quadrant and pelvic anterior abdominal wall. Unchanged pigtail drainage catheter within a likely communicating and now collapsed abscess cavity along the superficial margin of the mesh repair. <Maryjo Castaneda PA-C - Last Filed: 03/04/25 15:32> Discharge Plan Discharge Attending physician on discharge: Herbert Flores <Maryjo Castaneda PA-C - Last Filed: 03/04/25 15:32> Herbert Flores <Herbert Flores MD - Last Filed: 03/04/25 15:04> Consulting providers: Pamela Campbell; Ashlie Shepard; Cora Perry <Maryjo Castaneda PA-C - Last Filed: 03/04/25 15:32> Discharging Clinician: Maryjo Castaneda <Maryjo Castaneda PA-C - Last Filed: 03/04/25 15:32> Maryjo Castaneda <Herbert Flores MD - Last Filed: 03/04/25 15:04> Anticipated Discharge Date/Time: 03/04/25 13:36 <Maryjo Castaneda PA-C - Last Filed: 03/04/25 15:32> Patient Disposition: Home <Maryjo Castaneda PA-C - Last Filed: 03/04/25 15:32> Activity: no shower <Maryjo Castaneda PA-C - Last Filed: 03/04/25 15:32> no shower <Herbert Flores MD - Last Filed: 03/04/25 15:04> Diet: regular <Maryjo Castaneda PA-C - Last Filed: 03/04/25 15:32> regular <Herbert Flores MD - Last Filed: 03/04/25 15:04> Wound Care Instructions: follow printed instructions <Maryjo Castaneda PA-C - Last Filed: 03/04/25 15:32> follow printed instructions <Herbert Flores MD - Last Filed: 03/04/25 15:04> Discharge Instructions: Patient to come to the [facility] for wound vac dressing changes 2-3 times per week. If wound vac dressing comes off, take all black foam out of the wound, then lightly pack a saline moistened gauze dressing into the wound, cover with an ABD pad, then on the next business day, contact wound center at [phone] First appointment will be tomorrow March 05, 2025 at 1:00pm Please arrive to Main Entrance(entrance 1) by 12:30pm as you must go through Registration Registration is located to the left of the main lobby doors. Once registered, wound center is located on the 2nd floor of the hospital(follow the signs) Questions regarding appointment time, please contact [phone] Call the general surgery office at or present to the Emergency Department if you develop any: vomiting, fever greater than 100 degrees, increased redness surrounding the wound, or increased pain out of proportion Resume your normal diet. Begin taking a daily probiotic or eating yogurt on a daily basis to maintain intestinal barrier integrity. No showering or bathing in a body of water. OK to continue sponge bathing. Antibiotics and antifungal medications have been sent to your pharmacy. Please pick these up and take them as prescribed. Labs were ordered for you to get drawn in 2 weeks. Please do so. We are holding one of your blood pressure medications, losartan, as your blood pressure readings have been on the lower side of normal during your hospital stay. Please follow up with your primary care provider in 1-2 weeks to discuss restarting this medication vs discontinuing it. Ok to resume all normal daily activities. Avoid any strenuous exercise or heavy lifting. Walking is encouraged. <Maryjo Castaneda PA-C - Last Filed: 03/04/25 15:32> Patient Instructions: Antibiotic Form, How to Stop Smoking (DC), Removal of a Central Line, PICC, or Midline Catheter (GEN) <Maryjo Castaneda PA-C - Last Filed: 03/04/25 15:32> Patient Language: Swedish <Maryjo Castaneda PA-C - Last Filed: 03/04/25 15:32> Stand Alone Forms: General Discharge Information <Maryjo Castaneda PA-C - Last Filed: 03/04/25 15:32> Follow-up/Referrals: Jamey Flower MD [Primary Care Provider, Family Practice] - 1 Week Referral Note: Losartan being held. Herbert Flores MD [Physician, General Surgery] - 1 Week Referral Note: at the [facility] <Maryjo Castaneda PA-C - Last Filed: 03/04/25 15:32> Discharge Medications: New sulfamethoxazole-trimethoprim 800-160 mg Tablet 1 tablet PO Q12HR Qty: 84 0RF Rx Instructions: Take one tablet by mouth twice a day. fluconazole 200 mg tablet 200 mg PO DAILY Qty: 42 0RF Continued pantoprazole [Protonix] 40 mg tablet,delayed release (DR/EC) 40 mg PO DAILY 30 Days Qty: 30 0RF ergocalciferol (vitamin D2) 1,250 mcg (50,000 unit) capsule 1,250 mcg PO WEEKLY Rx Instructions: weekly on Monday metoprolol succinate 25 mg tablet extended release 24 hr 25 mg PO DAILY simvastatin 40 mg tablet 40 mg PO DAILY mirtazapine 15 mg tablet 15 mg PO HS umeclidinium-vilanterol [Anoro Ellipta] 62.5-25 mcg/actuation blister with device 1 inh INHALATION DAILY gabapentin [Neurontin] 300 mg capsule 300 mg PO TID hydrocodone-acetaminophen 10-325 mg Tablet 1 tablet PO Q6H PRN (Reason: Pain) cyclobenzaprine 10 mg tablet 10 mg PO HS PRN (Reason: muscle spasm) Linzess 290 mcg capsule 290 mcg PO DAILY PRN (Reason: bowel ) Held losartan 100 mg tablet 100 mg PO DAILY Hold Instructions: Hold until follow up with PCP. <Maryjo Castaneda PA-C - Last Filed: 03/04/25 15:32> Other Ambulatory Orders: Comprehensive Metabolic Panel (Routine) Timeframe: 2 Weeks Location: Determined by Patient Ordered By: Maryjo Castaneda <Maryjo Castaneda PA-C - Last Filed: 03/04/25 15:32> Date of admission: 02/19/25 10:10 <Maryjo Castaneda PA-C - Last Filed: 03/04/25 15:32> Primary Care Provider: Jamey Flower <Maryjo Castaneda PA-C - Last Filed: 03/04/25 15:32> Admitting Provider: Herbert Flores <Maryjo Castaneda PA-C - Last Filed: 03/04/25 15:32> Attending physician on admission: Herbert Flores <Maryjo Castaneda PA-C - Last Filed: 03/04/25 15:32> Condition: Improved <Maryjo Castaneda PA-C - Last Filed: 03/04/25 15:32> Attestation Supervising Provider Attestation I have personally seen and evaluated the patient today with JUNCTION MAKER/PA.? ? I have reviewed any new relevant radiographic and laboratory results.? I have reviewed the kelley elements of the patient's current surgical or medical problems and I have personally performed a substantive portion of the care for this patient.? I personally performed the pertinent physical exam and reviewed and confirmed the patient's medicine list.? ? I have formulated the surgical care plan and I agree with the documented note above. <Herbert Flores MD - Last Filed: 03/04/25 15:04>
[2025-03-04 14:00] VITALS: BP 107/60; PULSE 73; RESP 19; TEMP 36.7; O2SAT 97
--- NOTE | 2025-03-04 14:24 | P.PNIM_ITS ---
Assessment and Plan Assessment and Plan (1) Cellulitis of abdominal wall: Code(s): L03.311 - Cellulitis of abdominal wall Status: Acute Assessment and Plan: CT AP showed slight decrease in size of a now 9.6 x 7.9 x 2.0 cm * s/p percutaneous abscess drainage by IR on 02/19/2025 and another one 02/27/2025 * culture positive ESBL E coli * Currently on micafungin and Meropenem, further adjustment per ID * s/p TPN, now on regular diet * Awaiting wound vac removal and clearance from surgery for discharge * Gen surgery following (2) Hypertension: Code(s): I10 - Essential (primary) hypertension Status: Acute Assessment and Plan: Blood pressures are stable * Continue home antihypertensives * Monitor BP trend * Losartan was on hold possibly due to hypertension * Patient can continue after discussing with PCP (3) Hyperlipidemia: Code(s): E78.5 - Hyperlipidemia, unspecified Status: Acute Assessment and Plan: Continue home simvastatin (4) COPD (chronic obstructive pulmonary disease): Code(s): J44.9 - Chronic obstructive pulmonary disease, unspecified Status: Acute Assessment and Plan: Chronic and stable, not in acute exacerbation * Continue home Anoro Ellipta * Albuterol inhaler p.r.n. during admission (5) Hypokalemia: Code(s): E87.6 - Hypokalemia Status: Acute Assessment and Plan: Potassium 3.8 today * Monitor daily BMP and supplement potassium as needed Plan DVT prophylaxis on Sq lovenox Subjective Date/time seen: 03/04/25 14:24 Interval history: Patient had hernia surgery which was complicated with a wound/abscess. Patient is cleared to discharge from surgery standpoint. Review of Systems Review of Systems: Pt feels better All systems reviewed & are unremarkable except as noted in HPI and below Exam Narrative: GENERAL: Comfortable, no acute distress HENMT: moist mucous membranes EYES: EOM intact b/l NECK: no lymphadenopathy RESPIRATORY: clear to auscultation, no increased respiratory effort CARDIO: Regular rate and rhythm GI: bowel sounds present, Perc drain in place draining purulent fluid. SKIN/EXTREMITIES: no rashes, no edema, no redness or tenderness Objective Data Vital Signs Vital Signs: Vital Signs - 24 hr 03/03/25 20:00 03/03/25 21:48 03/04/25 06:00 Temperature 97.8 F 97.6 F Pulse Rate 66 66 57 L Respiratory Rate 18 18 14 Blood Pressure 103/54 L 119/54 L Pulse Oximetry 100 100 100 Oxygen Delivery Room Air Fraction of Inspired Oxygen 21 03/04/25 07:51 03/04/25 07:51 03/04/25 08:00 Temperature Pulse Rate 75 Respiratory Rate 20 Blood Pressure Pulse Oximetry 98 98 Oxygen Delivery Room Air Room Air Fraction of Inspired Oxygen 03/04/25 08:27 Temperature Pulse Rate 70 Respiratory Rate Blood Pressure Pulse Oximetry Oxygen Delivery Fraction of Inspired Oxygen Intake/Output Intake/Output: Intake & Output 03/01/25 03/02/25 03/03/25 03/04/25 23:59 23:59 23:59 23:59 Intake Total 1200 1500 1000 400 Output Total 350 100 25 Balance 850 1400 975 400 Meds/Results Medications: Active Medications Generic Name Dose Route Start Last Admin Trade Name Freq PRN Reason Stop Dose Admin Acetaminophen 650 mg 02/18/25 13:04 Acetaminophen 325 Mg Tablet PO Q4H PRN Mild Pain (1-3) or Fever Hydrocodone Bitart/Acetaminophen 1 tab 03/01/25 20:15 03/04/25 08:26 Hydrocodone/Acetaminophen (*Crx) 10-325 Mg Tablet PO 1 tab Q6H PRN Administration Pain Rated 7-10 Albuterol 2 puff 02/23/25 11:58 Albuterol Sulfate (*Sp) Aerosol 1 Puff INHALATION Q6HRT PRN Shortness Of Breath Alteplase, Recombinant 2 mg 03/03/25 16:36 Alteplase 2 Mg Vial (Cathflo) IV PUSH ONCE PRN Line Occlusion Dextrose 12.5 gm 02/24/25 08:33 Dextrose 50% 25 Gm/50 Ml Syringe IV PUSH PRN PRN Hypoglycemia Protocol Enoxaparin Sodium 40 mg 02/19/25 09:00 03/04/25 08:27 Enoxaparin 40 Mg/0.4 Ml Syringe SUB-Q 40 mg DAILY EMRE Administration Ergocalciferol 1,250 mcg 02/21/25 09:00 02/28/25 08:54 Ergocalciferol (Vitamin D2) 1,250 Mcg (50,000 Units) Capsule PO 1,250 mcg Fr@0900 EMRE Administration Fluconazole 200 mg 02/26/25 09:00 03/04/25 08:27 Fluconazole 100 Mg Tablet PO 04/14/25 09:01 200 mg QAM EMRE Administration Gabapentin 300 mg 02/20/25 21:00 03/03/25 20:49 Gabapentin 300 Mg Capsule PO 300 mg QHS EMRE Administration Glucagon 1 mg 02/24/25 08:33 Glucagon For Inj 1 Mg Vial IM PRN PRN Hypoglycemia Protocol Glucose 15 gm 02/24/25 08:33 Glucose Oral Gel 15 Gm Of Glucse In 37.5 Gm Tube PO PRN PRN Hypoglycemia Protocol Hydralazine HCl 10 mg 02/18/25 14:42 Hydralazine Hcl 20 Mg/Ml Vial IV PUSH Q8H PRN Blood Pressure - High Dextrose 1,000 mls @ 100 mls/hr 02/24/25 08:33 Dextrose 5% 1,000 Ml IVPB PRN PRN Hypoglycemia Protocol Insulin Aspart 2 - 5 units 03/01/25 17:00 03/04/25 11:50 Insulin Aspart (*Bkc) 100 Units/Ml SUB-Q Not Given TIDWM EMRE Protocol Insulin Aspart 1 - 2 units 03/01/25 21:00 03/03/25 20:49 Insulin Aspart (*Bkc) 100 Units/Ml SUB-Q Not Given HS EMRE Protocol Linaclotide 290 mcg 02/19/25 06:30 03/04/25 06:11 Linaclotide 145 Mcg Capsule PO 290 mcg DAILY@0630 EMRE Administration Metoprolol Succinate 25 mg 02/19/25 09:00 03/04/25 08:27 Metoprolol Succinate Ext Rel 25 Mg Tabcr PO 25 mg DAILY EMRE Administration Mirtazapine 15 mg 02/18/25 21:00 03/03/25 20:49 Mirtazapine 15 Mg Tablet PO 15 mg HS EMRE Administration Pantoprazole Sodium 40 mg 02/19/25 09:00 03/04/25 08:27 Pantoprazole 40 Mg Tablet PO 40 mg DAILY EMRE Administration Simvastatin 40 mg 02/19/25 09:00 03/04/25 08:27 Simvastatin 20 Mg Tablet PO 40 mg DAILY EMRE Administration Sodium Chloride 10 ml 02/21/25 14:00 03/04/25 06:11 Central Line Flush IV PUSH 10 ml Q8HR EMRE Administration Sodium Chloride 10 ml 02/21/25 13:49 Central Line Flush IV PUSH PRN PRN with TPN bag changes Sodium Chloride 20 ml 02/21/25 13:49 Central Line Flush IV PUSH PRN PRN after blood draws Trimethoprim/Sulfamethoxazole 1 tab 03/03/25 21:00 03/04/25 08:27 Sulfamethoxazole/Trimethoprim 800/160 Mg Ds Tablet PO 04/14/25 21:01 1 tab Q12HR EMRE Administration Umeclidinium/Vilanterol 1 puff 02/18/25 12:20 03/04/25 07:50 Umeclidinium/Vilanterol 62.5-25 Mcg Ellipta INHALATION 1 puff DAILYRT EMRE Administration Radiology Results: ITS Impressions Catheter Placement CT 02/19/25 11:16 IMPRESSION: 1[address] Successful CT-guided abscess drainage with placement of a percutaneous abscess drain in the more superficial subcutaneous component of the collection which appears to communicate with the collection deep to the ventral hernia mesh repair. 2. 30 mL fluid was sent for aerobic and anaerobic cultures. 3. The catheter will be managed by Dr. Flores. Abdomen/Pelvis CT 02/26/25 09:10 IMPRESSION: 1. Slight decrease in size of a now 9.6 x 7.9 x 2.0 cm abscess along the deep margin of a revised ventral hernia mesh repair on the right lower quadrant and pelvic anterior abdominal wall. Unchanged pigtail drainage catheter within a likely communicating and now collapsed abscess cavity along the superficial margin of the mesh repair. Labs Labs: Laboratory Results - last 24 hr 03/03/25 03/03/25 03/04/25 16:14 20:13 07:26 POC Capillary Glucose 99 93 86 03/04/25 11:34 POC Capillary Glucose 82 Quality VTE Prophylaxis VTE prophylaxis: pharmacologic ordered Hospitalist [facility] Advance Care Plan I have confirmed that the patient's Advanced Care Plan is present, code status is documented, or surrogate decision maker is listed in patient medical record.: Yes Medication Reconciliation I have utilized all available resources to obtain, update and review the patients current medications (includes all prescriptions, OTC, herbals, cannabis, and nutritional supplements).: Yes
== END 2025-03-04 15:58 | disposition home or self-care (01) | DRG 856 ==
PROVIDERS: Family Medicine; Internal Medicine; Nurse Practitioner Adult Health; Nurse Practitioner Gerontology; Surgery; Admitting Provider Surgery; PCP Emergency Medicine
PROC: 0W9F0ZZ Drainage of Abdominal Wall, Open Approach (ICD-10-PCS; principal; 2025-02-27 15:00)
DX: T81.42XA Infection following a procedure, deep incisional surgical site, initial encounter (principal); E43 Unspecified severe protein-calorie malnutrition; L02.211 Cutaneous abscess of abdominal wall; L03.311 Cellulitis of abdominal wall; Z16.24 Resistance to multiple antibiotics; B37.9 Candidiasis, unspecified; Z98.890 Other specified postprocedural states; B96.20 Unspecified Escherichia coli [E. coli] as the cause of diseases classified elsewhere; D50.9 Iron deficiency anemia, unspecified; E87.6 Hypokalemia; E78.5 Hyperlipidemia, unspecified; F17.210 Nicotine dependence, cigarettes, uncomplicated; G62.9 Polyneuropathy, unspecified; I10 Essential (primary) hypertension; J43.9 Emphysema, unspecified; K58.9 Irritable bowel syndrome, unspecified; K21.9 Gastro-esophageal reflux disease without esophagitis; M81.0 Age-related osteoporosis without current pathological fracture; Z90.49 Acquired absence of other specified parts of digestive tract; Z98.84 Bariatric surgery status
CPT/HCPCS: 36415; 36569; 49406; 74177; 80048; 80053; 80202; 81001; 82948; 83036; 83605; 83735; 84100; 84132; 84466; 84478; 85025; 85027; 85610; 85730; 86140; 87070; 87075; 87186; 87205; 93005; 94640; A9270; C1729; C1751; G0378; G0379; J0692; J1100; J1650; J1815; J1836; J1885; J2003; J2004; J2185; J2248; J2250; J2270; J2371; J2405; J2543; J2704; J3010; J3373; J3480; J7030; J7050; J7120; Q9967

== ENCOUNTER 2025-03-09 06:34 | Inpatient (IN) | payer MEDICARE, MEDICAID, SELFPAY ==
[2025-03-09] VITALS (8 sets, daily range): BP systolic 91–119; BP diastolic 48–84; PULSE 57–89; RESP 16–20; TEMP 36.4–36.8; O2SAT 99–100; BMI 18.8
--- NOTE | ~2025-03-09 | CT_ITS ---
CT ABDOMEN AND PELVIS WITHOUT CONTRAST Clinical History: enterocutaneous fistula, obstipation, SKY Comparison: CT abdomen pelvis with contrast 02/26/2025 Technique: Unenhanced axial images lung bases to symphysis pubis Coronal, sagittal reformats CT images acquired with automatic exposure control for dose reduction DLP: Not recorded in PACS Findings: Without intravenous contrast, sensitivity for detecting visceral parenchymal abnormalities decreased. Lung bases: Clear. Visualized heart and pericardium: Unremarkable. Liver: Unremarkable. Gallbladder: Removed. Spleen: Unremarkable. Pancreas: Unremarkable. Adrenal glands: Unremarkable. Kidneys: Right kidney- No hydronephrosis. No renal stones. Left kidney- No hydronephrosis. No renal stones. Atrophic. Distal esophagus/stomach: Gastric bypass. Small bowel loops: Normal caliber and wall thickness. Colon: Normal caliber and wall thickness. Appendix not seen. Moderate volume stool. Nodes: No enlarged nodes. Peritoneum: No ascites. No free intraperitoneal air. Urinary bladder: Unremarkable. Uterus: Absent. Adnexa: No masses. Bones: No acute bony abnormality. Soft tissues: Thin residual abscess along right lower quadrant abdominal wall soft tissues underneath hernia repair, with cutaneous fistulization. Fistulization to underlying bowel probably persists with poorly seen without contrast. Unopacified abdominal aorta: No aneurysmal dilatation. Atherosclerotic disease. IMPRESSION: 1. RLQ abscess decreased in size but persists. 2. Cutaneous fistulization. 3. Fistulization to underlying bowel probably also persists but poorly seen without contrast. 4. Moderate stool volume suggests constipation. Reviewed, dictated and finalized at location R. ER OPERATOR IMPRESSION: 1. RLQ abscess decreased in size but persists. 2. Cutaneous fistulization. 3. Fistulization to underlying bowel probably also persists but poorly seen wi thout contrast. 4. Moderate stool volume suggests constipation.
--- OUTSIDE RECORDS SUMMARY | 2025-03-09 08:58 | XMS_ITS | Data Portability ---
Author Organization [place] [facility], Main Office Address [address] [place] [address] Care Team Providers Care Line Director Name Role Phone SANCHEZ SCHAFFER Primary Care Provider SANCHEZ SCHAFFER Referring Provider Assessment Encounter Date Assessment Date Assessment LastModified by Organization Details LastModified Time 07/18/2023 07/18/2023 The patient has a ganglion cyst of the flexor tendon sheath left 5th finger. Today we talked about treatment options she wanted to try decompression therefore after sterile prep I injected 2 cc of 0.5% bupivacaine subcutaneously over the cyst when she was numbed up I then used an 18 gauge needle and after further sterile prep I was able to aspirate a very small amount of gelatinous fluid which decompressed the cyst nicely. She tolerated the procedure well. I have advised her that if the cyst recurs we can try another decompression, If it keeps coming back surgical intervention may be necessary. sterile dressing was applied she was doing well I will see her back as needed. If she has any problems difficulties or questions she is instructed to call she voiced understanding and agrees with above plan. [email or web address] Not available 07/18/2023 09:45:40 Plan of Treatment Reminders Order Date Submit Date Provider Last Modified By Organization Details Last Modified Time Details Appointments None recorded. Lab None recorded. Referral None recorded. Procedures injection/a spiration joint/bursa (PROC) 2023 024 [email or web address] In-Office Order, Internal Use Only DO Not Attach Compendium DO Not Attach Compendium, Do Not Delete/merge, [address] 09:34:31 Surgeries None recorded. Imaging XR, hand 2023 024 [email or web address] [facility], [address], [address], [place], [address], 4 10:54:43 Medication Orders bupivacaine HCl 0.5 % (5 mg/mL) injection solution 2023 024 [email or web address] Not available 4 10:54:43 Flonase Allergy Relief 50 mcg/actuati on nasal spray,suspe nsion 2022 023 [id number], [address], [place], [id number], 3 11:02:42 Patient TargetsNo targets recorded. Patient InstructionsNo instructions recorded. Reason for Referral None Reported. Results Created Date Observation Date Name Description Value Unit Range Abnormal Flag Note LastModifiedBy Organization Detail LastModifiedTime 05/22/19 21 04/10/2020 pulmo nary funct ion test* No observ ation record ed. [id number] [facility] [address] [place], [address], 05/18/2022 00:56:51 06/17/19 21 06/16/2020 XR, chest , 2 view No observ ation record ed. [id number] [facility] [address] [place], [address], 05/18/2022 00:56:51 06/19/19 21 06/18/2020 XR, chest , 2 view No observ ation record ed. [id number] [facility] [address] [place], [address], 05/18/2022 00:56:51 06/19/19 21 06/18/2020 CT, angio gram, chest , w/ contr ast No observ ation record ed. [id number] [facility] [address] [place], [address], 05/18/2022 00:56:51 07/02/19 21 07/01/2020 CT, angio gram, chest , w/ contr ast No observ ation record ed. [id number] [facility] [address] [place], [address], 05/18/2022 00:56:51 07/02/19 21 07/01/2020 XR, chest , 2 view No observ ation record ed. [id number] [facility] [address] [place], [address], 05/18/2022 00:56:51 07/02/19 21 07/01/2020 CT, brain , w/o contr ast No observ ation record ed. [id number] [facility] [address] [place], [address], 05/18/2022 00:56:51 09/17/19 22 09/16/2021 CT, chest , w/o contr ast No observ ation record ed. [id number] [facility] [address] [place], [address], 05/18/2022 00:56:51 11/27/19 22 11/25/2021 CT, chest , w/o contr ast No observ ation record ed. [id number] [facility] [address] [place], [address], 05/18/2022 00:56:51 11/03/19 23 11/02/2022 audio gram + tympa nogra m No observ ation record ed. [email or web address] [facility] [address] [facility] [place], [address], 11/07/2022 09:13:51 11/10/19 23 05/16/2018 audio gram + tympa nogra m No observ ation record ed. [email or web address] [facility] [address] [facility] [address] , [place], [address], 11/10/2022 08:51:15 04/27/19 24 04/27/2023 mobil e cardi ac telem etry (PROC ) No observ ation record ed. [email or web address] [facility] [address], [place], [address], 05/03/2023 15:47:45 07/18/19 24 XR, hand No observ ation record ed. [email or web address] [facility] [address], [address], [place], [address], 07/18/2023 09:46:32 07/11/19 25 07/10/2024 US, carot id arter y No observ ation record ed. [email or web address] [facility] [address], [place], [address], 10/31/2024 14:58:26 Result Notes None recorded. 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 073571446 Active Not Available [facility] 3 00:50:08 Low back pain 320230198 Active Not Available [facility] 3 00:50:08 Hypertens kesha disorder 14607358 Completed Not Available [facility] 3 00:50:08 Lower abdominal pain 69266947 Active Not Available [facility] 3 00:50:08 Carpal tunnel syndrome 86806075 Active Not Available [facility] 3 00:50:08 Degenerat ion of intervert ebral disc 52812329 Active Not Available [facility] 3 00:50:09 Spinal stenosis in cervical region 70745575 Active Not Available [facility] 3 00:50:09 Chronic obstructi ve pulmonary disease 47772917 Active 2019 Not Available [facility] 3 00:50:08 Osteoporo sis 24958723 Active 2019 Not Available [facility] 3 00:50:09 Hyperlipi demia 48356337 Active 2019 Not Available [facility] 3 00:50:08 Essential hypertens ion 14054081 Active 2019 Not Available [facility] 3 00:50:08 Iron deficienc y anemia 36330695 Active 2019 Not Available [facility] 3 00:50:09 Osteoarth rosis of the carpometa carpal joint of the thumb 90316547 Active 2019 Not Available [facility] 3 00:50:08 Contusion of toe(s) with damage to nail 508323866 Active 2020 Not Available [facility] 3 00:50:08 Bursitis of foot region 661204128 Active 2020 Not Available [facility] 3 00:50:08 Onycholys is due to fungal infection of nail 347360274 Active 2020 Not Available [facility] 3 00:50:08 Nicotine dependenc e 39257068 Active 2021 Not Available [facility] 3 00:50:08 Abnormal findings on diagnosti c imaging of lung 088530780 Active 2021 Not Available [facility] 3 00:50:08 Sensorine ural hearing loss 52632386 Active 2022 Janette tran, [place] - [facility] 3 10:59:45 Asymmetri abebe sensorine ural hearing loss 528785154 Active 2022 Masoud Ryan MD [address], [place] [address], [place], [address] , [facility] 3 11:01:30 Allergic rhinitis 99326451 Active 2022 Masoud Ryan MD [address], [address], [place], [address] , [facility] 3 11:01:45 Pain in throat 559429661 Active 2022 Masoud yRan MD [address], [place] [address], [place], [address] , [facility] 3 11:01:45 Pain of left hand 38231995288 9103 Active 2023 KIRSTIN Jay [place] [facility] 4 09:05:48 Ganglion cyst of tendon sheath of left hand 72846614897 [address]696 Active 2023 KATINA Lamar [address] [facility], [address] [place] [address], [place], [address] , [facility] 4 09:46:44 Notes:Medical History: Bilat eral tinnitus Hypertension Hyperlipidemia GERD Fatty liver Urge urinary incontinence Cervical stenosis/spondylosis Vit D deficiency Osteoporosis Osteoarthritis Spinal enthesopathy DISH CTS Onycholysis Surgical History: Lumbar surgeries 2006 Cervical surgeries 2005, 2018 Problem Notes None recorded. Procedures Surgical History Date Name Laterality Status Provider Name and Address Organization Details Recorded Time Gastric Bypass completed Henny Vargas CMA [place] [facility] 08/04/2022 10:21:11 Tubal Ligation completed Liliana hernandez CNA [place] [facility] 07/18/2023 09:10:15 Hysterectomy completed Liliana Rush CNA [place] [facility] 07/18/2023 09:10:40 procedure on abdomen completed Liliana Rush CNA [place] [facility] 07/18/2023 09:11:13 Bladder completed Liliana Rush CNA [place] [facility] 07/18/2023 09:11:49 Hernia Surgery completed Liliana Gas mary [employer]PERATOR [place] [facility] 07/18/2023 09:12:05 Neck Surgeries completed Liliana Gas mary P[employer] CUTTING MACHINE OPERATOR [place] [facility] 07/18/2023 09:12:23 Foot Surgery completed Liliana Rush P[employer] CUTTING MACHINE OPERATOR [place] [facility] 07/18/2023 09:12:45 Back Surgery completed Liliana Rush POWER CUTTING MACHINE [facility] 07/18/2023 09:13:02 cholecystectomy completed Liliana copeland P[employer] CUTTING MACHINE OPERATOR [facility] 07/18/2023 09:13:19 procedure on upper arm completed Liliana Rush [facility] 07/18/2023 09:14:07 preparation of bowel for procedure completed Liliana Rush [facility] 07/18/2023 09:15:21 Breast Surgery completed Lilianalavell hernandez [facility] 07/18/2023 09:15:47 Imaging Results None recorded. Procedure Notes None recorded. Medical Equipment None Reported. Allergies No known drug allergies Medications Name Sig Start Date Stop Date Status Note LastModified by Organization Details LastModified Time cyclobenzap rine 10 mg tablet TAKE 1 TABLET BY MOUTH EVERY DAY AT BEDTIME active Not Available Not Available No t Available amoxicillin 500 mg capsule TAKE 1 CAPSULE BY MOUTH TWICE DAILY WITH FOOD UNTIL ALL TAKEN active Not Available Not Available No t Available atorvastati n 40 mg tablet TK ONE T PO D active Not Available Not Available No t Available promethazin e-DM 6.25 mg-15 mg/5 mL oral syrup TAKE 5 ML BY MOUTH EVERY 4 HOURS FOR 10 DAYS 08/20 completed Not Available Not Available Not Available prednisone 10 mg tablet TK 1 T PO TID X3DAYS 1 T BID X2DAYS FINISH WITH 1 T D FOR THE LAST DAY 08/17 completed Not Available Not Available Not Available gabapentin 600 mg tablet TAKE 1 TABLET BY MOUTH THREE TIMES DAILY 03/30 completed Not Available Not Available Not Available atorvastati n 20 mg tablet TAKE 1 TABLET BY MOUTH EVERY MORNING active Not Available Not Available No t Available trazodone 50 mg tablet 02/03 completed Not Available Not Available Not Available polyethylen e glycol 3350 17 gram oral powder packet MIX 1 PACKET IN LIQUID AND DRINK BY MOUTH TWICE DAILY NEEDED FOR CONSTIPAT ION 07/17 completed Not Available Not Available Not Available azithromyci n 250 mg tablet 08/17 completed Not Available Not Available Not Available ibuprofen 800 mg tablet TAKE 1 TABLET BY MOUTH THREE TIMES DAILY 08/04 completed Not Available Not Available Not Available alprazolam 1 mg tablet TK 1 T PO QID PRN 02/03 completed Not Available Not Available Not Available amitriptyli ne 75 mg tablet TK 1 T PO QD HS active Not Available Not Available No t Available tizanidine 4 mg tablet 07/17 completed Not Available Not Available Not Available benzonatate 200 mg capsule TK 1 C PO TID FOR 10 DAYS 02/03 completed Not Available Not Available Not Available metoprolol succinate ER 50 mg tablet,exte nded release 24 hr TK 1 T PO QAM FOR 30 DAYS 02/03 completed Not Available Not Available Not Available hydrocodone 5 mg-acetamin ophen 325 mg tablet TAKE 1 TABLET BY MOUTH THREE TIMES DAILY 07/17 completed Not Available Not Available Not Available meloxicam 15 mg tablet TAKE 1 TABLET BY MOUTH EVERY DAY 09/22 completed Not Available Not Available Not Available bupivacaine HCl 0.5 % (5 mg/mL) injection solution Take 10 mg by injection route. 2023 active [facility] 85077 -250- 50 LOT # [id number] EXP 11/18 Not Available Not Available Not Available prednisone 20 mg tablet TK 2 TS PO BID THEN DIRECTED FOR 10 DAYS 08/04 completed Not Available Not Available Not Available alendronate 70 mg tablet 02/03 completed Not Available Not Available Not Available clonazepam 0.5 mg tablet TK 1 T PO BID 02/03 completed Not Available Not Available Not Available dexamethaso ne 6 mg tablet TAKE 1 TABLET BY MOUTH EVERY DAY 08/17 completed Not Available Not Available Not Available metoprolol succinate ER 100 mg tablet,exte nded release 24 hr TK ONE T PO D active Not Available Not Available No t Available quetiapine 200 mg tablet active Not Available Not Available Not Available clonazepam 1 mg tablet TK 1 T PO BID active Not Available Not Available No t Available alclometaso ne 0.05 % topical cream 09/22 completed Not Available Not Available Not Available clobetasol 0.05 % topical cream APPLY THIN LAYER TOPICALLY TO THE AFFECTED AREA TWICE DAILY 08/20 completed Not Available Not Available Not Available cyanocobala min (vit B-12) 1,000 mcg tablet TAKE 1 TABLET BY MOUTH TWICE DAILY active Not Available Not Available No t Available penicillin V potassium 500 mg tablet TK 1 T PO BID FOR 10 DAYS 02/03 completed Not Available Not Available Not Available topiramate 25 mg tablet TAKE 1 TABLET BY MOUTH EVERY DAY 07/17 completed Not Available Not Available Not Available meclizine 12.5 mg tablet 02/03 completed Not Available Not Available Not Available metronidazo le 500 mg tablet 02/03 completed Not Available Not Available Not Available lidocaine HCl 2 % mucosal jelly Take 10 mL by mucous route. 02/03 completed Not Available Not Available Not Available oxcarbazepi ne 300 mg tablet TK 1 T PO QAM AND 2 TS PO QHS active Not Available Not Available No t Available ciprofloxac in 500 mg tablet TAKE 1 TABLET BY MOUTH EVERY 12 HOURS FOR 10 DAYS 03/30 completed Not Available Not Available Not Available hydrocodone 10 mg-acetamin ophen 325 mg tablet TAKE 1 TABLET BY MOUTH THREE TIMES DAILY active Not Available Not Available No t Available peg-electro lyte solution 420 gram oral solution 07/17 completed Not Available Not Available Not Available quetiapine 100 mg tablet TK 1 T PO BID 02/03 completed Not Available Not Available Not Available amitriptyli ne 50 mg tablet TAKE 1 TABLET BY MOUTH EVERY NIGHT AT BEDTIME active Not Available Not Available No t Available simvastatin 40 mg tablet TAKE 1 TABLET BY MOUTH EVERY NIGHT AT BEDTIME active Not Available Not Available No t Available prednisone 10 mg tablets in a dose pack Take 1 tab by mouth, 3 times a day for 3 daysTake 1 tab by mouth 2 times a day for 2 daysTake 1 tab by mouth once a day for 1 day 08/17 completed Not Available Not Available Not Available citalopram 20 mg tablet TK 1 T PO QD IN THE MORNING 02/03 completed Not Available Not Available Not Available Kenalog 10 mg/mL suspension for injection In office injection administe red by the provider 05/20 completed [facility]: 0003- 0494- 20 Not Available Not Available Not Available dexamethaso ne 1 mg tablet 07/17 completed Not Available Not Available Not Available baclofen 10 mg tablet active Not Available Not Available No t Available hydrocodone 7.5 mg-acetamin ophen 325 mg tablet TAKE 1 TABLET BY MOUTH THREE TIMES DAILY NEEDED 07/17 completed Not Available Not Available Not Available pantoprazol e 40 mg tablet,parveen yed release TAKE 1 TABLET BY MOUTH TWICE DAILY active Not Available Not Available No t Available simvastatin 20 mg tablet TAKE 1 TABLET BY MOUTH EVERY DAY IN THE EVENING. STOP ATORVASTA TIN 08/04 completed Not Available Not Available Not Available nicotine 21 mg/24 hr daily transdermal patch ABBEY 1 PA EXT TO THE SKIN QD active Not Available Not Available No t Available hydrochloro thiazide 12.5 mg capsule TAKE 1 CAPSULE BY MOUTH EVERY DAY 03/30 completed Not Available Not Available Not Available docusate sodium 100 mg capsule TAKE 1 CAPSULE BY MOUTH TWICE DAILY NEEDED 09/22 completed Not Available Not Available Not Available oxybutynin chloride ER 5 mg tablet,exte nded release 24 hr TAKE 1 TABLET BY MOUTH EVERY DAY active Not Available Not Available No t Available gabapentin 300 mg capsule TAKE 2 CAPSULES BY MOUTH THREE TIMES DAILY active Not Available Not Available No t Available omeprazole 20 mg capsule,del ayed release TAKE 1 CAPSULE BY MOUTH TWICE DAILY 30 MINUTES BEFORE MEALS 07/17 completed Not Available Not Available Not Available clindamycin 2 % vaginal cream IVB FOR 5 DAYS active Not Available Not Available No t Available halobetasol propionate 0.05 % topical cream APPLY THIN LAYER TOPICALLY TO THE AFFECTED AREA EVERY DAY. DO NOT EXCEED 50 GM EVERY WEEK OR 2 WEEKS DURATION 09/22 completed Not Available Not Available Not Available mirtazapine 15 mg tablet TAKE 1 TABLET BY MOUTH EVERY DAY AT BEDTIME active Not Available Not Available No t Available metoprolol succinate ER 25 mg tablet,exte nded release 24 hr TAKE 1 TABLET BY MOUTH EVERY DAY active Not Available Not Available No t Available ergocalcife rol (vitamin D2) 1,250 mcg (50,000 unit) capsule TAKE 1 CAPSULE BY MOUTH EVERY WEEK WITH MEALS active Not Available Not Available No t Available Cystografin 30 % urethral solution Take 300 mL by urethral route. 02/03 completed Not Available Not Available Not Available levofloxaci n 500 mg tablet TK 1 T PO QD FOR 5 DAYS 02/03 completed Not Available Not Available Not Available mirtazapine 15 mg disintegrat ing tablet Place 1 tablet every day by transling ual route. 09/22 completed Not Available Not Available Not Available levofloxaci n 750 mg tablet TK 1 T PO QD 02/03 completed Not Available Not Available Not Available albuterol sulfate HFA 90 mcg/actuati on aerosol inhaler INHALE 2 PUFFS BY MOUTH EVERY 4 TO 6 HOURS DIRECTED 07/17 completed Not Available Not Available Not Available losartan 100 mg tablet TAKE 1 TABLET BY MOUTH EVERY DAY active Not Available Not Available No t Available fluticasone propionate 50 mcg/actuati on nasal spray,suspe nsion SHAKE LIQUID AND USE 1 SPRAY IN EACH NOSTRIL EVERY DAY active Not Available Not Available No t Available amitriptyli ne 100 mg tablet TK 1 T PO QD HS active Not Available Not Available No t Available amoxicillin 875 mg-potassiu m clavulanate 125 mg tablet TAKE 1 TABLET BY MOUTH EVERY 12 HOURS FOR 10 DAYS 08/04 completed Not Available Not Available Not Available azithromyci n 500 mg tablet TAKE 1 TABLET BY MOUTH EVERY DAY FOR 5 DAYS 08/17 completed Not Available Not Available Not Available ezetimibe 10 mg tablet TAKE 1 TABLET BY MOUTH EVERY DAY 03/30 completed Not Available Not Available Not Available Laxative (bisacodyl) 5 mg tablet TAKE 1 TABLET BY MOUTH DAILY NEEDED FOR CONSTIPAT ION 07/17 completed Not Available Not Available Not Available cyclobenzap rine 5 mg tablet TK 1 T PO BID PRN active Not Available Not Available No t Available rosuvastati n 5 mg tablet TK 1 T PO QD IN THE MORNING active Not Available Not Available No t Available mirtazapine 7.5 mg tablet TAKE 1 TABLET BY MOUTH EVERY DAY AT BEDTIME 08/04 completed Not Available Not Available Not Available duloxetine 30 mg capsule,del ayed release active Not Available Not Available Not Available duloxetine 60 mg capsule,del ayed release TK 2 CS PO D 02/03 completed Not Available Not Available Not Available lactulose 10 gram/15 mL oral solution TAKE 15 ML BY MOUTH EVERY DAY NEEDED FOR CONSTIPAT ION 07/17 completed Not Available Not Available Not Available diazepam 5 mg-7.5 mg-10 mg rectal kit Insert 10 mg by rectal route. 02/03 completed Not Available Not Available Not Available lidocaine (PF) 10 mg/mL (1 %) injection solution In office injection administe red by the provider 05/20 completed [facility]: 0409- 4276- 17 Not Available Not Available Not Available Chantix 0.5 mg tablet TAKE 1 TABLET PO D X 7 DAYS 1 TABLET PO BID X 7 DAYS THEN 2 TABLETS PO BID X 15 DAYS active Not Available Not Available No t Available Oysco 500/D 500 mg-5 mcg (200 unit) tablet TK 1 T PO BID active Not Available Not Available No t Available Symbicort 160 mcg-4.5 mcg/actuati on HFA aerosol inhaler INL 2 PFS PO BID DIRECTED. RM AFTER U active Not Available Not Available No t Available cholecalcif leanne (vitamin D3) 1,250 mcg (50,000 unit) capsule TK 1 C PO Q WK WC active Not Available Not Available No t Available FeroSul 325 mg (65 mg iron) tablet TAKE 1 TABLET BY MOUTH TWICE DAILY active Not Available Not Available No t Available Seroquel XR 300 mg tablet,exte nded release TK 1 T PO QD AT 6PM active Not Available Not Available No t Available diclofenac 1 % topical gel APPLY 2 GRAMS TO THE AFFECTED AREA(S) BY TOPICAL ROUTE 4 TIMES PER DAY 09/22 completed Not Available Not Available Not Available Prevnar 13 (PF) 0.5 mL intramuscul ar syringe ADM 0.5ML IM UTD 03/05 completed Not Available Not Available Not Available Latuda 80 mg tablet TK 2 TS PO QD HS WF 02/03 completed Not Available Not Available Not Available Chantix Continuing Month Box 1 mg tablet TK 1 T PO BID 02/03 completed Not Available Not Available Not Available Chantix Starting Month Box 0.5 mg (11)-1 mg (42) tablets in dose pack FPD 02/03 completed Not Available Not Available Not Available Myrbetriq 25 mg tablet,exte nded release TAKE 1 TABLET BY MOUTH EVERY DAY 03/30 completed Not Available Not Available Not Available Myrbetriq 50 mg tablet,exte nded release TK 1 T PO QD 02/03 completed Not Available Not Available Not Available Linzess 145 mcg capsule TK 1 C PO QD active Not Available Not Available No t Available Linzess 290 mcg capsule TAKE 1 CAPSULE BY MOUTH EVERY DAY active Not Available Not Available No t Available Stimulant Laxative Plus 8.6 mg-50 mg tablet TAKE 1 TABLET BY MOUTH EVERY NIGHT AT BEDTIME NEEDED FOR CONSTIPAT ION 07/17 completed Not Available Not Available Not Available Pennsaid 20 mg/gram/act uation (2 %) topical soln in metered-dos e pump APPLY 2 PUMPS TO THE AFFECTED AREA TWO TIMES DAILY 07/17 completed Not Available Not Available Not Available Anoro Ellipta 62.5 mcg-25 mcg/actuati on powder for inhalation INHALE 1 PUFF BY MOUTH EVERY DAY DIRECTED active Not Available Not Available No t Available Belsomra 5 mg tablet TAKE 1 TABLET BY MOUTH EVERY DAY AT BEDTIME active Not Available Not Available No t Available Stiolto Respimat 2.5 mcg-2.5 mcg/actuati on solution for inhalation INHALE 2 PUFFS BY MOUTH EVERY DAY DIRECTED active Not Available Not Available No t Available Fluvirin 8922-1254 45 mcg (15 mcg x 3)/0.5 mL intramuscul ar suspension ADM 0.5ML IM UTD active Not Available Not Available No t Available Vitals Date Recorded Body mass index (BMI) Body height Body weight Provider Name and Address Organization Details Last Updated DateTime 03/30/2021 27.8 kg/m2 157.48 cm 00579.04 g Not Available [facility] 05/18/2022 00:49:10 Date Recorded Body mass index (BMI) Body height Oxygen saturation Heart rate Body temperature Body weight Systolic And Diastolic Provider Name and Address Organization Details Last Updated DateTime 1 27.8 kg/m2 157.48 cm 98 % 76 /min 98.3 [degF] 80944.0 4 g 122/70 mm[Hg] Not Available [facility] 3 00:49:07 Date Recorded Body height Body mass index (BMI) Body weight Provider Name and Address Organization Details Last Updated DateTime 07/18/2023 157.48 cm 23.4 kg/m2 46272.82 g Liliana Rush CNA [place] [facility] 07/18/2023 09:06:56 Date Recorded Body mass index (BMI) Body height Oxygen saturation Heart rate Body temperature Body weight Systolic And Diastolic Provider Name and Address Organization Details Last Updated DateTime 1 27.2 kg/m2 157.48 cm 97 % 76 /min 97.2 [degF] 66595.8 3 g 140/90 mm[Hg] Not Available [facility] 00:49:07 Date Recorded Body weight Body mass index (BMI) Body height Body temperature Provider Name and Address Organization Details Last Updated DateTime 09/22/2022 82072.28 g 25.3 kg/m2 156.21 cm 97.8 [degF] Ines Navas RN [place] [facility] 09/22/2022 10:49:18 Social History Question Answer Notes LastModified by Organizat ion Details LastModified Time Tobacco Smoking Status Current Every Day Smoker Not Available [facility] 05/18/2022 00:43:58 What Was The Date Of Your Most Recent Tobacco Screening? 05/20/2020 [id number] Information not available 05/18/2022 How Much Tobacco Do You Smoke? 0.5 PPD Information not available 07/18/2023 How Many Years Have You Smoked Tobacco? 40 Information not available 07/18/2023 Sex: Unknown Functional Status Question Answer Note LastModified by Organization D etails LastModified Time What is your level of alcohol consumption? None [email or web address] Information not available 09/21/2022 Mental Status None recorded. Family History Relationship Description Onset Age of this Age Resolved Age Notes LastModified by Organization Details LastModified Time Daughter Heart disease [id number] Not available 05/18/2022 00:44:23 Mother Heart disease [id number] Not available 05/18/2022 00:44:23 Mother Essential hypertension [id number] Not available 05/18/2022 00:44:24 Father Essential hypertension [id number] Not available 05/18/2022 00:44:24 Father Alzheimer's disease [email or web address] [id number] Not available 05/18/2022 00:44:24 Maternal Grandmother Alzheimer's disease [id number] Not available 05/18/2022 00:44:24 Brother Heart disease multip le brothe rs Not available 07/18/2023 09:07:46 Brother Essential hypertension Not available 09:07:52 Brother Family history of stroke Not available 2023 09:08:07 Brother Family history of malignant neoplasm two brothe rs Not available 07/18/2023 09:08:26 Brother Diabetes mellitus Not available 2023 09:08:43 Sister Essential hypertension Not available 09:07:57 Mother Hypercholest erolemia Not available 2023 09:09:24 Medical History Condition Response ALLERGIES/HAYFEVER Y COPD Y HIGH CHOLESTEROL / HYPERLIPIDEMIA Y ULCERS Y OSTEOPOROSIS Y ARTHRITIS Y HEARTBURN / REFLUX Y SLEEP DISORDER Y HYPERTENSION Y Gynecological HistoryNo gynecological history recorded. Obstetrics History GPAL:G 0 P 0 0 0 0 Immunizations Vaccine Type Date Status Note Provider Nam e and Address Organization Details Recorded Time COVID-19, mRNA, LNP-S, PF, 100 mcg/0.5mL dose or 50 mcg/0.25mL dose 1 completed Not Available [facility] 05/18/2022 00:56:24 COVID-19, mRNA, LNP-S, PF, 100 mcg/0.5mL dose or 50 mcg/0.25mL dose 1 completed Not Available [facility] 05/18/2022 00:56:24 Influenza, high-dose, quadrivalent, PF 0 completed Not Available [facility] 05/18/2022 00:56:24 pneumococcal polysaccharide PPV23 0 completed Not Available [facility] 05/18/2022 00:56:24 Past Encounters Encounter ID Performer Location Encounter Start Date Encounter Closed Date Diagnosis/Indication Diagnosis SNOMED-CT Code Diagnosis ICD10 Code Diagnosis IMO Codes Diagnosis Note [id number] Henny Wong MD [facility] [address] [place] [address] 05/20/2020 00:00:00 06/10/2020 13:58:05 [id number] Aurelio Cole MD [facility] [address] [place] [address] [address] [place] [address] 08/20/2020 00:00:00 08/20/2020 14:53:26 [id number] [facility] [place] [address] [place] [address] 03/30/2021 00:00:00 03/30/2021 15:16:45 [id number] Masoud Ryan MD [facility] [address] [place] [address] 09/22/2022 10:10:29 09/22/2022 11:10:10 Asymmetrical sensorineural hearing loss 641815274 H90.5 Allergic rhinitis 473352 04 J30.0 Encourage to take OTC Zyrtec type meds with flonase for 3-4 months. Pain in throat 743895997 R07.0 [id number] Jai Poon MD [facility] [address] [facility], [address] [place] [address] 07/18/2023 08:43:00 07/18/2023 10:05:47 Pain of left hand 3249421492 78442 M79.642 Ganglion c yst of tendon sheath of left hand 3922661028 551798 M67.442 Health Concerns Section Related Observation LastModified by Organization Detai ls LastModified Time None Recorded Concern Status LastModified by Organization Details LastModified Time None Recorded Advance Directives Directive None Recorded Payers Insurance Date Sequence Insurance Name Policy Number Policy Nelson Covered Member ID Nelson Member ID Guarantor Name 07/18/2023 1 [place] Jill Gongora [id number] Jill Gongora 07/24/2023 2 [place] WHEN MEDICARE OR MEDICARE REPLACEMENT PRIMARY) Jill Gongora [id number] Jill Gongora Notes Date Note Type Note Provider Name and Address Organization Details Recorded Time 09/22/2022 text/html this patient reports hearing loss for most of her life. This is worse on the right side. She has hearing aids but does not wear them. She has ringing which is also louder on the right side. She has been given antibiotics. She has not had a recent audiogram Masoud Ryan MD [address] [facility], [place], [address], [place] - [facility] 09/22/2022 11:03:02 07/18/2023 text/html patient is a 68-year-old female who presents with a small mass at the base of the 5th finger of the left hand. There is a pea-sized lump along the course of the flexor tendon sheath in the palm just proximal to the base of the finger. She states this bothers her particularly if she tries to community living coach anything or if she leans on it. Denies any loss of motion in the finger no locking or catching no evidence of a trigger finger. She has never had any trauma or injury no erythema heat effusion or signs of infection. Has no loss of motion or function no numbness or tingling. Is not aware of any previous foreign body. This has been present for about 6 months getting a little larger with time. It is annoying because it bothers her if she tries to community living coach anything a partial pole with the hand because it gets painful. She comes in today for initial evaluation treatment of what looks like a ganglion cyst on the flexor tendon sheath of the left 5th finger.Past medical history she was reviewed and signed on the intake sheet of today's date drug allergies current medications family social history previous surgical history 10 point review of systems was reviewed and discussed in detail today with the patient. KATINA Lamar [address] [facility], [facility] [address], [place], [address], [place] - [facility] 07/18/2023 09:47:28 OBGyn Episode No OBEpisode recorded.
--- OUTSIDE RECORDS SUMMARY | 2025-03-09 08:58 | XMS_ITS | Clinical Summary ---
Author Organization [facility] Address [address] [place] [address] Care Team Providers Care Gear And Spline Grinder Name Role Phone Jamey Flower MD Primary Care Provider [phone] Allergies No known active allergies Medications acetaminophen [...] Description 01/09/2025 11:15 AM CDT Office Visit [facility] [address] [place] [address] [address] [place] [address] Frankie Carey MD Restless leg syndrome (Primary Dx); Numbness of lower extremity from Last 3 Months Social History Tobacco Use Types Packs/Day Years Used Date Smoking Tobacco: Never Smokeless Tobacco: Never Tobacco Cessation:Counseling Given: Not Answered Comments Unknown Sex and Gender Information Value Date Recorded Sex Assigned at Not on file Legal Sex 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
--- OUTSIDE RECORDS SUMMARY | 2025-03-09 08:58 | XMS_ITS | Encounter Summary ---
Author Organization [facility] Health Address [address] [place] [address] Care Team Providers Care Mobile Equipment Operator Name Role Phone Deep Morris MD Unavailable [phone] Kip Camacho Primary Care Provider + Rob Chavez MD Primary Care Provider [phone] Med Morel MD Unavailable [phone] Encounter Details Date Type Department Care [...] on file Legal Sex Female 2:09 PM OVERSEAMER Gender Identity Not on file Sexual Orientation Not on file Occupation Industry Job Start Date Job End Date Retired Not on file Not on file Not on file documented as of this encounter Plan of Treatment Not on file documented as of this encounter Visit Diagnoses Not on filedocumented in this encounter Care Teams Mobile Equipment Operator Relationship Specialty Start Date End Date Kip Camacho PA [facility] [place] [address] PCP - General Physician Parent Coach 11/17/16 03/21/22 Rob Chavez MD [address] [place], [place] [id number] PCP - General Gastroenterology 03/22/22 Deep Morris MD Neurological Surgery 11/02/11 Med Morel MD [address] [place] [address] Cardiology 04/08/22 documented as of this encounter
--- OUTSIDE RECORDS SUMMARY | 2025-03-09 08:58 | XMS_ITS | Encounter Summary ---
Author Organization [employer] Address [address] [place] [address] Care Team Providers Care Digital Imaging Technician Name Role Phone Unavailable Primary Care Provider Unavailabl e Encounter Details Date Type Department Care Team (Late st Contact Info) Description 03/05/2007 Outpatient Historical [facility] INPATIENT IN BED Rosas Koo MD [address] [place] [address] Hernia Social History Tobacco Use Types Packs/Day Years Used Date Smoking Tobacco: Never Assessed Comments Unknown Sex and Gender Information Value Date Recorded Sex Assigned at Not on file Legal Sex Female 5:29 AM COMMUNITY OUTREACH WORKER Gender Identity Not on file Sexual Orientation Not on file documented as of this encounter Plan of Treatment Not on file documented as of this encounter Procedures Procedure Name Priority Date/Time Associated Diagnosis Comments CBC WITH DIFFERENTIAL Routine 03/11/2007 5:30 AM COMMUNITY OUTREACH WORKER CBC WITH DIFFERENTIAL Routine 03/11/2007 5:30 AM COMMUNITY OUTREACH WORKER CBC WITH DIFFERENTIAL Routine 03/11/2007 5:30 AM COMMUNITY OUTREACH WORKER CBC WITH DIFFERENTIAL Routine 03/10/2007 7:40 AM COMMUNITY OUTREACH WORKER CBC WITH DIFFERENTIAL Routine 03/10/2007 7:40 AM COMMUNITY OUTREACH WORKER CBC WITH DIFFERENTIAL Routine 03/10/2007 5:15 AM COMMUNITY OUTREACH WORKER CBC WITH DIFFERENTIAL Routine 03/10/2007 5:15 AM COMMUNITY OUTREACH WORKER CBC WITH DIFFERENTIAL Routine 03/09/2007 6:30 AM COMMUNITY OUTREACH WORKER CBC WITH DIFFERENTIAL Routine 03/09/2007 6:30 AM COMMUNITY OUTREACH WORKER BASIC METABOLIC PANEL Routine 03/09/2007 6:30 AM COMMUNITY OUTREACH WORKER CBC WITH DIFFERENTIAL Routine 03/05/2007 12:54 PM COMMUNITY OUTREACH WORKER CBC WITH DIFFERENTIAL Routine 03/05/2007 12:54 PM COMMUNITY OUTREACH WORKER BASIC METABOLIC PANEL Routine 03/05/2007 12:54 PM COMMUNITY OUTREACH WORKER documented in this encounter Results * (ABNORMAL) CBC WITH DIFFERENTIAL (03/11/2007 5:30 AM COMMUNITY OUTREACH WORKER) Pathologist [facility] NEUTROPHIL ABSOLUTE 3.62 1.90 - 7.00 K/uL [...] Normal INTER FACE SYSTEM 03/11/2007 5:30 AM COMMUNITY OUTREACH WORKER Jez Caballero MD HEMATOLOGY ORDERABLES Edit ed Performing Organization Address [facility] Phone Number INTERFACE SYSTEM Refer to clinic/hospital department * CBC WITH DIFFERENTIAL (03/11/2007 5:30 AM COMMUNITY OUTREACH WORKER) Pathologist [facility] NRBC 0 <=0 /100 WBC INTERFACE SYSTEM 03/11/2007 5:30 AM COMMUNITY OUTREACH WORKER Jez Caballero MD HEMATOLOGY ORDERABLES Edit ed Performing Organization Address [facility] de Phone Number INTERFACE SYSTEM Refer to clinic/hospital department * (ABNORMAL) CBC WITH DIFFERENTIAL (03/11/2007 5:30 AM COMMUNITY OUTREACH WORKER) WBC 5.4 4.0 - 9.8 K/uL INTERFACE [...] 12.4 fL INTERFACE SYSTEM 03/11/2007 5:30 AM COMMUNITY OUTREACH WORKER Jez Caballero MD HEMATOLOGY ORDERABLES Edit ed Performing Organization Address [facility] Phone Number INTERFACE SYSTEM Refer to clinic/hospital department * (ABNORMAL) CBC WITH DIFFERENTIAL (03/10/2007 7:40 AM COMMUNITY OUTREACH WORKER) NEUTROPHILS 73(H) 45 - 70 % INTERFAC [...] 0.20 K/uL INTERFACE SYSTEM 03/10/2007 7:40 AM COMMUNITY OUTREACH WORKER Jze Caballero MD HEMATOLOGY ORDERABLES Edit ed Performing Organization Address [facility] Phone Number INTERFACE SYSTEM Refer to clinic/hospital department * (ABNORMAL) CBC WITH DIFFERENTIAL (03/10/2007 7:40 AM COMMUNITY OUTREACH WORKER) WBC 5.9 4.0 - 9.8 K/uL INTERFACE [...] 12.4 fL INTERFACE SYSTEM 03/10/2007 7:40 AM COMMUNITY OUTREACH WORKER Jez Caballero MD HEMATOLOGY ORDERABLES Edit ed Performing Organization Address [facility] Phone Number INTERFACE SYSTEM Refer to clinic/hospital department * (ABNORMAL) CBC WITH DIFFERENTIAL (03/10/2007 5:15 AM COMMUNITY OUTREACH WORKER) NEUTROPHILS 74(H) 45 - 70 % INTERFAC [...] 0.20 K/uL INTERFACE SYSTEM 03/10/2007 5:15 AM COMMUNITY OUTREACH WORKER Rosas Koo MD HEMATOLOGY ORDERABLES Ed ited Performing Organization Address [facility] Phone Number INTERFACE SYSTEM Refer to clinic/hospital department * (ABNORMAL) CBC WITH DIFFERENTIAL (03/10/2007 5:15 AM COMMUNITY OUTREACH WORKER) WBC 5.5 4.0 - 9.8 K/uL INTERFACE [...] 12.4 fL INTERFACE SYSTEM 03/10/2007 5:15 AM COMMUNITY OUTREACH WORKER Rosas Koo MD HEMATOLOGY ORDERABLES Ed ited Performing Organization Address [facility] Phone Number INTERFACE SYSTEM Refer to clinic/hospital department * (ABNORMAL) CBC WITH DIFFERENTIAL (03/09/2007 6:30 AM COMMUNITY OUTREACH WORKER) [facility] NEUTROPHILS 81(H) 45 - 70 % [...] 0.20 K/uL INTERFACE SYSTEM 03/09/2007 6:30 AM COMMUNITY OUTREACH WORKER Rosas Koo MD HEMATOLOGY ORDERABLES Ed ited Performing Organization Address [facility] Phone Number INTERFACE SYSTEM Refer to clinic/hospital department * (ABNORMAL) CBC WITH DIFFERENTIAL (03/09/2007 6:30 AM COMMUNITY OUTREACH WORKER) WBC 6.8 4.0 - 9.8 K/uL INTERFACE [...] 12.4 fL INTERFACE SYSTEM 03/09/2007 6:30 AM COMMUNITY OUTREACH WORKER us Rosas Koo MD HEMATOLOGY ORDERABLES Ed ited INTERFACE SYSTEM Refer to clinic/hospital department * (ABNORMAL) BASIC METABOLIC PANEL (03/09/2007 6:30 AM COMMUNITY OUTREACH WORKER) GLUCOSE 113(H) 65 - 99 mg/dL INTERFACE [...] available on the [facility] Intranet at: http://beth israel deaconess hospitalLive Youth Sports Networkatrium health lev[facility] children's bever[facility] knight olson children’s hospitalet/unity/[email or web address] Select: Lab Policies and Procedures Select: Reference Ranges - GFR 03/09/2007 6:30 AM COMMUNITY OUTREACH WORKER Rosas Koo MD CHEMISTRY ORDERABLES Marlon vijay Performing Organization Address City/[facility]/ZIP Co de Phone Number INTERFACE SYSTEM Refer to clinic/hospital department * CBC WITH DIFFERENTIAL (03/05/2007 12:54 PM COMMUNITY OUTREACH WORKER) NEUTROPHIL ABSOLUTE 4.58 1.90 - 7.00 K/uL [...] Rev. INTERFACE SYSTEM 03/05/2007 12:5 4 PM COMMUNITY OUTREACH WORKER Rosas Koo MD HEMATOLOGY ORDERABLES Ed ited Performing Organization Address [facility] de Phone Number INTERFACE SYSTEM Refer to clinic/hospital department * CBC WITH DIFFERENTIAL (03/05/2007 12:54 PM COMMUNITY OUTREACH WORKER) WBC 8.8 4.0 - 9.8 K/uL INTERFACE [...] K/uL INTERFACE SYSTEM 03/05/2007 12:5 4 PM COMMUNITY OUTREACH WORKER Rosas Koo MD HEMATOLOGY ORDERABLES Ed ited Performing Organization Address [facility] Phone Number INTERFACE SYSTEM Refer to clinic/hospital department * (ABNORMAL) BASIC METABOLIC PANEL (03/05/2007 12:54 PM COMMUNITY OUTREACH WORKER) GLUCOSE 97 65 - 99 mg/dL INTERFACE [...] available on the [facility] Intranet at: http://[facility] deaconess hospitalLive Youth Sports Networkatrium health lev[facility] children's bever[facility] knight olson children’s hospitalet/[employer]/[email or web address].nsf Select: Lab Policies and Procedures Select: Reference Ranges - GFR 03/05/2007 12:5 4 PM COMMUNITY OUTREACH WORKER Rosas Koo MD CHEMISTRY ORDERABLES Marlon vijay Performing Organization Address [facility] de Phone Number INTERFACE SYSTEM Refer to clinic/hospital department documented in this encounter Visit Diagnoses Diagnosis Hernia of unspecified site of abdominal cavity without mention of obstruction or gangrene documented in this encounter
--- OUTSIDE RECORDS SUMMARY | 2025-03-09 08:58 | XMS_ITS | Encounter Summary ---
Author Organization [facility] Health Address [address] [place] [address] Care Team Providers Care Insurance Representative Name Role Phone Deep Morris MD Unavailable [phone] Kip Camacho Primary Care Provider + Rob Chavez MD Primary Care Provider [phone] eMd Morel MD Unavailable [phone] Encounter Details Date Type Department Care [...] on file Legal Sex Female 2:09 PM MAILING SECTION CLERK Gender Identity Not on file Sexual Orientation Not on file Occupation Industry Job Start Date Job End Date Retired Not on file Not on file Not on file documented as of this encounter Plan of Treatment Not on file documented as of this encounter Visit Diagnoses Not on filedocumented in this encounter Care Teams Insurance Representative Relationship Specialty Start Date End Date Kip Camacho PA [facility] [place] [address] PCP - General Physician Cnc Technician 11/17/16 03/21/22 Rob Chavez MD [address] [place], [place] [phone] PCP - General Gastroenterology 03/22/22 Deep Morris MD Neurological Surgery 11/02/11 Med Morel MD [address] [place] [address] Cardiology 04/08/22 documented as of this encounter
--- OUTSIDE RECORDS SUMMARY | 2025-03-09 08:58 | XMS_ITS | Clinical Summary ---
Author Organization [facility] Address [address] [address] Phone Care Team Providers Care Gas Technician Name Role Phone Unavailable Primary Care Provider Unavailabl e Social History Tobacco Use Types Packs/Day Years Used Date Smoking Tobacco: Never Assessed Comments Unknown Sex and Gender Information Value Date Recorded Sex Assigned at Not on file Legal Sex Female 5:29 AM CORPORATE WELLNESS COORDINATOR Gender Identity Not on file Sexual [...]
[2025-03-09 09:30] LABS: Alanine Aminotransferase 29 U/L (6-35); Albumin Level 4.3 g/dL (3.5-5.1); Alkaline Phosphatase 89 U/L (38-126); Anion Gap 12 mmol/L (4-12); Aspartate Amino Transferase 41 U/L (14-36); Bilirubin,Total 0.5 mg/dL (0.2-1.3); Blood Urea Nitrogen 28 mg/dL (7-17); Calcium 9.7 mg/dL (8.4-10.2); Carbon Dioxide 20 mmol/L (22-30); Chloride 98 mmol/L (98-107); Estimated CRCL calculation 20 ml/min; Estimated Glomerular Filt Rate 29; Glucose 69 mg/dL (65-110); Potassium 5.3 mmol/L (3.4-5.0); Sodium 130 mmol/L (137-145); Total Protein 7.3 g/dL (6.3-8.2)
[2025-03-09 09:41] LABS: Hematocrit 30.3 % (37.0-47.0); Hemoglobin 9.7 g/dL (12.0-15.0); Immature Granulocyte Percent A 0.6 % (0-0.5); Lymphocytes Absolute Auto 1.53 K/mm3 (0.9-3.2); Mean Corpuscular HGB Conc 32.0 g/dl (32-36); Mean Corpuscular Hemoglobin 30.6 pg (26-34); Mean Corpuscular Volume 95.6 fl (80-100); Nucleated Red Blood Cells Absolute Auto 0.000 K/mm3 (0.0-0.012); Nucleated Red Blood Cells Perc 0.0 % (0.0-0.2); Platelet Count Result 411 k/mm3 (150-375); Red Blood Count 3.17 M/mm3 (4.2-5.4); White Blood Count 12.0 K/mm3 (4.5-10.0)
[2025-03-09] MEDS: SODIUM CHLORIDE 0.9% IV 1,000 ML 999 ML IV CONT (10:59)
--- NOTE | 2025-03-09 11:31 | P.HP_ITS ---
H&P: HPI History of Present Illness Date/Time: 03/09/25 11:31 Chief Complaint: Enterocutaneous fistula, obstipation, acute kidney injury Narrative: Patient is a 69-year-old female who is well known to me. She was in the hospital for about 3 weeks with abdominal wall infection with infected mesh and seen to developed a low output enterocutaneous fistula. She was discharged from the hospital last week with a wound VAC in place hoping to improve her nutrition and have more time between her last surgery and laparotomy to take down her any takes fistula remove infected abdominal wall mesh. She was [facility] late last week and there was more so small bowel succus drainage and so the wound VAC was discontinued and a ostomy appliance was placed onto the wound. Unfortunately overnight the ostomy appliance started leaking and the patient came to the emergency room. She states she is then somewhat dizzy. She has been trying to eat and drink and has not passed any flatus or bowel movement since she left the hospital. She thinks it has been about 6 days she has had a bowel movement. In the emergency room her potassium was 5.1. Creatinine was elevated at 1.71. [place] 114[address]. All the indicators suggested she had acute dehydration and acute kidney injury. I came to the emergency room and evaluated the wound. No bowel was seen at the bottom of the wound but there is mesh and succus draining through the mesh. Does not have any abdominal wall cellulitis. She has appears to be mildly distended but has no generalized peritoneal signs. She is being admitted to the hospital for management of the acute dehydration acute kidney injury as well as ostomy care to stop the leaking around the ostomy appliance. She has denied have any nausea or vomiting. Review of Systems Review of Systems: The remainder of the review of systems to include constitutional, HEENT, car diovascular, respiratory, GI, , integumentary, musculoskeletal, endocrine, immunologic, hematologic, psychiatric, and neurologic are all negative except for which is mentioned above in the HPI. Meds Home Medications and Allergies Allergies Allergy/AdvReac Type Severity Reaction Status Date / Time No Known Allergies Allergy Verified 03/09/25 06:45 Vital Signs Vital Signs - 24 hr 03/09/25 06:40 03/09/25 09:00 03/09/25 09:30 Temperature 36.4 C Pulse Rate 74 63 58 L Respiratory Rate 18 16 20 Blood Pressure 91/48 L 105/59 L 95/54 L Pulse Oximetry 100 99 100 Oxygen Delivery Room Air 03/09/25 10:30 03/09/25 11:05 Temperature Pulse Rate 57 L 63 Respiratory Rate 20 20 Blood Pressure 103/52 L 100/65 Pulse Oximetry 100 100 Oxygen Delivery Exam Const: General: comfortable and no acute distress HENMT: Ears: TM's normal bilaterally Face/Nose/Sinus: Normal nares present Mouth: Yes dry mucous membranes Eyes: General: appearance normal, both eyes and all related structures Sclera: sclerae normal Pupils: Equal, round and reactive pupils present EOM: EOMs intact bilaterally Neck: Neck: supple and no JVD Resp: Effort & Inspection: normal respiratory effort Auscultation: clear to auscultation bilaterally Cardio: Rate: regular rate Rhythm: regular rhythm GI: Other: Abdomen is soft and mildly distended. Right lower quadrant open abdominal wall wound. At the base of the wound barrier mesh is noted with succus draining around or through the mesh. No bowel is visible at the bottom of the wound. There is minimal irritation of skin around the wound. There is no erythema of the abdominal wall and some mild tenderness around the area but no generalized peritoneal signs. Skin: General skin exam: normal color and no rashes or lesions noted Neuro: General: gait normal Speech: normal speech Motor exam (neuro): 5/5 motor strength present throughout Sensory Exam: normal sensation Extrem: General: normal to inspection Psych: Mental Status: mental status grossly normal Affect: normal affect Results Labs Labs: Short CBC 03/09/25 Range/Units 09:08 WBC 12.0 H (4.5-10.0) K/mm3 Hgb 9.7 L (12.0-15.0) g/dL Hct 30.3 L (37.0-47.0) % Plt Count 411 H (150-375) k/mm3 BMP 03/09/25 09:08 Sodium 130 L Potassium 5.3 H Chloride 98 Carbon Dioxide 20 L BUN 28 H Creatinine 1.71 H Glucose 69 Calcium 9.7 Liver Function 03/09/25 Range/Units 09:08 Total Bilirubin 0.5 (0.2-1.3) mg/dL AST 41 H (14-36) U/L ALT 29 (6-35) U/L Alkaline Phosphatase 89 (38-126) U/L Albumin 4.3 (3.5-5.1) g/dL Assessment and Plan Assessment and plan (1) Enterocutaneous fistula: Code(s): K63.2 - Fistula of intestine Status: Acute Assessment and Plan: 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 She had previous robotic assisted laparoscopic recurrent incisional hernia repair with mesh about 1 month ago. She developed EC fistula and the foreign body mesh is keeping the fistula open. The mesh is infected. Portions of the old infected mesh were removed and draining of the abscess in the abdominal wall and the most recent mesh is in place. There is succus draining through the mesh or around the mesh. Clinically she appears to have control d rainage of the fistula external to an ostomy bag. CT scan of the the pelvis without contrast is pending. Will keep her in the hospital and I did change the ostomy appliance at the bedside and presently it is not leaking around the ostomy appliance. Her albumin is 4.1. Is better than when she was in the hospital so she is been able to maintain her nutrition. We will keep her on full liquids for right now with Ensure high-protein supplements. She might need to have surgery while she is admitted during this hospitalization. (2) Acute kidney injury: Code(s): N17.9 - Acute kidney failure, unspecified Status: Acute Assessment and Plan: Patient's creatinine is 1.71. Likely due to acute dehydration from her EC fistula. Will need hydrated with IV fluids and monitor her kidney function. Potassium is 5.1. Will monitor this level as well and if her acute renal injury does not improve then will need to consult nephrology and take steps to lower her potassium if it becomes critical. (3) Obstipation: Code(s): K59.00 - Constipation, unspecified Status: Acute Assessment and Plan: CT scan abdomen pelvis has been ordered. Will assess her stool burden. If there is no contraindication then use of laxatives and suppositories and enemas will be ordered.
[2025-03-09] MEDS: HYDROcodone/acetaminophen (*CRX) 5-325 MG TABLET 1 TAB PO (11:58)
[2025-03-09] MEDS: PANTOPRAZOLE SODIUM IV 40 MG VIAL IV PUSH (11:58)
[2025-03-09] MEDS: BISACODYL 10 MG SUPPOSITORY RECTAL (11:58)
[2025-03-09] MEDS: FLUCONAZOLE 150 MG TABLET PO (11:59)
[2025-03-09] MEDS: SULFAMETHOXAZOLE/TRIMETHOPRIM 800/160 MG DS TABLET 1 TAB PO ×2 (11:59→20:42)
[2025-03-09] MEDS: ENOXAPARIN 30 MG/0.3 ML SYRINGE SUB-Q (11:59)
--- NOTE | 2025-03-09 12:54 | WPCEDHO ---
ED Hand Off Checklist All vitals saved:y IV Site documented:y All med administrations documented:y Triage Note Triage Note Patient arrives ambulatory with 03/09/25 06:40 cc of I need by colostomy bag changed and they didn't teach me how to change it. I have also not had much of a BM since the surgery. Patients states she had a recent surgery by here at this facility and colostomy placed. Patient states she did not receive any teaching on how to change her bag and she is requesting a bag change since it doesn't seem to be sticking and the liquid is going onto my skin. Patient requesting education on her colostomy as well. Patient also states she has had decrease in BM and not sure I even had one since the surgery. Patient states she feels bloated and has had some discomfort to her abd as well as nausea. Allergies No Known Allergies Allergy (Verified 03/09/25 06:45) Current Diagnoses Constipation, unspecified (03/09/25) Fistula of intestine (03/09/25) Acute kidney failure, unspecified (03/09/25) Active Medications including assessments/comments Hydrocodone Bitart/Acetaminophen (Hydrocodone/Acetaminophen (*Crx) 5-325 Mg Tablet) 1 tab PO ONCE PRN PRN Reason: moderate pain 4-6 Last Admin: 03/09/25 11:58 Dose: 1 tab Documented By: MIRIAM PARRA Pain Assessment Document 03/09/25 11:58 MIRIAM (Rec: 03/09/25 11:59 MIRIAM [id number]) Pain Evaluation Pain Evaluation Assessment Pain Scale Pain Scale Used Numeric (1 - 10) Self Report Pain Assessment Reported Pain Level 8 Pain Location Lower Modifier Pain Location Abdomen Pain Score Pain Score 8: Self Report Fluconazole (Fluconazole 150 Mg Tablet) 150 mg PO DAILY [facility] Last Admin: 03/09/25 11:59 Dose: 150 mg Documented By: MIRIAM Administered/Completed Medications Discontinued Medications Bisacodyl (Bisacodyl 10 Mg Suppository) 10 mg RECTAL ONCE ONE Stop: 03/09/25 11:24 Last Admin: 03/09/25 11:58 Dose: 10 mg Documented By: MIRIAM Enoxaparin Sodium (Enoxaparin 30 Mg/0.3 Ml Syringe) 30 mg SUB-Q ONCE ONE Stop: 03/09/25 11:46 Last Admin: 03/09/25 11:59 Dose: 30 mg Documented By: LEV Sodium Chloride (Normal Saline Iv) 1,000 mls @ 999 mls/hr IV CONT .Q1H1M STA Stop: 03/09/25 11:54 Last Infusion: 03/09/25 12:14 Dose: Infused Documented By: Admin: 03/09/25 10:59 Dose: 999 mls/hr Documented By: LEV Pantoprazole Sodium (Pantoprazole Sodium Iv 40 Mg Vial) 40 mg IV PUSH ONCE ONE Stop: 03/09/25 11:46 Last Admin: 03/09/25 11:58 Dose: 40 mg Documented By: LEV Trimethoprim/Sulfamethoxazole (Sulfamethoxazole/Trimethoprim 800/160 Mg Ds Tablet) 1 tab PO ONCE ONE Stop: 03/09/25 11:36 Last Admin: 03/09/25 11:59 Dose: 1 tab Documented By: MIRIAM Interventions/Assessments IV / Saline Lock, Insert Start: 03/09/25 06:35 Freq: Status: Active Protocol: Document 03/09/25 10:59 LEV (Rec: 03/09/25 10:59 LEV [id number]) IV Assessment Peripheral Access Left Antecubital IV Catheter Access Initiated IV Insertion Date 03/09/25 IV Insertion Time 10:59 Catheter Gauge 20 IV Insertion 1 Attempts Ultrasound Used for No Placement IV Site Assessment WNL IV Care and WNL Maintenance Last Vital Signs Temperature 97.6 F 03/09/25 06:40 Pulse Rate 59 L 03/09/25 12:45 Respiratory Rate 20 03/09/25 12:45 Pulse Oximetry 100 03/09/25 12:45 Blood Pressure 100/84 03/09/25 12:45 Blood Pressure Mean 89 03/09/25 12:45 Blood Pressure Position Supine 03/09/25 12:45 Oxygen Delivery Room Air 03/09/25 06:40 Weight 45.4 kg 03/09/25 06:40 Last Result - Abnormals Only WBC 12.0 K/mm3 (4.5-10.0) H 03/09/25 09:08 RBC 3.17 M/mm3 (4.2-5.4) L 03/09/25 09:08 Hgb 9.7 g/dL (12.0-15.0) L 03/09/25 09:08 Hct 30.3 % (37.0-47.0) L 03/09/25 09:08 RDW 14.6 % (11.5-14.5) H 03/09/25 09:08 Plt Count 411 k/mm3 (150-375) H 03/09/25 09:08 MPV 10.9 fl (7.4-10.4) H 03/09/25 09:08 Immature Gran % (Auto) 0.6 % (0-0.5) H 03/09/25 09:08 Neut % (Auto) 77.8 % (45.5-73.1) H 03/09/25 09:08 Lymph % (Auto) 12.7 % (18.3-44.2) L 03/09/25 09:08 [place] # (Auto) 0.9 K/mm3 (0.1-0.6) H 03/09/25 09:08 Abs Immat Gran (auto) 0.07 K/mm3 (0.00-0.031) H 03/09/25 09:08 Absolute Neuts (auto) 9.3 K/mm3 (1.3-6.7) H 03/09/25 09:08 Sodium 130 mmol/L (137-145) L 03/09/25 09:08 Potassium 5.3 mmol/L (3.4-5.0) H 03/09/25 09:08 Carbon Dioxide 20 mmol/L (22-30) L 03/09/25 09:08 BUN 28 mg/dL (7-17) H 03/09/25 09:08 Creatinine 1.71 mg/dL (0.7-1.0) H 03/09/25 09:08 Estimated GFR 29 (59-) L 03/09/25 09:08 AST 41 U/L (14-36) H 03/09/25 09:08 Most Recent Suicide Severity Rating Suicide Severity Rating NO RISK INDICATED 03/09/25 06:40
[2025-03-09] MEDS: SODIUM CHLORIDE 0.9% IV 1,000 ML 130 ML IV CONT (14:22)
--- NOTE | 2025-03-09 15:42 | ED.GENADULT ---
HPI - General Adult General Chief complaint: Recheck/Abnormal Lab/Rx Stated complaint: colostomy bag change, decreased BM? Time Seen by Provider: 03/09/25 08:40 Source: patient Mode of arrival: ambulatory Limitations: no limitations History of Present Illness HPI narrative: 69-year-old status post colostomy for enterocutaneous fistula discharge from the hospital with 6 days ago not had bowel movement since the time she was discharged to home. The patient states that she has been taking MiraLax as prescribed she also complains of mild nausea. She denies any fever or chills however since last night she has been having leakage around the colostomy bag and she states that she was not trained to change the bag . She called Dr. Flores prior to the arrival Onset (ago): day(s) (1) Severity: moderate Pain Consistency: constant Relieving factors: none Associated symptoms: denies other symptoms Related Data Home Medications ?Medication ?Instructions ?Recorded ?Confirmed ?Last Taken ?Type cyclobenzaprine 10 mg tablet 10 mg PO .twice daily PRN pain 03/09/25 03/09/25 03/08/25 History ergocalciferol (vitamin D2) 1,250 1,250 mcg PO WEEKLY 03/09/25 03/09/25 03/07/25 History mcg (50,000 unit) capsule gabapentin 300 mg capsule 300 mg PO .twice daily 03/09/25 03/09/25 03/08/25 History hydrocodone 10 mg-acetaminophen 1 tablet PO TID PRN pain 03/09/25 03/09/25 03/08/25 History 325 mg tablet linaclotide 290 mcg capsule 290 mcg PO DAILY 03/09/25 03/09/25 03/08/25 History (Linzess) losartan 100 mg tablet 100 mg PO DAILY 03/09/25 03/09/25 03/08/25 History metoprolol succinate 50 mg 50 mg PO DAILY 03/09/25 03/09/25 03/08/25 History tablet,extended release 24 hr mirtazapine 15 mg tablet 15 mg PO .bedtime 03/09/25 03/09/25 03/08/25 History pantoprazole 40 mg tablet,delayed 40 mg PO DAILY 03/09/25 03/09/25 03/08/25 History release ropinirole 1 mg tablet 1 mg PO .bedtime 03/09/25 03/09/2525 History simvastatin 40 mg tablet 40 mg PO DAILY 03/09/25 03/09/25 03/08/25 History umeclidinium 62.5 mcg-vilanterol 1 inh inhalation Q24H 03/09/25 03/09/25 03/08/25 History 25 mcg/actuation powdr for inhalation (Anoro Ellipta) Allergies Allergy/AdvReac Type Severity Reaction Status Date / Time No Known Allergies Allergy Verified 03/09/25 13:41 Review of Systems Review of Systems: All systems reviewed & are unremarkable except as noted in HPI and below Constitutional: Constitutional: Reports no additional constitutional complaints Eyes: Eyes: Reports no additional eye complaints ENT: Reports system reviewed and no additional complaints, except as documented Cardiovascular: Cardiovascular: Reports no additional cardiovascular complaints Respiratory: Respiratory: Reports no additional respiratory complaints Gastrointestinal: Gastrointestinal: Reports as per HPI Musculoskeletal: Musculoskeletal: Reports no additional musculoskeletal complaints Integumentary/Breasts: Skin/Breast: Reports system reviewed and no additional complaints, except as docu Neurologic: Reports system reviewed and no additional complaints, except as documented PMFSH Social History Social History Smoking status: Former smoker Tobacco type: cigarettes Alcohol intake: never Substance use: never Substance use type: does not use Spiritual care concerns: No Exam Narrative: GENERAL: Well-appearing, well-nourished, and in no acute distress. HEAD: Normocephalic, atraumatic. EYES: PERRLA and EOMI. ENT: Nares clear, no rhinorrhea or epistaxis. Mucous membranes moist. NECK: Supple. CHEST: Clear to auscultation. No respiratory distress. HEART: Regular rate and rhythm. No murmur heard. Normal peripheral pulses. ABDOMEN: Soft, has a colostomy bag ( i saw the pt after the bag was changed ) EXTREMITIES: Normal range of motion. No edema. SKIN: Warm, dry, no rash. NEURO: No focal deficits. Alert and oriented x3. PSYCH: Normal mood and affect. Course Course Emergency Course: pt was seen by DR. Flores here in the ER changed the bag , recommended CT abd and admit Vital Signs Vital signs: Vital Signs Temperature 36.4 C 03/09/25 06:40 Pulse Rate 74 03/09/25 06:40 Respiratory Rate 18 03/09/25 06:40 Blood Pressure 91/48 L 03/09/25 06:40 Pulse Oximetry 100 03/09/25 06:40 Oxygen Delivery Room Air 03/09/25 06:40 Temperature 36.8 C 03/09/25 14:00 Pulse Rate 89 03/09/25 14:00 Respiratory Rate 16 03/09/25 14:00 Blood Pressure 101/65 03/09/25 14:00 Pulse Oximetry 100 03/09/25 14:00 Oxygen Delivery Room Air 03/09/25 14:00 MDM Differential Diagnosis Differential Diagnosis: constipation , SBO Medical Records I have reviewed the following patient records and this information was taken into consideration when formulating the assessment and plan.: previous labs and previous ER visits Lab Data [facility] Lab Attestation statement: I personally reviewed the patient's lab results. 03/09/25 09:08 03/09/25 09:08 Labs: Lab Results 03/09/25 Range/Units 09:08 WBC 12.0 H (4.5-10.0) K/mm3 RBC 3.17 L (4.2-5.4) M/mm3 Hgb 9.7 L (12.0-15.0) g/dL Hct 30.3 L (37.0-47.0) % MCV 95.6 (80-100) fl MCH 30.6 (26-34) pg MCHC 32.0 (32-36) g/dl RDW 14.6 H (11.5-14.5) % Plt Count 411 H (150-375) k/mm3 MPV 10.9 H (7.4-10.4) fl Immature Gran % (Auto) 0.6 H (0-0.5) % Neut % (Auto) 77.8 H (45.5-73.1) % Lymph % (Auto) 12.7 L (18.3-44.2) % [place] % (Auto) 7.8 (2.6-8.5) % Eos % (Auto) 0.7 (0-4.4) % Baso % (Auto) 0.4 (0.2-1.2) % Lymph # (Auto) 1.53 (0.9-3.2) K/mm3 [place] # (Auto) 0.9 H (0.1-0.6) K/mm3 Eos # (Auto) 0.1 (0-0.3) K/mm3 Baso # (Auto) 0.1 (0.0-0.1) K/mm3 Abs Immat Gran (auto) 0.07 H (0.00-0.031) K/mm3 Absolute Neuts (auto) 9.3 H (1.3-6.7) K/mm3 Absolute Nucleated RBC 0.000 (0.0-0.012) K/mm3 Nucleated RBC % 0.0 (0.0-0.2) % Sodium 130 L (137-145) mmol/L Potassium 5.3 H (3.4-5.0) mmol/L Chloride 98 (98-107) mmol/L Carbon Dioxide 20 L (22-30) mmol/L Anion Gap 12 (4-12) mmol/L BUN 28 H (7-17) mg/dL Creatinine 1.71 H (0.7-1.0) mg/dL Estim Creat Clear Calc 20 ml/min Estimated GFR 29 L (59 - ) Glucose 69 (65-110) mg/dL Calcium 9.7 (8.4-10.2) mg/dL Total Bilirubin 0.5 (0.2-1.3) mg/dL AST 41 H (14-36) U/L ALT 29 (6-35) U/L Alkaline Phosphatase 89 (38-126) U/L Total Protein 7.3 (6.3-8.2) g/dL Albumin 4.3 (3.5-5.1) g/dL Imaging Data Radiologist's impression: ITS Impressions Abdomen/Pelvis CT 03/09/25 12:17 IMPRESSION: 1. RLQ abscess decreased in size but persists. 2. Cutaneous fistulization. 3. Fistulization to underlying bowel probably also persists but poorly seen without contrast. 4. Moderate stool volume suggests constipation. Discharge Plan Discharge Clinical Impression: Obstipation, Enterocutaneous fistula Patient Disposition: Still a Patient Condition: Stable Time of Disposition: 15:50
[2025-03-09] MEDS: ONDANSETRON INJ 4 MG/2 ML VIAL IV PUSH ×2 (16:39→22:47)
[2025-03-09] MEDS: MORPHINE SULFATE (*CRX) 4 MG/ML INJ 2 MG IV PUSH ×2 (18:00→21:42)
[2025-03-10] MEDS: MORPHINE SULFATE (*CRX) 4 MG/ML INJ 2 MG IV PUSH (04:14)
[2025-03-10] MEDS: SODIUM CHLORIDE 0.9% IV 1,000 ML 130 ML IV CONT (05:45)
[2025-03-10] MEDS: ONDANSETRON INJ 4 MG/2 ML VIAL IV PUSH ×2 (05:46→11:59)
[2025-03-10] MEDS: ACETAMINOPHEN 500 MG TABLET 1000 MG PO (05:51)
[2025-03-10 06:00] VITALS: PULSE 65; RESP 20; TEMP 36.6; O2SAT 98
[2025-03-10 06:33] LABS: Hematocrit 27.8 % (37.0-47.0); Hemoglobin 8.8 g/dL (12.0-15.0); Immature Granulocyte Percent A 0.4 % (0-0.5); Lymphocytes Absolute Auto 1.30 K/mm3 (0.9-3.2); Mean Corpuscular HGB Conc 31.7 g/dl (32-36); Mean Corpuscular Hemoglobin 30.8 pg (26-34); Mean Corpuscular Volume 97.2 fl (80-100); Nucleated Red Blood Cells Absolute Auto 0.000 K/mm3 (0.0-0.012); Nucleated Red Blood Cells Perc 0.0 % (0.0-0.2); Platelet Count Result 338 k/mm3 (150-375); Red Blood Count 2.86 M/mm3 (4.2-5.4); White Blood Count 7.7 K/mm3 (4.5-10.0)
[2025-03-10 06:46] LABS: INR 1.1; Prothrombin Time 13.9 Seconds (11.1-14.7)
[2025-03-10 06:56] LABS: Alanine Aminotransferase 23 U/L (6-35); Albumin Level 3.7 g/dL (3.5-5.1); Alkaline Phosphatase 88 U/L (38-126); Anion Gap 9 mmol/L (4-12); Aspartate Amino Transferase 38 U/L (14-36); Bilirubin,Total 0.5 mg/dL (0.2-1.3); Blood Urea Nitrogen 15 mg/dL (7-17); Calcium 9.3 mg/dL (8.4-10.2); Carbon Dioxide 19 mmol/L (22-30); Chloride 105 mmol/L (98-107); Estimated CRCL calculation 34 ml/min; Estimated Glomerular Filt Rate 57; Glucose 84 mg/dL (65-110); Potassium 5.3 mmol/L (3.4-5.0); Sodium 133 mmol/L (137-145); Total Protein 6.5 g/dL (6.3-8.2)
[2025-03-10] MEDS: ENOXAPARIN 30 MG/0.3 ML SYRINGE SUB-Q (08:47)
[2025-03-10] MEDS: PANTOPRAZOLE SODIUM IV 40 MG VIAL IV PUSH (08:50)
[2025-03-10] MEDS: SULFAMETHOXAZOLE/TRIMETHOPRIM 800/160 MG DS TABLET 1 TAB PO ×2 (08:54→21:41)
[2025-03-10] MEDS: FLUCONAZOLE 150 MG TABLET PO (08:54)
[2025-03-10] MEDS: BISACODYL 10 MG SUPPOSITORY RECTAL (08:55)
[2025-03-10] MEDS: HYDROcodone/acetaminophen (*CRX) 5-325 MG TABLET 1 TAB PO ×3 (13:12→22:28)
--- NOTE | 2025-03-10 13:15 | P.PNGS_ITS ---
Progress Note: A&P Assessment and Plan (1) Enterocutaneous fistula: Code(s): K63.2 - Fistula of intestine Status: Acute Assessment and Plan: * 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 She had previous robotic assisted laparoscopic recurrent incisional hernia repair with mesh about 1 month ago. She developed EC fistula and the foreign body mesh is keeping the fistula open. The mesh is infected. There is succus draining through the mesh or around the mesh. The drainage of the fistula is currently controlled through an external opening into an ostomy bag. She continues to have issues with the ostomy appliance leaking, which sounds positional. We have consulted the wound/ostomy nurses to evaluate the patient and see if there is another option for an appliance, possibly the wound market sales manager, to improve her issues with leaking. Will continue to follow along. It would still be ideal to optimize her nutrition and overall medical condition over the next few weeks if she remains stable and plan for eventual elective surgery for removal of all of the old and new infected mesh in a few weeks. May need to proceed sooner if she has more issues. Will resume her home medications and repeat labs tomorrow. Hopefully discharge in the next 1-2 days if wound care is able to adjust her wound care and she is doing better with fluid intake. (2) Acute kidney injury: Code(s): N17.9 - Acute kidney failure, unspecified Status: Acute Assessment and Plan: * Likely related to dehydration from her EC fistula and not taking in enough fluids. Labs are improving with IV fluids. Creatinine down to 0.97. Educated the patient on appropriate fluid intake when discharged. Will decrease her IV fluids today to 75 mL/hr. Repeat labs tomorrow. (3) Obstipation: Code(s): K59.00 - Constipation, unspecified Status: Acute Assessment and Plan: * CT scan abdomen pelvis showed moderate amount of stool in the colon. She has had multiple bowel movement. Will stop the dulcolax suppositories and continue her Linzess. Plan I have discussed the patient's case, recommendations, and treatment plan with Dr. Flores. Subjective Subjective Date/Time Seen: 03/10/25 13:15 Patient reports: no new complaints, feels better, tolerating a regular diet, flatus and bowel movement Interval history: Patient reports feeling less bloated. She has had 4-5 bowel movements since admission and already one this am. She reports having an appetite but feels full quickly, so has not been eating much. She is only drinking about 500 cc daily. She also has been drinking about 1 protein shake daily. Still has some pain related to her abdominal wound, but this is unchanged. She had the ostomy appliance changed twice overnight due to leaking. She feels it is positional. She has been walking to the toilet to empty the bag in the toilet on her own. She has already done this a few times today. Exam Const: General: comfortable and no acute distress Orientation /consciousness: patient oriented x3 GI: Inspection: non-distended GI Palp: Yes Soft to palpation, Yes Tende rness to palpation present (GI) (tenderness around the RLQ abdominal wound) and No Guarding due to palpation present (GI) Auscultation: normal bowel sounds Other: RLQ open abdominal wound with ostomy appliance over the wound with gutierres drainage with sediment. Objective Data Vital Signs Vital Signs: Vital Signs - 24 hr 03/09/25 14:00 03/09/25 14:00 03/09/25 20:30 Temperature 98.2 F Pulse Rate 89 Respiratory Rate 16 Blood Pressure 101/65 Pulse Oximetry 100 Oxygen Delivery Room Air Room Air 03/09/25 21:15 03/10/25 06:00 Temperature 98.1 F 97.8 F Pulse Rate 70 65 Respiratory Rate 20 20 Blood Pressure 119/48 L Pulse Oximetry 100 98 Oxygen Delivery Intake/Output Intake/Output: Intake & Output 03/07/25 03/08/25 03/09/25 03/10/25 23:59 23:59 23:59 23:59 Intake Total 2960 1862 Balance 2960 1862 Meds/Results Medications: Active Medications Generic Name Dose Route Start Last Admin Trade Name Freq PRN Reason Stop Dose Admin Acetaminophen 1,000 mg 03/09/25 11:18 03/10/25 05:51 Acetaminophen 500 Mg Tablet PO 1,000 mg Q6H PRN Administration Mild Pain (1-3) or Fever Hydrocodone Bitart/Acetaminophen 1 tab 03/10/25 12:16 03/10/25 13:12 Hydrocodone/Acetaminophen (*Crx) 5-325 Mg Tablet PO 1 tab Q4HR PRN Administration moderate pain 4-6 Bisacodyl 10 mg 03/10/25 09:00 03/10/25 08:55 Bisacodyl 10 Mg Suppository RECTAL 10 mg QAM EMRE Administration Cyclobenzaprine HCl 10 mg 03/10/25 13:07 Cyclobenzaprine Hcl 10 Mg Tablet PO HS PRN Muscle Spasm Enoxaparin Sodium 40 mg 03/11/25 09:00 Enoxaparin 40 Mg/0.4 Ml Syringe SUB-Q DAILY [facility] Fluconazole 150 mg 03/09/25 11:35 03/10/25 08:54 Fluconazole 150 Mg Tablet PO 150 mg DAILY EMRE Administration Gabapentin 300 mg 03/10/25 13:10 Gabapentin 300 Mg Capsule PO .twice daily [facility] Sodium Chloride 1,000 mls @ 75 mls/hr 03/09/25 11:15 03/10/25 13:09 Normal Saline Iv IV CONT 75 mls/hr .[id number] EMRE Infusion Metoprolol Succinate 50 mg 03/10/25 13:10 Metoprolol Succinate Ext Rel 50 Mg Tabcr PO DAILY [facility] Mirtazapine 15 mg 03/10/25 13:10 Mirtazapine 15 Mg Tablet PO .bedtime [facility] Morphine Sulfate 2 mg 03/09/25 11:18 03/10/25 04:14 Morphine Sulfate (*Crx) 4 Mg/Ml Inj IV PUSH 2 mg Q3H PRN Administration Pain Rated 7-10 Non-Formulary Medication 200 mg 03/11/25 09:00 Fluconazole PO 04/10/25 08:59 DAILY [facility] Non-Formulary Medication 290 mcg 03/11/25 09:00 Linaclotide [Linzess] PO 04/10/25 08:59 DAILY [facility] Ondansetron HCl 4 mg 03/09/25 11:15 03/10/25 11:59 Ondansetron Inj 4 Mg/2 Ml Vial IV PUSH 4 mg Q6H EMRE Administration Pantoprazole Sodium 40 mg 03/10/25 09:00 03/10/25 08:50 Pantoprazole Sodium Iv 40 Mg Vial IV PUSH 40 mg DAILY EMRE Administration Ropinirole HCl 1 mg 03/10/25 13:10 Ropinirole Hcl 1 Mg Tablet PO .bedtime EMRE Simvastatin 40 mg 03/11/25 09:00 Simvastatin 20 Mg Tablet PO DAILY [facility] Trimethoprim/Sulfamethoxazole 1 tab 03/09/25 21:00 03/10/25 08:54 Sulfamethoxazole/Trimethoprim 800/160 Mg Ds Tablet PO 1 tab Q12HR EMRE Administration Umeclidinium/Vilanterol 1 puff 03/10/25 13:10 Umeclidinium/Vilanterol 62.5-25 Mcg Ellipta INHALATION Q24H [facility] Radiology Results: ITS Impressions Abdomen/Pelvis CT 03/09/25 12:17 IMPRESSION: 1. RLQ abscess decreased in size but persists. 2. Cutaneous fistulization. 3. Fistulization to underlying bowel probably also persists but poorly seen without contrast. 4. Moderate stool volume suggests constipation. Labs Labs: Laboratory Results - last 24 hr 03/10/25 06:22 WBC 7.7 RBC 2.86 L Hgb 8.8 L Hct 27.8 L MCV 97.2 MCH 30.8 MCHC 31.7 L RDW 14.7 H Plt Count 338 MPV 10.7 H Immature Gran % (Auto) 0.4 Neut % (Auto) 70.4 Lymph % (Auto) 16.9 L Wilkinson % (Auto) 9.9 H Eos % (Auto) 1.8 Baso % (Auto) 0.6 Lymph # (Auto) 1.30 Wilkinson # (Auto) 0.8 H Eos # (Auto) 0.1 Baso # (Auto) 0.1 Abs Immat Gran (auto) 0.03 Absolute Neuts (auto) 5.4 Absolute Nucleated RBC 0.000 Nucleated RBC % 0.0 PT 13.9 INR 1.1 Sodium 133 L Potassium 5.3 H Chloride 105 Carbon Dioxide 19 L Anion Gap 9 BUN 15 D Creatinine 0.97 Estim Creat Clear Calc 34 Estimated GFR 57 L Glucose 84 Calcium 9.3 Total Bilirubin 0.5 AST 38 H ALT 23 Alkaline Phosphatase 88 Total Protein 6.5 Albumin 3.7 Blood Type O Positive Antibody Screen Negative
[2025-03-10 13:38] VITALS: PULSE 73
[2025-03-10] MEDS: METOPROLOL SUCCINATE EXT REL 50 MG TABCR PO (13:38)
[2025-03-10] MEDS: SODIUM CHLORIDE 0.9% IV 1,000 ML 75 ML IV CONT (13:39)
[2025-03-10 13:48] VITALS: BP 115/55; PULSE 74; RESP 16; TEMP 36.3; O2SAT 100
[2025-03-10 20:00] VITALS: PULSE 63; RESP 16; O2SAT 100
[2025-03-10 21:39] VITALS: BP 127/70; PULSE 63; RESP 16; TEMP 37.1; O2SAT 100
[2025-03-10] MEDS: MIRTAZAPINE 15 MG TABLET PO (21:42)
[2025-03-10] MEDS: GABAPENTIN 300 MG CAPSULE PO (21:42)
[2025-03-10] MEDS: CYCLOBENZAPRINE HCL 10 MG TABLET PO (22:28)
[2025-03-11] MEDS: HYDROcodone/acetaminophen (*CRX) 5-325 MG TABLET 1 TAB PO ×2 (04:27→11:23)
[2025-03-11] MEDS: SODIUM CHLORIDE 0.9% IV 1,000 ML 75 ML IV CONT (04:30)
[2025-03-11 05:52] LABS: Hematocrit 25.1 % (37.0-47.0); Hemoglobin 7.9 g/dL (12.0-15.0); Mean Corpuscular HGB Conc 31.5 g/dl (32-36); Mean Corpuscular Hemoglobin 30.5 pg (26-34); Mean Corpuscular Volume 96.9 fl (80-100); Platelet Count Result 311 k/mm3 (150-375); Red Blood Count 2.59 M/mm3 (4.2-5.4); White Blood Count 6.0 K/mm3 (4.5-10.0)
[2025-03-11 06:00] VITALS: BP 103/54; PULSE 62; RESP 16; TEMP 37.1; O2SAT 100
[2025-03-11 06:15] LABS: Alanine Aminotransferase 19 U/L (6-35); Albumin Level 3.1 g/dL (3.5-5.1); Alkaline Phosphatase 75 U/L (38-126); Anion Gap 7 mmol/L (4-12); Aspartate Amino Transferase 31 U/L (14-36); Bilirubin,Total 0.4 mg/dL (0.2-1.3); Blood Urea Nitrogen 11 mg/dL (7-17); Calcium 8.9 mg/dL (8.4-10.2); Carbon Dioxide 18 mmol/L (22-30); Chloride 108 mmol/L (98-107); Estimated CRCL calculation 44 ml/min; Estimated Glomerular Filt Rate > 60; Glucose 82 mg/dL (65-110); Potassium 4.7 mmol/L (3.4-5.0); Sodium 133 mmol/L (137-145); Total Protein 5.7 g/dL (6.3-8.2)
[2025-03-11 09:26] VITALS: PULSE 95; RESP 18; O2SAT 96
[2025-03-11] MEDS: UMECLIDINIUM/VILANTEROL 62.5-25 MCG ELLIPTA 1 PUFF INHALATION (09:26)
[2025-03-11] MEDS: PANTOPRAZOLE SODIUM IV 40 MG VIAL IV PUSH (09:30)
[2025-03-11] MEDS: FLUCONAZOLE 150 MG TABLET PO (09:31)
[2025-03-11] MEDS: SIMVASTATIN 20 MG TABLET 40 MG PO (09:31)
[2025-03-11] MEDS: FLUCONAZOLE 100 MG TABLET 200 MG PO (09:31)
[2025-03-11] MEDS: ENOXAPARIN 40 MG/0.4 ML SYRINGE SUB-Q (09:31)
[2025-03-11] MEDS: SULFAMETHOXAZOLE/TRIMETHOPRIM 800/160 MG DS TABLET 1 TAB PO (09:32)
[2025-03-11] MEDS: GABAPENTIN 300 MG CAPSULE PO (09:32)
[2025-03-11] MEDS: METOPROLOL SUCCINATE EXT REL 50 MG TABCR PO (09:34)
--- NOTE | 2025-03-11 12:56 | P.DS_ITS ---
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 Flores on 02/03/25. 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 She was discharged from the hospital on 03/04/25 with a wound VAC in place hoping to improve her nutrition and have more time between her last surgery and laparotomy to take down her fistula and remove infected abdominal wall mesh. She was seen in the [facility] as an outpatient and there was more small bowel succus drainage and so the wound VAC was discontinued and an ostomy appliance was placed onto the wound. Unfortunately, at home the ostomy appliance started leaking and the patient came to the emergency room. She also mentioned constipation with no BM x 6 days. In the emergency room her potassium was 5.1. Creatinine was elevated at 1.71. [place] [address]. All the indicators suggested she had acute dehydration and acute kidney injury. She was then admitted to the hospital for management of the acute dehydration, acute kidney injury as well as ostomy care to stop the leaking around the ostomy appliance. Hospital Course: She was started on IV fluids for her SKY and labs were monitored. She also had bowel stimulation with suppositories, which resulted in multiple bowel movements relieving her constipation. She typically takes Linzess, which was resumed after admission. Her labs were monitored and her SKY and hyperkalemia resolved. Her WBC count normalized. She was continued on her oral antibiotics and fluconazole while hospitalized. Wound care/ostomy nurses were consulted for her issues with the appliance leaking. She was switched to a larger appliance that connects to a leg drainage bag yesterday. This stayed in place overnight and has kept a better seal. She has not had any additional issues with leaking. She is stable for discharge and instructions were discussed in detail. She will need to take in more fluids at home and she was instructed to do so on multiple occasions. She is set up for a follow-up in the wound clinic on Monday to recheck her wound/bag. Status at Discharge Functional status at discharge: independent ambulation Overall status at discharge: patient is progressing back to baseline Time Spent with Patient Time attestation: Total time spent providing and/or coordinating discharge services: Time spent: Greater than 30 minutes Exam Const: General: comfortable and no acute distress Orientation/consciousness: patient oriented x3 GI: Inspection: non-distended GI Palp: Yes Soft to palpation, Yes Tenderness to palpation present (GI) (tenderness near the RLQ abdominal wound), No Guarding due to palpation present (GI) and No Rebound tenderness present Percussion: Yes normal to percussion Auscultation: normal bowel sounds Rectal Exam: deferred Other: RLQ open abdominal wound with ostomy appliance over the wound with gutierres drainage with sediment. DS: Data Data Completed and Pending Labs on day of discharge: Labs from last 24 hours 03/11/25 05:26 WBC 6.0 RBC 2.59 L Hgb 7.9 L Hct 25.1 L MCV 96.9 MCH 30.5 MCHC 31.5 L RDW 14.6 H Plt Count 311 MPV 10.7 H Sodium 133 L Potassium 4.7 Chloride 108 H Carbon Dioxide 18 L Anion Gap 7 BUN 11 Creatinine 0.73 Estim Creat Clear Calc 44 Estimated GFR > 60 Glucose 82 Calcium 8.9 Total Bilirubin 0.4 AST 31 ALT 19 Alkaline Phosphatase 75 Total Protein 5.7 L Albumin 3.1 L Imaging Radiologist's impression: ITS Impressions Abdomen/Pelvis CT 03/09/25 12:17 IMPRESSION: 1. RLQ abscess decreased in size but persists. 2. Cutaneous fistulization. 3. Fistulization to underlying bowel probably also persists but poorly seen without contrast. 4. Moderate stool volume suggests constipation. Discharge Plan Discharge Attending physician on discharge: Herbert Flores Discharging Clinician: Vika Patel Anticipated Discharge Date/Time: 03/11/25 13:12 Patient Disposition: Home Activity: no shower and other - see discharge instructions Diet: as tolerated and regular Wound Care Instructions: keep dressing dry Discharge Instructions: * You have an appliance over your abdominal wound. Only change this if needed if it starts leaking. Then you should cut the center of the appliance as the wound care nurses instructed and fit it to your wound. They gave you written instructions for this during your hospital stay. Keep these instructions for reference. * The wound appliance should stay dry. DO NOT SHOWER. You may sponge bathe. * Continue taking the fluconazole and sulfamethoxazole/trimethoprim as prescribed with follow-up with Infectious Disease as scheduled. * You have labs that were ordered the last time you were in the hospital. Those labs were scheduled for next week, so please get those labs drawn next week at [facility]. * Follow-up: You have follow-up scheduled in the [facility] at 9:30 am on March 14. Call sooner with questions or concerns. * You were dehydrated on this hospital stay. Make sure that you are drinking plenty of fluids. This can include water but should also include electrolyte drinks. * Continue to hold your Losartan until your see your primary care provider. Your blood pressure was still on the low end of normal during this hoptalization. Patient Instructions: Antibiotic Form, Pain Management in Older Adults ([place]) Patient Language: Citizen Of [place] Stand Alone Forms: General Discharge Information Follow-up/Referrals: Jamey Flower MD [Primary Care Provider, Family Practice] Herbert Folres MD [Physician, General Surgery] - Keep Reg. Scheduled Appt. Discharge Medications: Continued ergocalciferol (vitamin D2) 1,250 mcg (50,000 unit) capsule 1,250 mcg PO WEEKLY Rx Instructions: weekly on Monday metoprolol succinate 25 mg tablet extended release 24 hr 50 mg PO DAILY sulfamethoxazole-trimethoprim 800-160 mg Tablet 1 tablet PO Q12HR Qty: 84 0RF Rx Instructions: Take one tablet by mouth twice a day. fluconazole 200 mg tablet 200 mg PO DAILY Qty: 42 0RF cyclobenzaprine 10 mg tablet 10 mg PO HS PRN (Reason: muscle spasm) simvastatin 40 mg tablet 40 mg PO DAILY gabapentin 300 mg capsule 300 mg PO .twice daily ropinirole 1 mg tablet 1 mg PO .bedtime Patient Comments: pt take one tablet at night hydrocodone-acetaminophen 10-325 mg tablet 1 tablet PO TID PRN (Reason: pain) pantoprazole 40 mg tablet,delayed release (DR/EC) 40 mg PO DAILY mirtazapine 15 mg tablet 15 mg PO .bedtime Linzess 290 mcg capsule 290 mcg PO DAILY umeclidinium-vilanterol [Anoro Ellipta] 62.5-25 mcg/actuation blister with device 1 inh INHALATION Q24H Held losartan 100 mg tablet 100 mg PO DAILY Hold Instructions: Hold until you see your PCP Date of admission: 03/09/25 11:12 Primary Care Provider: Jamey Flower Admitting Provider: Herbert Flores Attending physician on admission: Herbert Flores Condition: Stable
[2025-03-11 13:20] VITALS: BP 119/57; PULSE 71; RESP 18; O2SAT 94
[2025-03-11 14:00] VITALS: BP 104/69; PULSE 75; RESP 16; TEMP 37.1; O2SAT 98
== END 2025-03-11 17:00 | disposition home or self-care (01) | DRG 394 ==
LOC: ANHED 12:44 → ANH3MEDSUR 12:57
PROVIDERS: Nurse Practitioner Family; Admitting Provider Surgery; Emergency Provider Family Medicine; PCP Emergency Medicine; Visit Provider Surgery
DX: K94.03 Colostomy malfunction (principal); K63.2 Fistula of intestine; N17.9 Acute kidney failure, unspecified; E86.0 Dehydration; K59.00 Constipation, unspecified; E87.5 Hyperkalemia; Z79.891 Long term (current) use of opiate analgesic; Z87.891 Personal history of nicotine dependence; Z87.19 Personal history of other diseases of the digestive system
CPT/HCPCS: 36415; 74176; 80053; 85025; 85027; 85610; 86850; 86900; 86901; 94640; 99285; A9270; J1650; J2270; J2405; J2470; J7030

== ENCOUNTER 2025-03-14 09:46 | Outpatient (CLI) | payer MEDICARE, MEDICAID, SELFPAY ==
[2025-03-14 11:10] LABS: Alanine Aminotransferase 21 U/L (6-35); Albumin Level 3.7 g/dL (3.5-5.1); Alkaline Phosphatase 73 U/L (38-126); Anion Gap 10 mmol/L (4-12); Aspartate Amino Transferase 34 U/L (14-36); Bilirubin,Total 0.3 mg/dL (0.2-1.3); Blood Urea Nitrogen 12 mg/dL (7-17); Calcium 9.8 mg/dL (8.4-10.2); Carbon Dioxide 18 mmol/L (22-30); Chloride 106 mmol/L (98-107); Estimated Glomerular Filt Rate > 60; Glucose 114 mg/dL (65-110); Potassium 4.8 mmol/L (3.4-5.0); Sodium 134 mmol/L (137-145); Total Protein 6.6 g/dL (6.3-8.2)
== END 2025-03-14 09:47 | disposition home or self-care (01) ==
PROVIDERS: PCP Emergency Medicine
DX: R74.01 Elevation of levels of liver transaminase levels (principal)
CPT/HCPCS: 36415; 80053